=== PATIENT | female | born 1975 | race Caucasian/White ===

== ENCOUNTER 2016-11-10 16:18 | Emergency (ER) | payer MEDICARE, MEDICAID ==
[~2016-11-10] VITALS: Ht 162.6 cm; Wt 98.8 kg
[~2016-11-10 16:18] MED LIST: ACET-62 PO; ALBU8.5H INH; ASPI81TA2 PO; BENZ1TAB7 PO; CLON1TAB4 PO; FLUT9.9S NAS; LAMO200T49 PO; LORA1TAB3 PO; MELO-267 PO; NITR0.4T SL; OMEP40CA52 PO; OXYC1TAB13 PO; POTA20TA87 PO; RISP2TAB22 PO; SUCR1TAB PO; TIOT4MIS5 INH; VERA80TA5 PO
[2016-11-10 16:20] VITALS: Ht 162.6 cm; Wt 98.8 kg
--- OUTSIDE RECORDS SUMMARY | 2016-11-10 16:23 | XMS REPORT | Continuity of Care Document ---
Author Author [facility] Organization [facility] Address Unknown Phone Unavailable Care Team Providers Care Route Aide Name Role Phone JUNIE ESTRADA MD Primary Care Physician Unavailable Insurance Providers Payer Name Policy Number Subscriber Name Relationship Medicare [id number] Jessica Osborne 20 Self Medicaid [id number] Jessica Osborne 20 Self Advance Directives Directive Response Recorded Date/Time Advanced Directives Type None 05/14/14 3:21pm Problems Medical Problems Problem Onset Date Status Dysuria Unknown Active Exposure to STD Unknown Active Anxiety Unknown Active Headache Unknown Active Anxiety Unknown Active Dehydration Unknown Active Bipolar disorder Unknown Active Panic attack Unknown Active Stress Unknown Active Anxiety Unknown Active Chest pain Unknown Active ALCOHOL AND DRUG INTOXICATION Unknown Active Depression Unknown Active Gastroenteritis presumed infectious Unknown Active Anxiety Unknown Active Low back pain with sciatica Unknown Active Low back pain with sciatica Unknown Active Neck muscle strain Unknown Active History of urinary retention Unknown Active Contusion of head Unknown Active Neck muscle strain Unknown Active Right flank pain Unknown Active Sinusitis Unknown Active Sinusitis Unknown Active Allergic reaction Unknown Active Allergic reaction Unknown Active Medications Medication Dose Route Sig Days/Qty Instructions Order Date Discontinued Date Status Clonazepam 2 Mg PO THREE TIMES A DAY 05/30/10 06/18/11 Discontinued Gabapentin 600 Mg PO FOUR TIMES DAILY 10/21/08 11/18/09 Discontinued Metformin Hcl 500 Mg PO THREE TIMES A DAY 11/18/09 12/25/09 Discontinued [Antibiotic] 02/16/09 03/25/09 Discontinued Phentermine Hcl 02/16/09 03/25/09 Discontinued Alprazolam 2 Mg PO NEEDED 03/25/09 06/07/09 Discontinued Benztropine Mesylate DAILY OR BID 03/27/09 06/07/09 Discontinued Tramadol Hcl 03/27/09 06/07/09 Discontinued Diazepam THREE TIMES A DAY 03/27/09 06/07/09 Discontinued Methocarbamol 750 Mg PO QIDPRN 06/07/09 11/18/09 Discontinued Etodolac 400 Mg PO TIDPRN 06/07/09 11/18/09 Discontinued Fluphenazine Hcl 5 Mg PO BIDPRN 06/07/09 11/18/09 Discontinued Metronidazole TWICE A DAY 06/18/09 11/18/09 Discontinued Oxycodone Hcl/Acetaminophen Every 6 Hours 06/18/09 11/18/09 Discontinued Meloxicam 15 Mg PO DAILY 05/30/10 03/05/11 Discontinued Cyclobenzaprine Hcl 10 Mg PO TWICE A DAY 02/11/10 04/23/10 Discontinued Atenolol 25 Mg PO DAILY 04/23/10 05/30/10 Discontinued Hydrochlorothiazide 12.5 Mg PO DAILY 05/30/10 03/05/11 Discontinued Tizanidine Hcl 4 Mg PO DAILY 05/30/10 09/26/10 Discontinued Amox Tr/Potassium Clavulanate 1 Tab PO TWICE A DAY 04/23/10 Discontinued Paliperidone 1 DAILY 09/26/10 10/14/10 Discontinued Cyclobenzaprine Hcl 10 Mg PO NEEDED 09/26/10 06/18/11 Discontinued [Cholesterol Med] 1 DAILY 09/26/10 03/05/11 Discontinued [Bp Med] 09/26/10 03/05/11 Discontinued Fenofibrate Nanocrystallized 145 Mg PO DAILY 10/14/10 03/05/11 Discontinued Metoprolol Tartrate 25 Mg PO TWICE A DAY 10/14/10 01/19/12 Discontinued Hydrocodone Bit/Acetaminophen 15 Ml PO 10/14/10 03/05/11 Discontinued Gabapentin 600 Mg PO THREE TIMES A DAY 03/05/11 01/19/12 Discontinued Lorazepam 1 Mg PO NEEDED 03/30/11 05/03/11 Discontinued Haloperidol 5 Mg PO DAILY 03/30/11 05/03/11 Discontinued Meloxicam 15 Mg PO DAILY 03/30/11 05/09/11 Discontinued Tramadol Hcl 50 Mg PO NEEDED 03/30/11 05/09/11 Discontinued Multivitamins W-Minerals 1 Cap PO DAILY 03/30/11 Active Fenofibrate Nanocrystallized 145 Mg PO DAILY 03/30/11 05/09/11 Discontinued [Latuda] BEDTIME 05/09/11 06/18/11 Discontinued Diphenhydramine Hcl 50 Mg PO BEDTIME 05/09/11 06/18/11 Discontinued Buspirone Hcl 15 Mg PO TWICE A DAY 06/18/11 01/19/12 Discontinued Olanzapine 15 Mg PO BEDTIME 06/18/11 01/19/12 Discontinued Ranitidine Hcl 150 Mg PO TWICE A DAY 06/18/11 01/11/12 Discontinued Clonazepam 0.5 Mg PO THREE TIMES A DAY PRN ANXIETY/AGITATION Active Calcium Carbonate 1 Tab PO TWICE A DAY 03/11/12 Active Quetiapine Fumarate 300 Mg PO NEEDED 07/07/13 11/17/13 Discontinued Omeprazole Magnesium 20 Mg PO BEFORE BREAKFAST 11/09/13 03/13/14 Discontinued Hydroxyzine Hcl 25 Mg PO 11/09/13 11/17/13 Discontinued Hydroxyzine Hcl 100 Mg PO FOUR TIMES DAILY 11/17/13 03/13/14 Discontinued Albuterol 2.5 Mg AEROSOL NEEDED 11/17/13 Active Carisoprodol 350 Mg PO THREE TIMES A DAY 12/12/13 Active Oxycodone Hcl/Acetaminophen 1 Tab PO EVERY SIX HOURS PRN PAIN Active Omeprazole 40 Mg PO DAILY 03/13/14 Active Sucralfate 1 G PO FOUR TIMES DAILY 03/13/14 Active Topiramate 50 Mg PO BEDTIME 03/13/14 Active Haloperidol DAILY 60 Qty 04/14/14 Active Propranolol HCl TWICE A DAY 60 Qty 04/14/14 Active Gabapentin NEEDED 30 Qty 04/14/14 Active Cefdinir 1 Cap PO TWICE A DAY 10 Days 04/14/14 Active Ranitidine HCl 150 Mg PO TWICE A DAY For ALLERY SYMPTOMS 10 Qty Take 1 tablet, by mouth, 2 times a day. 05/14/14 Active Diphenhydramine HCl 1 Cap PO Q4H For ALLERY SYMPTOMS 20 Qty 05/14/14 Active Methylprednisolone 1 Pack PO weekly For ALLERY SYMPTOMS 1 Qty 05/14/14 Active Social History Social History Problem Response Recorded Date/Time Smoking Status Current every day smoker 01/29/2014 7:15pm Chewing Tobacco Status No 01/29/2014 7:15pm Hx Substance Use Y PT REPORTS "IN THE PAST" 05/14/2014 3:15pm Hx Alcohol Use Y STOPPED DRINKING A YEAR AGO 05/14/2014 3:15pm Has the pt used tobacco in the last 12 months Yes 03/13/2014 1:48pm Query Response Start Date Stop Date Smoking Status Current every day smoker Hospital Discharge Instructions Instructions: Care Instructions: Reason for Hospitalization: nephrolithiasis, dehydration I was in the hospital because (patient own words): KIDNEY STONES Discharge Diet: as per hospitalization with liberal oral fluids Discharge Activity: as per prehospitalization Follow Up Appointments: call for appointment with Dr. Rothman of [facility] for Sunday of next week. Make appointment with Dr. Conway urology with in the next one to two weeks. All other appointments with other doctors stay the same. Patient Instructions: Strain all urine at home for stones. Bring in stone to Doctor so we can send to pathology. Return to care immediately if urinary pain, abdominal pain, flank pain,fevers or chills occur. Condition at time of discharge: Good Care Plan Discharge Patient: Goal: Other Patient Instructions: see patient instructions 2.If this dressing starts peeling up slightly, it may be reinforced, if it peels excessively, notify your surgeon's office. 3.You may shower with the dressing in place, but do not submerge in water 4.Do not allow water to seep under the dressing, if it should seep under, remove the dressing and notify your surgeon. Notify Physician If: Call your Surgeon if you have: 1.Chest pain, difficulty breathing, fever>100.5 degrees, chills, heart rate >100, confusion, or persistent nausea/vomitting. 2.Severe pain, swelling, redness, or warmth in either of your legs. 3.During office hours, call [phone] 4. After hours, please call [facility] at [phone], and have the dry room operator page your Surgeon IN THE EVENT OF AN EMERGENCY, seek medical care at the nearest Emergency Room Condition at time of discharge: Good Good Plan of Care Discharge Date 03/14/14 1:30pm Instructions/Education Provided DI for Kidney Stones Amoxicillin and Clavulanic Acid Tamsulosin Prescriptions See Medications Section Functional Status Query Response Date Recorded Physical Hygiene Self May 14, 2014 3:15pm Disabilities None May 14, 2014 3:15pm Devices Used None May 14, 2014 3:15pm Dressing Self May 14, 2014 3:15pm Ambulation Self May 14, 2014 3:15pm Diet Self May 14, 2014 3:15pm Mental Status Alert Oriented May 14, 2014 3:15pm Disabilities None May 14, 2014 3:15pm Devices Used None May 14, 2014 3:15pm Physical Hygiene Self May 14, 2014 3:15pm Dressing Self May 14, 2014 3:15pm Ambulation Self May 14, 2014 3:15pm Diet Self May 14, 2014 3:15pm Allergies, Adverse Reactions, Alerts Allergen Type Severity Reaction Status Last Updated ziprasidone HCl Allergy Unknown Active 05/14/14 ziprasidone mesylate Allergy Unknown Active 05/14/14 Bupropion Allergy Unknown Active 05/14/14 Citalopram Allergy Unknown Active 05/14/14 Immunizations Name Given Type Hx Influenza Vaccination No Historical Hx Pneumococcal Vaccination No Historical Hx Tetanus, Diptheria, Pertussis No Historical Hx Influenza Vaccination No Historical Hx Tetanus Diptheria No Historical Hx Tetanus, Diptheria, Pertussis No Historical Hx Tetanus Toxoid Vaccination No Historical Vital Signs Acute Vital Signs Vital Response Date/Time Temperature (Fahrenheit) 97 deg F (96.8 - 99.1) Temperature (Calculated Celsius) 36.1140 degrees C (36.0 - 37.3) Pulse Rate (adult) 88 bpm (60 - 100) Respiratory Rate 14 breaths/min (10 - 20) O2 Sat by Pulse Oximetry 96 % (90 - 100) Blood Pressure 104/73 mm Hg Height 5 ft 4 in Weight 252 lb Body Mass Index 43.0 kg/m^2 Results Test Source Date Result Interp. Ref. Range Comments Acetaminophen Level July 12, 2013 10:25am < 10 UG/ML L 10-30 TOXIC <4 HR POST INGESTION: >150 MG/L;TOXIC <12 HR POST INGESTION: >50 MG/L Activated Partial Thromboplast Time September 25, 2013 1:35pm 32.6 SEC N 24-36 Alanine Aminotransferase (ALT/SGPT) April 14, 2014 8:35pm 34 U/L N 9- 52 Albumin April 14, 2014 8:35pm 3.3 G/DL L 3.5-5.0 Albumin/Globulin Ratio April 14, 2014 8:35pm 1.1 RATIO N 1.1-2.2 Alcohol, Quantitative January 29, 2014 7:20pm <10 MG/DL - Alkaline Phosphatase April 14, 2014 8:35pm 83 U/L N 38-126 Amylase Level April 14, 2014 8:35pm 39 U/L N 30-110 Anion Gap April 14, 2014 8:35pm 11 MEQ/L N 5-15 Aspartate Amino Transf (AST/SGOT) April 14, 2014 8:35pm 34 U/L N 14-36 B-Type Natriuretic Peptide April 23, 2010 6:25pm < 15 PG/ML L 15-100 BUN/Creatinine Ratio April 14, 2014 8:35pm 4 RATIO L 6-26 Band Neutrophils # April 14, 2014 8:35pm 0.4 T/MM3 - Band Neutrophils % April 14, 2014 8:35pm 3.0 % N 0-6 Basophils # (Auto) March 16, 2014 10:47pm 0.0 T/MM3 N 0-0.2 Basophils # (Manual) April 14, 2014 8:35pm 0.2 T/MM3 N 0-0.2 Basophils % (Manual) April 14, 2014 8:35pm 2.0 % N 0-2 Basophils (%) (Auto) March 16, 2014 10:47pm 0.4 % N 0-2 Blood Urea Nitrogen April 14, 2014 8:35pm 3.0 MG/DL L 7-17 C-Reactive Protein March 13, 2014 1:40pm 11.9 MG/L H 0-9 COMMENT WILL CALL WHEN HERE Calcium Level April 14, 2014 8:35pm 8.3 MG/DL L 8.4-10.2 Calculated Osmolality April 14, 2014 8:35pm 268 MOSM/KG N 261-280 Carbon Dioxide Level April 14, 2014 8:35pm 28 MEQ/L N 22-30 Chlamydia Direct Antigen Assay July 28, 2009 9:30am Negative - Chloride Level April 14, 2014 8:35pm 102 MEQ/L N 98-107 Cholesterol Level June 05, 2008 8:30am 187 MG/DL N 132-199 Cholesterol/HDL Ratio June 05, 2008 8:30am 4.0 RATIO N 0-4.2 Conjugated Bilirubin June 18, 2011 4:16pm 0.00 MG/DL N 0.00-0.30 Creatinine April 14, 2014 8:35pm 0.8 MG/DL N 0.7-1.2 D-Dimer April 23, 2010 6:25pm 76 NG/ML N 0-224 <224 NG/ML=PRESUMPTIVE NEGATIVE FOR PE OR DVT>224 NG/ML=ADDITIONAL EVALUATION FOR PE OR DVT RECOMMENDED Differential Total Cells Counted February 11, 2010 8:40pm 100 % - Eosinophils # (Auto) March 16, 2014 10:47pm 0.1 T/MM3 N 0-0.5 Eosinophils # (Manual) April 14, 2014 8:35pm 0.5 T/MM3 N 0-0.5 Eosinophils % (Manual) April 14, 2014 8:35pm 4.0 % N 0-4 Eosinophils (%) (Auto) March 16, 2014 10:47pm 1.4 % N 0-4 Erythrocyte Sedimentation Rate March 13, 2014 1:40pm 2 MM/HR N 0-20 COMMENT WILL CALL WHEN HERE Folate April 25, 2011 4:45pm > 20.0 NG/ML H 2.76-20 NORMAL ADULT RANGE : 2.76->20 ng/mL Free Thyroxine May 06, 2010 9:46am 0.80 NG/DL N 0.78-2.19 Globulin April 14, 2014 8:35pm 2.9 G/DL N 2.4-3.6 Glucose Level April 14, 2014 8:35pm 98 MG/DL N 65-110 Hematocrit April 14, 2014 8:35pm 43.0 % N 36-46 Hemoglobin April 14, 2014 8:35pm 13.9 GM/DL N 12-16 Hemoglobin A1c August 31, 2011 10:25am 5.0 % L 6-7 <6.0 NON-DIABETIC RANGE6.0-7.0 ADA THERAPEUTIC RANGE >7.0 ACTION SUGGESTED Hepatitis A IgM Antibody October 27, 2011 9:40am Negative - Hepatitis B Core IgM Antibody October 27, 2011 9:40am Negative - Hepatitis B Surface Antigen October 27, 2011 9:40am Negative - Hepatitis C Antibody October 27, 2011 9:40am Negative - Human Insulin Antibody April 05, 2009 10:40am Send out - LDL Cholesterol, Calculated June 05, 2008 8:30am 85.8 N 66-159 Large Platelets July 07, 2013 11:55am Few - Lipase April 14, 2014 8:35pm 25 U/L N 23-300 Lymphocytes # (Auto) March 16, 2014 10:47pm 3.1 T/MM3 N 1-4.8 Lymphocytes # (Manual) April 14, 2014 8:35pm 1.5 T/MM3 N 1-4.8 Lymphocytes % (Manual) April 14, 2014 8:35pm 12.0 % L 23-45 Lymphocytes (%) (Auto) March 16, 2014 10:47pm 38.8 % N 23-45 Mean Corpuscular Hemoglobin April 14, 2014 8:35pm 30.2 UUG N 26-34 Mean Corpuscular Hemoglobin Concent April 14, 2014 8:35pm 32.3 GM/DL N 31-37 Mean Corpuscular Volume April 14, 2014 8:35pm 93.3 UM3 N 80-100 Mean Platelet Volume April 14, 2014 8:35pm 11.4 UM3 N 9.4-12.4 Monocytes # (Auto) March 16, 2014 10:47pm 0.6 T/MM3 N 0-0.8 Monocytes # (Manual) April 14, 2014 8:35pm 0.4 T/MM3 N 0-0.8 Monocytes % (Manual) April 14, 2014 8:35pm 3.0 % N 0-9.0 Monocytes (%) (Auto) March 16, 2014 10:47pm 7.9 % N 0-9.0 Monoscreen April 14, 2014 8:35pm Negative - Neutrophils # (Auto) March 16, 2014 10:47pm 4.1 T/MM3 N 1.8-7.7 Neutrophils # (Manual) April 14, 2014 8:35pm 6.9 T/MM3 N 1.8-7.7 Neutrophils % (Manual) April 14, 2014 8:35pm 56.0 % N 33-66 Neutrophils (%) (Auto) March 16, 2014 10:47pm 51.4 % N 33-66 Platelet Count April 14, 2014 8:35pm 236 T/MM3 N 130-400 Potassium Level April 14, 2014 8:35pm 3.3 MEQ/L L 3.6-5 Prothromb Time International Ratio September 25, 2013 1:35pm 0.98 N 0.86- 1.10 THERAPUTIC RANGE=2.00-3.00 FOR ANTI-THROMBOSIS THERAPUTIC RANGE=2.50- 3.50 FOR IMPLANTED VALVE RDW Standard Deviation April 14, 2014 8:35pm 48.1 FL N 36.9-50.2 Rapid Plasma Reagin October 27, 2011 9:40am Nonreactive - Reactive Lymphocytes March 27, 2009 2:40pm 4.0 % H 0-0 Red Blood Count April 14, 2014 8:35pm 4.61 M/MM3 N 4.00-5.20 Salicylates Level July 12, 2013 10:25am < 1.0 MG/DL L 2-20 Sodium Level April 14, 2014 8:35pm 141 MEQ/L N 134-144 Tests Not Done November 18, 2009 11:23am Not done - Has specimen been collected/obtained? Y Thyroid Stimulating Hormone (TSH) March 16, 2014 10:47pm 3.63 MIU/L N 0.47-4.68 Total Bilirubin April 14, 2014 8:35pm 0.20 MG/DL N 0.20-1.30 Total Protein April 14, 2014 8:35pm 6.2 G/DL L 6.3-8.2 Triglycerides Level June 05, 2008 8:30am 291 MG/DL H 35-135 Troponin I September 25, 2013 1:35pm < 0.012 ng/ml 0-0.12 Unconjugated Bilirubin June 18, 2011 4:16pm 0.20 MG/DL N 0.00-1.10 Urine Bacteria March 13, 2014 1:32pm 2+ H - Has specimen been collected/ obtained? Y Urine Bilirubin April 14, 2014 8:00pm Negative - Has specimen been collected/obtained? Y Urine Blood April 14, 2014 8:00pm Negative - Has specimen been collected/obtained? Y Urine Collection Type April 14, 2014 8:00pm Cleancatch-midstream - Has specimen been collected/obtained? Y Urine Color April 14, 2014 8:00pm Yellow - Has specimen been collected/obtained? Y Urine Culture Indicated March 13, 2014 1:32pm Cult reflexed &setup - Has specimen been collected/obtained? Y Urine Drug Screen Confirmation July 12, 2013 11:23am Sent out - Urine Glucose (UA) April 14, 2014 8:00pm Negative - Has specimen been collected/obtained? Y Urine Ketones April 14, 2014 8:00pm Negative - Has specimen been collected/obtained? Y Urine Leukocyte Esterase April 14, 2014 8:00pm Negative - Has specimen been collected/obtained? Y Urine Mucus March 18, 2011 7:18pm Present - Has specimen been collected/obtained? Y Urine Nitrite April 14, 2014 8:00pm Negative - Has specimen been collected/obtained? Y Urine Test May 28, 2013 7:35pm Negative - Has specimen been collected/obtained? Y Urine Protein April 14, 2014 8:00pm Negative - Has specimen been collected/obtained? Y Urine RBC March 13, 2014 1:32pm 1-3 /HPF - Has specimen been collected /obtained? Y Urine Renal Epithelial Cells March 13, 2014 10:09am 3-5 /HPF - Urine Specific Howard April 14, 2014 8:00pm <=1.005 L - Has specimen been collected/obtained? Y Urine Squamous Epithelial Cells March 13, 2014 10:09am 5-10 - Urine Turbidity April 14, 2014 8:00pm Sl cloudy - Has specimen been collected/obtained? Y Urine Urobilinogen April 14, 2014 8:00pm 0.2 EU/DL - Has specimen been collected/obtained? Y Urine WBC March 13, 2014 1:32pm 20-30 /HPF H - Has specimen been collected/obtained? Y Urine pH April 14, 2014 8:00pm 6.0 - Has specimen been collected/ obtained? Y VLDL Cholesterol June 05, 2008 8:30am 58.2 MG/DL H 0-28 Vitamin B12 Level April 25, 2011 4:45pm 437 PG/ML N 239-931 White Blood Count April 14, 2014 8:35pm 12.3 T/MM3 H 4.5-11.0 Chemistry Specimen Hemolysis April 14, 2014 8:35pm < 15 0-25 0-25: No Hemolysis.26-70: Slight Hemolysis - can falsely elevate K and Urine Protein. 71-285: Moderate Hemolysis - can falsely elevate K, Troponin I, CA 19-9, PTH, CSF GLucose, and Urine Protein, and can falsely decrease Phenytoin. 286-999: Gross Hemolysis - can falsely elevate K, Troponin I, CA 19-9, PTH, CSF Glucose, and Urine Protine, and can falsely decrease Phenytoin. Recommend specimen recollection. Urinalysis Comment April 14, 2014 8:00pm Microscopic not ind. - Has specimen been collected/obtained? Y Lab Scanned Report March 13, 2014 11:17am LAB TEST FORM REQUEST [id number] - Chlamydia trachomatis Amplified DNA January 24, 2011 9:05pm Ref lab rpt scanned - --- 01/27/11 1152 ---CHLAMDNA previously reported as: SENT OUT EKG June 07, 2009 2:45pm Complete - HDL Cholesterol Direct June 05, 2008 8:30am 43 MG/DL N 40-60 Atypical/Reactive Lymphocytes March 27, 2009 2:40pm 0.3 T/MM3 H 0-0 Urine Methadone Screen July 12, 2013 10:50am Negative NG/ML - HIV (1&2) Antibody Rapid October 27, 2011 9:40am Negative - Turbidity April 14, 2014 8:35pm < 20 0-20 Reactive Lymphocytes % April 14, 2014 8:35pm 20.0 % DH 0-0 Glomerular Filtration Rate Calc April 14, 2014 8:35pm 81 - Reactive Lymphocytes # April 14, 2014 8:35pm 2.5 T/MM3 H 0-0 Immature Granulocyte # (Auto) March 16, 2014 10:47pm 0.01 T/MM3 N 0.00- 0.03 Immature Granulocyte % (Auto) March 16, 2014 10:47pm 0.1 % N 0.0-0.5 Venous Blood Lactate March 13, 2014 10:09am 1.2 MMOL/L N 0.6-2.2 Procalcitonin March 13, 2014 1:40pm < 0.05 NG/ML - PCT </=0.5 ng/mL - sepsis not likely;PCT >0.5 and </=2 ng/mL - sepsis possible; PCT >2 ng/mL - sepsis likely; PCT >/=10 ng/mL - systemic inflammatory response - sepsis or septic shock highly indicated. Icterus Index April 14, 2014 8:35pm < 2 0-7 Urine Acetaminophen Screen July 12, 2013 10:50am Negative NG/ML - AN-Fji-T-Type Natriuretic Peptide July 07, 2013 11:55am 112 PG/ML N 0-175 Rule in cut points: <50 years old=450; 50-75 years old=900; >75 years old=1800; When utilizing ProBNP rule-in cut points, adjustment for impaired renal function is typically not required. Urine Microscopic Not Indicated May 09, 2011 5:00pm Not indicated - Has specimen been collected/obtained? Y Blood Culture Blood March 13, 2014 1:47pm NO GROWTH AFTER 5 DAYS Wet Prep Vagina January 04, 2012 8:30am Wet Prep Other June 14, 2009 5:36pm Urine Culture Urine, Voided-Not Cc-Midstream March 13, 2014 1:52pm Gram Negative Bryan Name: JESSICA OSBORNE Unit #: [id number] : 1975 Sex: F Loc / Svc: ED DOS: 04/14/14 Signed Report #: [id number] DIAGNOSTIC IMAGING REPORT TYPE OF EXAM: CHEST, PA & LATERAL Dictated By: IOANA BLAKE MD INDICATION: ITS.REASON: cough CHEST 2-VIEWS UPRIGHT (PA & LAT): COMPARISON: January 29, 2014 FINDINGS: The lungs are clear without evidence of focal abnormal airspace opacity. There is no pleural effusion or pneumothorax. The heart size, mediastinal contours and pulmonary vascularity are within normal limits. There is no significant skeletal abnormality. IMPRESSION: No acute cardiopulmonary disease. . Procedures Procedure Status Date Provider(s) THER/PROPH/DIAG INJ IV PUSH completed 03/16/14 Encounters Encounter Location Date/Time Departed Emergency Room [facility] 05/14/14 2:44pm Departed Emergency Room [facility] 04/14/14 7:37pm Departed Emergency Room [facility] 03/16/14 10:03pm Discharged Inpatient [facility] 03/13/14 1:02pm Registered Clinic [facility] 03/13/14 9:49am Recent Diagnosis
--- OUTSIDE RECORDS SUMMARY | 2016-11-10 16:24 | XMS REPORT | Continuity of Care Document ---
Author Author [facility] Organization [facility] Address Unknown Phone Unavailable Support Name Relationship Address Phone ESTHER MERCADO DO Caregiver [address] [place] [address] Unavailable LORI GO COTTON EXPERT Caregiver [address] [place] [address] Unavailable LORETTA OSBORNE Next Of Kin [address] [place] [address] Insurance Providers Guarantor Jessica Osborne Address [address] [place], [place] [id number] Email DENIED/NO TO PT [facility] Payer Medicaid Policy Number [id number] Subscriber's Name Jessica Osborne Relationship 18 Self Effective Date 16 Expiration Date 16 Payer Medicare Policy Number [id number] Subscriber's Name Jessica Osborne Relationship 18 Self Chief Complaint and Reason for Visit Chief Complaint General Reason for Visit Anxiety Problems Active Problems Medical Problem Onset Date Status ALCOHOL AND DRUG INTOXICATION Unknown Acute Acute exacerbation of chronic bronchitis Unknown Acute Acute exacerbation of chronic bronchitis Unknown Acute Allergic reaction Unknown Acute Allergic reaction Unknown Acute Altered mental status Unknown Anxiety Unknown Acute Anxiety Unknown Acute Anxiety Unknown Acute Anxiety Unknown Acute Anxiety Unknown Chronic Anxiety Unknown Acute Anxiety Unknown Acute Anxiety Unknown Acute Anxiety Unknown Acute Anxiety Unknown Acute Anxiety Unknown Acute Anxiety Unknown Acute Anxiety Unknown Acute Asthma Unknown Chronic Atypical chest pain Unknown Acute Atypical chest pain Unknown Acute Atypical chest pain Unknown Acute Atypical chest pain Unknown Acute Bipolar 1 disorder Unknown Chronic Bipolar disorder Unknown Acute Bronchitis Unknown Acute Chest discomfort Unknown Acute Chest pain Unknown Acute Chest tightness Unknown Acute Contusion of head Unknown Acute Contusion of head Unknown Acute Costochondritis Unknown Acute Dehydration Unknown Acute Depression Unknown Acute Dysuria Unknown Acute Elevated TSH Unknown Acute Exposure to STD Unknown Acute Fall Unknown Acute GERD (gastroesophageal reflux disease) Unknown Chronic Gastroenteritis presumed infectious Unknown Acute Genital herpes Unknown Acute Genital warts Unknown Acute Headache Unknown Acute History of alcohol abuse Unknown Chronic History of pulmonary embolism Unknown Chronic History of urinary retention Unknown Acute Hx of chronic bronchitis Unknown Acute Hypercholesterolemia Unknown Chronic Hypertension Unknown Chronic Hypokalemia Unknown Acute IBS (irritable bowel syndrome) ~04/2014 Chronic Insomnia Unknown Acute Laceration of head Unknown Acute Laceration of head Unknown Acute Leukocytosis Unknown Acute Leukocytosis Unknown Acute Low back pain with sciatica Unknown Acute Low back pain with sciatica Unknown Acute NSTEMI (non-ST elevated myocardial infarction) 05/19/2014 Acute Neck muscle strain Unknown Acute Neck muscle strain Unknown Acute Pain, dental Unknown Acute Panic attack Unknown Acute Patient left without being seen Unknown Acute Right flank pain Unknown Acute Sepsis Unknown Acute Sinusitis Unknown Acute Sinusitis Unknown Acute Sinusitis Unknown Acute Stress Unknown Acute Tobacco dependence Unknown Chronic Trichomoniasis Unknown Acute Trichomoniasis Unknown Acute Trichomoniasis Unknown Acute Upper respiratory infection Unknown Acute Upper respiratory infection Unknown Acute Well adult exam Unknown Acute Well adult exam Unknown Acute Past Problems Medical Problem Onset Date Anxiety Unknown Atypical chest pain Unknown Hypoxia Unknown Medications Current Home Medications Medication Dose Units Route Directions Days Qty Instructions Start Date Acetaminophen 500 Mg Tablet 1,000 Mg Oral Every 8 Hours as needed for Pain 05/13/16 Albuterol Sulfate (Proair Hfa 90 Mcg/Actuation) 8.5 Gm Hfa.aer.ad 2 Puff Inhalation Every 6 Hours as needed for Prn Orders 02/23/15 Aspirin 81 Mg Tab.chew 81 Mg Oral Daily 02/24/15 Benztropine Mesylate 1 Mg Tablet 1 Mg Oral Three Times A Day 04/10 Clonazepam 1 Mg Tablet 1 Mg Oral Twice A Day 05/13/16 Fluticasone Propionate (Flonase Allergy Relief 50 Mcg/Actuation Nasal) 9.9 Ml [place].susp 2 [place] Intranasal Daily 02/23/15 Lamotrigine 200 Mg Tablet 200 Mg Oral Twice A Day 06/30/15 Lorazepam 1 Mg Tablet 1 Mg Oral Three Times A Day as needed for Anxiety 04/21/16 Meloxicam 15 Mg Tablet 15 Mg Oral Daily 04/04/16 Nitroglycerin (Nitrostat) 0.4 Mg Tablet 0.4 Mg Sublingual Every 5 Minutes X 3 as needed for Chest Pain 10/20/14 Omeprazole 40 Mg Capsule.dr 40 Mg Oral Twice A Day 03/28/16 Oxycodone Hcl/Acetaminophen (Percocet 10-325 Mg Tablet) 1 Each Tablet 1 Tab Oral Every 6 Hours as needed for Pain 10/20/14 Potassium Chloride 20 Meq Tab.er.prt 20 Meq Oral Twice A Day Risperidone 2 Mg Tablet 1 Mg Oral Daily 05/13/16 Sucralfate 1 Gm Tablet 1 Gm Oral Twice A Day 12/12/14 Tiotropium [place] (Spiriva Respimat) 4 Gm Mist.inhal 1 Puff Inhalation Daily 05/13/16 Verapamil Hcl 80 Mg Tablet 80 Mg Oral Three Times A Day 10/20/14 Past Home Medications Medication Directions Ordered Status Alprazolam (Xanax) 1 Mg Tablet, 1 Mg Oral Every 6 Hours 10/16/14 Discontinued Alprazolam (Xanax) 2 Mg Tablet, 2 Mg Oral As Needed 03/25/09 Discontinued Amox Tr/Potassium Clavulanate (Augmentin 875-125 Tablet) 1 Tab Tablet, 1 Tab Oral Twice A Day 04/23/10 Discontinued Antibiotic , 02/16/09 Discontinued Atenolol 25 Mg Tablet, 25 Mg Oral Daily 04/23/10 Discontinued Baclofen 10 Mg Tablet, 1 Tab Oral Daily 03/03/15 Discontinued Benzatropine , 1 Mg Oral Twice A Day 09/29/14 Discontinued Benztropine Mesylate 2 Mg Tablet, Daily Or Bid 03/27/09 Discontinued Bp Med , 09/26/10 Discontinued Bumetanide 1 Mg Tablet, 1 Tab Oral Twice A Day 02/23/15 Discontinued Buspirone Hcl 15 Mg Tablet, 15 Mg Oral Twice A Day 06/18/11 Discontinued Carisoprodol 350 Mg Tablet, 1 Tab Oral Three Times A Day 03/03/15 Discontinued Cefdinir 300 Mg Capsule, 1 Cap Oral Twice A Day 04/14/14 Discontinued Cholesterol Med , 1 Daily 09/26/10 Discontinued Clindamycin Hcl 300 Mg Capsule, 1 Cap Oral Four Times Daily 03/03/15 Discontinued Clonazepam (Klonopin) 2 Mg Tablet, 2 Mg Oral Three Times A Day 05/30/10 Discontinued Cyclobenzaprine Hcl (Flexeril) 10 Mg Tablet, 10 Mg Oral As Needed 09/26/10 Discontinued Cyclobenzaprine Hcl (Flexeril) 10 Mg Tablet, 10 Mg Oral Twice A Day 02/11/10 Discontinued Diazepam (Valium) 5 Mg Tablet, Three Times A Day 03/27/09 Discontinued Diphenhydramine Hcl (Benadryl) 50 Mg Capsule, 50 Mg Oral Bedtime 05/09/11 Discontinued Etodolac 400 Mg Tablet, 400 Mg Oral Tidprn 06/07/09 Discontinued Fenofibrate Nanocrystallized (Tricor) 145 Mg Tablet, 145 Mg Oral Daily Discontinued Fenofibrate Nanocrystallized (Tricor) 145 Mg Tablet, 145 Mg Oral Daily Discontinued Fluphenazine Hcl 5 Mg Tablet, 5 Mg Oral Bidprn 06/07/09 Discontinued Furosemide 20 Mg Tablet, 1 Tab Oral Twice A Day 03/03/15 Discontinued Furosemide (Lasix) 20 Mg Tablet, 1 Tab Oral Daily 09/29/14 Discontinued Furosemide 20 Mg Tablet, 20 Mg Oral Daily 05/15/14 Discontinued Gabapentin 600 Mg Tablet, 600 Mg Oral Three Times A Day 03/05/11 Discontinued Gabapentin 600 Mg Tablet, 600 Mg Oral Four Times Daily 10/21/08 Discontinued Haloperidol (Haldol) 0.5 Mg Tablet, 5 Mg Oral Daily 03/30/11 Discontinued Hydrochlorothiazide 12.5 Mg Capsule, 12.5 Mg Oral Daily 05/30/10 Discontinued Hydrocodone Bit/Acetaminophen (Lortab Elixir) 480 Ml Solution, 15 Ml Oral 10/14/10 Discontinued Hydroxyzine Hcl 50 Mg Tablet, 100 Mg Oral Four Times Daily 11/17/13 Discontinued Hydroxyzine Hcl 25 Mg Tablet, 25 Mg Oral 11/09/13 Discontinued Lamotrigine 100 Mg Tablet, 1.5 Tab Oral Twice A Day 03/03/15 Discontinued Lamotrigine 100 Mg Tablet, 1 Tab Oral Twice A Day 12/12/14 Discontinued Latuda , Bedtime 05/09/11 Discontinued Lorazepam 1 Mg Tablet, 1 Mg Oral As Needed 03/30/11 Discontinued Meloxicam 7.5 Mg Tablet, 1 Tab Oral Twice A Day 07/25/14 Discontinued Meloxicam (Mobic) 15 Mg Tablet, 15 Mg Oral Daily 03/30/11 Discontinued Meloxicam (Mobic) 15 Mg Tablet, 15 Mg Oral Daily 05/30/10 Discontinued Metformin Hcl 500 Mg Tablet, 500 Mg Oral Three Times A Day 11/18/09 Discontinued Methocarbamol 750 Mg Tablet, 750 Mg Oral Four Times Daily Prn 06/07/09 Discontinued Metoprolol Tartrate 25 Mg Tablet, 25 Mg Oral Twice A Day 10/14/10 Discontinued Metronidazole (Flagyl) 500 Mg Tablet, Twice A Day 06/18/09 Discontinued Multivitamins W-Minerals (Multivitamin) 1 Cap Capsule, 1 Cap Oral Daily 03/30 Discontinued Olanzapine (Zyprexa) 15 Mg Tablet, 15 Mg Oral Bedtime 06/18/11 Discontinued Omeprazole (Prilosec) 40 Mg Capsule.dr, 40 Mg Oral Daily 03/13/14 Discontinued Omeprazole Magnesium (Prilosec Otc) 20 Mg Tablet.dr, 20 Mg Oral Before Breakfast 11/09/13 Discontinued Oxycodone Hcl/Acetaminophen (Percocet 10-325 Mg Tablet) 1 Each Tablet, 1 Tab Oral As Needed 09/04/14 Discontinued Oxycodone Hcl/Acetaminophen (Oxycodone Hcl-Apap 7.5/500 Tab) 1 Tab Tablet, Every 6 Hours 06/18/09 Discontinued Paliperidone (Invega) 6 Mg/Blist Pack Tab.osm.24, 1 Daily 09/26/10 Discontinued Phentermine Hcl 37.5 Mg Capsule, 02/16/09 Discontinued Potassium Chloride (Klor-Con M20) 20 Meq Tablet, 1 Tab Oral Daily 09/29/14 Discontinued Propranolol Hcl 40 Mg Tablet, Twice A Day 04/14/14 Discontinued Quetiapine Fumarate (Seroquel) 300 Mg Tablet, 300 Mg Oral As Needed 07/07/13 Discontinued Ranitidine Hcl (Zantac 75) 75 Mg Tablet, 150 Mg Oral Twice A Day 06/18/11 Discontinued Risperidone 1 Mg Tablet, 2 Mg Oral Twice A Day 07/25/14 Discontinued Tizanidine Hcl 4 Mg Tablet, 4 Mg Oral Daily 05/30/10 Discontinued Tramadol Hcl 50 Mg Tablet, 50 Mg Oral As Needed 09/29/14 Discontinued Tramadol Hcl (Ultram) 50 Mg Tablet, 50 Mg Oral As Needed 03/30/11 Discontinued Tramadol Hcl (Ultram Eqv) 50 Mg Tablet, 03/27/09 Discontinued Verapamil Hcl 80 Mg Tablet, 80 Mg Oral Three Times A Day 05/19/14 Discontinued Social History Social History Problem Response Recorded Date/Time Onset Date Status Chewing Tobacco Status No 01/29/2014 7:15pm Not Applicable Not Applicable Hx Substance Use Y HX OF CRACK [id number] 09/19/2016 9:20am Not Applicable Not Applicable Hx Alcohol Use No 09/19/2016 9:20am Not Applicable Not Applicable Has the pt used tobacco in the last 12 months Yes 03/28/2016 8:05pm Not Applicable Not Applicable Tobacco Usage smoke 10/28/2014 5:26pm Not Applicable Not Applicable Query Response Start Date Stop Date Smoking Status Current every day smoker Hospital Discharge Instructions No hospital discharge instructions. Plan of Care Discharge Date 09/19/16 9:30am Disposition 01 DISCHARGED HOME, SELF-CARE Condition at Discharge Improved Instructions/Education Provided Anxiety (ED) Prescriptions See Medication Section Referrals LORI GO APRN Order Date: 1 Day Address: [place] [phone] Note: [employer] Note: today as scheduled Care Plan and Goals Physician Care Plan Problem: 1. Anxiety Goal: 1. Follow up with primary care provider and [place] today as scheduled 2. Continue Homw Medications 3. Return to the ER as needed Instructions: 1. Follow care plan as discussed/written Functional Status No functional status results. Allergies, Adverse Reactions, Alerts Allergen Type Severity Reaction Status Last Updated ziprasidone HCl Allergy Unknown Active 06/23/16 ziprasidone mesylate Allergy Unknown Active 06/23/16 Bupropion Allergy Unknown Active 06/23/16 Citalopram Allergy Unknown Active 06/23/16 Immunizations Query Response on File Recorded Date/Time Hx Influenza Vaccination Y 04/201503/28/16 8:05pm Hx Pneumococcal Vaccination No 03/28/16 8:05pm Hx Tetanus, Diptheria, Pertussis No 05/01/15 12:54pm Hx Influenza Vaccination Y 04/201503/28/16 8:05pm Hx Tetanus Diptheria No 05/01/15 12:54pm Hx Tetanus, Diptheria, Pertussis No 05/01/15 12:54pm Hx Tetanus Toxoid Vaccination No 06/10/14 10:50pm Influenza Vaccine Hx 2016 09/19/16 9:20am Tetanus Diptheria Vaccine History OVER 10 YEARS 09/19/16 9:20am Vital Signs Acute Vital Signs Vital Response Date/Time Temperature (Fahrenheit) 98.6 deg F (96.8 - 99.1) 09/19/2016 9:30am Temperature (Calculated Celsius) 37.42529 degrees C (36.0 - 37.3) 09/19/2016 9:30am Pulse Rate (adult) 82 bpm (60 - 100) 09/19/2016 9:30am Respiratory Rate 20 breaths/min (10 - 20) 09/19/2016 9:30am O2 Sat by Pulse Oximetry 97 % (90 - 100) 09/19/2016 9:30am Blood Pressure 127/78 mm Hg 09/19/2016 9:30am Height (Feet) 5 feet 09/19/2016 8:24am Height (Inches) 4.00 inches 09/19/2016 8:24am Weight (Kilograms) 96.300 kg 09/19/2016 8:24am Body Mass Index (BMI) 36.0 09/19/2016 8:24am Results Laboratory Results Test Name Result Units Flags Reference Collection Date/Time Result Date/ Time Comments HIV (1&2) Antibody Screen Negative 06/23/2016 10:50am 06/23/2016 11 :06pm Hepatitis C Antibody Negative 06/23/2016 10:50am 06/23/2016 11: 06pm Chlamydia trachomatis Source URINE 06/23/2016 10:50am 06/27/2016 8: 07am Urine Chlamydia trachomatis Confirm NEGATIVE NEGATIVE 06/23/2016 10: 50am 06/27/2016 8:06am ADDITIONAL INFORMATION ----- This report is intended for use in clinical monitoring and management of patients. It is not intended for use in medical-legal applications. Neisseria gonorrhoeae RNA Confirm NEGATIVE NEGATIVE 06/23/2016 10: 50am 06/27/2016 8:06am ADDITIONAL INFORMATION ----- This report is intended for use in clinical monitoring and management of patients. It is not intended for use in medical-legal applications. Test Performed by: [facility] [address] Lamp Stack Developer: Victor Hugo Torres II, M.D., Ph.D. IA#[id number] Neisseria gonorrhoeae Source URINE 06/23/2016 10:50am 06/27/2016 8: 07am Urine Collection Type [place] 06/23/2016 10:17am 06/23 10:30am Urine Color ORANGE YELLOW 06/23/2016 10:17am 06/23/2016 10:30am Urine Turbidity CLOUDY CLEAR 06/23/2016 10:17am 06/23/2016 10:30am Urine Specific [place] 1.015 1.015-1.025 06/23/2016 10:17am 2015 10:30am Urine pH 5.0 5.0-8.0 06/23/2016 10:17am 06/23/2016 10:30am Urine Leukocyte Esterase NEGATIVE NEGATIVE 06/23/2016 10:17am 2015 10:30am Urine Nitrite NEGATIVE NEGATIVE 06/23/2016 10:17am 06/23/2016 10: 30am Urine Protein NEGATIVE NEGATIVE 06/23/2016 10:17am 06/23/2016 10: 30am Urine Glucose (UA) NEGATIVE NEGATIVE 06/23/2016 10:17am 06/23/2016 10 :30am Urine Ketones NEGATIVE NEGATIVE 06/23/2016 10:17am 06/23/2016 10: 30am Urine Urobilinogen 1 EU/DL NORMAL 06/23/2016 10:17am 06/23/2016 10: 30am Urine Bilirubin 1+ A NEGATIVE 06/23/2016 10:17am 06/23/2016 10:30am Urine Blood NEGATIVE NEGATIVE 06/23/2016 10:17am 06/23/2016 10:30am Procedures Procedure Status Date Provider(s) X-ray exam hips bi 5/> views Completed 08/31/16 Encounters Encounter Location Arrival/Admit Date Discharge/Depart Date Attending Provider Departed Emergency Room [facility] 09/19/16 8:12am 09/19/16 9: 30am ESTHER MERCADO DO [facility] 08/31/16 8:57am LORI GO APRN Departed Emergency Room [facility] 08/23/16 4:34pm 08/23/16 4: 37pm JAVAN MARRERO MD Departed Emergency Room [facility] 07/11/16 4:10pm 07/11/16 4: 30pm JAVAN MARRERO MD Departed Emergency Room [facility] 06/23/16 10:11am 06/23/16 11: 20am MICHAEL BUCK APRN Recent Diagnosis
--- OUTSIDE RECORDS SUMMARY | 2016-11-10 16:25 | XMS REPORT | Continuity of Care Document ---
Author Author [facility] Organization [facility] Address Unknown Phone Unavailable Care Team Providers Care Relationship Consultant Name Role Phone JUNIE ESTRADA MD Primary Care Physician Unavailable Insurance Providers Payer Name Policy Number Subscriber Name Relationship Medicare [id number] Jessica Osborne 20 Self Problems Medical Problems Problem Onset Date Status [...] Unknown Active Neck muscle strain Unknown Active Medications Medication Dose Route Sig [...] Tab PO TWICE A DAY 03/11/12 Active [Metoprolol Tart50 Mg] 50 Mg PO DAILY 11/11/12 Active Quetiapine Fumarate 300 Mg PO NEEDED 07/07/13 11/17/13 Discontinued Omeprazole Magnesium 20 Mg PO BEFORE BREAKFAST 11/09/13 03/13/14 Discontinued Hydroxyzine Hcl 25 Mg PO 11/09/13 11/17/13 Discontinued Hydroxyzine Hcl 100 Mg PO FOUR TIMES DAILY 11/17/13 03/13/14 Discontinued Lurasidone Hcl 80 Mg PO DAILY 11/17/13 Active Albuterol 2.5 Mg AEROSOL NEEDED 11/17/13 Active Carisoprodol 350 Mg PO THREE TIMES A DAY 12/12/13 Active Oxycodone Hcl/Acetaminophen 1 Tab PO EVERY SIX HOURS PRN PAIN Active Omeprazole 40 Mg PO DAILY 03/13/14 Active Sucralfate 1 G PO FOUR TIMES DAILY 03/13/14 Active Topiramate 50 Mg PO BEDTIME 03/13/14 Active Tamsulosin Hcl 0.4 Mg PO DAILY 30 Qty 03/14/14 Active Amox Tr/Potassium Clavulanate 875 Mg PO TWICE A DAY 10 Days 03/14/14 Active Social History Social History Problem Response Recorded Date/Time Smoking Status Current every day smoker 01/29/2014 7:15pm Chewing Tobacco Status No 01/29/2014 7:15pm Hx Substance Use Y PT REPORTS "IN THE PAST" 03/16/2014 10:05pm Hx Alcohol Use Y STOPPED DRINKING A YEAR AGO 03/16/2014 10:05pm Has the pt used tobacco in the [...] call for appointment with Dr. Rothman of [facility] for Sunday of next week. Make appointment with Dr. Conway urology with in the next one to two weeks. All other appointments with other doctors stay the same. Patient Instructions: Strain all urine at home for stones. Bring in stone to Doctor so we can send to pathology. Return to care immediately if urinary pain, abdominal pain, flank pain,fevers or chills occur. New Scripts Called to Pharmacy: FLOMAX 0.4MG ONE TABLET DAILY UNTIL KIDNEY STONE HAS PASSED #30 WITH 1 REFILL AUGMENTIN 875MG 1 TAB TWICE A DAY FOR 10 DAYS PLEASE CALL DOCTOR IF DIARRHEA OCCURS Condition at time of discharge: Good Care Plan Discharge Patient: Goal: Other Patient Instructions: see patient instructions IN THE EVENT OF AN EMERGENCY, seek medical care at the nearest Emergency Room Condition at time of discharge: Good Care Plan Discharge Patient: Goal: Maximum functional status Patient Instructions: see patient instructions Plan of Care Discharge Date 03/14/14 1:30pm Instructions/Education Provided DI for Kidney Stones Amoxicillin and Clavulanic Acid Tamsulosin Prescriptions See Medications Section Functional Status Query Response Date Recorded Physical Hygiene Self March 16, 2014 10:05pm Disabilities None March 16, 2014 10:05pm Devices Used None March 16, 2014 10:05pm Dressing Self March 16, 2014 10:05pm Ambulation Self March 16, 2014 10:05pm Diet Self March 16, 2014 10:05pm Mental Status Alert Oriented March 16, 2014 11:47pm Disabilities None March 16, 2014 10:05pm Devices Used None March 16, 2014 10:05pm Physical Hygiene Self March 16, 2014 10:05pm Dressing Self March 16, 2014 10:05pm Ambulation Self March 16, 2014 10:05pm Diet Self March 16, 2014 10:05pm Allergies, Adverse Reactions, Alerts Allergen Type Severity Reaction Status Last Updated tramadol HCl Allergy Unknown Active 03/16/14 ziprasidone HCl Allergy Unknown Active 03/16/14 ziprasidone mesylate Allergy Unknown Active 03/16/14 Immunizations Name Given Type Hx Influenza Vaccination No Historical Hx Pneumococcal Vaccination No Historical Hx Tetanus, Diptheria, Pertussis No Historical Hx Influenza Vaccination No Historical Hx Tetanus Diptheria No Historical Hx Tetanus, Diptheria, Pertussis No Historical Hx Tetanus Toxoid Vaccination No Historical Vital Signs Acute Vital Signs Vital Response Date/Time Temperature (Fahrenheit) 97.1 deg F (96.8 - 99.1) Temperature (Calculated Celsius) 36.96631 degrees C (36.0 - 37.3) Pulse Rate (adult) 92 bpm (60 - 100) Respiratory Rate 21 breaths/min (10 - 20) O2 Sat by Pulse Oximetry 94 % (90 - 100) Blood Pressure 116/80 mm Hg Height 5 ft 4 in Weight 248 lb Body Mass Index 42.0 kg/m^2 Results Test Source Date Result Interp. Ref. Range Comments Acetaminophen Level July 12, 2013 10:25am < 10 UG/ML L 10-30 TOXIC <4 HR POST INGESTION: >150 MG/L;TOXIC <12 HR POST INGESTION: >50 MG/L Activated Partial Thromboplast Time September 25, 2013 1:35pm 32.6 SEC N 24-36 Alanine Aminotransferase (ALT/SGPT) March 16, 2014 10:47pm 29 U/L N 9-52 Albumin March 16, 2014 10:47pm 3.2 G/DL L 3.5-5.0 Albumin/Globulin Ratio March 16, 2014 10:47pm 1.1 RATIO N 1.1-2.2 Alcohol, Quantitative January 29, 2014 7:20pm <10 MG/DL - Alkaline Phosphatase March 16, 2014 10:47pm 70 U/L N 38-126 Amylase Level September 13, 2013 7:00am 45 U/L N 30-110 Anion Gap March 16, 2014 10:47pm 7 MEQ/L N 5-15 Aspartate Amino Transf (AST/SGOT) March 16, 2014 10:47pm 17 U/L N 14-36 B-Type Natriuretic Peptide April 23, 2010 6:25pm < 15 PG/ML L 15-100 BUN/Creatinine Ratio March 16, 2014 10:47pm 7 RATIO N 6-26 Band Neutrophils # May 09, 2011 5:08pm 0.1 T/MM3 - Band Neutrophils % May 09, 2011 5:08pm 1.0 % N 0-6 Basophils # (Auto) March 16, 2014 10:47pm 0.0 T/MM3 N 0-0.2 Basophils # (Manual) February 16, 2009 8:35am 0.0 T/MM3 N 0-0.2 Basophils % (Manual) February 16, 2009 8:35am 0.0 % N 0-2 Basophils (%) (Auto) March 16, 2014 10:47pm 0.4 % N 0-2 Blood Urea Nitrogen March 16, 2014 10:47pm 4.0 MG/DL L 7-17 C-Reactive Protein March 13, 2014 1:40pm 11.9 MG/L H 0-9 COMMENT WILL CALL WHEN HERE Calcium Level March 16, 2014 10:47pm 8.4 MG/DL N 8.4-10.2 Calculated Osmolality March 16, 2014 10:47pm 262 MOSM/KG N 261-280 Carbon Dioxide Level March 16, 2014 10:47pm 27 MEQ/L N 22-30 Chlamydia Direct Antigen Assay July 28, 2009 9:30am Negative - Chloride Level March 16, 2014 10:47pm 104 MEQ/L N 98-107 Cholesterol Level June 05, 2008 8:30am 187 MG/DL N 132-199 Cholesterol/HDL Ratio June 05, 2008 8:30am 4.0 RATIO N 0-4.2 Conjugated Bilirubin June 18, 2011 4:16pm 0.00 MG/DL N 0.00-0.30 Creatinine March 16, 2014 10:47pm 0.6 MG/DL L 0.7-1.2 D-Dimer April 23, 2010 6:25pm 76 NG/ML N 0-224 <224 NG/ML=PRESUMPTIVE NEGATIVE FOR PE OR DVT>224 NG/ML=ADDITIONAL EVALUATION FOR PE OR DVT RECOMMENDED Differential Total Cells Counted February 11, 2010 8:40pm 100 % - Eosinophils # (Auto) March 16, 2014 10:47pm 0.1 T/MM3 N 0-0.5 Eosinophils # (Manual) July 07, 2013 11:55am 0.1 T/MM3 N 0-0.5 Eosinophils % (Manual) July 07, 2013 11:55am 2.0 % N 0-4 Eosinophils (%) (Auto) March 16, 2014 10:47pm 1.4 % N 0-4 Erythrocyte Sedimentation Rate March 13, 2014 1:40pm 2 MM/HR N 0-20 COMMENT WILL CALL WHEN HERE Folate April 25, 2011 4:45pm > 20.0 NG/ML H 2.76-20 NORMAL ADULT RANGE : 2.76->20 ng/mL Free Thyroxine May 06, 2010 9:46am 0.80 NG/DL N 0.78-2.19 Globulin March 16, 2014 10:47pm 2.8 G/DL N 2.4-3.6 Glucose Level March 16, 2014 10:47pm 86 MG/DL N 65-110 Hematocrit March 16, 2014 10:47pm 41.8 % N 36-46 Hemoglobin March 16, 2014 10:47pm 13.6 GM/DL N 12-16 Hemoglobin A1c August 31, [...] July 07, 2013 11:55am Few - Lipase March 13, 2014 10:09am 58 U/L N 23-300 Lymphocytes # (Auto) March 16, 2014 10:47pm 3.1 T/MM3 N 1-4.8 Lymphocytes # (Manual) July 07, 2013 11:55am 2.4 T/MM3 N 1-4.8 Lymphocytes % (Manual) July 07, 2013 11:55am 37.0 % N 23-45 Lymphocytes (%) (Auto) March 16, 2014 10:47pm 38.8 % N 23-45 Mean Corpuscular Hemoglobin March 16, 2014 10:47pm 29.9 UUG N 26-34 Mean Corpuscular Hemoglobin Concent March 16, 2014 10:47pm 32.5 GM/DL N 31-37 Mean Corpuscular Volume March 16, 2014 10:47pm 91.9 UM3 N 80-100 Mean Platelet Volume March 16, 2014 10:47pm 10.2 UM3 N 9.4-12.4 Monocytes # (Auto) March 16, 2014 10:47pm 0.6 T/MM3 N 0-0.8 Monocytes # (Manual) July 07, 2013 11:55am 0.3 T/MM3 N 0-0.8 Monocytes % (Manual) July 07, 2013 11:55am 4.0 % N 0-9.0 Monocytes (%) (Auto) March 16, 2014 10:47pm 7.9 % N 0-9.0 Monoscreen May 06, 2010 9:46am Negative - Neutrophils # (Auto) March 16, 2014 10:47pm 4.1 T/MM3 N 1.8-7.7 Neutrophils # (Manual) July 07, 2013 11:55am 3.8 T/MM3 N 1.8-7.7 Neutrophils % (Manual) July 07, 2013 11:55am 57.0 % N 33-66 Neutrophils (%) (Auto) March 16, 2014 10:47pm 51.4 % N 33-66 Platelet Count March 16, 2014 10:47pm 190 T/MM3 N 130-400 Potassium Level March 16, 2014 10:47pm 3.7 MEQ/L N 3.6-5 Prothromb Time International Ratio September 25, 2013 1:35pm 0.98 N 0.86- 1.10 THERAPUTIC RANGE=2.00-3.00 FOR ANTI-THROMBOSIS THERAPUTIC RANGE=2.50- 3.50 FOR IMPLANTED VALVE RDW Standard Deviation March 16, 2014 10:47pm 46.9 FL N 36.9-50.2 Rapid Plasma Reagin October 27, 2011 9:40am Nonreactive - Reactive Lymphocytes March 27, 2009 2:40pm 4.0 % H 0-0 Red Blood Count March 16, 2014 10:47pm 4.55 M/MM3 N 4.00-5.20 Salicylates Level July 12, 2013 10:25am < 1.0 MG/DL L 2-20 Sodium Level March 16, 2014 10:47pm 138 MEQ/L N 134-144 Tests Not Done November 18, 2009 11:23am Not done - Has specimen been collected/obtained? Y Thyroid Stimulating Hormone (TSH) March 16, 2014 10:47pm 3.63 MIU/L N 0.47-4.68 Total Bilirubin March 16, 2014 10:47pm < 0.10 MG/DL L 0.20-1.30 Total Protein March 16, 2014 10:47pm 6.0 G/DL L 6.3-8.2 Triglycerides Level June 05, 2008 8:30am 291 MG/DL H 35-135 Troponin I September 25, 2013 1:35pm < 0.012 ng/ml 0-0.12 Unconjugated Bilirubin June 18, 2011 4:16pm 0.20 MG/DL N 0.00-1.10 Urine Bacteria March 13, 2014 1:32pm 2+ H - Has specimen been collected/ obtained? Y Urine Bilirubin March 16, 2014 11:25pm Negative - Has specimen been collected/obtained? Y Urine Blood March 16, 2014 11:25pm Negative - Has specimen been collected/obtained? Y Urine Collection Type March 16, 2014 11:25pm Cleancatch-midstream - Has specimen been collected/obtained? Y Urine Color March 16, 2014 11:25pm Yellow - Has specimen been collected/obtained? Y Urine Culture Indicated March 13, 2014 1:32pm Cult reflexed &setup - Has specimen been collected/obtained? Y Urine Drug Screen Confirmation July 12, 2013 11:23am Sent out - Urine Glucose (UA) March 16, 2014 11:25pm Negative - Has specimen been collected/obtained? Y Urine Ketones March 16, 2014 11:25pm Negative - Has specimen been collected/obtained? Y Urine Leukocyte Esterase March 16, 2014 11:25pm Negative - Has specimen been collected/obtained? Y Urine Mucus March 18, 2011 7:18pm Present - Has specimen been collected/obtained? Y Urine Nitrite March 16, 2014 11:25pm Negative - Has specimen been collected/obtained? Y Urine Test May 28, 2013 7:35pm Negative - Has specimen been collected/obtained? Y Urine Protein March 16, 2014 11:25pm Negative - Has specimen been collected/obtained? Y Urine RBC March 13, 2014 1:32pm 1-3 /HPF - Has specimen been collected /obtained? Y Urine Renal Epithelial Cells March 13, 2014 10:09am 3-5 /HPF - Urine Specific [place] March 16, 2014 11:25pm 1.010 L - Has specimen been collected/obtained? Y Urine Squamous Epithelial Cells March 13, 2014 10:09am 5-10 - Urine Turbidity March 16, 2014 11:25pm Clear - Has specimen been collected/obtained? Y Urine Urobilinogen March 16, 2014 11:25pm 0.2 EU/DL - Has specimen been collected/obtained? Y Urine WBC March 13, 2014 1:32pm 20-30 /HPF H - Has specimen been collected/obtained? Y Urine pH March 16, 2014 11:25pm 7.5 - Has specimen been collected/ obtained? Y VLDL Cholesterol June 05, 2008 8:30am 58.2 MG/DL H 0-28 Vitamin B12 Level April 25, 2011 4:45pm 437 PG/ML N 239-931 White Blood Count March 16, 2014 10:47pm 8.0 T/MM3 N 4.5-11.0 Chemistry Specimen Hemolysis March 16, 2014 10:47pm < 15 0-25 0-25: No Hemolysis.26-70: Slight [...] decrease Phenytoin. Recommend specimen recollection. Urinalysis Comment March 16, 2014 11:25pm Microscopic not ind. - Has specimen been collected/obtained? Y Lab Scanned Report March 13, 2014 11:17am LAB TEST FORM REQUEST [id number] - Chlamydia trachomatis Amplified DNA January 24, [...] October 27, 2011 9:40am Negative - Turbidity March 16, 2014 10:47pm < 20 0-20 Glomerular Filtration Rate Calc March 16, 2014 10:47pm 112 - Immature Granulocyte # (Auto) March 16, 2014 [...] or septic shock highly indicated. Icterus Index March 16, 2014 10:47pm < 2 0-7 Urine Acetaminophen Screen July 12, 2013 10:50am Negative NG/ML - BR-Pqs-T-Type Natriuretic Peptide July 07, 2013 11:55am 112 [...] March 13, 2014 1:47pm NO GROWTH AFTER 72 HOURS Wet Prep Vagina January 04, 2012 8:30am Wet Prep Other June 14, 2009 5:36pm Urine Culture Urine, Voided-Not Cc-Midstream March 13, 2014 1:52pm Gram Negative [place] Procedures Procedure Status Date Provider(s) PLACE NEEDLE IN VEIN completed 01/29/14 DANISH LOPEZ MD Encounters Encounter Location Date/Time Departed Emergency Room [facility] 03/16/14 10:03pm Discharged Inpatient [facility] 03/13/14 1:02pm Registered Clinic [facility] 03/13/14 9:49am Departed Emergency Room [facility] 01/29/14 5:57pm Departed Emergency Room [facility] 01/25/14 8:12pm Recent Diagnosis
--- OUTSIDE RECORDS SUMMARY | 2016-11-10 16:25 | XMS REPORT | Continuity of Care Document ---
Author Author [facility] Organization [facility] Address Unknown Phone Unavailable Support Name Relationship Address Phone JAIME LOPEZ MD Caregiver [address] [place] [address] [place] [phone] AIDEN NAVARRO MD Caregiver [address] [place] [address] [place] [phone] JEAN ROTHMAN MD Caregiver [address] [place] [address] LORETTA OSBORNE Next Of Kin [address] [place] [address] CP Insurance Providers Payer Name Policy Number Subscriber Name Relationship Medicare [id number] Jessica Osborne 20 Self Medicaid [id number] Jessica Osborne 20 Self Advance Directives Directive Response Recorded Date/Time Ordered Resuscitation Status Full Code 05/15/14 6:36pm Resuscitation Documents on File No 05/15/14 7:21pm Chief Complaint and Reason for Visit Chief Complaint SEPSIS, SINUSITIS, HYPOKALEMIA Reason for Visit Chest pain Leukocytosis Hypokalemia Leukocytosis Sinusitis Sepsis Hypertension Hypercholesterolemia History of pulmonary embolism Asthma GERD (gastroesophageal reflux disease) IBS (irritable bowel syndrome) History of alcohol abuse Bipolar 1 disorder Anxiety Tobacco dependence NSTEMI (non-ST elevated myocardial infarction) Problems Medical Problems Problem Onset Date Status [...] reaction Unknown Active Allergic reaction Unknown Active Leukocytosis Unknown Active Hypokalemia Unknown Active Leukocytosis Unknown Active Sinusitis Unknown Active Sepsis Unknown Active Hypertension Unknown Active Hypercholesterolemia Unknown Active History of pulmonary embolism Unknown Active Asthma Unknown Active GERD (gastroesophageal reflux disease) Unknown Active IBS (irritable bowel syndrome) ~04/2014 Active History of alcohol abuse Unknown Active Bipolar 1 disorder Unknown Active Anxiety Unknown Active Tobacco dependence Unknown Active NSTEMI (non-ST elevated myocardial infarction) 05/19/2014 Active Medications Medication Dose Route Sig Days/Qty [...] G PO FOUR TIMES DAILY 03/13/14 Active Propranolol HCl TWICE A DAY 60 Qty 04/14/14 05/19/14 Discontinued Gabapentin 1 Cap PO TWICE A DAY 30 Qty 04/14/14 Active Cefdinir 1 Cap PO TWICE A DAY 10 Days 04/14/14 05/19/14 Discontinued Ranitidine HCl 150 Mg PO TWICE A DAY For ALLERY SYMPTOMS 10 Qty Take 1 tablet, by mouth, 2 times a day. 05/14/14 Active Diphenhydramine HCl 1 Cap PO Q4H For ALLERY SYMPTOMS 20 Qty 05/14/14 Active Methylprednisolone 1 Pack PO weekly For ALLERY SYMPTOMS 1 Qty 05/14/14 Active Tramadol HCl 1 Tab PO Every 6 Hours PRN PAIN 40 Qty 05/15/14 Active Furosemide 20 Mg PO DAILY 30 Qty 05/15/14 05/19/14 Discontinued Potassium Chloride 20 Meq PO TWICE A DAY 30 Days 05/19/14 Active Nitroglycerin 0.4 Mg SL EVERY 5-10 MINUTES PRN CHEST PAIN 30 Days 05/19 Active Verapamil HCl 80 Mg PO THREE TIMES A DAY 30 Days 05/19/14 Active Amoxicillin/Potassium Clav 1 Tab PO Q12H 7 Days 05/19/14 Active Social History Social History Problem Response Recorded Date/Time Smoking Status Current every day smoker 01/29/2014 7:15pm When did patient START smoking? 15 OR 16 YEARS OLD 05/15/2014 7:22pm When did patient STOP smoking? STILL SMOKE 05/15/2014 7:22pm Chewing Tobacco Status No 01/29/2014 7:15pm Hx Substance Use Y PT REPORTS "IN THE PAST" 05/15/2014 4:35pm Hx Alcohol Use Y STOPPED DRINKING A YEAR AGO 05/15/2014 4:35pm Has the pt used tobacco in the last 12 months Yes 05/15/2014 7:22pm Query Response Start Date Stop Date Smoking Status Current every day smoker Hospital Discharge Instructions Instructions: Care Instructions: Reason for Hospitalization: Chest pain I was in the hospital because (patient own words): "CHEST PAIN, POTASSIUM IS LOW AND WHITE BLOOD COUNT IS TOO HIGH" Discharge Diet: Regular diet Discharge Activity: Light actvity for 10 days Lift no more than 10 pounds for 10 days Follow Up Appointments: DR ANDREWS 06/04 [phone] Patient Instructions: Do not drive, operate machinery, drink alcohol for 72 hours Wound/Incision Care: n/a Durable Medical Equipment: n/a Notify Physician If: Worsening chest pain General Information: n/a Condition at time of discharge: Good excessive/foul smelling drainage at your incision site. - You have difficulty breathing. During office hours, call [phone]. After hours, please call [facility] at [phone] and have the boat dock operator page Dr. Cardona or the covering surgeon. *In the event of an emergency, seek medical care at the nearest emergency room.* Condition at time of discharge: Good Plan of Care Discharge Date 05/19/14 10:05am Disposition 01 DISCHARGED HOME, SELF-CARE Instructions/Education Provided DI for Heart Attack Prescriptions See Medications Section Functional Status Query Response Date Recorded Physical Hygiene Self May 19, 2014 9:45am Disabilities Visual May 19, 2014 9:45am Devices Used Glasses May 19, 2014 9:45am Dressing Self May 19, 2014 9:45am Ambulation Self May 19, 2014 9:45am Diet Self May 19, 2014 9:45am Mental Status Alert Oriented May 19, 2014 9:45am Disabilities Visual May 19, 2014 9:45am Devices Used Glasses May 19, 2014 9:45am Physical Hygiene Self May 19, 2014 9:45am Dressing Self May 19, 2014 9:45am Ambulation Self May 19, 2014 9:45am Diet Self May 19, 2014 9:45am Allergies, Adverse Reactions, Alerts Allergen Type Severity Reaction Status Last Updated ziprasidone HCl Allergy Unknown Active 05/15/14 ziprasidone mesylate Allergy Unknown Active 05/15/14 Bupropion Allergy Unknown Active 05/15/14 Citalopram Allergy Unknown Active 05/15/14 Immunizations Name Given Type Hx Influenza Vaccination Y states "I can't remember" Historical Hx Pneumococcal Vaccination No Historical Hx Tetanus, Diptheria, Pertussis No Historical Hx Influenza Vaccination Y states "I can't remember" Historical Hx Tetanus Diptheria No Historical Hx Tetanus, Diptheria, Pertussis No Historical Hx Tetanus Toxoid Vaccination No Historical Vital Signs Acute Vital Signs Vital Response Date/Time Temperature (Fahrenheit) 97.8 deg F (96.8 - 99.1) Temperature (Calculated Celsius) 36.29621 degrees C (36.0 - 37.3) Temperature Source Oral Pulse Rate (adult) 78 bpm (60 - 100) Respiratory Rate 12 breaths/min (10 - 20) O2 Sat by Pulse Oximetry 93 % (90 - 100) Oxygen Delivery Method Room Air Blood Pressure 115/74 mm Hg Blood Pressure Source Automatic Cuff Height 5 ft 4 in Weight 261 lb Body Mass Index 44.0 kg/m^2 Results Test Source Date Result Interp. Ref. Range Comments Acetaminophen Level July 12, 2013 10:25am < 10 UG/ML L 10-30 TOXIC <4 HR POST INGESTION: >150 MG/L;TOXIC <12 HR POST INGESTION: >50 MG/L Activated Partial Thromboplast Time May 15, 2014 4:47pm 31.0 SEC N 24-36 Alanine Aminotransferase (ALT/SGPT) May 18, 2014 4:20am 35 U/L N 9 -52 Albumin May 18, 2014 4:20am 2.6 G/DL L 3.5-5.0 Albumin/Globulin Ratio May 18, 2014 4:20am 1.0 RATIO L 1.1-2.2 Alcohol, Quantitative January 29, 2014 7:20pm <10 MG/DL - Alkaline Phosphatase May 18, 2014 4:20am 63 U/L DN 38-126 Amylase Level April 14, 2014 8:35pm 39 U/L N 30-110 Anion Gap May 19, 2014 5:29am 6 MEQ/L N 5-15 Aspartate Amino Transf (AST/SGOT) May 18, 2014 4:20am 47 U/L H 14- 36 Atypical/Reactive Lymphocytes March 27, 2009 2:40pm 0.3 T/MM3 H 0-0 B-Type Natriuretic Peptide April 23, 2010 6:25pm < 15 PG/ML L 15-100 BUN/Creatinine Ratio May 19, 2014 5:29am 5 RATIO L 6-26 Band Neutrophils # May 15, 2014 4:47pm 0.2 T/MM3 - Band Neutrophils % May 15, 2014 4:47pm 1.0 % N 0-6 Basophils # (Auto) May 18, 2014 4:20am 0.0 T/MM3 N 0-0.2 Basophils # (Manual) April 14, 2014 8:35pm 0.2 T/MM3 N 0-0.2 Basophils % (Manual) April 14, 2014 8:35pm 2.0 % N 0-2 Basophils (%) (Auto) May 18, 2014 4:20am 0.3 % N 0-2 Blood Urea Nitrogen May 19, 2014 5:29am 4.0 MG/DL L 7-17 C-Reactive Protein March 13, 2014 1:40pm 11.9 MG/L H 0-9 COMMENT WILL CALL WHEN HERE Calcium Level May 19, 2014 5:29am 7.5 MG/DL L 8.4-10.2 Calculated Osmolality May 19, 2014 5:29am 265 MOSM/KG N 261-280 Carbon Dioxide Level May 19, 2014 5:29am 32 MEQ/L H 22-30 Chemistry Specimen Hemolysis May 19, 2014 5:29am < 15 0-25 0-25 : No Hemolysis.26-70: Slight Hemolysis - can falsely elevate K and Urine Protein. 71-285: Moderate Hemolysis - can falsely elevate K, Troponin I, CA 19-9, PTH, CSF GLucose, and Urine Protein, and can falsely decrease Phenytoin. 286-999: Gross Hemolysis - can falsely elevate K, Troponin I, CA 19-9, PTH, CSF Glucose, and Urine Protine, and can falsely decrease Phenytoin. Recommend specimen recollection. Chlamydia Direct Antigen Assay July 28, 2009 9:30am Negative - Chlamydia trachomatis Amplified DNA January 24, 2011 9:05pm Ref lab rpt scanned - --- 01/27/11 1152 ---CHLAMDNA previously reported as: SENT OUT Chloride Level May 19, 2014 5:29am 102 MEQ/L N 98-107 Cholesterol Level May 16, 2014 9:47am 138 MG/DL N 132-199 COMMENT PLEASE RUN ON THIS MORNING'S FASTING LAB DRAW Cholesterol/HDL Ratio May 16, 2014 9:47am 7.3 RATIO H 0-4.0 COMMENT PLEASE RUN ON THIS MORNING'S FASTING LAB DRAW Conjugated Bilirubin June 18, 2011 4:16pm 0.00 MG/DL N 0.00-0.30 Creatinine May 19, 2014 5:29am 0.8 MG/DL N 0.7-1.2 D-Dimer April 23, 2010 6:25pm 76 NG/ML N 0-224 <224 NG/ML=PRESUMPTIVE NEGATIVE FOR PE OR DVT>224 NG/ML=ADDITIONAL EVALUATION FOR PE OR DVT RECOMMENDED Differential Total Cells Counted February 11, 2010 8:40pm 100 % - EKG June 07, 2009 2:45pm Complete - Eosinophils # (Auto) May 18, 2014 4:20am 0.1 T/MM3 N 0-0.5 Eosinophils # (Manual) April 14, 2014 8:35pm 0.5 T/MM3 N 0-0.5 Eosinophils % (Manual) April 14, 2014 8:35pm 4.0 % N 0-4 Eosinophils (%) (Auto) May 18, 2014 4:20am 0.6 % N 0-4 Erythrocyte Sedimentation Rate March 13, 2014 1:40pm 2 MM/HR N 0-20 COMMENT WILL CALL WHEN HERE Folate April 25, 2011 4:45pm > 20.0 NG/ML H 2.76-20 NORMAL ADULT RANGE : 2.76->20 ng/mL Free Thyroxine May 06, 2010 9:46am 0.80 NG/DL N 0.78-2.19 Globulin May 18, 2014 4:20am 2.6 G/DL N 2.4-3.6 Glomerular Filtration Rate Calc May 19, 2014 5:29am 81 - Glucose Level May 19, 2014 5:29am 83 MG/DL N 65-110 HDL Cholesterol Direct May 16, 2014 9:47am 19 MG/DL L 40-60 COMMENT PLEASE RUN ON THIS MORNING'S FASTING LAB DRAW HIV (1&2) Antibody Rapid October 27, 2011 9:40am Negative - Hematocrit May 18, 2014 4:20am 39.6 % N 36-46 Hemoglobin May 18, 2014 4:20am 12.5 GM/DL N 12-16 Hemoglobin A1c August 31, [...] April 05, 2009 10:40am Send out - Icterus Index May 19, 2014 5:29am < 2 0-7 Immature Granulocyte # (Auto) May 18, 2014 4:20am 0.02 T/MM3 N 0.00-0.03 Immature Granulocyte % (Auto) May 18, 2014 4:20am 0.2 % N 0.0-0.5 Influenza Type A Antigen May 15, 2014 5:42pm Negative - NNegative for Flu A protein antigen. Assay sensitivity is90%. Influenza Type B Antigen May 15, 2014 5:42pm Negative - Negative for Flu B protein antigen. Assay sensitivity is90%. LDL Cholesterol, Calculated May 16, 2014 9:47am 43.6 L 66-159 COMMENT PLEASE RUN ON THIS MORNING'S FASTING LAB DRAW Lab Scanned Report March 13, 2014 11:17am LAB TEST FORM REQUEST [id number] - Large Platelets July 07, 2013 11:55am Few - Lipase April 14, 2014 8:35pm 25 U/L N 23-300 Lymphocytes # (Auto) May 18, 2014 4:20am 4.5 T/MM3 N 1-4.8 Lymphocytes # (Manual) May 15, 2014 4:47pm 3.4 T/MM3 N 1-4.8 Lymphocytes % (Manual) May 15, 2014 4:47pm 15.0 % L 23-45 Lymphocytes (%) (Auto) May 18, 2014 4:20am 38.1 % N 23-45 Magnesium Level May 18, 2014 4:20am 1.8 MG/DL N 1.6-2.3 Mean Corpuscular Hemoglobin May 18, 2014 4:20am 30.2 UUG N 26-34 Mean Corpuscular Hemoglobin Concent May 18, 2014 4:20am 31.6 GM/DL N 31-37 Mean Corpuscular Volume May 18, 2014 4:20am 95.7 UM3 N 80-100 Mean Platelet Volume May 18, 2014 4:20am 11.9 UM3 N 9.4-12.4 Monocytes # (Auto) May 18, 2014 4:20am 1.0 T/MM3 H 0-0.8 Monocytes # (Manual) May 15, 2014 4:47pm 1.6 T/MM3 H 0-0.8 Monocytes % (Manual) May 15, 2014 4:47pm 7.0 % N 0-9.0 Monocytes (%) (Auto) May 18, 2014 4:20am 8.2 % N 0-9.0 Monoscreen April 14, 2014 8:35pm Negative - ZC-Wzg-H-Type Natriuretic Peptide May 15, 2014 4:47pm 236 PG/ML H 0-175 Rule in cut points: <50 years old=450; 50-75 years old=900; >75 years old=1800; When utilizing ProBNP rule-in cut points, adjustment for impaired renal function is typically not required. Neutrophils # (Auto) May 18, 2014 4:20am 6.3 T/MM3 N 1.8-7.7 Neutrophils # (Manual) May 15, 2014 4:47pm 17.4 T/MM3 H 1.8-7.7 Neutrophils % (Manual) May 15, 2014 4:47pm 77.0 % H 33-66 Neutrophils (%) (Auto) May 18, 2014 4:20am 52.6 % N 33-66 Platelet Count May 18, 2014 4:20am 215 T/MM3 N 130-400 Potassium Level May 19, 2014 5:29am 3.5 MEQ/L L 3.6-5 Prealbumin May 15, 2014 4:47pm 20.1 MG/DL N 17.6-36.0 COMMENT blood in lab Procalcitonin May 15, 2014 5:37pm < 0.05 NG/ML - PCT </=0.5 ng/ mL - sepsis not likely;PCT >0.5 and </=2 ng/mL - sepsis possible; PCT >2 ng/mL - sepsis likely; PCT >/=10 ng/mL - systemic inflammatory response - sepsis or septic shock highly indicated. Prothromb Time International Ratio May 15, 2014 4:47pm 1.00 N 0.81 -1.09 THERAPUTIC RANGE=2.00-3.00 FOR ANTI-THROMBOSIS THERAPUTIC RANGE=2.50- 3.50 FOR IMPLANTED VALVE RDW Standard Deviation May 18, 2014 4:20am 48.5 FL N 36.9-50.2 Rapid Plasma Reagin October 27, 2011 9:40am Nonreactive - Reactive Lymphocytes March 27, 2009 2:40pm 4.0 % H 0-0 Reactive Lymphocytes # April 14, 2014 8:35pm 2.5 T/MM3 H 0-0 Reactive Lymphocytes % April 14, 2014 8:35pm 20.0 % DH 0-0 Red Blood Count May 18, 2014 4:20am 4.14 M/MM3 N 4.00-5.20 Salicylates Level July 12, 2013 10:25am < 1.0 MG/DL L 2-20 Sodium Level May 19, 2014 5:29am 140 MEQ/L N 134-144 Tests Not Done November 18, 2009 11:23am Not done - Has specimen been collected/obtained? Y Thyroid Stimulating Hormone (TSH) May 15, 2014 4:47pm 0.47 MIU/L DN 0.47-4.68 COMMENT blood in lab Total Bilirubin May 18, 2014 4:20am 0.30 MG/DL N 0.20-1.30 Total Protein May 18, 2014 4:20am 5.2 G/DL L 6.3-8.2 Triglycerides Level May 16, 2014 9:47am 377 MG/DL H 35-135 COMMENT PLEASE RUN ON THIS MORNING'S FASTING LAB DRAW Troponin I May 19, 2014 5:29am 0.155 ng/ml PH 0-0.12 Turbidity May 19, 2014 5:29am < 20 0-20 Unconjugated Bilirubin June 18, 2011 4:16pm 0.20 MG/DL N 0.00-1.10 Urinalysis Comment April 14, 2014 8:00pm Microscopic not ind. - Has specimen been collected/obtained? Y Urine Bacteria May 15, 2014 5:22pm Negative - Has specimen been collected/obtained? Y Urine Bilirubin May 15, 2014 5:22pm Negative - Has specimen been collected/obtained? Y Urine Blood May 15, 2014 5:22pm Negative - Has specimen been collected/obtained? Y Urine Collection Type May 15, 2014 5:22pm Cleancatch-midstream - Has specimen been collected/obtained? Y Urine Color May 15, 2014 5:22pm Yellow - Has specimen been collected/obtained? Y Urine Culture Indicated March 13, 2014 1:32pm Cult reflexed &setup - Has specimen been collected/obtained? Y Urine Glucose (UA) May 15, 2014 5:22pm Negative - Has specimen been collected/obtained? Y Urine Ketones May 15, 2014 5:22pm Negative - Has specimen been collected/obtained? Y Urine Leukocyte Esterase May 15, 2014 5:22pm Negative - Has specimen been collected/obtained? Y Urine Microscopic Not Indicated May 09, 2011 5:00pm Not indicated - Has specimen been collected/obtained? Y Urine Mucus March 18, 2011 7:18pm Present - Has specimen been collected/obtained? Y Urine Nitrite May 15, 2014 5:22pm Negative - Has specimen been collected/obtained? Y Urine Test May 28, 2013 7:35pm Negative - Has specimen been collected/obtained? Y Urine Protein May 15, 2014 5:22pm Negative - Has specimen been collected/obtained? Y Urine RBC May 15, 2014 5:22pm None seen /HPF - Has specimen been collected/obtained? Y Urine Renal Epithelial Cells March 13, 2014 10:09am 3-5 /HPF - Urine Specific [place] May 15, 2014 5:22pm <=1.005 L - Has specimen been collected/obtained? Y Urine Squamous Epithelial Cells May 15, 2014 5:22pm 0-5 - Has specimen been collected/obtained? Y Urine Turbidity May 15, 2014 5:22pm Clear - Has specimen been collected/obtained? Y Urine Urobilinogen May 15, 2014 5:22pm 0.2 EU/DL - Has specimen been collected/obtained? Y Urine WBC May 15, 2014 5:22pm None seen /HPF - Has specimen been collected/obtained? Y Urine pH May 15, 2014 5:22pm 6.5 - Has specimen been collected/ obtained? Y VLDL Cholesterol May 16, 2014 9:47am 75.4 MG/DL H 0-28 COMMENT PLEASE RUN ON THIS MORNING'S FASTING LAB DRAW Venous Blood Lactate May 15, 2014 5:37pm 2.6 MMOL/L H 0.6-2.2 Vitamin B12 Level April 25, 2011 4:45pm 437 PG/ML N 239-931 White Blood Count May 18, 2014 4:20am 11.9 T/MM3 H 4.5-11.0 Blood Culture Blood May 15, 2014 5:36pm NO GROWTH AFTER 72 HOURS Wet Prep Vagina January 04, 2012 8:30am Wet Prep Other June 14, 2009 5:36pm Urine Culture Urine, Voided-Not Cc-Midstream March 13, 2014 1:52pm Gram Negative Bryan Name: JESSICA OSBORNE Odalis Unit #: [id number] : 1975 Sex: F Loc / Svc: SRG DOS: 05/15/14 Signed Report #: [id number] DIAGNOSTIC IMAGING REPORT TYPE OF EXAM: CT SINUSES W/O CONTRAST Dictated By: AMADO NELSON MD INDICATION: ITS.REASON: sinusitis; sepsis CT SINUSES W/O CONTRAST: There is a minor amount of mucous membrane thickening in the right ostiomeatal complex. The left ostiomeatal complex is patent. Small air-fluid level within the left sphenoid sinus, suggesting mild sphenoid sinusitis. The remaining paranasal sinuses are clear. Bilateral obey bullosa. Minor deviation of the nasal septum to the patient's left. The remainder of the exam is normal. . Procedures Procedure Status Date Provider(s) THER/PROPH/DIAG INJ IV PUSH completed 03/16/14 Encounters Encounter Location Date/Time Discharged Inpatient [facility] 05/16/14 8:39am Departed Emergency Room [facility] 05/14/14 2:44pm Departed Emergency Room [facility] 04/14/14 7:37pm Departed Emergency Room [facility] 03/16/14 10:03pm Discharged Inpatient [facility] 03/13/14 1:02pm Registered Clinic [facility] 03/13/14 9:49am Recent Diagnosis Chest pain Leukocytosis Hypokalemia Leukocytosis Sinusitis Sepsis Hypertension Hypercholesterolemia History of pulmonary embolism Asthma GERD (gastroesophageal reflux disease) IBS (irritable bowel syndrome) History of alcohol abuse Bipolar 1 disorder Anxiety Tobacco dependence NSTEMI (non-ST elevated myocardial infarction)
--- OUTSIDE RECORDS SUMMARY | 2016-11-10 16:26 | XMS REPORT | Continuity of Care Document ---
Author Author [facility] Organization [facility] Address Unknown Phone Unavailable Support Name Relationship Address Phone JEAN ROTHMAN MD Caregiver [facility] [address] [place] [address] FINESSE CORADO MD Caregiver [address] [place] [address] [place] [id number] LORETTA OSBORNE Next Of Kin [address] [place] [address] CP Insurance Providers Payer Name Policy Number Subscriber Name Relationship Medicare [id number] Jessica Osborne 20 Self Medicaid [id number] Jessica Osborne 20 Self Chief Complaint and Reason for Visit Chief Complaint Chest Pain Reason for Visit Hypokalemia Leukocytosis Sinusitis Sepsis [id number] pain Problems Medical Problems Problem Onset Date Status [...] NSTEMI (non-ST elevated myocardial infarction) 05/19/2014 Active Laceration of head Unknown Active Fall Unknown Active Contusion of head Unknown Active Laceration of head Unknown Active Anxiety Unknown Active Upper respiratory infection Unknown Active Anxiety Unknown Active Upper respiratory infection Unknown Active Acute exacerbation of chronic bronchitis Unknown Active Acute exacerbation of chronic bronchitis Unknown Active Medications Medication Dose Route Sig [...] TWICE A DAY 06/18/11 01/11/12 Discontinued Clonazepam 1 Mg PO THREE TIMES A DAY 01/11/12 Active Calcium Carbonate 1 Tab PO TWICE [...] PO THREE TIMES A DAY 12/12/13 Active Omeprazole 40 Mg PO DAILY 03/13/14 Active Sucralfate 1 G PO FOUR TIMES DAILY 03/13/14 Active Propranolol HCl TWICE A DAY 60 Qty 04/14/14 05/19/14 Discontinued Gabapentin 1 Cap PO TWICE A DAY 30 Qty 04/14/14 Active Cefdinir 1 Cap PO TWICE A DAY 10 Days 04/14/14 05/19/14 Discontinued Tramadol HCl 1 Tab PO Every 6 Hours PRN PAIN 40 Qty 05/15/14 Active Furosemide 20 Mg PO DAILY 30 Qty 05/15/14 05/19/14 Discontinued Potassium Chloride 20 Meq PO TWICE A DAY 30 Days 05/19/14 Active Nitroglycerin 0.4 Mg SL EVERY 5-10 MINUTES PRN CHEST PAIN 30 Days 05/19 Active Verapamil HCl 80 Mg PO THREE TIMES A DAY 30 Days 05/19/14 Active Lorazepam 1 Mg PO Q4H PRN AGITATION 06/17/14 Active Risperidone 1 Mg PO TWICE A DAY 60 Qty 07/25/14 Active Trazodone HCl 50 Mg PO BEDTIME 30 Qty 07/25/14 Active Meloxicam 1 Tab PO TWICE A DAY 30 Qty 07/25/14 Active Lyons Carbonate 300 Mg PO TWICE A DAY 08/15/14 Active Azithromycin 1 Pack PO DIRECTED 1 Qty Take 2 tabs the first day then 1 tab daily on days 2 through 08/15/14 Active Prednisone 20 Mg PO DIRECTED 18 Qty Take 2 pills for 3 days THEN, Active Social History Social History Problem Response Recorded Date/Time Chewing Tobacco Status No 01/29/2014 7:15pm Hx Substance Use Y PT REPORTS "IN THE PAST" 08/15/2014 8:50pm Hx Alcohol Use N STOPPED DRINKING A YEAR AGO 08/15/2014 8:50pm Has the pt used tobacco in the last 12 months Yes 05/15/2014 7:22pm Tobacco Usage smoke 03/13/2014 1:55pm Query Response Start Date Stop Date Smoking [...] days Follow Up Appointments: DR ANDREWS 06/04 [phone] Patient Instructions: Do not drive, operate machinery, drink alcohol for 72 hours Wound/Incision Care: n/a Durable Medical Equipment: n/a Notify Physician If: Worsening chest pain General Information: n/a Condition at time of discharge: Good I was in the hospital because (patient own words): "I FELL AND COULDN'T WALK, SO I CAME IN TO GET CHECKED OUT" Discharge Diet: Regular Diet Discharge Activity: No weight bearing on left leg. Elevate left leg. Apply ice pack to left knee to reduce swelling. May ambulate with front wheeled walker but must avoid weight bearing left leg. Follow Up Appointments: Scheduled for surgical repair of left tibial plateau fracture by Dr. Ioana Galeano on 08/17/14. Patient Instructions: Same as discharge activity listed above Take medications as directed. Durable Medical Equipment: Front wheeled Walker Notify Physician If: Severe pain not controlled with Roxicodone 5 mg 1-2 tabs po q4-6hrs prn pain. Condition at time of discharge: Good Plan of Care Discharge Date 05/19/14 10:05am Disposition 02 TO OBS [facility] Condition at Discharge Stable Instructions/Education Provided DI for Heart Attack Prescriptions See Medications Section Referrals JEAN ROTHMAN MD Functional Status Query Response Date Recorded Physical Hygiene Self August 15, 2014 8:50pm Disabilities None August 15, 2014 8:50pm Devices Used Glasses August 15, 2014 8:50pm Dressing Self August 15, 2014 8:50pm Ambulation Self August 15, 2014 8:50pm Diet Self August 15, 2014 8:50pm Mental Status Alert August 15, 2014 9:26pm Disabilities None August 15, 2014 8:50pm Devices Used Glasses August 15, 2014 8:50pm Physical Hygiene Self August 15, 2014 8:50pm Dressing Self August 15, 2014 8:50pm Ambulation Self August 15, 2014 8:50pm Diet Self August 15, 2014 8:50pm Allergies, Adverse Reactions, Alerts Allergen Type Severity Reaction Status Last Updated ziprasidone HCl Allergy Unknown Active 08/15/14 ziprasidone mesylate Allergy Unknown Active 08/15/14 Bupropion Allergy Unknown Active 08/15/14 Citalopram Allergy Unknown Active 08/15/14 Immunizations Name Given Type Hx Influenza Vaccination Y 06/09 Historical Hx Pneumococcal Vaccination No Historical Hx Tetanus, Diptheria, Pertussis No Historical Hx Influenza Vaccination Y 06/09 Historical Hx Tetanus Diptheria No Historical Hx Tetanus, Diptheria, Pertussis No Historical Hx Tetanus Toxoid Vaccination No Historical Vital Signs Acute Vital Signs Vital Response Date/Time Temperature (Fahrenheit) 97.4 deg F (96.8 - 99.1) Temperature (Calculated Celsius) 36.02857 degrees C (36.0 - 37.3) Pulse Rate (adult) 83 bpm (60 - 100) Respiratory Rate 20 breaths/min (10 - 20) O2 Sat by Pulse Oximetry 92 % (90 - 100) Oxygen Flow Rate 2 L/min Blood Pressure 109/71 mm Hg Height 5 ft 4 in Weight 250 lb Body Mass Index 42.0 kg/m^2 Results Test Source Date Result Interp. Ref. Range Comments Acetaminophen Level July 12, 2013 10:25am < 10 UG/ML L 10-30 TOXIC <4 HR POST INGESTION: >150 MG/L;TOXIC <12 HR POST INGESTION: >50 MG/L Activated Partial Thromboplast Time August 15, 2014 8:31pm 33.8 SEC N 24-36 Ordering r/o VTE Yes Alanine Aminotransferase (ALT/SGPT) August 15, 2014 8:31pm 39 U/L N 9- 52 Albumin August 15, 2014 8:31pm 3.7 G/DL N 3.5-5.0 Albumin/Globulin Ratio August 15, 2014 8:31pm 1.1 RATIO N 1.1-2.2 Alcohol, Quantitative January 29, 2014 7:20pm <10 MG/DL - Alkaline Phosphatase August 15, 2014 8:31pm 79 U/L N 38-126 Amylase Level April 14, 2014 8:35pm 39 U/L N 30-110 Anion Gap August 15, 2014 8:31pm 6 MEQ/L N 5-15 Aspartate Amino Transf (AST/SGOT) August 15, 2014 8:31pm 39 U/L H 14- 36 B-Type Natriuretic Peptide April 23, 2010 6:25pm < 15 PG/ML L 15-100 BUN/Creatinine Ratio August 15, 2014 8:31pm 3 RATIO L 6-26 Band Neutrophils # May 15, 2014 4:47pm 0.2 T/MM3 - Band Neutrophils % May 15, 2014 4:47pm 1.0 % N 0-6 Basophils # (Auto) August 15, 2014 8:31pm 0.1 T/MM3 N 0-0.2 Basophils # (Manual) April 14, 2014 8:35pm 0.2 T/MM3 N 0-0.2 Basophils % (Manual) April 14, 2014 8:35pm 2.0 % N 0-2 Basophils (%) (Auto) August 15, 2014 8:31pm 1.2 % N 0-2 Blood Urea Nitrogen August 15, 2014 8:31pm 3.0 MG/DL L 7-17 C-Reactive Protein March 13, 2014 1:40pm 11.9 MG/L H 0-9 COMMENT WILL CALL WHEN HERE Calcium Level August 15, 2014 8:31pm 8.9 MG/DL N 8.4-10.2 Calculated Osmolality August 15, 2014 8:31pm 258 MOSM/KG L 261-280 Carbon Dioxide Level August 15, 2014 8:31pm 30 MEQ/L N 22-30 Chlamydia Direct Antigen Assay July 28, 2009 9:30am Negative - Chloride Level August 15, 2014 8:31pm 100 MEQ/L N 98-107 Cholesterol Level May 16, 2014 9:47am 138 MG/DL N 132-199 COMMENT PLEASE RUN ON THIS MORNING'S FASTING LAB DRAW Cholesterol/HDL Ratio May 16, 2014 9:47am 7.3 RATIO H 0-4.0 COMMENT PLEASE RUN ON THIS MORNING'S FASTING LAB DRAW Conjugated Bilirubin June 18, 2011 4:16pm 0.00 MG/DL N 0.00-0.30 Creatinine August 15, 2014 8:31pm 0.9 MG/DL N 0.7-1.2 D-Dimer August 15, 2014 8:31pm < 150 NG/ML 0-230 <230 NG/ML D-DU= PRESUMPTIVE NEGATIVE FOR PE OR DVT>230 NG/ML D-DU=ADDITIONAL EVAL FOR PE OR DVT RECOMMENDED Differential Total Cells Counted February 11, 2010 8:40pm 100 % - Eosinophils # (Auto) August 15, 2014 8:31pm 0.2 T/MM3 N 0-0.5 Eosinophils # (Manual) April 14, 2014 8:35pm 0.5 T/MM3 N 0-0.5 Eosinophils % (Manual) April 14, 2014 8:35pm 4.0 % N 0-4 Eosinophils (%) (Auto) August 15, 2014 8:31pm 2.2 % N 0-4 Erythrocyte Sedimentation Rate March 13, 2014 1:40pm 2 MM/HR N 0-20 COMMENT WILL CALL WHEN HERE Folate April 25, 2011 4:45pm > 20.0 NG/ML H 2.76-20 NORMAL ADULT RANGE : 2.76->20 ng/mL Free Thyroxine May 06, 2010 9:46am 0.80 NG/DL N 0.78-2.19 Globulin August 15, 2014 8:31pm 3.3 G/DL N 2.4-3.6 Glucose Level August 15, 2014 8:31pm 82 MG/DL N 65-110 Hematocrit August 15, 2014 8:31pm 43.7 % N 36-46 Hemoglobin August 15, 2014 8:31pm 13.7 GM/DL N 12-16 Hemoglobin A1c August 31, [...] April 05, 2009 10:40am Send out - Influenza Type A Antigen May 15, 2014 5:42pm Negative - NNegative for Flu A protein antigen. Assay sensitivity is90%. Influenza Type B Antigen May 15, 2014 5:42pm Negative - Negative for Flu B protein antigen. Assay sensitivity is90%. LDL Cholesterol, Calculated May 16, 2014 9:47am 43.6 L 66-159 COMMENT PLEASE RUN ON THIS MORNING'S FASTING LAB DRAW Large Platelets July 07, 2013 11:55am Few - Lipase April 14, 2014 8:35pm 25 U/L N 23-300 Lymphocytes # (Auto) August 15, 2014 8:31pm 3.3 T/MM3 N 1-4.8 Lymphocytes # (Manual) May 15, 2014 4:47pm 3.4 T/MM3 N 1-4.8 Lymphocytes % (Manual) May 15, 2014 4:47pm 15.0 % L 23-45 Lymphocytes (%) (Auto) August 15, 2014 8:31pm 30.6 % N 23-45 Magnesium Level August 15, 2014 8:31pm 1.8 MG/DL N 1.6-2.3 Mean Corpuscular Hemoglobin August 15, 2014 8:31pm 29.2 UUG N 26-34 Mean Corpuscular Hemoglobin Concent August 15, 2014 8:31pm 31.4 GM/DL N 31-37 Mean Corpuscular Volume August 15, 2014 8:31pm 93.2 UM3 N 80-100 Mean Platelet Volume August 15, 2014 8:31pm 11.1 UM3 N 9.4-12.4 Monocytes # (Auto) August 15, 2014 8:31pm 0.9 T/MM3 H 0-0.8 Monocytes # (Manual) May 15, 2014 4:47pm 1.6 T/MM3 H 0-0.8 Monocytes % (Manual) May 15, 2014 4:47pm 7.0 % N 0-9.0 Monocytes (%) (Auto) August 15, 2014 8:31pm 8.2 % N 0-9.0 Monoscreen April 14, 2014 8:35pm Negative - Neutrophils # (Auto) August 15, 2014 8:31pm 6.3 T/MM3 N 1.8-7.7 Neutrophils # (Manual) May 15, 2014 4:47pm 17.4 T/MM3 H 1.8-7.7 Neutrophils % (Manual) May 15, 2014 4:47pm 77.0 % H 33-66 Neutrophils (%) (Auto) August 15, 2014 8:31pm 57.6 % N 33-66 Platelet Count August 15, 2014 8:31pm 271 T/MM3 N 130-400 Potassium Level August 15, 2014 8:31pm 3.5 MEQ/L L 3.6-5 Prealbumin May 15, 2014 4:47pm 20.1 MG/DL N 17.6-36.0 COMMENT blood in lab Prothromb Time International Ratio August 15, 2014 8:31pm 1.04 N 0.81- 1.09 THERAPUTIC RANGE=2.00-3.00 FOR ANTI-THROMBOSIS THERAPUTIC RANGE=2.50- 3.50 FOR IMPLANTED VALVE RDW Standard Deviation August 15, 2014 8:31pm 48.2 FL N 36.9-50.2 Rapid Plasma Reagin October 27, 2011 9:40am Nonreactive - Reactive Lymphocytes March 27, 2009 2:40pm 4.0 % H 0-0 Red Blood Count August 15, 2014 8:31pm 4.69 M/MM3 N 4.00-5.20 Salicylates Level July 12, 2013 10:25am < 1.0 MG/DL L 2-20 Sodium Level August 15, 2014 8:31pm 136 MEQ/L N 134-144 Tests Not Done November 18, 2009 11:23am Not done - Has specimen been collected/obtained? Y Thyroid Stimulating Hormone (TSH) August 15, 2014 8:31pm 4.90 MIU/L DH 0.47-4.68 Total Bilirubin August 15, 2014 8:31pm 0.40 MG/DL N 0.20-1.30 Total Protein August 15, 2014 8:31pm 7.0 G/DL N 6.3-8.2 Triglycerides Level May 16, 2014 9:47am 377 MG/DL H 35-135 COMMENT PLEASE RUN ON THIS MORNING'S FASTING LAB DRAW Troponin I August 15, 2014 8:31pm < 0.012 ng/ml 0-0.12 Unconjugated Bilirubin June 18, 2011 4:16pm 0.20 MG/DL N 0.00-1.10 Urine Bacteria May 15, 2014 5:22pm Negative - Has specimen been collected/obtained? Y Urine Bilirubin August 15, 2014 8:38pm Negative - Has specimen been collected/obtained? Y Urine Blood August 15, 2014 8:38pm Negative - Has specimen been collected/obtained? Y Urine Collection Type August 15, 2014 8:38pm Voided-not cc-midstr - Has specimen been collected/obtained? Y Urine Color August 15, 2014 8:38pm Yellow - Has specimen been collected/obtained? Y Urine Culture Indicated March 13, 2014 1:32pm Cult reflexed &setup - Has specimen been collected/obtained? Y Urine Glucose (UA) August 15, 2014 8:38pm Negative - Has specimen been collected/obtained? Y Urine Ketones August 15, 2014 8:38pm Negative - Has specimen been collected/obtained? Y Urine Leukocyte Esterase August 15, 2014 8:38pm Negative - Has specimen been collected/obtained? Y Urine Mucus March 18, 2011 7:18pm Present - Has specimen been collected/obtained? Y Urine Nitrite August 15, 2014 8:38pm Negative - Has specimen been collected/obtained? Y Urine Test May 28, 2013 7:35pm Negative - Has specimen been collected/obtained? Y Urine Protein August 15, 2014 8:38pm Negative - Has specimen been collected/obtained? Y Urine RBC May 15, 2014 5:22pm None seen /HPF - Has specimen been collected/obtained? Y Urine Renal Epithelial Cells March 13, 2014 10:09am 3-5 /HPF - Urine Specific [place] August 15, 2014 8:38pm <=1.005 L - Has specimen been collected/obtained? Y Urine Squamous Epithelial Cells May 15, 2014 5:22pm 0-5 - Has specimen been collected/obtained? Y Urine Turbidity August 15, 2014 8:38pm Clear - Has specimen been collected/obtained? Y Urine Urobilinogen August 15, 2014 8:38pm 0.2 EU/DL - Has specimen been collected/obtained? Y Urine WBC May 15, 2014 5:22pm None seen /HPF - Has specimen been collected/obtained? Y Urine pH August 15, 2014 8:38pm 5.5 - Has specimen been collected/ obtained? Y VLDL Cholesterol May 16, 2014 9:47am 75.4 MG/DL H 0-28 COMMENT PLEASE RUN ON THIS MORNING'S FASTING LAB DRAW Vitamin B12 Level May 15, 2014 4:47pm 265 PG/ML N 239-931 COMMENT blood in lab White Blood Count August 15, 2014 8:31pm 10.9 T/MM3 N 4.5-11.0 Chemistry Specimen Hemolysis August 15, 2014 8:31pm < 15 0-25 0-25 : No Hemolysis.26-70: [...] decrease Phenytoin. Recommend specimen recollection. Urinalysis Comment August 15, 2014 8:38pm Microscopic not ind. - Has specimen been collected/obtained? Y Lab Scanned Report May 19, 2014 4:21pm REFERENCE LAB [id number] - Chlamydia trachomatis Amplified DNA January 24, 2011 9:05pm Ref lab rpt scanned - --- 01/27/11 1152 ---CHLAMDNA previously reported as: SENT OUT EKG June 07, 2009 2:45pm Complete - HDL Cholesterol Direct May 16, 2014 9:47am 19 MG/DL L 40-60 COMMENT PLEASE RUN ON THIS MORNING'S FASTING LAB DRAW Atypical/Reactive Lymphocytes March 27, 2009 2:40pm 0.3 T/MM3 H 0-0 HIV (1&2) Antibody Rapid October 27, 2011 9:40am Negative - Turbidity August 15, 2014 8:31pm < 20 0-20 Reactive Lymphocytes % April 14, 2014 8:35pm 20.0 % DH 0-0 Glomerular Filtration Rate Calc August 15, 2014 8:31pm 70 - Reactive Lymphocytes # April 14, 2014 8:35pm 2.5 T/MM3 H 0-0 Immature Granulocyte # (Auto) August 15, 2014 8:31pm 0.02 T/MM3 N 0.00 -0.03 Immature Granulocyte % (Auto) August 15, 2014 8:31pm 0.2 % N 0.0-0.5 Venous Blood Lactate May 15, 2014 5:37pm 2.6 MMOL/L H 0.6-2.2 Procalcitonin May 15, 2014 5:37pm < 0.05 NG/ML - PCT </=0.5 ng/ mL - sepsis not likely;PCT >0.5 and </=2 ng/mL - sepsis possible; PCT >2 ng/mL - sepsis likely; PCT >/=10 ng/mL - systemic inflammatory response - sepsis or septic shock highly indicated. Icterus Index August 15, 2014 8:31pm < 2 0-7 FS-Szf-A-Type Natriuretic Peptide August 15, 2014 8:31pm 68 PG/ML N 0- 175 Rule in cut points: <50 years old=450; 50-75 years old=900; >75 years old=1800; When utilizing ProBNP rule-in cut points, adjustment for impaired renal function is typically not required. Urine Microscopic Not Indicated May 09, 2011 5:00pm Not indicated - Has specimen been collected/obtained? Y Blood Culture Blood May 15, 2014 5:36pm NO GROWTH AFTER 5 DAYS Wet Prep Vagina January 04, 2012 8:30am Wet Prep Other June 14, 2009 5:36pm Urine Culture Urine, Voided-Not Cc-Midstream March 13, 2014 1:52pm Gram Negative Bryan Name: JESSICA OSBORNE Odalis Unit #: [id number] : 1975 Sex: F Loc / Svc: ED DOS: 07/25/14 Signed Report #: [id number] DIAGNOSTIC IMAGING REPORT TYPE OF EXAM: CHEST, PA & LATERAL Dictated By: IOANA BLAKE MD INDICATION: ITS.REASON: COUGH, CHEST DISCOMFORT CHEST 2-VIEWS UPRIGHT (PA & LAT): COMPARISON: June 17, 2014 FINDINGS: The lungs are clear without evidence of focal abnormal airspace opacity. There is no pleural effusion or pneumothorax. The heart size, mediastinal contours and pulmonary vascularity are within normal limits. There is no significant skeletal abnormality. IMPRESSION: No acute cardiopulmonary disease. . Procedures Procedure Status Date Provider(s) L HRT ARTERY/VENTRICLE ANGIO completed 05/16/14 SONIDO HERNANDEZ MD RPR F/E/E/N/L/M 2.5 CM/< completed 06/10/14 GRACIELA FAY MD CHEST X-RAY 1 VIEW FRONTAL completed 06/17/14 COMPREHEN METABOLIC PANEL completed 06/17/14 ASSAY OF MAGNESIUM completed 06/17/14 ASSAY OF NATRIURETIC PEPTIDE completed 06/17/14 ASSAY THYROID STIM HORMONE completed 06/17/14 ASSAY OF TROPONIN QUANT completed 06/17/14 COMPLETE CBC W/AUTO DIFF WBC completed 06/17/14 PROTHROMBIN TIME completed 06/17/14 THROMBOPLASTIN TIME PARTIAL completed 06/17/14 ELECTROCARDIOGRAM TRACING completed 06/17/14 THER/PROPH/DIAG INJ IV PUSH completed 06/17/14 EMERGENCY DEPT VISIT completed 06/17/14 [id number]"STERILE WATER, SALINE AND/OR DEXTROSE, DILUENT/FLUSH, completed [id number]"STERILE WATER, SALINE AND/OR DEXTROSE, DILUENT/FLUSH, completed [id number] ITEM OR SERVICE completed 06/17/14 [id number]"INJECTION, LORAZEPAM, 2 MG" completed 06/17/14 CHEST X-RAY 2VW FRONTAL&LATL completed 07/25/14 ELECTROCARDIOGRAM TRACING completed 07/25/14 AIRWAY INHALATION TREATMENT completed 07/25/14 EVALUATE PT USE OF INHALER completed 07/25/14 THER/PROPH/DIAG INJ SC/IM completed 07/25/14 EMERGENCY DEPT VISIT completed 07/25/14 [id number]"INJECTION, DIAZEPAM, UP TO 5 MG" completed 07/25/14 Encounters Encounter Location Date/Time Departed Emergency Room [facility] 08/15/14 7:56pm Departed Emergency Room [facility] 07/25/14 4:06pm Departed Emergency Room [facility] 06/17/14 8:06am Departed Emergency Room [facility] 06/10/14 10:43pm Discharged Inpatient [facility] 05/16/14 8:39am Recent Diagnosis
--- OUTSIDE RECORDS SUMMARY | 2016-11-10 16:26 | XMS REPORT | Continuity of Care Document ---
Author Author [facility] Organization [facility] Address Unknown Phone Unavailable Support Name Relationship Address Phone GRACIELA FAY MD Caregiver [facility] [address] [place] [address] Unavailable JEAN ROTHMAN MD Caregiver [address] [place], [place] [id number] LORETTA OSBORNE Next Of Kin [address] [place] [address] CP Insurance Providers Payer Name Policy Number Subscriber Name Relationship Medicare [id number] Jessica Osborne 20 Self Medicaid [id number] Jessica Osborne 20 Self Advance Directives Directive Response Recorded Date/Time Advanced Directives Type None 06/10/14 10:50pm Chief Complaint and Reason for Visit Chief Complaint Chest Pain Reason for Visit Hypokalemia Leukocytosis Sinusitis Sepsis [id number] pain Problems Medical Problems Problem Onset Date [...] Unknown Active Laceration of head Unknown Active Medications Medication Dose Route Sig [...] mouth, 2 times a day. 05/14/14 Active Tramadol HCl 1 Tab PO [...] TIMES A DAY 30 Days 05/19/14 Active Social History Social History Problem Response Recorded Date/Time Smoking Status Current every day smoker 01/29/2014 7:15pm When did patient START smoking? AGE 16 06/10/2014 10:55pm Chewing Tobacco Status No 01/29/2014 7:15pm Hx Substance Use Y PT REPORTS "IN THE PAST" 06/10/2014 10:55pm Hx Alcohol Use Y STOPPED DRINKING A YEAR AGO 06/10/2014 10:55pm Has the pt used tobacco in the [...] days Follow Up Appointments: DR ANDREWS 06/04 [phone] Patient Instructions: Do not drive, operate machinery, drink alcohol for 72 hours Wound/Incision Care: n/a Durable Medical Equipment: n/a Notify Physician If: Worsening chest pain General Information: n/a Condition at time of discharge: Good 1.Clear dressing is to remain in place for 2 weeks. 2.Do not pick at it or scrub it while showering. 3.If the dressing begins to pull up, secure it with 4x4 gauze pad and tape. 4.You may shower; however, do not submerge yourself in water until the incision is completely healed. Mepilex 1.Dressing to remain in place until your follow up appointment. 2.If this dressing starts peeling up slightly, [...] of your legs. 3.During office hours, call [phone] 4. After hours, please call [facility] at [phone], and have the punching machine operator page your Surgeon IN THE EVENT OF AN EMERGENCY, seek medical care at the nearest Emergency Room Condition at time of discharge: Good Plan of Care Discharge Date 05/19/14 10:05am [place]position 02 [place] [facility] [place] Stable Instructions/Education Provided DI for Heart Attack Prescriptions See Medications Section Referrals JEAN ROTHMAN MD Functional Status Query Response Date Recorded Physical Hygiene Self June 10, 2014 10:55pm Disabilities None June 10, 2014 10:55pm Devices Used None June 10, 2014 10:55pm Dressing Self June 10, 2014 10:55pm Ambulation Self June 10, 2014 10:55pm Diet Self June 10, 2014 10:55pm Mental Status Alert Oriented June 11, 2014 12:46am Disabilities None June 10, 2014 10:55pm Devices Used None June 10, 2014 10:55pm Physical Hygiene Self June 10, 2014 10:55pm Dressing Self June 10, 2014 10:55pm Ambulation Self June 10, 2014 10:55pm Diet Self June 10, 2014 10:55pm Allergies, Adverse Reactions, Alerts Allergen Type Severity Reaction Status Last Updated ziprasidone HCl Allergy Unknown Active 06/10/14 ziprasidone mesylate Allergy Unknown Active 06/10/14 Bupropion Allergy Unknown Active 06/10/14 Citalopram Allergy Unknown Active 06/10/14 Immunizations Name Given Type Hx Influenza Vaccination Y states "I can't remember" Historical Hx Pneumococcal Vaccination No Historical Hx Tetanus, Diptheria, Pertussis No Historical Hx Influenza Vaccination Y states "I can't remember" Historical Hx Tetanus Diptheria No Historical Hx Tetanus, Diptheria, Pertussis No Historical Hx Tetanus Toxoid Vaccination No Historical Vital Signs Acute Vital Signs Vital Response Date/Time Temperature (Fahrenheit) 96.9 deg F (96.8 - 99.1) Temperature (Calculated Celsius) 36.02684 degrees C (36.0 - 37.3) Pulse Rate (adult) 89 bpm (60 - 100) Respiratory Rate 20 breaths/min (10 - 20) O2 Sat by Pulse Oximetry 95 % (90 - 100) Blood Pressure 133/82 mm Hg Height 5 ft 4 in Weight 251 lb Body Mass Index 43.0 kg/m^2 Results Test Source Date Result Interp. Ref. Range Comments Acetaminophen Level July 12, 2013 10:25am < 10 UG/ML L 10-30 TOXIC <4 HR POST INGESTION: >150 MG/L;TOXIC <12 HR POST INGESTION: >50 MG/L Activated Partial Thromboplast Time May 15, 2014 4:47pm 31.0 SEC N 24-36 Alanine Aminotransferase (ALT/SGPT) June 10, 2014 11:28pm 41 U/L N 9- 52 Albumin June 10, 2014 11:28pm 3.4 G/DL L 3.5-5.0 Albumin/Globulin Ratio June 10, 2014 11:28pm 1.1 RATIO N 1.1-2.2 Alcohol, Quantitative January 29, 2014 7:20pm <10 MG/DL - Alkaline Phosphatase June 10, 2014 11:28pm 82 U/L N 38-126 Amylase Level April 14, 2014 8:35pm 39 U/L N 30-110 Anion Gap June 10, 2014 11:28pm 10 MEQ/L N 5-15 Aspartate Amino Transf (AST/SGOT) June 10, 2014 11:28pm 35 U/L N 14- 36 B-Type Natriuretic Peptide April 23, 2010 6:25pm < 15 PG/ML L 15-100 BUN/Creatinine Ratio May 19, 2014 5:29am 5 RATIO L 6-26 Band Neutrophils # May 15, 2014 4:47pm 0.2 T/MM3 - Band Neutrophils % May 15, 2014 4:47pm 1.0 % N 0-6 Basophils # (Auto) June 10, 2014 11:28pm 0.1 T/MM3 N 0-0.2 Basophils # (Manual) April 14, 2014 8:35pm 0.2 T/MM3 N 0-0.2 Basophils % (Manual) April 14, 2014 8:35pm 2.0 % N 0-2 Basophils (%) (Auto) June 10, 2014 11:28pm 1.1 % N 0-2 Blood Urea Nitrogen June 10, 2014 11:28pm < 2.0 MG/DL L 7-17 C-Reactive Protein March 13, 2014 1:40pm 11.9 MG/L H 0-9 COMMENT WILL CALL WHEN HERE Calcium Level June 10, 2014 11:28pm 8.4 MG/DL N 8.4-10.2 Calculated Osmolality June 10, 2014 11:28pm Test not performed 261- 280 Carbon Dioxide Level June 10, 2014 11:28pm 23 MEQ/L N 22-30 Chlamydia Direct Antigen Assay July 28, 2009 9:30am Negative - Chloride Level June 10, 2014 11:28pm 107 MEQ/L N 98-107 Cholesterol Level May 16, 2014 9:47am 138 MG/DL N 132-199 COMMENT PLEASE RUN ON THIS MORNING'S FASTING LAB DRAW Cholesterol/HDL Ratio May 16, 2014 9:47am 7.3 RATIO H 0-4.0 COMMENT PLEASE RUN ON THIS MORNING'S FASTING LAB DRAW Conjugated Bilirubin June 18, 2011 4:16pm 0.00 MG/DL N 0.00-0.30 Creatinine June 10, 2014 11:28pm 0.7 MG/DL N 0.7-1.2 D-Dimer April 23, 2010 6:25pm 76 NG/ML N 0-224 <224 NG/ML=PRESUMPTIVE NEGATIVE FOR PE OR DVT>224 NG/ML=ADDITIONAL EVALUATION FOR PE OR DVT RECOMMENDED Differential Total Cells Counted February 11, 2010 8:40pm 100 % - Eosinophils # (Auto) June 10, 2014 11:28pm 0.2 T/MM3 N 0-0.5 Eosinophils # (Manual) April 14, 2014 8:35pm 0.5 T/MM3 N 0-0.5 Eosinophils % (Manual) April 14, 2014 8:35pm 4.0 % N 0-4 Eosinophils (%) (Auto) June 10, 2014 11:28pm 2.4 % N 0-4 Erythrocyte Sedimentation Rate March 13, 2014 1:40pm 2 MM/HR N 0-20 COMMENT WILL CALL WHEN HERE Folate April 25, 2011 4:45pm > 20.0 NG/ML H 2.76-20 NORMAL ADULT RANGE : 2.76->20 ng/mL Free Thyroxine May 06, 2010 9:46am 0.80 NG/DL N 0.78-2.19 Globulin June 10, 2014 11:28pm 3.0 G/DL N 2.4-3.6 Glucose Level June 10, 2014 11:28pm 93 MG/DL N 65-110 Hematocrit June 10, 2014 11:28pm 42.4 % N 36-46 Hemoglobin June 10, 2014 11:28pm 13.4 GM/DL N 12-16 Hemoglobin A1c August 31, [...] 25 U/L N 23-300 Lymphocytes # (Auto) June 10, 2014 11:28pm 3.9 T/MM3 N 1-4.8 Lymphocytes # (Manual) May 15, 2014 4:47pm 3.4 T/MM3 N 1-4.8 Lymphocytes % (Manual) May 15, 2014 4:47pm 15.0 % L 23-45 Lymphocytes (%) (Auto) June 10, 2014 11:28pm 39.5 % N 23-45 Magnesium Level May 18, 2014 4:20am 1.8 MG/DL N 1.6-2.3 Mean Corpuscular Hemoglobin June 10, 2014 11:28pm 30.6 UUG N 26-34 Mean Corpuscular Hemoglobin Concent June 10, 2014 11:28pm 31.6 GM/DL N 31-37 Mean Corpuscular Volume June 10, 2014 11:28pm 96.8 UM3 N 80-100 Mean Platelet Volume June 10, 2014 11:28pm 10.6 UM3 N 9.4-12.4 Monocytes # (Auto) June 10, 2014 11:28pm 1.0 T/MM3 H 0-0.8 Monocytes # (Manual) May 15, 2014 4:47pm 1.6 T/MM3 H 0-0.8 Monocytes % (Manual) May 15, 2014 4:47pm 7.0 % N 0-9.0 Monocytes (%) (Auto) June 10, 2014 11:28pm 10.7 % H 0-9.0 Monoscreen April 14, 2014 8:35pm Negative - Neutrophils # (Auto) June 10, 2014 11:28pm 4.5 T/MM3 N 1.8-7.7 Neutrophils # (Manual) May 15, 2014 4:47pm 17.4 T/MM3 H 1.8-7.7 Neutrophils % (Manual) May 15, 2014 4:47pm 77.0 % H 33-66 Neutrophils (%) (Auto) June 10, 2014 11:28pm 46.2 % N 33-66 Platelet Count June 10, 2014 11:28pm 250 T/MM3 N 130-400 Potassium Level June 10, 2014 11:28pm 3.6 MEQ/L N 3.6-5 Prealbumin May 15, 2014 4:47pm 20.1 MG/DL N 17.6-36.0 COMMENT blood in lab Prothromb Time International Ratio May 15, 2014 4:47pm 1.00 N 0.81 -1.09 THERAPUTIC RANGE=2.00-3.00 FOR ANTI-THROMBOSIS THERAPUTIC RANGE=2.50- 3.50 FOR IMPLANTED VALVE RDW Standard Deviation June 10, 2014 11:28pm 47.7 FL N 36.9-50.2 Rapid Plasma Reagin October 27, 2011 9:40am Nonreactive - Reactive Lymphocytes March 27, 2009 2:40pm 4.0 % H 0-0 Red Blood Count June 10, 2014 11:28pm 4.38 M/MM3 N 4.00-5.20 Salicylates Level July 12, 2013 10:25am < 1.0 MG/DL L 2-20 Sodium Level June 10, 2014 11:28pm 140 MEQ/L N 134-144 Tests Not Done November 18, 2009 11:23am Not done - Has specimen been collected/obtained? Y Thyroid Stimulating Hormone (TSH) May 15, 2014 4:47pm 0.47 MIU/L DN 0.47-4.68 COMMENT blood in lab Total Bilirubin June 10, 2014 11:28pm 0.40 MG/DL N 0.20-1.30 Total Protein June 10, 2014 11:28pm 6.4 G/DL N 6.3-8.2 Triglycerides Level May 16, 2014 9:47am 377 MG/DL H 35-135 COMMENT PLEASE RUN ON THIS MORNING'S FASTING LAB DRAW Troponin I May 19, 2014 5:29am 0.155 ng/ml PH 0-0.12 Unconjugated Bilirubin June 18, 2011 4:16pm [...] 2014 10:09am 3-5 /HPF - Urine Specific [place] May 15, 2014 5:22pm <=1.005 L - [...] COMMENT blood in lab White Blood Count June 10, 2014 11:28pm 9.8 T/MM3 N 4.5-11.0 Chemistry Specimen Hemolysis June 10, 2014 11:28pm < 15 0-25 0-25 : No Hemolysis.26-70: [...] Report May 19, 2014 4:21pm REFERENCE LAB [id number] - Chlamydia trachomatis Amplified DNA January 24, [...] October 27, 2011 9:40am Negative - Turbidity June 10, 2014 11:28pm < 20 0-20 Reactive Lymphocytes % April 14, 2014 8:35pm 20.0 % DH 0-0 Glomerular Filtration Rate Calc June 10, 2014 11:28pm 94 - Reactive Lymphocytes # April 14, 2014 8:35pm 2.5 T/MM3 H 0-0 Immature Granulocyte # (Auto) June 10, 2014 11:28pm 0.01 T/MM3 N 0.00 -0.03 Immature Granulocyte % (Auto) June 10, 2014 11:28pm 0.1 % N 0.0-0.5 Venous Blood Lactate May 15, 2014 5:37pm 2.6 MMOL/L H 0.6-2.2 Procalcitonin May 15, 2014 5:37pm < 0.05 NG/ML - PCT </=0.5 ng/ mL - sepsis not likely;PCT >0.5 and </=2 ng/mL - sepsis possible; PCT >2 ng/mL - sepsis likely; PCT >/=10 ng/mL - systemic inflammatory response - sepsis or septic shock highly indicated. Icterus Index June 10, 2014 11:28pm < 2 0-7 BC-[id number] Natriuretic Peptide May 15, 2014 4:47pm 236 [...] Negative Bryan Name: JESSICA OSBORNE Unit #: [id number] : [id number] Sex: F Loc / Svc: SRG DOS: 05/15/14 Signed Report #: [id number] DIAGNOSTIC IMAGING REPORT TYPE OF EXAM: CT [...] Encounters Encounter Location Date/Time Departed Emergency Room [facility] 06/10/14 10:43pm Discharged Inpatient [facility] 05/16/14 8:39am Departed Emergency Room [facility] 05/14/14 2:44pm Departed Emergency Room [facility] 04/14/14 7:37pm Departed Emergency Room [facility] 03/16/14 10:03pm Discharged Inpatient [facility] 03/13/14 1:02pm Registered Clinic [facility] 03/13/14 9:49am Recent Diagnosis
--- OUTSIDE RECORDS SUMMARY | 2016-11-10 16:27 | XMS REPORT | Continuity of Care Document ---
Author Author [facility] Organization [facility] Address Unknown Phone Unavailable Support Name Relationship Address Phone JEAN ROTHMAN MD Caregiver [employer] [phone] [place] [address] RAJWINDER WALSH MD Caregiver [address] [place] [phone] LORETTA OSBORNE Next Of Kin [address] [place] [address] CP Insurance Providers Payer Name Policy Number Subscriber Name Relationship Medicare [id number] Jessica Osborne 20 Self Medicaid [id number] Jessica Osborne 20 Self Advance Directives Directive Response Recorded Date/Time Advanced Directives Type None 09/04/14 8:54pm Problems Medical Problems Problem Onset Date Status [...] Acute exacerbation of chronic bronchitis Unknown Active Trichomoniasis Unknown Active Anxiety Unknown Active Atypical chest pain Unknown Active Trichomoniasis Unknown Active Elevated TSH Unknown Active Trichomoniasis Unknown Active Medications Medication Dose Route Sig [...] A DAY 10 Days 04/14/14 05/19/14 Discontinued Furosemide 20 Mg PO DAILY 30 Qty [...] TWICE A DAY 30 Qty 07/25/14 Active [place] Carbonate 300 Mg PO TWICE A DAY 08/15/14 Active Oxycodone HCl/Acetaminophen 10 Mg PO THREE TIMES A DAY Take 1 tablet, by mouth, 3 times a day. 09/04/14 Active Social History Social History Problem Response Recorded Date/Time Chewing Tobacco Status No 01/29/2014 7:15pm Hx Substance Use Y PT REPORTS "IN THE PAST" 09/04/2014 9:00pm Hx Alcohol Use N STOPPED DRINKING A YEAR AGO 09/04/2014 9:00pm Has the pt used tobacco in the last 12 months Yes 05/15/2014 7:22pm Tobacco Usage smoke 03/13/2014 1:55pm Query Response Start Date Stop Date Smoking Status Current every day smoker Hospital Discharge Instructions No hospital discharge instructions. Plan of Care No plan of care. Functional Status Query Response Date Recorded Physical Hygiene Self September 04, 2014 9:00pm Disabilities None September 04, 2014 9:00pm Devices Used None September 04, 2014 9:00pm Dressing Self September 04, 2014 9:00pm Ambulation Self September 04, 2014 9:00pm Diet Self September 04, 2014 9:00pm Mental Status Alert Oriented September 04, 2014 10:32pm Disabilities None September 04, 2014 9:00pm Devices Used None September 04, 2014 9:00pm Physical Hygiene Self September 04, 2014 9:00pm Dressing Self September 04, 2014 9:00pm Ambulation Self September 04, 2014 9:00pm Diet Self September 04, 2014 9:00pm Allergies, Adverse Reactions, Alerts Allergen Type Severity Reaction Status Last Updated ziprasidone HCl Allergy Unknown Active 09/04/14 ziprasidone mesylate Allergy Unknown Active 09/04/14 Bupropion Allergy Unknown Active 09/04/14 Citalopram Allergy Unknown Active 09/04/14 Immunizations Name Given Type Hx Influenza Vaccination Y 06/09 Historical Hx Pneumococcal Vaccination No Historical Hx Tetanus, Diptheria, Pertussis No Historical Hx Influenza Vaccination Y 06/09 Historical Hx Tetanus Diptheria No Historical Hx Tetanus, Diptheria, Pertussis No Historical Hx Tetanus Toxoid Vaccination No Historical Vital Signs Acute Vital Signs Vital Response Date/Time Temperature (Fahrenheit) 97.8 deg F (96.8 - 99.1) Temperature (Calculated Celsius) 36.65738 degrees C (36.0 - 37.3) Pulse Rate (adult) 90 bpm (60 - 100) Respiratory Rate 20 breaths/min (10 - 20) O2 Sat by Pulse Oximetry 97 % (90 - 100) Blood Pressure 127/87 mm Hg Height 5 ft 4 in Weight 258 lb Body Mass Index 44.0 kg/m^2 Results Test Source Date Result Interp. Ref. Range Comments Acetaminophen Level July 12, 2013 10:25am < 10 UG/ML L 10-30 TOXIC <4 HR POST INGESTION: >150 MG/L;TOXIC <12 HR POST INGESTION: >50 MG/L Activated Partial Thromboplast Time September 04, 2014 9:10pm 31.2 SEC N 24-36 Alanine Aminotransferase (ALT/SGPT) September 04, 2014 9:10pm 33 U/L N 9- 52 Albumin September 04, 2014 9:10pm 3.4 G/DL L 3.5-5.0 Albumin/Globulin Ratio September 04, 2014 9:10pm 1.2 RATIO N 1.1-2.2 Alcohol, Quantitative January 29, 2014 7:20pm <10 MG/DL - Alkaline Phosphatase September 04, 2014 9:10pm 81 U/L N 38-126 Amylase Level April 14, 2014 8:35pm 39 U/L N 30-110 Anion Gap September 04, 2014 9:10pm 4 MEQ/L L 5-15 Aspartate Amino Transf (AST/SGOT) September 04, 2014 9:10pm 32 U/L N 14- 36 B-Type Natriuretic Peptide April 23, 2010 6:25pm < 15 PG/ML L 15-100 BUN/Creatinine Ratio September 04, 2014 9:10pm 6 RATIO N 6-26 Band Neutrophils # May 15, 2014 4:47pm 0.2 T/MM3 - Band Neutrophils % May 15, 2014 4:47pm 1.0 % N 0-6 Basophils # (Auto) September 04, 2014 9:10pm 0.1 T/MM3 N 0-0.2 Basophils # (Manual) April 14, 2014 8:35pm 0.2 T/MM3 N 0-0.2 Basophils % (Manual) April 14, 2014 8:35pm 2.0 % N 0-2 Basophils (%) (Auto) September 04, 2014 9:10pm 0.6 % N 0-2 Blood Urea Nitrogen September 04, 2014 9:10pm 4.0 MG/DL L 7-17 C-Reactive Protein March 13, 2014 1:40pm 11.9 MG/L H 0-9 COMMENT WILL CALL WHEN HERE Calcium Level September 04, 2014 9:10pm 8.7 MG/DL N 8.4-10.2 Calculated Osmolality September 04, 2014 9:10pm 265 MOSM/KG N 261-280 Carbon Dioxide Level September 04, 2014 9:10pm 29 MEQ/L N 22-30 Chlamydia Direct Antigen Assay July 28, 2009 9:30am Negative - Chloride Level September 04, 2014 9:10pm 105 MEQ/L N 98-107 Cholesterol Level May 16, 2014 9:47am 138 MG/DL N 132-199 COMMENT PLEASE RUN ON THIS MORNING'S FASTING LAB DRAW Cholesterol/HDL Ratio May 16, 2014 9:47am 7.3 RATIO H 0-4.0 COMMENT PLEASE RUN ON THIS MORNING'S FASTING LAB DRAW Conjugated Bilirubin June 18, 2011 4:16pm 0.00 MG/DL N 0.00-0.30 Creatinine September 04, 2014 9:10pm 0.7 MG/DL N 0.7-1.2 D-Dimer August 15, 2014 8:31pm < 150 NG/ML 0-230 <230 NG/ML D-DU= PRESUMPTIVE NEGATIVE FOR PE OR DVT>230 NG/ML D-DU=ADDITIONAL EVAL FOR PE OR DVT RECOMMENDED Differential Total Cells Counted February 11, 2010 8:40pm 100 % - Eosinophils # (Auto) September 04, 2014 9:10pm 0.3 T/MM3 N 0-0.5 Eosinophils # (Manual) April 14, 2014 8:35pm 0.5 T/MM3 N 0-0.5 Eosinophils % (Manual) April 14, 2014 8:35pm 4.0 % N 0-4 Eosinophils (%) (Auto) September 04, 2014 9:10pm 2.7 % N 0-4 Erythrocyte Sedimentation Rate March 13, 2014 1:40pm 2 MM/HR N 0-20 COMMENT WILL CALL WHEN HERE Folate April 25, 2011 4:45pm > 20.0 NG/ML H 2.76-20 NORMAL ADULT RANGE : 2.76->20 ng/mL Free Thyroxine May 06, 2010 9:46am 0.80 NG/DL N 0.78-2.19 Globulin September 04, 2014 9:10pm 2.9 G/DL N 2.4-3.6 Glucose Level September 04, 2014 9:10pm 136 MG/DL H 65-110 Hematocrit September 04, 2014 9:10pm 40.5 % N 36-46 Hemoglobin September 04, 2014 9:10pm 12.9 GM/DL N 12-16 Hemoglobin A1c August 31, [...] 25 U/L N 23-300 Lymphocytes # (Auto) September 04, 2014 9:10pm 2.7 T/MM3 N 1-4.8 Lymphocytes # (Manual) May 15, 2014 4:47pm 3.4 T/MM3 N 1-4.8 Lymphocytes % (Manual) May 15, 2014 4:47pm 15.0 % L 23-45 Lymphocytes (%) (Auto) September 04, 2014 9:10pm 25.4 % N 23-45 Magnesium Level September 04, 2014 9:10pm 1.8 MG/DL N 1.6-2.3 Mean Corpuscular Hemoglobin September 04, 2014 9:10pm 29.9 UUG N 26-34 Mean Corpuscular Hemoglobin Concent September 04, 2014 9:10pm 31.9 GM/DL N 31-37 Mean Corpuscular Volume September 04, 2014 9:10pm 94.0 UM3 N 80-100 Mean Platelet Volume September 04, 2014 9:10pm 11.2 UM3 N 9.4-12.4 Monocytes # (Auto) September 04, 2014 9:10pm 0.6 T/MM3 N 0-0.8 Monocytes # (Manual) May 15, 2014 4:47pm 1.6 T/MM3 H 0-0.8 Monocytes % (Manual) May 15, 2014 4:47pm 7.0 % N 0-9.0 Monocytes (%) (Auto) September 04, 2014 9:10pm 6.0 % N 0-9.0 Monoscreen April 14, 2014 8:35pm Negative - Neutrophils # (Auto) September 04, 2014 9:10pm 7.0 T/MM3 N 1.8-7.7 Neutrophils # (Manual) May 15, 2014 4:47pm 17.4 T/MM3 H 1.8-7.7 Neutrophils % (Manual) May 15, 2014 4:47pm 77.0 % H 33-66 Neutrophils (%) (Auto) September 04, 2014 9:10pm 65.1 % N 33-66 Platelet Count September 04, 2014 9:10pm 199 T/MM3 N 130-400 Potassium Level September 04, 2014 9:10pm 3.2 MEQ/L L 3.6-5 Prealbumin May 15, 2014 4:47pm 20.1 MG/DL N 17.6-36.0 COMMENT blood in lab Prothromb Time International Ratio September 04, 2014 9:10pm 1.01 N 0.81- 1.09 THERAPUTIC RANGE=2.00-3.00 FOR ANTI-THROMBOSIS THERAPUTIC RANGE=2.50- 3.50 FOR IMPLANTED VALVE RDW Standard Deviation September 04, 2014 9:10pm 49.5 FL N 36.9-50.2 Rapid Plasma Reagin October 27, 2011 9:40am Nonreactive - Reactive Lymphocytes March 27, 2009 2:40pm 4.0 % H 0-0 Red Blood Count September 04, 2014 9:10pm 4.31 M/MM3 N 4.00-5.20 Salicylates Level July 12, 2013 10:25am < 1.0 MG/DL L 2-20 Sodium Level September 04, 2014 9:10pm 138 MEQ/L N 134-144 Tests Not Done November 18, 2009 11:23am Not done - Has specimen been collected/obtained? Y Thyroid Stimulating Hormone (TSH) September 04, 2014 9:10pm 6.20 MIU/L H 0.47-4.68 Total Bilirubin September 04, 2014 9:10pm 0.50 MG/DL N 0.20-1.30 Total Protein September 04, 2014 9:10pm 6.3 G/DL N 6.3-8.2 Triglycerides Level May 16, 2014 9:47am 377 MG/DL H 35-135 COMMENT PLEASE RUN ON THIS MORNING'S FASTING LAB DRAW Troponin I September 04, 2014 9:10pm < 0.012 ng/ml 0-0.12 Unconjugated Bilirubin June 18, 2011 4:16pm 0.20 MG/DL N 0.00-1.10 Urine Bacteria September 04, 2014 9:34pm 1+ H - Has specimen been collected/obtained? Y Urine Bilirubin September 04, 2014 9:34pm Negative - Has specimen been collected/obtained? Y Urine Blood September 04, 2014 9:34pm Negative - Has specimen been collected/obtained? Y Urine Collection Type September 04, 2014 9:34pm Cleancatch-midstream - Has specimen been collected/obtained? Y Urine Color September 04, 2014 9:34pm Yellow - Has specimen been collected/obtained? Y Urine Culture Indicated September 04, 2014 9:34pm Cult not set up - Has specimen been collected/obtained? Y Urine Glucose (UA) September 04, 2014 9:34pm Negative - Has specimen been collected/obtained? Y Urine Ketones September 04, 2014 9:34pm Negative - Has specimen been collected/obtained? Y Urine Leukocyte Esterase September 04, 2014 9:34pm 1+ H - Has specimen been collected/obtained? Y Urine Mucus March 18, 2011 7:18pm Present - Has specimen been collected/obtained? Y Urine Nitrite September 04, 2014 9:34pm Negative - Has specimen been collected/obtained? Y Urine Test May 28, 2013 7:35pm Negative - Has specimen been collected/obtained? Y Urine Protein September 04, 2014 9:34pm Negative - Has specimen been collected/obtained? Y Urine RBC September 04, 2014 9:34pm None seen /HPF - Has specimen been collected/obtained? Y Urine Renal Epithelial Cells March 13, 2014 10:09am 3-5 /HPF - Urine Specific [place] September 04, 2014 9:34pm <=1.005 L - Has specimen been collected/obtained? Y Urine Squamous Epithelial Cells May 15, 2014 5:22pm 0-5 - Has specimen been collected/obtained? Y Urine Trichomonas September 04, 2014 9:34pm Present - Has specimen been collected/obtained? Y Urine Turbidity September 04, 2014 9:34pm Sl cloudy - Has specimen been collected/obtained? Y Urine Urobilinogen September 04, 2014 9:34pm 0.2 EU/DL - Has specimen been collected/obtained? Y Urine WBC September 04, 2014 9:34pm 5-10 /HPF H - Has specimen been collected/obtained? Y Urine pH September 04, 2014 9:34pm 6.0 - Has specimen been collected/ obtained? Y VLDL Cholesterol May 16, 2014 9:47am 75.4 MG/DL H 0-28 COMMENT PLEASE RUN ON THIS MORNING'S FASTING LAB DRAW Vitamin B12 Level May 15, 2014 4:47pm 265 PG/ML N 239-931 COMMENT blood in lab White Blood Count September 04, 2014 9:10pm 10.7 T/MM3 N 4.5-11.0 Chemistry Specimen Hemolysis September 04, 2014 9:10pm < 15 0-25 0-25: No Hemolysis.26-70: Slight [...] Report May 19, 2014 4:21pm REFERENCE LAB [id number] - Chlamydia trachomatis Amplified DNA January 24, [...] October 27, 2011 9:40am Negative - Turbidity September 04, 2014 9:10pm < 20 0-20 Reactive Lymphocytes % April 14, 2014 8:35pm 20.0 % DH 0-0 Glomerular Filtration Rate Calc September 04, 2014 9:10pm 94 - Reactive Lymphocytes # April 14, 2014 8:35pm 2.5 T/MM3 H 0-0 Immature Granulocyte # (Auto) September 04, 2014 9:10pm 0.02 T/MM3 N 0.00- 0.03 Immature Granulocyte % (Auto) September 04, 2014 9:10pm 0.2 % N 0.0-0.5 Venous Blood Lactate May 15, 2014 5:37pm 2.6 MMOL/L H 0.6-2.2 Procalcitonin May 15, 2014 5:37pm < 0.05 NG/ML - PCT </=0.5 ng/ mL - sepsis not likely;PCT >0.5 and </=2 ng/mL - sepsis possible; PCT >2 ng/mL - sepsis likely; PCT >/=10 ng/mL - systemic inflammatory response - sepsis or septic shock highly indicated. Icterus Index September 04, 2014 9:10pm < 2 0-7 GG-Rtf-P-Type Natriuretic Peptide September 04, 2014 9:10pm 237 PG/ML H 0- 175 Rule in cut points: <50 [...] Negative Bryan Name: JESSICA OSBORNE Unit #: [id number] : [id number] Sex: F Loc / Svc: ED DOS: 08/15/14 Signed Report #: [id number] DIAGNOSTIC IMAGING REPORT TYPE OF EXAM: CHEST, PA & LATERAL Dictated By: IOANA BLAKE MD INDICATION: ITS.REASON: cough shortness of air, history of asthma, prior ME CHEST 2-VIEWS [facility] (PA & LAT): COMPARISON: July 25, 2014 FINDINGS: The lungs are clear without evidence of focal abnormal airspace opacity. There is no pleural effusion or pneumothorax. The heart size, mediastinal contours and pulmonary vascularity are within normal limits. Surgical clips in the upper abdomen. IMPRESSION: No acute cardiopulmonary disease. . Procedures Procedure Status Date Provider(s) RPR F/E/E/N/L/M 2.5 CM/< completed 06/10/14 GRACIELA [...] completed 06/17/14 EMERGENCY DEPT VISIT completed 06/17/14 [id number]"STERILE WATER, SALINE AND/OR DEXTROSE, DILUENT/FLUSH, completed [id number]"STERILE WATER, SALINE AND/OR DEXTROSE, DILUENT/FLUSH, completed [id number] ITEM OR SERVICE completed 06/17/14 [id number]"INJECTION, LORAZEPAM, 2 MG" completed 06/17/14 CHEST X-RAY 2VW FRONTAL&LATL completed 07/25/14 ELECTROCARDIOGRAM TRACING completed 07/25/14 AIRWAY INHALATION TREATMENT completed 07/25/14 EVALUATE PT USE OF INHALER completed 07/25/14 THER/PROPH/DIAG INJ SC/IM completed 07/25/14 EMERGENCY DEPT VISIT completed 07/25/14 [id number]"INJECTION, DIAZEPAM, UP TO 5 MG" completed 07/25/14 CHEST X-RAY 2VW FRONTAL&LATL completed 08/15/14 COMPREHEN METABOLIC PANEL completed 08/15/14 URINALYSIS AUTO W/O SCOPE completed 08/15/14 ASSAY OF MAGNESIUM completed 08/15/14 ASSAY OF NATRIURETIC PEPTIDE completed 08/15/14 ASSAY THYROID STIM HORMONE completed 08/15/14 ASSAY OF TROPONIN QUANT completed 08/15/14 COMPLETE CBC W/AUTO DIFF WBC completed 08/15/14 FIBRIN DEGRADATION QUANT completed 08/15/14 PROTHROMBIN TIME completed 08/15/14 THROMBOPLASTIN TIME PARTIAL completed 08/15/14 ELECTROCARDIOGRAM TRACING completed 08/15/14 AIRWAY INHALATION TREATMENT completed 08/15/14 THER/PROPH/DIAG INJ IV PUSH completed 08/15/14 EMERGENCY DEPT VISIT completed 08/15/14 [id number] ITEM OR SERVICE completed 08/15/14 [id number] ITEM OR SERVICE completed 08/15/14 [id number] ITEM OR SERVICE completed 08/15/14 [id number]"INJECTION, LORAZEPAM, 2 MG" completed 08/15/14 Encounters Encounter Location Date/Time Departed Emergency Room [facility] 09/04/14 9:28pm Departed Emergency Room [facility] 08/15/14 7:56pm Departed Emergency Room [facility] 07/25/14 4:06pm Departed Emergency Room [facility] 06/17/14 8:06am Departed Emergency Room [facility] 06/10/14 10:43pm Recent Diagnosis
--- OUTSIDE RECORDS SUMMARY | 2016-11-10 16:27 | XMS REPORT | Continuity of Care Document ---
Author Author [facility] Organization [facility] Address Unknown Phone Unavailable Support Name Relationship Address Phone JEAN ROTHMAN MD Caregiver [facility] [address] [place] [address] RAJWINDER WALSH MD Caregiver [address] [place] [phone] LORETTA OSBORNE Next Of Kin [address] [place] [address] CP Insurance Providers Payer Name Policy Number Subscriber Name Relationship Medicare [id number] Jessica Osborne 20 Self Medicaid [id number] Jessica Osborne 20 Self Advance Directives Directive Response Recorded Date/Time Advanced Directives Type None 10/28/14 4:50pm Problems Medical Problems Problem Onset Date Status [...] Elevated TSH Unknown Active Trichomoniasis Unknown Active Well adult exam Unknown Active Well adult exam Unknown Active Anxiety Unknown Active Atypical chest pain Unknown Active Atypical chest pain Unknown Active Medications Medication Dose Route Sig [...] Multivitamins W-Minerals 1 Cap PO DAILY 03/30/11 10/16/14 Discontinued Fenofibrate Nanocrystallized 145 Mg PO DAILY 03/30/11 05/09/11 Discontinued [Latuda] BEDTIME 05/09/11 06/18/11 Discontinued Diphenhydramine Hcl 50 Mg PO BEDTIME 05/09/11 06/18/11 Discontinued Buspirone Hcl 15 Mg PO TWICE A DAY 06/18/11 01/19/12 Discontinued Olanzapine 15 Mg PO BEDTIME 06/18/11 01/19/12 Discontinued Ranitidine Hcl 150 Mg PO TWICE A DAY 06/18/11 01/11/12 Discontinued Quetiapine Fumarate 300 Mg PO NEEDED 07/07/13 11/17/13 Discontinued Omeprazole Magnesium 20 Mg PO BEFORE BREAKFAST 11/09/13 03/13/14 Discontinued Hydroxyzine Hcl 25 Mg PO 11/09/13 11/17/13 Discontinued Hydroxyzine Hcl 100 Mg PO FOUR TIMES DAILY 11/17/13 03/13/14 Discontinued Omeprazole 40 Mg PO DAILY 03/13/14 10/16/14 Discontinued Propranolol HCl TWICE A DAY 60 Qty 04/14/14 05/19/14 Discontinued Cefdinir 1 Cap PO TWICE A DAY 10 Days 04/14/14 05/19/14 Discontinued Furosemide 20 Mg PO DAILY 30 Qty 05/15/14 05/19/14 Discontinued Verapamil HCl 80 Mg PO THREE TIMES A DAY 30 Days 05/19/14 10/16/14 Discontinued Risperidone 2 Mg PO TWICE A DAY 60 Qty 07/25/14 10/16/14 Discontinued Meloxicam 1 Tab PO TWICE A DAY 30 Qty 07/25/14 10/16/14 Discontinued Oxycodone HCl/Acetaminophen 1 Tab PO NEEDED Take 1 tablet, by mouth, 3 times a day. 09/04/14 10/16/14 Discontinued Potassium Chloride 1 Tab PO DAILY 09/29/14 10/16/14 Discontinued [Benzatropine] 1 Mg PO TWICE A DAY 09/29/14 10/16/14 Discontinued Tramadol HCl 50 Mg PO NEEDED 09/29/14 10/16/14 Discontinued Furosemide 1 Tab PO DAILY 09/29/14 10/16/14 Discontinued Alprazolam 1 Mg PO Every 6 Hours 10/16/14 10/16/14 Discontinued Nitroglycerin 0.4 Mg SL EVERY 5 MINUTES X 3 PRN CHEST PAIN 10/20/14 Active Verapamil HCl 80 Mg PO THREE TIMES A DAY 10/20/14 Active Gabapentin 300 Mg PO TWICE A DAY PRN UNKNOWN 60 Qty 10/20/14 Active Meloxicam 7.5 Mg PO DAILY 30 Qty 10/20/14 Active Ranitidine HCl 150 Mg PO DAILY 10/20/14 Active Benztropine Mesylate 1 Mg PO TWICE A DAY 60 Qty 10/20/14 Active [place] Carbonate 300 Mg PO THREE TIMES A DAY 60 Qty 10/20/14 Active Multivitamin 1 Tab PO DAILY 10/20/14 Active Omeprazole 1 Cap PO TWICE A DAY 10/20/14 Active Oxycodone HCl/Acetaminophen 1 Tab PO Every 6 Hours PRN PAIN 10/20/14 Active Risperidone 1 Mg PO DAILY 60 Qty 10/20/14 Active Tramadol HCl 50 Mg PO Every 6 Hours PRN UNKNOWN 40 Qty 10/20/14 Active Furosemide 20 Mg PO DAILY 30 Qty 10/20/14 Active Trazodone HCl 100 Mg PO BEDTIME 30 Qty 10/20/14 Active Social History Social History Problem Response Recorded Date/Time Chewing Tobacco Status No 01/29/2014 7:15pm Hx Substance Use Y PT REPORTS "IN THE PAST" 10/28/2014 4:50pm Hx Alcohol Use N STOPPED DRINKING A YEAR AGO 10/28/2014 4:50pm Has the pt used tobacco in the last 12 months Yes 05/15/2014 7:22pm Tobacco Usage smoke 10/28/2014 5:26pm Query Response Start Date Stop Date Smoking Status Current every day smoker Hospital Discharge Instructions No hospital discharge instructions. Plan of Care No plan of care. Functional Status Query Response Date Recorded Physical Hygiene Self October 28, 2014 4:50pm Disabilities None October 28, 2014 4:50pm Devices Used None October 28, 2014 4:50pm Dressing Self October 28, 2014 4:50pm Ambulation Self October 28, 2014 4:50pm Diet Self October 28, 2014 4:50pm Mental Status Alert Oriented October 28, 2014 4:50pm Disabilities None October 28, 2014 4:50pm Devices Used None October 28, 2014 4:50pm Physical Hygiene Self October 28, 2014 4:50pm Dressing Self October 28, 2014 4:50pm Ambulation Self October 28, 2014 4:50pm Diet Self October 28, 2014 4:50pm Allergies, Adverse Reactions, Alerts Allergen Type Severity Reaction Status Last Updated ziprasidone HCl Allergy Unknown Active 10/28/14 ziprasidone mesylate Allergy Unknown Active 10/28/14 Bupropion Allergy Unknown Active 10/28/14 Citalopram Allergy Unknown Active 10/28/14 Immunizations Name Given Type Hx Influenza Vaccination Y 06/09 Historical Hx Pneumococcal Vaccination No Historical Hx Tetanus, Diptheria, Pertussis No Historical Hx Influenza Vaccination Y 06/09 Historical Hx Tetanus Diptheria No Historical Hx Tetanus, Diptheria, Pertussis No Historical Hx Tetanus Toxoid Vaccination No Historical Vital Signs Acute Vital Signs Vital Response Date/Time Temperature (Fahrenheit) 97.4 deg F (96.8 - 99.1) Temperature (Calculated Celsius) 36.34197 degrees C (36.0 - 37.3) Pulse Rate (adult) 90 bpm (60 - 100) Respiratory Rate 16 breaths/min (10 - 20) O2 Sat by Pulse Oximetry 94 % (90 - 100) Blood Pressure 103/68 mm Hg Height 5 ft 4 in Weight 258 lb Body Mass Index 44.0 kg/m^2 Results Test Source Date Result Interp. Ref. Range Comments Acetaminophen Level July 12, 2013 10:25am < 10 UG/ML L 10-30 TOXIC <4 HR POST INGESTION: >150 MG/L;TOXIC <12 HR POST INGESTION: >50 MG/L Activated Partial Thromboplast Time September 04, 2014 9:10pm 31.2 SEC N 24-36 Alanine Aminotransferase (ALT/SGPT) October 28, 2014 5:50pm 53 U/L H 9-52 Albumin October 28, 2014 5:50pm 3.6 G/DL N 3.5-5.0 Albumin/Globulin Ratio October 28, 2014 5:50pm 1.1 RATIO N 1.1-2.2 Alcohol, Quantitative January 29, 2014 7:20pm <10 MG/DL - Alkaline Phosphatase October 28, 2014 5:50pm 90 U/L N 38-126 Amylase Level April 14, 2014 8:35pm 39 U/L N 30-110 Anion Gap October 28, 2014 5:50pm 10 MEQ/L N 5-15 Aspartate Amino Transf (AST/SGOT) October 28, 2014 5:50pm 67 U/L H 14-36 Atypical/Reactive Lymphocytes March 27, 2009 2:40pm 0.3 T/MM3 H 0-0 B-Type Natriuretic Peptide April 23, 2010 6:25pm < 15 PG/ML L 15-100 BUN/Creatinine Ratio October 28, 2014 5:50pm 6 RATIO N 6-26 Band Neutrophils # May 15, 2014 4:47pm 0.2 T/MM3 - Band Neutrophils % May 15, 2014 4:47pm 1.0 % N 0-6 Basophils # (Auto) October 28, 2014 5:50pm 0.1 T/MM3 N 0-0.2 Basophils # (Manual) April 14, 2014 8:35pm 0.2 T/MM3 N 0-0.2 Basophils % (Manual) April 14, 2014 8:35pm 2.0 % N 0-2 Basophils (%) (Auto) October 28, 2014 5:50pm 0.5 % N 0-2 Blood Urea Nitrogen October 28, 2014 5:50pm 7.0 MG/DL N 7-17 C-Reactive Protein March 13, 2014 1:40pm 11.9 MG/L H 0-9 COMMENT WILL CALL WHEN HERE Calcium Level October 28, 2014 5:50pm 8.5 MG/DL N 8.4-10.2 Calculated Osmolality October 28, 2014 5:50pm 267 MOSM/KG N 261-280 Carbon Dioxide Level October 28, 2014 5:50pm 29 MEQ/L N 22-30 Chemistry Specimen Hemolysis October 28, 2014 5:50pm < 15 0-25 0-25: No Hemolysis.26-70: Slight [...] previously reported as: SENT OUT Chloride Level October 28, 2014 5:50pm 101 MEQ/L N 98-107 Cholesterol Level May 16, 2014 9:47am 138 MG/DL N 132-199 COMMENT PLEASE RUN ON THIS MORNING'S FASTING LAB DRAW Cholesterol/HDL Ratio May 16, 2014 9:47am 7.3 RATIO H 0-4.0 COMMENT PLEASE RUN ON THIS MORNING'S FASTING LAB DRAW Conjugated Bilirubin June 18, 2011 4:16pm 0.00 MG/DL N 0.00-0.30 Creatinine October 28, 2014 5:50pm 1.1 MG/DL N 0.7-1.2 D-Dimer August 15, 2014 8:31pm < 150 NG/ML 0-230 <230 NG/ML D-DU= PRESUMPTIVE NEGATIVE FOR PE OR DVT>230 NG/ML D-DU=ADDITIONAL EVAL FOR PE OR DVT RECOMMENDED Differential Total Cells Counted February 11, 2010 8:40pm 100 % - EKG June 07, 2009 2:45pm Complete - Eosinophils # (Auto) October 28, 2014 5:50pm 0.3 T/MM3 N 0-0.5 Eosinophils # (Manual) April 14, 2014 8:35pm 0.5 T/MM3 N 0-0.5 Eosinophils % (Manual) April 14, 2014 8:35pm 4.0 % N 0-4 Eosinophils (%) (Auto) October 28, 2014 5:50pm 2.6 % N 0-4 Erythrocyte Sedimentation Rate March 13, 2014 1:40pm 2 MM/HR N 0-20 COMMENT WILL CALL WHEN HERE Folate April 25, 2011 4:45pm > 20.0 NG/ML H 2.76-20 NORMAL ADULT RANGE : 2.76->20 ng/mL Free Thyroxine May 06, 2010 9:46am 0.80 NG/DL N 0.78-2.19 Globulin October 28, 2014 5:50pm 3.4 G/DL N 2.4-3.6 Glomerular Filtration Rate Calc October 28, 2014 5:50pm 56 - Glucose Level October 28, 2014 5:50pm 106 MG/DL N 65-110 HDL Cholesterol Direct May 16, 2014 9:47am 19 MG/DL L 40-60 COMMENT PLEASE RUN ON THIS MORNING'S FASTING LAB DRAW HIV (1&2) Antibody Rapid October 27, 2011 9:40am Negative - Hematocrit October 28, 2014 5:50pm 41.9 % N 36-46 Hemoglobin October 28, 2014 5:50pm 13.2 GM/DL N 12-16 Hemoglobin A1c August 31, [...] 2009 10:40am Send out - Icterus Index October 28, 2014 5:50pm < 2 0-7 Immature Granulocyte # (Auto) October 28, 2014 5:50pm 0.03 T/MM3 N 0.00- 0.03 Immature Granulocyte % (Auto) October 28, 2014 5:50pm 0.3 % N 0.0-0.5 Influenza Type A Antigen May 15, 2014 5:42pm Negative - NNegative for Flu A protein antigen. Assay sensitivity is90%. Influenza Type B Antigen May 15, 2014 5:42pm Negative - Negative for Flu B protein antigen. Assay sensitivity is90%. LDL Cholesterol, Calculated May 16, 2014 9:47am 43.6 L 66-159 COMMENT PLEASE RUN ON THIS MORNING'S FASTING LAB DRAW Lab Scanned Report September 23, 2014 10:58am LAB TEST FORM REQUEST - Large Platelets July 07, 2013 11:55am Few - Lipase October 28, 2014 5:50pm 21 U/L L 23-300 [place] Level September 23, 2014 8:19am 0.3 MMOL/L L 0.6-1.2 Lymphocytes # (Auto) October 28, 2014 5:50pm 3.2 T/MM3 N 1-4.8 Lymphocytes # (Manual) May 15, 2014 4:47pm 3.4 T/MM3 N 1-4.8 Lymphocytes % (Manual) May 15, 2014 4:47pm 15.0 % L 23-45 Lymphocytes (%) (Auto) October 28, 2014 5:50pm 29.1 % N 23-45 Magnesium Level September 04, 2014 9:10pm 1.8 MG/DL N 1.6-2.3 Mean Corpuscular Hemoglobin October 28, 2014 5:50pm 28.9 UUG N 26-34 Mean Corpuscular Hemoglobin Concent October 28, 2014 5:50pm 31.5 GM/DL N 31-37 Mean Corpuscular Volume October 28, 2014 5:50pm 91.7 UM3 N 80-100 Mean Platelet Volume October 28, 2014 5:50pm 10.8 UM3 N 9.4-12.4 Monocytes # (Auto) October 28, 2014 5:50pm 0.9 T/MM3 H 0-0.8 Monocytes # (Manual) May 15, 2014 4:47pm 1.6 T/MM3 H 0-0.8 Monocytes % (Manual) May 15, 2014 4:47pm 7.0 % N 0-9.0 Monocytes (%) (Auto) October 28, 2014 5:50pm 8.5 % N 0-9.0 Monoscreen April 14, 2014 8:35pm Negative - DO-Qzm-M-Type Natriuretic Peptide September 04, 2014 9:10pm 237 PG/ML H 0- 175 Rule in cut points: <50 years old=450; 50-75 years old=900; >75 years old=1800; When utilizing ProBNP rule-in cut points, adjustment for impaired renal function is typically not required. Neutrophils # (Auto) October 28, 2014 5:50pm 6.5 T/MM3 N 1.8-7.7 Neutrophils # (Manual) May 15, 2014 4:47pm 17.4 T/MM3 H 1.8-7.7 Neutrophils % (Manual) May 15, 2014 4:47pm 77.0 % H 33-66 Neutrophils (%) (Auto) October 28, 2014 5:50pm 59.0 % N 33-66 Platelet Count October 28, 2014 5:50pm 210 T/MM3 N 130-400 Potassium Level October 28, 2014 5:50pm 3.9 MEQ/L N 3.6-5 Prealbumin May 15, 2014 [...] shock highly indicated. Prothromb Time International Ratio September 04, 2014 9:10pm 1.01 N 0.81- 1.09 THERAPUTIC RANGE=2.00-3.00 FOR ANTI-THROMBOSIS THERAPUTIC RANGE=2.50- 3.50 FOR IMPLANTED VALVE RDW Standard Deviation October 28, 2014 5:50pm 47.7 FL N 36.9-50.2 Rapid Plasma Reagin October 27, 2011 9:40am Nonreactive - Reactive Lymphocytes March 27, 2009 2:40pm 4.0 % H 0-0 Reactive Lymphocytes # April 14, 2014 8:35pm 2.5 T/MM3 H 0-0 Reactive Lymphocytes % April 14, 2014 8:35pm 20.0 % DH 0-0 Red Blood Count October 28, 2014 5:50pm 4.57 M/MM3 N 4.00-5.20 Salicylates Level July 12, 2013 10:25am < 1.0 MG/DL L 2-20 Sodium Level October 28, 2014 5:50pm 140 MEQ/L N 134-144 Tests Not Done November 18, 2009 11:23am Not done - Has specimen been collected/obtained? Y Thyroid Stimulating Hormone (TSH) September 04, 2014 9:10pm 6.20 MIU/L H 0.47-4.68 Total Bilirubin October 28, 2014 5:50pm 0.30 MG/DL N 0.20-1.30 Total Protein October 28, 2014 5:50pm 7.0 G/DL N 6.3-8.2 Triglycerides Level May 16, 2014 9:47am 377 MG/DL H 35-135 COMMENT PLEASE RUN ON THIS MORNING'S FASTING LAB DRAW Troponin I October 28, 2014 5:50pm < 0.012 ng/ml 0-0.12 Turbidity October 28, 2014 5:50pm < 20 0-20 Unconjugated Bilirubin June 18, 2011 4:16pm 0.20 MG/DL N 0.00-1.10 Urinalysis Comment October 28, 2014 5:39pm Microscopic not ind. - Has specimen been collected/obtained? Y Urine Bacteria September 04, 2014 9:34pm 1+ H - Has specimen been collected/obtained? Y Urine Bilirubin October 28, 2014 5:39pm Negative - Has specimen been collected/obtained? Y Urine Blood October 28, 2014 5:39pm Negative - Has specimen been collected/obtained? Y Urine Collection Type October 28, 2014 5:39pm Cleancatch-midstream - Has specimen been collected/obtained? Y Urine Color October 28, 2014 5:39pm Yellow - Has specimen been collected/obtained? Y Urine Culture Indicated September 04, 2014 9:34pm Cult not set up - Has specimen been collected/obtained? Y Urine Glucose (UA) October 28, 2014 5:39pm Negative - Has specimen been collected/obtained? Y Urine Ketones October 28, 2014 5:39pm Negative - Has specimen been collected/obtained? Y Urine Leukocyte Esterase October 28, 2014 5:39pm Negative - Has specimen been collected/obtained? Y Urine Microscopic Not Indicated May 09, 2011 5:00pm Not indicated - Has specimen been collected/obtained? Y Urine Mucus March 18, 2011 7:18pm Present - Has specimen been collected/obtained? Y Urine Nitrite October 28, 2014 5:39pm Negative - Has specimen been collected/obtained? Y Urine Test May 28, 2013 7:35pm Negative - Has specimen been collected/obtained? Y Urine Protein October 28, 2014 5:39pm Negative - Has specimen been collected/obtained? Y Urine RBC September 04, 2014 9:34pm None seen /HPF - Has specimen been collected/obtained? Y Urine Renal Epithelial Cells March 13, 2014 10:09am 3-5 /HPF - Urine Specific [place] October 28, 2014 5:39pm 1.010 L - Has specimen been collected/obtained? Y Urine Squamous Epithelial Cells May 15, 2014 5:22pm 0-5 - Has specimen been collected/obtained? Y Urine Trichomonas September 04, 2014 9:34pm Present - Has specimen been collected/obtained? Y Urine Turbidity October 28, 2014 5:39pm Clear - Has specimen been collected/obtained? Y Urine Urobilinogen October 28, 2014 5:39pm 0.2 EU/DL - Has specimen been collected/obtained? Y Urine WBC September 04, 2014 9:34pm 5-10 /HPF H - Has specimen been collected/obtained? Y Urine pH October 28, 2014 5:39pm 5.0 - Has specimen been collected/ obtained? Y VLDL Cholesterol May 16, 2014 9:47am 75.4 MG/DL H 0-28 COMMENT PLEASE RUN ON THIS MORNING'S FASTING LAB DRAW Venous Blood Lactate May 15, 2014 5:37pm 2.6 MMOL/L H 0.6-2.2 Vitamin B12 Level May 15, 2014 4:47pm 265 PG/ML N 239-931 COMMENT blood in lab White Blood Count October 28, 2014 5:50pm 11.0 T/MM3 N 4.5-11.0 Blood Culture Blood May 15, 2014 5:36pm NO GROWTH AFTER 5 DAYS Wet Prep Vagina January 04, 2012 8:30am Wet Prep Other June 14, 2009 5:36pm Urine Culture Urine, Voided-Not Cc-Midstream March 13, 2014 1:52pm Gram Negative Bryan Name: JESSICA OSBORNE Unit #: [id number] : [id number] Sex: F Loc / Svc: ED DOS: 09/04/14 Signed Report #: [id number] DIAGNOSTIC IMAGING REPORT TYPE OF EXAM: CHEST, PA & LATERAL Dictated By: IOANA BLAKE MD INDICATION: ITS.REASON: CHEST PAIN CHEST 2-VIEWS UPRIGHT (PA & LAT): COMPARISON: August 15, 2014 FINDINGS: The lungs are clear without evidence of focal abnormal airspace opacity. There is no pleural effusion or pneumothorax. Overlying monitoring leads. The heart size, mediastinal contours and pulmonary vascularity are within normal limits. There is no significant skeletal abnormality. IMPRESSION: No acute cardiopulmonary disease. . Procedures Procedure Status Date Provider(s) CHEST X-RAY 2VW FRONTAL&LATL completed 08/15/14 COMPREHEN [...] completed 08/15/14 EMERGENCY DEPT VISIT completed 08/15/14 [id number] ITEM OR SERVICE completed 08/15/14 [id number] ITEM OR SERVICE completed 08/15/14 [id number] ITEM OR SERVICE completed 08/15/14 [id number]"INJECTION, LORAZEPAM, 2 MG" completed 08/15/14 CHEST X-RAY 2VW FRONTAL&LATL completed 09/04/14 COMPREHEN METABOLIC PANEL completed 09/04/14 URINALYSIS AUTO W/SCOPE completed 09/04/14 ASSAY OF MAGNESIUM completed 09/04/14 ASSAY OF NATRIURETIC PEPTIDE completed 09/04/14 ASSAY THYROID STIM HORMONE completed 09/04/14 ASSAY OF TROPONIN QUANT completed 09/04/14 COMPLETE CBC W/AUTO DIFF WBC completed 09/04/14 PROTHROMBIN TIME completed 09/04/14 THROMBOPLASTIN TIME PARTIAL completed 09/04/14 ELECTROCARDIOGRAM TRACING completed 09/04/14 HYDRATION IV INFUSION INIT completed 09/04/14 HYDRATE IV INFUSION ADD-ON completed 09/04/14 EMERGENCY DEPT VISIT completed 09/04/14 [id number] ITEM OR SERVICE completed 09/04/14 [id number] ITEM OR SERVICE completed 09/04/14 [id number]"INFUSION, NORMAL SALINE SOLUTION , 1000 CC" completed 09/04/14 ROUTINE VENIPUNCTURE completed 09/23/14 ASSAY OF LITHIUM completed 09/23/14 EMERGENCY DEPT VISIT completed 09/29/14 ELECTROCARDIOGRAM TRACING completed 10/16/14 EMERGENCY DEPT VISIT completed 10/16/14 [id number] ITEM OR SERVICE completed 10/16/14 Encounters Encounter Location Date/Time Departed Emergency Room [facility] 10/28/14 4:44pm Departed Emergency Room [facility] 10/16/14 3:36pm Departed Emergency Room [facility] 09/29/14 3:54pm Registered Clinic [facility] 09/23/14 8:12am Departed Emergency Room [facility] 09/04/14 9:28pm Departed Emergency Room [facility] 08/15/14 7:56pm Recent Diagnosis
--- OUTSIDE RECORDS SUMMARY | 2016-11-10 16:28 | XMS REPORT | Continuity of Care Document ---
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 Name Role Phone JUNIE ESTRADA MD Primary Care Physician Unavailable Insurance Providers Payer Name Policy Number Subscriber Name Relationship Medicare [id number] Jessica Osborne 20 Self Advance Directives Directive Response Recorded Date/Time Advanced Directives Type None 03/13/14 1:45pm Ordered Resuscitation Status Full Code 03/13/14 12:25pm Resuscitation Documents on File No 03/13/14 1:45pm Problems Medical Problems Problem Onset Date Status [...] ANXIETY/AGITATION Active Calcium Carbonate 1 Tab PO DAILY 03/11/12 Active [Metoprolol Tart50 Mg] 50 Mg [...] Use Y PT REPORTS "IN THE PAST" 01/29/2014 7:15pm Hx Alcohol Use Y DENIES ALCOHOL NOW 01/29/2014 7:15pm Has the pt used tobacco in the [...] call for appointment with Dr. Rothman of [facility] for Sunday of next week. Make appointment [...] Goal: Other Patient Instructions: see patient instructions remove the dressing and notify your surgeon. Durable Medical Equipment: FWW ORDER FAXED TO [facility], CPM FROM [place] [phone] Notify Physician If: Call your Surgeon if you have: 1.Chest pain, difficulty breathing, fever>100.5 degrees, chills, heart rate >100, confusion, or persistent nausea/vomitting. 2.Severe pain, swelling, redness, or warmth in either of your legs. 3.During office hours, call [phone] 4. After hours, please call [facility] at [phone], and have the work car operator page your Surgeon IN THE EVENT OF AN EMERGENCY, seek medical care at the nearest Emergency Room Condition at time of discharge: Good Care Plan Discharge Patient: Goal: Maximum functional status Patient Instructions: see patient instructions see patient instructions Discharge Patient: Goal: Maximum functional status Patient Instructions: see patient instructions Plan of Care Discharge Date 03/14/14 1:30pm Disposition 01 DISCHARGED HOME, SELF-CARE Instructions/Education Provided DI for Kidney Stones Amoxicillin and Clavulanic Acid Tamsulosin Prescriptions See Medications Section Functional Status Query Response Date Recorded Physical Hygiene Self March 14, 2014 12:50pm Disabilities Visual March 14, 2014 12:50pm Devices Used Glasses March 14, 2014 12:50pm Dressing Self March 14, 2014 12:50pm Ambulation Self March 14, 2014 12:50pm Diet Self March 14, 2014 12:50pm Mental Status Alert March 14, 2014 12:50pm Disabilities Visual March 14, 2014 12:50pm Devices Used Glasses March 14, 2014 12:50pm Physical Hygiene Self March 14, 2014 12:50pm Dressing Self March 14, 2014 12:50pm Ambulation Self March 14, 2014 12:50pm Diet Self March 14, 2014 12:50pm Allergies, Adverse Reactions, Alerts Allergen Type Severity Reaction Status Last Updated tramadol HCl Allergy Unknown Active 01/25/14 ziprasidone HCl Allergy Unknown Active 01/25/14 ziprasidone mesylate Allergy Unknown Active 01/25/14 Immunizations Name Given Type Hx Influenza Vaccination No Historical Hx Pneumococcal Vaccination No Historical Hx Tetanus, Diptheria, Pertussis No Historical Hx Influenza Vaccination No Historical Hx Tetanus Diptheria No Historical Hx Tetanus, Diptheria, Pertussis No Historical Hx Tetanus Toxoid Vaccination No Historical Vital Signs Acute Vital Signs Vital Response Date/Time Temperature (Fahrenheit) 98.7 deg F (96.8 - 99.1) Temperature (Calculated Celsius) 37.26183 degrees C (36.0 - 37.3) Temperature Source Temporal Pulse Rate (adult) 66 bpm (60 - 100) Respiratory Rate 16 breaths/min (10 - 20) O2 Sat by Pulse Oximetry 95 % (90 - 100) Blood Pressure 127/86 mm Hg Blood Pressure Source Automatic Cuff Height 5 ft 4 in Weight 245 lb Body Mass Index 42.0 kg/m^2 Results Test Source Date Result Interp. Ref. Range Comments Acetaminophen Level July 12, 2013 10:25am < 10 UG/ML L 10-30 TOXIC <4 HR POST INGESTION: >150 MG/L;TOXIC <12 HR POST INGESTION: >50 MG/L Activated Partial Thromboplast Time September 25, 2013 1:35pm 32.6 SEC N 24-36 Alanine Aminotransferase (ALT/SGPT) March 14, 2014 5:41am 29 U/L N 9-52 Albumin March 14, 2014 5:41am 2.7 G/DL L 3.5-5.0 Albumin/Globulin Ratio March 14, 2014 5:41am 1.1 RATIO N 1.1-2.2 Alcohol, Quantitative January 29, 2014 7:20pm <10 MG/DL - Alkaline Phosphatase March 14, 2014 5:41am 67 U/L N 38-126 Amylase Level September 13, 2013 7:00am 45 U/L N 30-110 Anion Gap March 14, 2014 5:41am 4 MEQ/L L 5-15 Aspartate Amino Transf (AST/SGOT) March 14, 2014 5:41am 19 U/L N 14-36 B-Type Natriuretic Peptide April 23, 2010 6:25pm < 15 PG/ML L 15-100 BUN/Creatinine Ratio March 14, 2014 5:41am 4 RATIO L 6-26 Band Neutrophils # May 09, 2011 5:08pm 0.1 T/MM3 - Band Neutrophils % May 09, 2011 5:08pm 1.0 % N 0-6 Basophils # (Auto) March 14, 2014 5:41am 0.0 T/MM3 N 0-0.2 Basophils # (Manual) February 16, 2009 8:35am 0.0 T/MM3 N 0-0.2 Basophils % (Manual) February 16, 2009 8:35am 0.0 % N 0-2 Basophils (%) (Auto) March 14, 2014 5:41am 0.3 % N 0-2 Blood Urea Nitrogen March 14, 2014 5:41am 3.0 MG/DL L 7-17 C-Reactive Protein March 13, 2014 1:40pm 11.9 MG/L H 0-9 COMMENT WILL CALL WHEN HERE Calcium Level March 14, 2014 5:41am 8.0 MG/DL L 8.4-10.2 Calculated Osmolality March 14, 2014 5:41am 267 MOSM/KG N 261-280 Carbon Dioxide Level March 14, 2014 5:41am 30 MEQ/L N 22-30 Chlamydia Direct Antigen Assay July 28, 2009 9:30am Negative - Chloride Level March 14, 2014 5:41am 107 MEQ/L N 98-107 Cholesterol Level June 05, 2008 8:30am 187 MG/DL N 132-199 Cholesterol/HDL Ratio June 05, 2008 8:30am 4.0 RATIO N 0-4.2 Conjugated Bilirubin June 18, 2011 4:16pm 0.00 MG/DL N 0.00-0.30 Creatinine March 14, 2014 5:41am 0.7 MG/DL N 0.7-1.2 D-Dimer April 23, 2010 6:25pm 76 NG/ML N 0-224 <224 NG/ML=PRESUMPTIVE NEGATIVE FOR PE OR DVT>224 NG/ML=ADDITIONAL EVALUATION FOR PE OR DVT RECOMMENDED Differential Total Cells Counted February 11, 2010 8:40pm 100 % - Eosinophils # (Auto) March 14, 2014 5:41am 0.1 T/MM3 N 0-0.5 Eosinophils # (Manual) July 07, 2013 11:55am 0.1 T/MM3 N 0-0.5 Eosinophils % (Manual) July 07, 2013 11:55am 2.0 % N 0-4 Eosinophils (%) (Auto) March 14, 2014 5:41am 1.8 % N 0-4 Erythrocyte Sedimentation Rate March 13, 2014 1:40pm 2 MM/HR N 0-20 COMMENT WILL CALL WHEN HERE Folate April 25, 2011 4:45pm > 20.0 NG/ML H 2.76-20 NORMAL ADULT RANGE : 2.76->20 ng/mL Free Thyroxine May 06, 2010 9:46am 0.80 NG/DL N 0.78-2.19 Globulin March 14, 2014 5:41am 2.5 G/DL N 2.4-3.6 Glucose Level March 14, 2014 5:41am 88 MG/DL N 65-110 Hematocrit March 14, 2014 5:41am 41.2 % N 36-46 Hemoglobin March 14, 2014 5:41am 13.0 GM/DL DN 12-16 Hemoglobin A1c August 31, 2011 10:25am [...] U/L N 23-300 Lymphocytes # (Auto) March 14, 2014 5:41am 2.8 T/MM3 N 1-4.8 Lymphocytes # (Manual) July 07, 2013 11:55am 2.4 T/MM3 N 1-4.8 Lymphocytes % (Manual) July 07, 2013 11:55am 37.0 % N 23-45 Lymphocytes (%) (Auto) March 14, 2014 5:41am 45.3 % H 23-45 Mean Corpuscular Hemoglobin March 14, 2014 5:41am 29.6 UUG N 26-34 Mean Corpuscular Hemoglobin Concent March 14, 2014 5:41am 31.6 GM/DL N 31 -37 Mean Corpuscular Volume March 14, 2014 5:41am 93.8 UM3 N 80-100 Mean Platelet Volume March 14, 2014 5:41am 10.7 UM3 N 9.4-12.4 Monocytes # (Auto) March 14, 2014 5:41am 0.5 T/MM3 N 0-0.8 Monocytes # (Manual) July 07, 2013 11:55am 0.3 T/MM3 N 0-0.8 Monocytes % (Manual) July 07, 2013 11:55am 4.0 % N 0-9.0 Monocytes (%) (Auto) March 14, 2014 5:41am 8.0 % N 0-9.0 Monoscreen May 06, 2010 9:46am Negative - Neutrophils # (Auto) March 14, 2014 5:41am 2.7 T/MM3 N 1.8-7.7 Neutrophils # (Manual) July 07, 2013 11:55am 3.8 T/MM3 N 1.8-7.7 Neutrophils % (Manual) July 07, 2013 11:55am 57.0 % N 33-66 Neutrophils (%) (Auto) March 14, 2014 5:41am 44.4 % N 33-66 Platelet Count March 14, 2014 5:41am 205 T/MM3 N 130-400 Potassium Level March 14, 2014 5:41am 3.8 MEQ/L N 3.6-5 Prothromb Time International Ratio September 25, 2013 1:35pm 0.98 N 0.86- 1.10 THERAPUTIC RANGE=2.00-3.00 FOR ANTI-THROMBOSIS THERAPUTIC RANGE=2.50- 3.50 FOR IMPLANTED VALVE RDW Standard Deviation March 14, 2014 5:41am 48.0 FL N 36.9-50.2 Rapid Plasma Reagin October 27, 2011 9:40am Nonreactive - Reactive Lymphocytes March 27, 2009 2:40pm 4.0 % H 0-0 Red Blood Count March 14, 2014 5:41am 4.39 M/MM3 N 4.00-5.20 Salicylates Level July 12, 2013 10:25am < 1.0 MG/DL L 2-20 Sodium Level March 14, 2014 5:41am 141 MEQ/L N 134-144 Tests Not Done November 18, 2009 11:23am Not done - Has specimen been collected/obtained? Y Thyroid Stimulating Hormone (TSH) May 03, 2011 8:36pm 0.42 MIU/L L 0.47-4.68 Total Bilirubin March 14, 2014 5:41am < 0.10 MG/DL L 0.20-1.30 Total Protein March 14, 2014 5:41am 5.2 G/DL L 6.3-8.2 Triglycerides Level June 05, 2008 8:30am 291 MG/DL H 35-135 Troponin I September 25, 2013 1:35pm < 0.012 ng/ml 0-0.12 Unconjugated Bilirubin June 18, 2011 4:16pm 0.20 MG/DL N 0.00-1.10 Urine Bacteria March 13, 2014 1:32pm 2+ H - Has specimen been collected/ obtained? Y Urine Bilirubin March 13, 2014 1:32pm Negative - Has specimen been collected/obtained? Y Urine Blood March 13, 2014 1:32pm 2+ H - Has specimen been collected/ obtained? Y Urine Collection Type March 13, 2014 1:32pm Not Performed - Urine Color March 13, 2014 1:32pm Yellow - Has specimen been collected /obtained? Y Urine Culture Indicated March 13, 2014 1:32pm Cult reflexed &setup - Has specimen been collected/obtained? Y Urine Drug Screen Confirmation July 12, 2013 11:23am Sent out - Urine Glucose (UA) March 13, 2014 1:32pm Negative - Has specimen been collected/obtained? Y Urine Ketones March 13, 2014 1:32pm Negative - Has specimen been collected/obtained? Y Urine Leukocyte Esterase March 13, 2014 1:32pm 1+ H - Has specimen been collected/obtained? Y Urine Mucus March 18, 2011 7:18pm Present - Has specimen been collected/obtained? Y Urine Nitrite March 13, 2014 1:32pm Negative - Has specimen been collected/obtained? Y Urine Test May 28, 2013 7:35pm Negative - Has specimen been collected/obtained? Y Urine Protein March 13, 2014 1:32pm Negative - Has specimen been collected/obtained? Y Urine RBC March 13, 2014 1:32pm 1-3 /HPF - Has specimen been collected /obtained? Y Urine Renal Epithelial Cells March 13, 2014 10:09am 3-5 /HPF - Urine Specific [place] March 13, 2014 1:32pm <=1.005 L - Has specimen been collected/obtained? Y Urine Squamous Epithelial Cells March 13, 2014 10:09am 5-10 - Urine Turbidity March 13, 2014 1:32pm Sl cloudy - --- 03/13/14 1344 - --UTURB previously reported as: CLEAR Urine Urobilinogen March 13, 2014 1:32pm 0.2 EU/DL - Has specimen been collected/obtained? Y Urine WBC March 13, 2014 1:32pm 20-30 /HPF H - Has specimen been collected/obtained? Y Urine pH March 13, 2014 1:32pm 6.0 - Has specimen been collected/ obtained? Y VLDL Cholesterol June 05, 2008 8:30am 58.2 MG/DL H 0-28 Vitamin B12 Level April 25, 2011 4:45pm 437 PG/ML N 239-931 White Blood Count March 14, 2014 5:41am 6.1 T/MM3 DN 4.5-11.0 Chemistry Specimen Hemolysis March 14, 2014 5:41am < 15 0-25 0-25: No Hemolysis.26-70: Slight [...] decrease Phenytoin. Recommend specimen recollection. Urinalysis Comment January 29, 2014 7:20pm Microscopic not ind. - Has specimen been collected/obtained? Y Lab Scanned Report March 13, 2014 11:17am LAB TEST FORM REQUEST [id number] - Chlamydia trachomatis Amplified DNA January 24, [...] 27, 2011 9:40am Negative - Turbidity March 14, 2014 5:41am < 20 0-20 Glomerular Filtration Rate Calc March 14, 2014 5:41am 94 - Immature Granulocyte # (Auto) March 14, 2014 5:41am 0.01 T/MM3 N 0.00- 0.03 Immature Granulocyte % (Auto) March 14, 2014 5:41am 0.2 % N 0.0-0.5 Venous Blood Lactate March 13, 2014 10:09am 1.2 MMOL/L N 0.6-2.2 Procalcitonin March 13, 2014 1:40pm < 0.05 NG/ML - PCT </=0.5 ng/mL - sepsis not likely;PCT >0.5 and </=2 ng/mL - sepsis possible; PCT >2 ng/mL - sepsis likely; PCT >/=10 ng/mL - systemic inflammatory response - sepsis or septic shock highly indicated. Icterus Index March 14, 2014 5:41am < 2 0-7 Urine Acetaminophen Screen July 12, 2013 10:50am Negative NG/ML - EM-Okd-U-Type Natriuretic Peptide July 07, 2013 11:55am 112 [...] March 13, 2014 1:47pm NO GROWTH AFTER 24 HOURS Wet Prep Vagina January 04, 2012 8:30am Wet Prep Other June 14, 2009 5:36pm Urine Culture Urine, Voided-Not Cc-Midstream March 13, 2014 1:52pm Gram Negative Bryan Procedures Procedure Status Date Provider(s) PLACE NEEDLE IN VEIN completed 01/29/14 DANISH LOPEZ MD Encounters Encounter Location Date/Time Discharged Inpatient [facility] 03/13/14 1:02pm Registered Clinic [facility] 03/13/14 9:49am Departed Emergency Room [facility] 01/29/14 5:57pm Departed Emergency Room [facility] 01/25/14 8:12pm
--- OUTSIDE RECORDS SUMMARY | 2016-11-10 16:28 | XMS REPORT | Continuity of Care Document ---
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 Name Role Phone JUNIE ESTRADA MD Primary Care Physician Unavailable Insurance Providers Payer Name Policy Number Subscriber Name Relationship Medicare [id number] Jessica Osborne 20 Self Problems Medical Problems [...] Active Sinusitis Unknown Active Sinusitis Unknown Active Medications Medication Dose Route Sig [...] TWICE A DAY 10 Days 04/14/14 Active Social History Social History Problem Response Recorded Date/Time Smoking Status Current every day smoker 01/29/2014 7:15pm Chewing Tobacco Status No 01/29/2014 7:15pm Hx Substance Use Y PT REPORTS "IN THE PAST" 04/14/2014 7:40pm Hx Alcohol Use Y STOPPED DRINKING A YEAR AGO 04/14/2014 7:40pm Has the pt used tobacco in the [...] call for appointment with Dr. Rothman of [facility] for Sunday of next week. Make [...] Goal: Other Patient Instructions: see patient instructions 2.Do not pick at it or scrub [...] of your legs. 3.During office hours, call [phone] 4. After hours, please call [facility] at [phone], and have the folder gluer operator page your Surgeon IN THE EVENT OF AN EMERGENCY, seek medical care at the nearest Emergency Room Condition at time of discharge: Good Care Plan Discharge Patient: Goal: Understand discharge plan Patient Instructions: see patient instructions see patient instructions Plan of Care Discharge Date 03/14/14 1:30pm Instructions/Education Provided DI for Kidney Stones Amoxicillin and Clavulanic Acid Tamsulosin Prescriptions See Medications Section Functional Status Query Response Date Recorded Physical Hygiene Self April 14, 2014 7:40pm Disabilities None April 14, 2014 7:40pm Devices Used None April 14, 2014 7:40pm Dressing Self April 14, 2014 7:40pm Ambulation Self April 14, 2014 7:40pm Diet Self April 14, 2014 7:40pm Mental Status Alert Oriented April 14, 2014 9:58pm Disabilities None April 14, 2014 7:40pm Devices Used None April 14, 2014 7:40pm Physical Hygiene Self April 14, 2014 7:40pm Dressing Self April 14, 2014 7:40pm Ambulation Self April 14, 2014 7:40pm Diet Self April 14, 2014 7:40pm Allergies, Adverse Reactions, Alerts Allergen Type Severity Reaction Status Last Updated tramadol HCl Allergy Unknown Active 04/14/14 ziprasidone HCl Allergy Unknown Active 04/14/14 ziprasidone mesylate Allergy Unknown Active 04/14/14 Citalopram Allergy Unknown Active 04/14/14 Immunizations Name Given Type Hx Influenza Vaccination No Historical Hx Pneumococcal Vaccination No Historical Hx Tetanus, Diptheria, Pertussis No Historical Hx Influenza Vaccination No Historical Hx Tetanus Diptheria No Historical Hx Tetanus, Diptheria, Pertussis No Historical Hx Tetanus Toxoid Vaccination No Historical Vital Signs Acute Vital Signs Vital Response Date/Time Temperature (Fahrenheit) 97.2 deg F (96.8 - 99.1) Temperature (Calculated Celsius) 36.72063 degrees C (36.0 - 37.3) Pulse Rate (adult) 80 bpm (60 - 100) Respiratory Rate 16 breaths/min (10 - 20) O2 Sat by Pulse Oximetry 95 % (90 - 100) Blood Pressure 130/88 mm Hg Height 5 ft 4 in [...] 14, 2014 8:35pm 34 U/L N 14-36 Atypical/Reactive Lymphocytes March 27, 2009 2:40pm [...] 14, 2014 8:35pm 28 MEQ/L N 22-30 Chemistry Specimen Hemolysis April 14, 2014 8:35pm [...] previously reported as: SENT OUT Chloride Level April 14, 2014 8:35pm 102 [...] 2009 2:45pm Complete - Eosinophils # (Auto) March 16, 2014 [...] 14, 2014 8:35pm 2.9 G/DL N 2.4-3.6 Glomerular Filtration Rate Calc April 14, 2014 8:35pm 81 - Glucose Level April 14, 2014 8:35pm 98 MG/DL N 65-110 HDL Cholesterol Direct June 05, 2008 8:30am 43 MG/DL N 40-60 HIV (1&2) Antibody Rapid October 27, 2011 9:40am Negative - Hematocrit April 14, 2014 8:35pm 43.0 % [...] 2009 10:40am Send out - Icterus Index April 14, 2014 8:35pm < 2 0-7 Immature Granulocyte # (Auto) March 16, 2014 10:47pm 0.01 T/MM3 N 0.00- 0.03 Immature Granulocyte % (Auto) March 16, 2014 10:47pm 0.1 % N 0.0-0.5 LDL Cholesterol, Calculated June 05, 2008 8:30am 85.8 N 66-159 Lab Scanned Report March 13, 2014 11:17am LAB TEST FORM REQUEST [id number] - Large Platelets July 07, 2013 11:55am [...] Monoscreen April 14, 2014 8:35pm Negative - HH-[place]-P-Type Natriuretic Peptide July 07, 2013 11:55am 112 PG/ML N 0-175 Rule in cut points: <50 years old=450; 50-75 years old=900; >75 years old=1800; When utilizing ProBNP rule-in cut points, adjustment for impaired renal function is typically not required. Neutrophils # (Auto) March 16, 2014 10:47pm [...] 14, 2014 8:35pm 3.3 MEQ/L L 3.6-5 Procalcitonin March 13, 2014 1:40pm < 0.05 NG/ML - PCT </=0.5 ng/mL - sepsis not likely;PCT >0.5 and </=2 ng/mL - sepsis possible; PCT >2 ng/mL - sepsis likely; PCT >/=10 ng/mL - systemic inflammatory response - sepsis or septic shock highly indicated. Prothromb Time International Ratio September 25, 2013 [...] 20.0 % DH 0-0 Red Blood Count April 14, 2014 [...] 25, 2013 1:35pm < 0.012 ng/ml 0-0.12 Turbidity April 14, 2014 8:35pm < 20 0-20 Unconjugated Bilirubin June 18, 2011 4:16pm 0.20 MG/DL N 0.00-1.10 Urinalysis Comment April 14, 2014 8:00pm Microscopic not ind. - Has specimen been collected/obtained? Y Urine Acetaminophen Screen July 12, 2013 10:50am Negative NG/ML - Urine Bacteria March 13, 2014 1:32pm 2+ [...] - Has specimen been collected/obtained? Y Urine Methadone Screen July 12, 2013 10:50am Negative NG/ML - Urine Microscopic Not Indicated May 09, 2011 [...] 2014 10:09am 3-5 /HPF - Urine Specific [place] April 14, 2014 8:00pm <=1.005 L - [...] 05, 2008 8:30am 58.2 MG/DL H 0-28 Venous Blood Lactate March 13, 2014 10:09am 1.2 MMOL/L N 0.6-2.2 Vitamin B12 Level April 25, 2011 4:45pm 437 PG/ML N 239-931 White Blood Count April 14, 2014 8:35pm 12.3 T/MM3 H 4.5-11.0 Blood Culture Blood March 13, 2014 1:47pm NO GROWTH AFTER 5 DAYS Wet Prep Vagina January 04, 2012 8:30am Wet Prep Other June 14, 2009 5:36pm Urine Culture Urine, Voided-Not Cc-Midstream March 13, 2014 1:52pm Gram Negative Bryan Name: JESSICA OSBORNE Unit #: [id number] : [id number] Sex: F Loc / Svc: KENJI DOS: 03/13/14 Signed Report #: [id number] DIAGNOSTIC IMAGING REPORT TYPE OF EXAM: CT RENAL W/O CONTRAST Dictated By: IOANA BLAKE MD INDICATION: ITS.REASON: 789.[address] RENAL W/O CONTRAST: Comparison: March 18, 2011 Technique: Axial CT images were performed through the abdomen and pelvis without intravenous contrast. Findings: The lung bases are clear. The liver is decreased in attenuation consistent with steatosis with focal areas of fatty sparing. Gallbladder is normal. 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 The spleen, pancreas and adrenal glands are normal. Kidneys appear normal without evidence of stone disease or hydronephrosis. There is a tiny 2 to 3-mm calcification seen in the region of the right ureterovesicular junction possibly representing a distal ureteral stone. No left ureteral stone. Multiple pelvic phleboliths. Bladder is normal. Uterus appears surgically absent. No free fluid. There is some chronic wall thickening and fatty infiltration in the right colon. Small bowel anastomosis seen in the upper abdomen. No evidence of bowel obstruction. Impression: 1. Probable nonobstructing 2 to 3-mm right distal ureteral stone at the UVJ. 2. Hepatic steatosis. . Procedures Procedure Status Date Provider(s) PLACE NEEDLE IN VEIN completed 01/29/14 DANISH LOPEZ MD THER/PROPH/DIAG INJ IV PUSH completed 03/16/14 Encounters Encounter Location Date/Time Registered Emergency Room [facility] 04/14/14 7:37pm Departed Emergency Room [facility] 03/16/14 10:03pm Discharged Inpatient [facility] 03/13/14 1:02pm Registered Clinic [facility] 03/13/14 9:49am Departed Emergency Room [facility] 01/29/14 5:57pm Departed Emergency Room [facility] 01/25/14 8:12pm Recent Diagnosis
--- OUTSIDE RECORDS SUMMARY | 2016-11-10 16:28 | XMS REPORT | Continuity of Care Document ---
Author Author [facility] Organization [facility] Address Unknown Phone Unavailable Support Name Relationship Address Phone JEAN ROTHMAN MD Caregiver [facility] [address] [place] [address] FINESSE CORADO MD Caregiver [address] [place] [address] [place] [id number] LORETTA OSBORNE Next Of Kin [address] [place] [address] CP Insurance Providers Payer Name Policy Number Subscriber Name Relationship Medicare [id number] Jessica Osborne 20 Self Medicaid [id number] Jessica Osborne 20 Self Chief Complaint and Reason for Visit Chief Complaint Chest Pain Reason for Visit Hypokalemia Leukocytosis Sinusitis Sepsis [id number] pain Problems Medical Problems Problem Onset Date [...] of head Unknown Active Anxiety Unknown Active Medications Medication Dose Route Sig [...] 04/14/14 05/19/14 Discontinued Gabapentin 1 Cap PO THREE TIMES A DAY 30 Qty 04/14/14 Active Cefdinir [...] Mg PO Q4H PRN AGITATION 06/17/14 Active Social History Social History Problem Response Recorded Date/Time Smoking Status Current every day smoker 01/29/2014 7:15pm When did patient START smoking? AGE 15 06/17/2014 8:19am Chewing Tobacco Status No 01/29/2014 7:15pm Hx Substance Use Y PT REPORTS "IN THE PAST" 06/17/2014 8:19am Hx Alcohol Use N STOPPED DRINKING A YEAR AGO 06/17/2014 8:19am Has the pt used tobacco in the [...] days Follow Up Appointments: DR ANDREWS 06/04 [phone] Patient Instructions: Do not drive, operate machinery, drink alcohol for 72 hours Wound/Incision Care: n/a Durable Medical Equipment: n/a Notify Physician If: Worsening chest pain General Information: n/a Condition at time of discharge: Good Plan of Care Discharge Date 05/19/14 10:05am Disposition 02 [place] [facility] [place] at Dis[place] Stable Instructions/Education Provided DI for Heart Attack Prescriptions See Medications Section Referrals JEAN ROTHMAN MD Functional Status Query Response Date Recorded Physical Hygiene Self June 17, 2014 8:19am Disabilities None June 17, 2014 8:19am Devices Used None June 17, 2014 8:19am Dressing Self June 17, 2014 8:19am Ambulation Self June 17, 2014 8:19am Diet Self June 17, 2014 8:19am Mental Status Alert Oriented June 17, 2014 8:19am Disabilities None June 17, 2014 8:19am Devices Used None June 17, 2014 8:19am Physical Hygiene Self June 17, 2014 8:19am Dressing Self June 17, 2014 8:19am Ambulation Self June 17, 2014 8:19am Diet Self June 17, 2014 8:19am Allergies, Adverse Reactions, Alerts Allergen Type Severity Reaction Status Last Updated ziprasidone HCl Allergy Unknown Active 06/17/14 ziprasidone mesylate Allergy Unknown Active 06/17/14 Bupropion Allergy Unknown Active 06/17/14 Citalopram Allergy Unknown Active 06/17/14 Immunizations Name Given Type Hx Influenza Vaccination Y 06/09 Historical Hx Pneumococcal Vaccination No Historical Hx Tetanus, Diptheria, Pertussis No Historical Hx Influenza Vaccination Y 06/09 Historical Hx Tetanus Diptheria No Historical Hx Tetanus, Diptheria, Pertussis No Historical Hx Tetanus Toxoid Vaccination No Historical Vital Signs Acute Vital Signs Vital Response Date/Time Temperature (Fahrenheit) 97.0 deg F (96.8 - 99.1) Temperature (Calculated Celsius) 36.50001 degrees C (36.0 - 37.3) Pulse Rate (adult) 84 bpm (60 - 100) Respiratory Rate 22 breaths/min (10 - 20) O2 Sat by Pulse Oximetry 95 % (90 - 100) Blood Pressure 112/78 mm Hg Height 5 ft 4 in Weight 252 lb Body Mass Index 43.0 kg/m^2 Results Test Source Date Result Interp. Ref. Range Comments Acetaminophen Level July 12, 2013 10:25am < 10 UG/ML L 10-30 TOXIC <4 HR POST INGESTION: >150 MG/L;TOXIC <12 HR POST INGESTION: >50 MG/L Activated Partial Thromboplast Time June 17, 2014 8:47am 29.8 SEC N 24-36 Alanine Aminotransferase (ALT/SGPT) June 17, 2014 8:47am 45 U/L N 9- 52 Albumin June 17, 2014 8:47am 3.1 G/DL L 3.5-5.0 Albumin/Globulin Ratio June 17, 2014 8:47am 1.0 RATIO L 1.1-2.2 Alcohol, Quantitative January 29, 2014 7:20pm <10 MG/DL - Alkaline Phosphatase June 17, 2014 8:47am 91 U/L N 38-126 Amylase Level April 14, 2014 8:35pm 39 U/L N 30-110 Anion Gap June 17, 2014 8:47am 8 MEQ/L N 5-15 Aspartate Amino Transf (AST/SGOT) June 17, 2014 8:47am 56 U/L H 14- 36 B-Type Natriuretic Peptide April 23, 2010 6:25pm < 15 PG/ML L 15-100 BUN/Creatinine Ratio June 17, 2014 8:47am 5 RATIO L 6-26 Band Neutrophils # May 15, 2014 4:47pm 0.2 T/MM3 - Band Neutrophils % May 15, 2014 4:47pm 1.0 % N 0-6 Basophils # (Auto) June 17, 2014 8:47am 0.0 T/MM3 N 0-0.2 Basophils # (Manual) April 14, 2014 8:35pm 0.2 T/MM3 N 0-0.2 Basophils % (Manual) April 14, 2014 8:35pm 2.0 % N 0-2 Basophils (%) (Auto) June 17, 2014 8:47am 0.5 % N 0-2 Blood Urea Nitrogen June 17, 2014 8:47am 3.0 MG/DL L 7-17 C-Reactive Protein March 13, 2014 1:40pm 11.9 MG/L H 0-9 COMMENT WILL CALL WHEN HERE Calcium Level June 17, 2014 8:47am 8.6 MG/DL N 8.4-10.2 Calculated Osmolality June 17, 2014 8:47am 261 MOSM/KG N 261-280 Carbon Dioxide Level June 17, 2014 8:47am 26 MEQ/L N 22-30 Chlamydia Direct Antigen Assay July 28, 2009 9:30am Negative - Chloride Level June 17, 2014 8:47am 103 MEQ/L N 98-107 Cholesterol Level May 16, 2014 9:47am 138 MG/DL N 132-199 COMMENT PLEASE RUN ON THIS MORNING'S FASTING LAB DRAW Cholesterol/HDL Ratio May 16, 2014 9:47am 7.3 RATIO H 0-4.0 COMMENT PLEASE RUN ON THIS MORNING'S FASTING LAB DRAW Conjugated Bilirubin June 18, 2011 4:16pm 0.00 MG/DL N 0.00-0.30 Creatinine June 17, 2014 8:47am 0.6 MG/DL L 0.7-1.2 D-Dimer April 23, 2010 6:25pm 76 NG/ML N 0-224 <224 NG/ML=PRESUMPTIVE NEGATIVE FOR PE OR DVT>224 NG/ML=ADDITIONAL EVALUATION FOR PE OR DVT RECOMMENDED Differential Total Cells Counted February 11, 2010 8:40pm 100 % - Eosinophils # (Auto) June 17, 2014 8:47am 0.2 T/MM3 N 0-0.5 Eosinophils # (Manual) April 14, 2014 8:35pm 0.5 T/MM3 N 0-0.5 Eosinophils % (Manual) April 14, 2014 8:35pm 4.0 % N 0-4 Eosinophils (%) (Auto) June 17, 2014 8:47am 2.1 % N 0-4 Erythrocyte Sedimentation Rate March 13, 2014 1:40pm 2 MM/HR N 0-20 COMMENT WILL CALL WHEN HERE Folate April 25, 2011 4:45pm > 20.0 NG/ML H 2.76-20 NORMAL ADULT RANGE : 2.76->20 ng/mL Free Thyroxine May 06, 2010 9:46am 0.80 NG/DL N 0.78-2.19 Globulin June 17, 2014 8:47am 3.1 G/DL N 2.4-3.6 Glucose Level June 17, 2014 8:47am 94 MG/DL N 65-110 Hematocrit June 17, 2014 8:47am 42.1 % N 36-46 Hemoglobin June 17, 2014 8:47am 13.6 GM/DL N 12-16 Hemoglobin A1c August [...] U/L N 23-300 Lymphocytes # (Auto) June 17, 2014 8:47am 2.3 T/MM3 N 1-4.8 Lymphocytes # (Manual) May 15, 2014 4:47pm 3.4 T/MM3 N 1-4.8 Lymphocytes % (Manual) May 15, 2014 4:47pm 15.0 % L 23-45 Lymphocytes (%) (Auto) June 17, 2014 8:47am 26.7 % N 23-45 Magnesium Level June 17, 2014 8:47am 1.8 MG/DL N 1.6-2.3 Mean Corpuscular Hemoglobin June 17, 2014 8:47am 30.6 UUG N 26-34 Mean Corpuscular Hemoglobin Concent June 17, 2014 8:47am 32.3 GM/DL N 31-37 Mean Corpuscular Volume June 17, 2014 8:47am 94.6 UM3 N 80-100 Mean Platelet Volume June 17, 2014 8:47am 11.4 UM3 N 9.4-12.4 Monocytes # (Auto) June 17, 2014 8:47am 0.7 T/MM3 N 0-0.8 Monocytes # (Manual) May 15, 2014 4:47pm 1.6 T/MM3 H 0-0.8 Monocytes % (Manual) May 15, 2014 4:47pm 7.0 % N 0-9.0 Monocytes (%) (Auto) June 17, 2014 8:47am 8.5 % N 0-9.0 Monoscreen April 14, 2014 8:35pm Negative - Neutrophils # (Auto) June 17, 2014 8:47am 5.2 T/MM3 N 1.8-7.7 Neutrophils # (Manual) May 15, 2014 4:47pm 17.4 T/MM3 H 1.8-7.7 Neutrophils % (Manual) May 15, 2014 4:47pm 77.0 % H 33-66 Neutrophils (%) (Auto) June 17, 2014 8:47am 62.1 % N 33-66 Platelet Count June 17, 2014 8:47am 210 T/MM3 N 130-400 Potassium Level June 17, 2014 8:47am 4.4 MEQ/L N 3.6-5 Prealbumin May 15, 2014 4:47pm 20.1 MG/DL N 17.6-36.0 COMMENT blood in lab Prothromb Time International Ratio June 17, 2014 8:47am 0.97 N 0.81- 1.09 THERAPUTIC RANGE=2.00-3.00 FOR ANTI-THROMBOSIS THERAPUTIC RANGE=2.50- 3.50 FOR IMPLANTED VALVE RDW Standard Deviation June 17, 2014 8:47am 44.6 FL N 36.9-50.2 Rapid Plasma Reagin October 27, 2011 9:40am Nonreactive - Reactive Lymphocytes March 27, 2009 2:40pm 4.0 % H 0-0 Red Blood Count June 17, 2014 8:47am 4.45 M/MM3 N 4.00-5.20 Salicylates Level July 12, 2013 10:25am < 1.0 MG/DL L 2-20 Sodium Level June 17, 2014 8:47am 137 MEQ/L N 134-144 Tests Not Done November 18, 2009 11:23am Not done - Has specimen been collected/obtained? Y Thyroid Stimulating Hormone (TSH) June 17, 2014 8:47am 0.87 MIU/L DN 0.47-4.68 Total Bilirubin June 17, 2014 8:47am 0.40 MG/DL N 0.20-1.30 Total Protein June 17, 2014 8:47am 6.2 G/DL L 6.3-8.2 Triglycerides Level May 16, 2014 9:47am 377 MG/DL H 35-135 COMMENT PLEASE RUN ON THIS MORNING'S FASTING LAB DRAW Troponin I June 17, 2014 8:47am < 0.012 ng/ml 0-0.12 Unconjugated Bilirubin June [...] 2014 10:09am 3-5 /HPF - Urine Specific [place] May 15, 2014 5:22pm <=1.005 L - [...] blood in lab White Blood Count June 17, 2014 8:47am 8.5 T/MM3 N 4.5-11.0 Chemistry Specimen Hemolysis June 17, 2014 8:47am 53 H 0-25 0-25: No Hemolysis.26-70: Slight Hemolysis - [...] Report May 19, 2014 4:21pm REFERENCE LAB [id number] - Chlamydia trachomatis Amplified DNA January 24, [...] 27, 2011 9:40am Negative - Turbidity June 17, 2014 8:47am < 20 0-20 Reactive Lymphocytes % April 14, 2014 8:35pm 20.0 % DH 0-0 Glomerular Filtration Rate Calc June 17, 2014 8:47am 112 - Reactive Lymphocytes # April 14, 2014 8:35pm 2.5 T/MM3 H 0-0 Immature Granulocyte # (Auto) June 17, 2014 8:47am 0.01 T/MM3 N 0.00- 0.03 Immature Granulocyte % (Auto) June 17, 2014 8:47am 0.1 % N 0.0-0.5 Venous Blood Lactate May 15, 2014 5:37pm 2.6 MMOL/L H 0.6-2.2 Procalcitonin May 15, 2014 5:37pm < 0.05 NG/ML - PCT </=0.5 ng/ mL - sepsis not likely;PCT >0.5 and </=2 ng/mL - sepsis possible; PCT >2 ng/mL - sepsis likely; PCT >/=10 ng/mL - systemic inflammatory response - sepsis or septic shock highly indicated. Icterus Index June 17, 2014 8:47am < 2 0-7 KA-Bmy-I-Type Natriuretic Peptide June 17, 2014 8:47am 75 PG/ML N 0- 175 Rule in cut [...] Negative Bryan Name: JESSICA OSBORNE Unit #: [id number] : 1975 Sex: F Loc / Svc: ED DOS: Signed Report #: [id number] DIAGNOSTIC IMAGING REPORT TYPE OF EXAM: CHEST 1 VIEW Dictated By: IOANA BLAKE MD INDICATION: ITS.REASON: chest pain CHEST 1 VIEW: Comparison: May 15, 2014 FINDINGS: The lungs are clear. There is no abnormal airspace opacity, pleural effusion or pneumothorax identified. The heart size, pulmonary vasculature and mediastinum are within normal limits. No significant skeletal abnormality is seen. IMPRESSION: No acute cardiopulmonary abnormality. . Procedures No known history of procedures. Encounters Encounter Location Date/Time Departed Emergency Room [facility] 06/17/14 8:06am Departed Emergency Room [facility] 06/10/14 10:43pm Discharged Inpatient [facility] 05/16/14 8:39am Departed Emergency Room [facility] 05/14/14 2:44pm Departed Emergency Room [facility] 04/14/14 7:37pm Recent Diagnosis
--- OUTSIDE RECORDS SUMMARY | 2016-11-10 16:29 | XMS REPORT | Continuity of Care Document ---
Author Author [facility] Organization [facility] Address Unknown Phone Unavailable Care Team Providers Care Reporting Manager Name Role Phone JUNIE ESTRADA MD Primary Care Physician Unavailable Insurance Providers Payer Name Policy Number Subscriber Name Relationship Medicare [id number] Jessica Osborne 20 Self Advance Directives Directive [...] call for appointment with Dr. Rothman of [facility] for Sunday of next week. Make [...] Durable Medical Equipment: FWW ORDER FAXED TO [employer], CPM FROM [employer] [phone] Notify Physician If: Call your Surgeon if you have: 1.Chest pain, difficulty breathing, fever>100.5 degrees, chills, heart rate >100, confusion, or persistent nausea/vomitting. 2.Severe pain, swelling, redness, or warmth in either of your legs. 3.During office hours, call [phone] 4. After hours, please call [facility] at [phone], and have the cherry picker operator page your Surgeon IN THE EVENT OF AN EMERGENCY, seek medical care at the nearest Emergency Room Condition at time of discharge: Good Care Plan Discharge Patient: Goal: Maximum functional status Patient Instructions: see patient instructions see patient instructions Discharge Patient: Goal: Maximum functional status Patient Instructions: see patient instructions Plan of Care Discharge Date 03/14/14 2:20pm Disposition 01 DISCHARGED HOME, SELF-CARE Instructions/Education Provided [...] F (96.8 - 99.1) Temperature (Calculated Celsius) 37.08974 degrees C (36.0 - 37.3) Temperature Source [...] 14, 2014 5:41am 19 U/L N 14-36 Atypical/Reactive Lymphocytes March 27, [...] 14, 2014 5:41am 30 MEQ/L N 22-30 Chemistry Specimen Hemolysis March 14, 2014 5:41am [...] previously reported as: SENT OUT Chloride Level March 14, 2014 5:41am 107 [...] 2:45pm Complete - Eosinophils # (Auto) March 14, 2014 [...] 14, 2014 5:41am 2.5 G/DL N 2.4-3.6 Glomerular Filtration Rate Calc March 14, 2014 5:41am 94 - Glucose Level March 14, 2014 5:41am 88 MG/DL N 65-110 HDL Cholesterol Direct June 05, 2008 8:30am 43 MG/DL N 40-60 HIV (1&2) Antibody Rapid October 27, 2011 9:40am Negative - Hematocrit March 14, 2014 5:41am 41.2 % [...] 2009 10:40am Send out - Icterus Index March 14, 2014 5:41am < 2 0-7 Immature Granulocyte # (Auto) March 14, 2014 5:41am 0.01 T/MM3 N 0.00- 0.03 Immature Granulocyte % (Auto) March 14, 2014 5:41am 0.2 % N 0.0-0.5 LDL Cholesterol, Calculated June 05, 2008 8:30am 85.8 N 66-159 Lab Scanned Report March 13, 2014 11:17am LAB TEST FORM REQUEST [id number] - Large Platelets July 07, 2013 11:55am [...] Monoscreen May 06, 2010 9:46am Negative - SI-Wbr-L-Type Natriuretic Peptide July 07, 2013 11:55am 112 PG/ML N 0-175 Rule in cut points: <50 years old=450; 50-75 years old=900; >75 years old=1800; When utilizing ProBNP rule-in cut points, adjustment for impaired renal function is typically not required. Neutrophils # (Auto) March 14, 2014 5:41am [...] 14, 2014 5:41am 3.8 MEQ/L N 3.6-5 Procalcitonin March 13, 2014 1:40pm < [...] 2013 1:35pm < 0.012 ng/ml 0-0.12 Turbidity March 14, 2014 5:41am < 20 0-20 Unconjugated Bilirubin June 18, 2011 4:16pm 0.20 MG/DL N 0.00-1.10 Urinalysis Comment January 29, 2014 7:20pm Microscopic [...] Urine Collection Type March 13, 2014 1:32pm Has specimen been collected/ obtained? Y - Urine Color March 13, 2014 1:32pm [...] 2014 10:09am 3-5 /HPF - Urine Specific [place] March 13, 2014 1:32pm <=1.005 L - [...] 14, 2014 5:41am 6.1 T/MM3 DN 4.5-11.0 Blood Culture Blood March 13, 2014 1:47pm NO GROWTH AFTER 24 HOURS Wet Prep Vagina January 04, 2012 8:30am Wet Prep Other June 14, 2009 5:36pm Urine Culture Urine, Voided-Not Cc-Midstream March 13, 2014 1:52pm Gram Negative Bryan Procedures Procedure Status Date Provider(s) PLACE NEEDLE IN VEIN completed 01/29/14 DANISH LOPEZ MD Encounters Encounter Location Date/Time Discharged Inpatient [facility] 03/13/14 1:02pm Registered Clinic [facility] 03/13/14 9:49am Departed Emergency Room [facility] 01/29/14 5:57pm Departed Emergency Room [facility] 01/25/14 8:12pm
--- OUTSIDE RECORDS SUMMARY | 2016-11-10 16:29 | XMS REPORT | Continuity of Care Document ---
Author Author [facility] Organization [facility] Address Unknown Phone Unavailable Support Name Relationship Address Phone JEAN ROTHMAN MD Caregiver [facility] [address] [place] [address] RAJWINDER WALSH MD Caregiver [address] [place] [address] [place] [phone] LORETTA OSBORNE Next Of Kin [address] [place] [address] CP Insurance Providers Payer Name Policy Number Subscriber Name Relationship Medicare [id number] Jessica Osborne 20 Self Medicaid [id number] Jessica Osborne 20 Self Advance Directives Directive Response Recorded Date/Time Advanced Directives Type None 07/25/14 4:10pm Chief Complaint and Reason for Visit Chief Complaint Chest Pain Reason for Visit Hypokalemia Leukocytosis Sinusitis Sepsis [id number] pain Problems Medical Problems Problem Onset Date [...] Unknown Active Upper respiratory infection Unknown Active Medications Medication Dose Route Sig [...] Mg PO Q4H PRN AGITATION 06/17/14 Active Hydromorphone HCl 4 Mg PO THREE TIMES A DAY 07/25/14 Active Risperidone 1 Mg PO TWICE A DAY 60 Qty 07/25/14 Active Azithromycin 1 Tab PO DAILY 6 Qty 07/25/14 Active Trazodone HCl 50 Mg PO BEDTIME 30 Qty 07/25/14 Active Meloxicam 1 Tab PO TWICE A DAY 30 Qty 07/25/14 Active Temazepam 1 Tab PO BEDTIME 30 Qty 07/25/14 Active Diazepam 1 Tab-Cap PO Every 6 Hours For ANXIETY/AGITATION 5 Qty Active Social History Social History Problem Response Recorded Date/Time Smoking Status Current every day smoker 01/29/2014 7:15pm When did patient START smoking? AGE 14 07/25/2014 4:10pm Chewing Tobacco Status No 01/29/2014 7:15pm Hx Substance Use Y PT REPORTS "IN THE PAST" 07/25/2014 4:10pm Hx Alcohol Use N STOPPED DRINKING A YEAR AGO 07/25/2014 4:10pm Has the pt used tobacco in the [...] days Follow Up Appointments: DR ANDREWS 06/04 [phone] Patient Instructions: Do not drive, operate machinery, drink alcohol for 72 hours Wound/Incision Care: n/a Durable Medical Equipment: n/a Notify Physician If: Worsening chest pain General Information: n/a Condition at time of discharge: Good Plan of Care Discharge Date 05/19/14 10:05am Disposition 02 TO OBS [facility] Condition at Discharge Stable Instructions/Education Provided DI for Heart Attack Prescriptions See Medications Section Referrals JEAN ROTHMAN MD Functional Status Query Response Date Recorded Physical Hygiene Self July 25, 2014 4:10pm Disabilities None July 25, 2014 4:10pm Devices Used None July 25, 2014 4:10pm Dressing Self July 25, 2014 4:10pm Ambulation Self July 25, 2014 4:10pm Diet Self July 25, 2014 4:10pm Mental Status Alert Oriented July 25, 2014 4:10pm Disabilities None July 25, 2014 4:10pm Devices Used None July 25, 2014 4:10pm Physical Hygiene Self July 25, 2014 4:10pm Dressing Self July 25, 2014 4:10pm Ambulation Self July 25, 2014 4:10pm Diet Self July 25, 2014 4:10pm Allergies, Adverse Reactions, Alerts Allergen Type Severity Reaction Status Last Updated ziprasidone HCl Allergy Unknown Active 07/25/14 ziprasidone mesylate Allergy Unknown Active 07/25/14 Bupropion Allergy Unknown Active 07/25/14 Citalopram Allergy Unknown Active 07/25/14 Immunizations Name Given Type Hx Influenza Vaccination Y 06/09 Historical Hx Pneumococcal Vaccination No Historical Hx Tetanus, Diptheria, Pertussis No Historical Hx Influenza Vaccination Y 06/09 Historical Hx Tetanus Diptheria No Historical Hx Tetanus, Diptheria, Pertussis No Historical Hx Tetanus Toxoid Vaccination No Historical Vital Signs Acute Vital Signs Vital Response Date/Time Temperature (Fahrenheit) 97.2 deg F (96.8 - 99.1) Temperature (Calculated Celsius) 36.14827 degrees C (36.0 - 37.3) Pulse Rate (adult) 83 bpm (60 - 100) Respiratory Rate 20 breaths/min (10 - 20) O2 Sat by Pulse Oximetry 91 % (90 - 100) Blood Pressure 110/76 mm Hg Results Test Source Date Result Interp. Ref. [...] 2014 10:09am 3-5 /HPF - Urine Specific [place] May 15, 2014 5:22pm <=1.005 L - [...] Report May 19, 2014 4:21pm REFERENCE LAB [id number] - Chlamydia trachomatis Amplified DNA January 24, [...] June 17, 2014 8:47am < 2 0-7 YM-Rrx-T-Type Natriuretic Peptide June 17, 2014 8:47am 75 [...] Negative Bryan Name: JESSICA OSBORNE Unit #: [id number] : 1975 Sex: F Loc / Svc: ED DOS: Signed Report #: [id number] DIAGNOSTIC IMAGING REPORT TYPE OF EXAM: CHEST [...] IMPRESSION: No acute cardiopulmonary abnormality. . Procedures Procedure Status Date Provider(s) RPR [...] completed 06/17/14 EMERGENCY DEPT VISIT completed 06/17/14 [id number]"STERILE WATER, SALINE AND/OR DEXTROSE, DILUENT/FLUSH, completed [id number]"STERILE WATER, SALINE AND/OR DEXTROSE, DILUENT/FLUSH, completed [id number] ITEM OR SERVICE completed 06/17/14 [id number]"INJECTION, LORAZEPAM, 2 MG" completed 06/17/14 Encounters Encounter Location Date/Time Departed Emergency Room [facility] 07/25/14 4:06pm Departed Emergency Room [facility] 06/17/14 8:06am Departed Emergency Room [facility] 06/10/14 10:43pm Discharged Inpatient [facility] 05/16/14 8:39am Departed Emergency Room [facility] 05/14/14 2:44pm Recent Diagnosis
--- OUTSIDE RECORDS SUMMARY | 2016-11-10 16:30 | XMS REPORT | Continuity of Care Document ---
Author Author [facility] Organization [facility] Address Unknown Phone Unavailable Support Name Relationship Address Phone JAIME LOPEZ MD Caregiver [address] [facility] [place] [phone] JEAN ROTHMAN MD Caregiver [facility] [address] [place] [address] LORETTA OSBORNE Next Of Kin [address] [place] [address] CP Insurance Providers Payer Name Policy Number Subscriber Name Relationship Medicare [id number] Jessica Osborne 20 Self Medicaid [id number] Jessica Osborne 20 Self Advance Directives Directive Response Recorded Date/Time Advanced Directives Type None 10/16/14 5:13pm Problems Medical Problems Problem Onset Date Status [...] 09/26/10 06/18/11 Discontinued [Cholesterol Med] 1 DAILY 01/31/11 07/10/11 Discontinued [Bp Med] 09/26/10 03/05/11 Discontinued Fenofibrate [...] PO Every 6 Hours 10/16/14 10/16/14 Discontinued Social History Social History Problem Response Recorded Date/Time Chewing Tobacco Status No 01/29/2014 7:15pm Hx Substance Use Y PT REPORTS "IN THE PAST" 10/16/2014 5:34pm Hx Alcohol Use N STOPPED DRINKING A YEAR AGO 10/16/2014 5:34pm Has the pt used tobacco in the last 12 months Yes 05/15/2014 7:22pm Tobacco Usage smoke 03/13/2014 1:55pm Query Response Start Date Stop Date Smoking Status Current every day smoker Hospital Discharge Instructions No hospital discharge instructions. Plan of Care No plan of care. Functional Status Query Response Date Recorded Physical Hygiene Self October 16, 2014 5:34pm Disabilities None October 16, 2014 5:34pm Devices Used None October 16, 2014 5:34pm Dressing Self October 16, 2014 5:34pm Ambulation Self October 16, 2014 5:34pm Diet Self October 16, 2014 5:34pm Mental Status Alert Oriented October 16, 2014 6:19pm Disabilities None October 16, 2014 5:34pm Devices Used None October 16, 2014 5:34pm Physical Hygiene Self October 16, 2014 5:34pm Dressing Self October 16, 2014 5:34pm Ambulation Self October 16, 2014 5:34pm Diet Self October 16, 2014 5:34pm Allergies, Adverse Reactions, Alerts Allergen Type Severity [...] F (96.8 - 99.1) Temperature (Calculated Celsius) 36.82250 degrees C (36.0 - 37.3) Pulse Rate (adult) 82 bpm (60 - 100) Respiratory Rate 14 breaths/min (10 - 20) O2 Sat by Pulse Oximetry 95 % (90 - 100) Blood Pressure 122/71 mm Hg Height 5 ft 4 in Weight 264 lb Body Mass Index 45.0 kg/m^2 Results Test Source Date Result Interp. [...] 2014 9:10pm 32 U/L N 14- 36 Atypical/Reactive Lymphocytes March 27, 2009 [...] 04, 2014 9:10pm 29 MEQ/L N 22-30 Chemistry Specimen Hemolysis September 04, 2014 9:10pm [...] previously reported as: SENT OUT Chloride Level September 04, 2014 9:10pm 105 [...] 2009 2:45pm Complete - Eosinophils # (Auto) September 04, 2014 [...] 04, 2014 9:10pm 2.9 G/DL N 2.4-3.6 Glomerular Filtration Rate Calc September 04, 2014 9:10pm 94 - Glucose Level September 04, 2014 9:10pm 136 MG/DL H 65-110 HDL Cholesterol Direct May 16, 2014 9:47am 19 MG/DL L 40-60 COMMENT PLEASE RUN ON THIS MORNING'S FASTING LAB DRAW HIV (1&2) Antibody Rapid October 27, 2011 9:40am Negative - Hematocrit September 04, 2014 9:10pm 40.5 % [...] 2009 10:40am Send out - Icterus Index September 04, 2014 9:10pm < 2 0-7 Immature Granulocyte # (Auto) September 04, 2014 9:10pm 0.02 T/MM3 N 0.00- 0.03 Immature Granulocyte % (Auto) September 04, 2014 9:10pm 0.2 % N 0.0-0.5 Influenza Type A [...] 14, 2014 8:35pm 25 U/L N 23-300 [place] Level September 23, 2014 8:19am 0.3 MMOL/L L 0.6-1.2 Lymphocytes # (Auto) September 04, 2014 9:10pm [...] Monoscreen April 14, 2014 8:35pm Negative - SW-Dqs-K-Type Natriuretic Peptide September 04, 2014 9:10pm 237 PG/ML H 0- 175 Rule in cut points: <50 years old=450; 50-75 years old=900; >75 years old=1800; When utilizing ProBNP rule-in cut points, adjustment for impaired renal function is typically not required. Neutrophils # (Auto) September 04, 2014 9:10pm [...] 20.0 % DH 0-0 Red Blood Count September 04, 2014 [...] 04, 2014 9:10pm < 0.012 ng/ml 0-0.12 Turbidity September 04, 2014 9:10pm < 20 0-20 Unconjugated Bilirubin June 18, 2011 4:16pm 0.20 MG/DL N 0.00-1.10 Urinalysis Comment August 15, 2014 8:38pm Microscopic [...] 2014 10:09am 3-5 /HPF - Urine Specific [place] September 04, 2014 9:34pm <=1.005 L - [...] 04, 2014 9:10pm 10.7 T/MM3 N 4.5-11.0 Blood Culture Blood May 15, 2014 5:36pm NO GROWTH AFTER 5 DAYS Wet Prep Vagina January 04, 2012 8:30am Wet Prep Other June 14, 2009 5:36pm Urine Culture Urine, Voided-Not Cc-Midstream March 13, 2014 1:52pm Gram Negative Bryan Name: JESSICA OSBORNE Unit #: [id number] : 1975 Sex: F Loc / Svc: ED DOS: 09/04/14 Signed Report #: [id number] DIAGNOSTIC IMAGING REPORT TYPE OF EXAM: CHEST, [...] Date Provider(s) CHEST X-RAY 2VW FRONTAL&LATL completed 07/25/14 ELECTROCARDIOGRAM TRACING completed 07/25/14 AIRWAY INHALATION TREATMENT completed 07/25/14 EVALUATE PT USE OF INHALER completed 07/25/14 THER/PROPH/DIAG INJ SC/IM completed 07/25/14 EMERGENCY DEPT VISIT completed 07/25/14 [id number]"INJECTION, DIAZEPAM, UP TO 5 MG" completed 07/25/14 [...] completed 08/15/14 EMERGENCY DEPT VISIT completed 08/15/14 [id number] ITEM OR SERVICE completed 08/15/14 [id number] ITEM OR SERVICE completed 08/15/14 [id number] ITEM OR SERVICE completed 08/15/14 [id number]"INJECTION, LORAZEPAM, 2 MG" completed 08/15/14 CHEST X-RAY [...] completed 09/04/14 EMERGENCY DEPT VISIT completed 09/04/14 [id number] ITEM OR SERVICE completed 09/04/14 [id number] ITEM OR SERVICE completed 09/04/14 [id number]"INFUSION, NORMAL SALINE SOLUTION , 1000 CC" completed 09/04/14 ROUTINE VENIPUNCTURE completed 09/23/14 ASSAY OF LITHIUM completed 09/23/14 EMERGENCY DEPT VISIT completed 09/29/14 Encounters Encounter Location Date/Time Departed Emergency Room [facility] 10/16/14 3:36pm Departed Emergency Room [facility] 09/29/14 3:54pm Registered Clinic [facility] 09/23/14 8:12am Departed Emergency Room [facility] 09/04/14 9:28pm Departed Emergency Room [facility] 08/15/14 7:56pm Departed Emergency Room [facility] 07/25/14 4:06pm Recent Diagnosis
--- OUTSIDE RECORDS SUMMARY | 2016-11-10 16:30 | XMS REPORT | Continuity of Care Document ---
Author Author [facility] Organization [facility] Address Unknown Phone Unavailable Support Name Relationship Address Phone ESTHER MERCADO DO Caregiver [facility] [address] [place] [address] JEAN ROTHMAN MD Caregiver [facility] [address] [place] [address] , [address] [place], [place] [phone] LORETTA OSBORNE Next Of Kin [address] [place], [place] [id number] CP Insurance Providers Payer Name Policy Number Subscriber Name Relationship Medicare [id number] Jessica Osborne 20 Self Medicaid [id number] Jessica Osborne 20 Self Advance Directives Directive Response Recorded Date/Time Advanced Directives Type None 09/29/14 3:00pm Problems Medical Problems Problem Onset Date Status [...] Unknown Active Well adult exam Unknown Active Medications Medication Dose Route Sig [...] Discontinued Omeprazole 40 Mg PO DAILY 03/13/14 Active Propranolol HCl TWICE A DAY 60 Qty 04/14/14 05/19/14 Discontinued Cefdinir 1 Cap PO TWICE A DAY 10 Days 04/14/14 05/19/14 Discontinued Furosemide 20 Mg PO DAILY 30 Qty 05/15/14 05/19/14 Discontinued Verapamil HCl 80 Mg PO THREE TIMES A DAY 30 Days 05/19/14 Active Risperidone 1 Mg PO TWICE A DAY 60 Qty 07/25/14 Active Trazodone HCl 100 Mg PO BEDTIME 30 Qty 07/25/14 Active Meloxicam 1 Tab PO TWICE A DAY 30 Qty 07/25/14 Active [place] Carbonate 300 Mg PO TWICE A DAY 08/15/14 Active Oxycodone HCl/Acetaminophen 1 Tab PO NEEDED Take 1 tablet, by mouth, 3 times a day. 09/04/14 Active Potassium Chloride 1 Tab PO DAILY 09/29/14 Active Ranitidine HCl 150 Mg PO DAILY 09/29/14 Active [Benzatropine] 1 Mg PO TWICE A DAY 09/29/14 Active [place] Carbonate 300 Mg PO THREE TIMES A DAY 09/29/14 Active Tramadol HCl 50 Mg PO NEEDED 09/29/14 Active Furosemide 1 Tab PO DAILY 09/29/14 Active Social History Social History Problem Response Recorded Date/Time Chewing Tobacco Status No 01/29/2014 7:15pm Hx Substance Use Y PT REPORTS "IN THE PAST" 09/29/2014 3:00pm Hx Alcohol Use N STOPPED DRINKING A YEAR AGO 09/29/2014 3:00pm Has the pt used tobacco in the last 12 months Yes 05/15/2014 7:22pm Tobacco Usage smoke 03/13/2014 1:55pm Query Response Start Date Stop Date Smoking Status Current every day smoker Hospital Discharge Instructions No hospital discharge instructions. Plan of Care No plan of care. Functional Status Query Response Date Recorded Physical Hygiene Self September 29, 2014 3:00pm Disabilities None September 29, 2014 3:00pm Devices Used None September 29, 2014 3:00pm Dressing Self September 29, 2014 3:00pm Ambulation Self September 29, 2014 3:00pm Diet Self September 29, 2014 3:00pm Mental Status Alert Oriented September 29, 2014 3:41pm Disabilities None September 29, 2014 3:00pm Devices Used None September 29, 2014 3:00pm Physical Hygiene Self September 29, 2014 3:00pm Dressing Self September 29, 2014 3:00pm Ambulation Self September 29, 2014 3:00pm Diet Self September 29, 2014 3:00pm Allergies, Adverse Reactions, Alerts Allergen Type Severity [...] F (96.8 - 99.1) Temperature (Calculated Celsius) 36.88131 degrees C (36.0 - 37.3) Pulse Rate (adult) 89 bpm (60 - 100) Respiratory Rate 20 breaths/min (10 - 20) O2 Sat by Pulse Oximetry 97 % (90 - 100) Blood Pressure 112/57 mm Hg Results Test Source Date Result [...] 14, 2014 8:35pm 25 U/L N 23-300 [place] Level September 23, 2014 8:19am 0.3 MMOL/L [...] Monoscreen April 14, 2014 8:35pm Negative - SS-Ass-R-Type Natriuretic Peptide September 04, 2014 9:10pm 237 [...] 2014 10:09am 3-5 /HPF - Urine Specific [place] September 04, 2014 9:34pm <=1.005 L - [...] Negative Bryan Name: JESSICA OSBORNE Unit #: [id number] : 1975 Sex: F Loc / Svc: ED DOS: 09/04/14 Signed Report #: [id number] DIAGNOSTIC IMAGING REPORT TYPE OF EXAM: CHEST, [...] completed 07/25/14 EMERGENCY DEPT VISIT completed 07/25/14 [id number]"INJECTION, DIAZEPAM, UP TO 5 MG" completed 07/25/14 [...] completed 08/15/14 EMERGENCY DEPT VISIT completed 08/15/14 [id number] ITEM OR SERVICE completed 08/15/14 [id number] ITEM OR SERVICE completed 08/15/14 [id number] ITEM OR SERVICE completed 08/15/14 [id number]"INJECTION, LORAZEPAM, 2 MG" completed 08/15/14 CHEST X-RAY [...] completed 09/04/14 EMERGENCY DEPT VISIT completed 09/04/14 [id number] ITEM OR SERVICE completed 09/04/14 [id number] ITEM OR SERVICE completed 09/04/14 [id number]"INFUSION, NORMAL SALINE SOLUTION , 1000 CC" completed 09/04/14 Encounters Encounter Location Date/Time Departed Emergency Room [facility] 09/29/14 3:54pm Registered Clinic [facility] 09/23/14 8:12am Departed Emergency Room [facility] 09/04/14 9:28pm Departed Emergency Room [facility] 08/15/14 7:56pm Departed Emergency Room [facility] 07/25/14 4:06pm Recent Diagnosis
--- OUTSIDE RECORDS SUMMARY | 2016-11-10 16:30 | XMS REPORT | Continuity of Care Document ---
Author Author [facility] Organization [facility] Address Unknown Phone Unavailable Allergies Active Description Code Type Severity Reaction Onset Reported/Identified Relationship to Patient Clinical Status Yes No Known Drug Allergies Drug Allergy 05/15/2011 Medications Problems Procedures Results Encounters ACCT No. Visit Date/Time Discharge Status Pt. Type Provider Facility Loc./Unit Complaint [id number] 04/18/2012 14:24:00 2011 23:59:59 CLS [facility]ie CEDEÑO, Lalit Merrill [facility] W.END
[2016-11-10] MEDS ORDERED: IBUP-1724 PO (17:12)
[2016-11-10] MEDS ORDERED: PANT40TA27 PO (17:12)
[2016-11-10] MEDS ORDERED: HYDR100C2 PO (17:12)
[2016-11-10 17:47] VITALS: BP 120/70; PULSE 84; RESP 29; TEMP 98.8; O2SAT 96
--- NOTE | 2016-11-10 17:47 | NUR ---
[facility]BS PT IN BLAKE BED, PT STATES SHE CAN NO LONGER WAIT TO SEE A PROVIDER, HER ANXIETY HAS PASSED ON ITS OWN AND SHE NEEDS TO LEAVE RIGHT AWAY. PT STATES HER PCP HAS RECENTLY CHANGES HER FROM [facility] AND THE REASON SHE WAS HERE WAS BECAUSE SHE FELT THE [facility] WAS NOT WORKING BUT NOW SHE NO LONGER FEELS SHE NEEDS IT. PT REFUSED TO STAY FOR ADDITIONAL V/S AND IS INFORMED THAT ADDITIONAL PROVIDERS HAVE ARRIVED AND PT WILL BE SEEN SHORTLY. PT REPEATS SHE WILL NOT STAY AND BEGINS TO WALK OUT OF THE ED. PT SIGNS [facility]BS SEEN FORM JUST PRIOR TO EXITING, PT SHOWS NO SIGNS OF DISTRESS OR DISCOMFORT AND IS GIVEN A COPY OF LWBS FORM.
--- OUTSIDE RECORDS SUMMARY | 2016-11-10 21:30 | XMS REPORT | Continuity of Care Document ---
Author Author [facility] Organization [facility] Address Unknown Phone Unavailable Care Team Providers Care Wool Fleece Grader Name Role Phone JUNIE ESTRADA MD Primary Care Physician Unavailable Insurance Providers Payer Name Policy Number Subscriber Name Relationship Medicare [id number] Jessica Osborne 20 Self Medicaid [id number] Jessica Osborne 20 Self Advance Directives Directive [...] call for appointment with Dr. Rothman of [facility] for Sunday of next week. Make appointment [...] of your legs. 3.During office hours, call [phone] 4. After hours, please call [facility] at [phone], and have the tier lift truck operator page your Surgeon IN THE EVENT [...] 2014 10:09am 3-5 /HPF - Urine Specific [place] April 14, 2014 8:00pm <=1.005 L - [...] 13, 2014 11:17am LAB TEST FORM REQUEST [id number] - Chlamydia trachomatis Amplified DNA January 24, [...] July 12, 2013 10:50am Negative NG/ML - OO-Dvu-E-Type Natriuretic Peptide July 07, 2013 11:55am 112 [...] Negative Bryan Name: JESSICA OSBORNE Unit #: [id number] : 1975 Sex: F Loc / Svc: ED DOS: 04/14/14 Signed Report #: [id number] DIAGNOSTIC IMAGING REPORT TYPE OF EXAM: CHEST, [...] Date/Time Departed Emergency Room [facility] 05/14/14 2:44pm Departed Emergency Room [facility] 04/14/14 7:37pm Departed Emergency Room [facility] 03/16/14 10:03pm Discharged Inpatient [facility] 03/13/14 1:02pm Registered Clinic [facility] 03/13/14 9:49am Recent Diagnosis
--- OUTSIDE RECORDS SUMMARY | 2016-11-10 21:31 | XMS REPORT | Continuity of Care Document ---
Author Author [facility] Organization [facility] Address Unknown Phone Unavailable Support Name Relationship Address Phone JAIME LOPEZ MD Caregiver [address] [place] [address] [place] [phone] AIDEN NAVARRO MD Caregiver [address] [place] [address] [place] [address] JEAN ROTHMAN MD Caregiver [address] [place] [address] LORETTA OSBORNE Next Of Kin [address] [place] [address] CP Insurance Providers Payer Name Policy Number Subscriber Name Relationship Medicare [id number] Jessica Osborne 20 Self Medicaid [id number] Jessica Osborne 20 Self Advance Directives Directive [...] days Follow Up Appointments: DR ANDREWS 06/04 [phone] Patient Instructions: Do not drive, operate machinery, drink alcohol for 72 hours Wound/Incision Care: n/a Durable Medical Equipment: n/a Notify Physician If: Worsening chest pain General Information: n/a Condition at time of discharge: Good excessive/foul smelling drainage at your incision site. - You have difficulty breathing. During office hours, call [phone]. After hours, please call [facility] at [phone] and have the desulfurizer operator page Dr. Cardona or the covering [...] F (96.8 - 99.1) Temperature (Calculated Celsius) 36.20573 degrees C (36.0 - 37.3) Temperature Source [...] 13, 2014 11:17am LAB TEST FORM REQUEST [id number] - Large Platelets July 07, 2013 11:55am [...] Monoscreen April 14, 2014 8:35pm Negative - HB-Tll-I-Type Natriuretic Peptide May 15, 2014 4:47pm 236 [...] 2014 10:09am 3-5 /HPF - Urine Specific [place] May 15, 2014 5:22pm <=1.005 L - [...] 13, 2014 1:52pm Gram Negative Bryan Name: JSESICA OSBORNE Odalis Unit #: [id number] : 1975 Sex: F Loc / Svc: SRG DOS: 05/15/14 Signed Report #: [id number] DIAGNOSTIC IMAGING REPORT TYPE OF EXAM: CT [...] 03/16/14 Encounters Encounter Location Date/Time Discharged Inpatient [facility] 05/16/14 8:39am Departed Emergency Room [facility] 05/14/14 2:44pm Departed Emergency Room [facility] 04/14/14 7:37pm Departed Emergency Room [facility] 03/16/14 10:03pm Discharged Inpatient [facility] 03/13/14 1:02pm Registered Clinic [facility] 03/13/14 9:49am Recent Diagnosis Chest pain Leukocytosis Hypokalemia Leukocytosis Sinusitis Sepsis Hypertension Hypercholesterolemia History of pulmonary embolism Asthma GERD (gastroesophageal reflux disease) IBS (irritable bowel syndrome) History of alcohol abuse Bipolar 1 disorder Anxiety Tobacco dependence NSTEMI (non-ST elevated myocardial infarction)
--- OUTSIDE RECORDS SUMMARY | 2016-11-10 21:31 | XMS REPORT | Continuity of Care Document ---
Author Author [facility] Organization [facility] Address Unknown Phone Unavailable Care Team Providers Care Mutuel Cashier Name Role Phone JUNIE ESTRADA MD Primary Care Physician Unavailable Insurance Providers Payer Name Policy Number Subscriber Name Relationship Medicare [id number] Jessica Osborne 20 Self Problems Medical Problems [...] call for appointment with Dr. Rothman of [facility] for Sunday of next week. Make [...] F (96.8 - 99.1) Temperature (Calculated Celsius) 36.36130 degrees C (36.0 - 37.3) Pulse Rate [...] 2014 10:09am 3-5 /HPF - Urine Specific [place] March 16, 2014 11:25pm 1.010 L - [...] 13, 2014 11:17am LAB TEST FORM REQUEST [id number] - Chlamydia trachomatis Amplified DNA January 24, [...] July 12, 2013 10:50am Negative NG/ML - RB-Igc-T-Type Natriuretic Peptide July 07, 2013 11:55am 112 [...] Encounters Encounter Location Date/Time Departed Emergency Room [facility] 03/16/14 10:03pm Discharged Inpatient [facility] 03/13/14 1:02pm Registered Clinic [facility] 03/13/14 9:49am Departed Emergency Room [facility] 01/29/14 5:57pm Departed Emergency Room [facility] 01/25/14 8:12pm Recent Diagnosis
--- OUTSIDE RECORDS SUMMARY | 2016-11-10 21:33 | XMS REPORT | Continuity of Care Document ---
Author Author [facility] Organization [facility] Address Unknown Phone Unavailable Support Name Relationship Address Phone JEAN ROTHMAN MD Caregiver [facility] [address] [place] [address] RAJWINDER WALSH MD Caregiver [address] [phone] LORETTA OSBORNE Next Of Kin [address] [place] [address] CP Insurance Providers Payer Name Policy Number Subscriber Name Relationship Medicare [id number] Jessica Osborne 20 Self Medicaid [id number] Jessica Osborne 20 Self Advance Directives Directive [...] TWICE A DAY 30 Qty 07/25/14 Active [place] Carbonate 300 Mg PO TWICE A DAY [...] F (96.8 - 99.1) Temperature (Calculated Celsius) 36.77753 degrees C (36.0 - 37.3) Pulse Rate [...] 2014 10:09am 3-5 /HPF - Urine Specific [place] September 04, 2014 9:34pm <=1.005 L - [...] Report May 19, 2014 4:21pm REFERENCE LAB [id number] - Chlamydia trachomatis Amplified DNA January 24, [...] September 04, 2014 9:10pm < 2 0-7 QB-Zsh-H-Type Natriuretic Peptide September 04, 2014 9:10pm 237 [...] Negative Bryan Name: JESSICA OSBORNE Unit #: [id number] : 1975 Sex: F Loc / Svc: ED DOS: 08/15/14 Signed Report #: [id number] DIAGNOSTIC IMAGING REPORT TYPE OF EXAM: CHEST, PA & LATERAL Dictated By: IOANA BLAKE MD INDICATION: ITS.REASON: cough shortness of air, history of asthma, prior RI CHEST 2-VIEWS UPRIGHT (PA & LAT): COMPARISON: [...] completed 06/17/14 EMERGENCY DEPT VISIT completed 06/17/14 [id number]"STERILE WATER, SALINE AND/OR DEXTROSE, DILUENT/FLUSH, completed [id number]"STERILE WATER, SALINE AND/OR DEXTROSE, DILUENT/FLUSH, completed [id number] ITEM OR SERVICE completed 06/17/14 [id number]"INJECTION, LORAZEPAM, 2 MG" completed 06/17/14 CHEST X-RAY 2VW FRONTAL&LATL completed 07/25/14 ELECTROCARDIOGRAM TRACING completed 07/25/14 AIRWAY INHALATION TREATMENT completed 07/25/14 EVALUATE PT USE OF INHALER completed 07/25/14 THER/PROPH/DIAG INJ SC/IM completed 07/25/14 EMERGENCY DEPT VISIT completed 07/25/14 [id number]"INJECTION, DIAZEPAM, UP TO 5 MG" completed 07/25/14 [...] completed 08/15/14 EMERGENCY DEPT VISIT completed 08/15/14 [id number] ITEM OR SERVICE completed 08/15/14 [id number] ITEM OR SERVICE completed 08/15/14 [id number] ITEM OR SERVICE completed 08/15/14 [id number]"INJECTION, LORAZEPAM, 2 MG" completed 08/15/14 Encounters Encounter Location Date/Time Departed Emergency Room [facility] 09/04/14 9:28pm Departed Emergency Room [facility] 08/15/14 7:56pm Departed Emergency Room [facility] 07/25/14 4:06pm Departed Emergency Room [facility] 06/17/14 8:06am Departed Emergency Room [facility] 06/10/14 10:43pm Recent Diagnosis
--- OUTSIDE RECORDS SUMMARY | 2016-11-10 21:33 | XMS REPORT | Continuity of Care Document ---
Author Author [facility] Organization [facility] Address Unknown Phone Unavailable Support Name Relationship Address Phone GRACIELA FAY MD Caregiver [facility] [address] [address] Unavailable JEAN ROTHMAN MD Caregiver [address], [address] [place], [place] [id number] LORETTA OSBORNE Next Of Kin [address] [place] [address] CP Insurance Providers Payer Name Policy Number Subscriber Name Relationship Medicare [id number] Jessica Osborne 20 Self Medicaid [id number] Jessica Osborne 20 Self Advance Directives Directive Response Recorded Date/Time Advanced Directives Type None 06/10/14 10:50pm Chief Complaint and Reason for Visit Chief Complaint Chest Pain Reason for Visit Hypokalemia Leukocytosis Sinusitis Sepsis QRY-POOU-Hmidp pain Problems Medical Problems Problem Onset Date [...] days Follow Up Appointments: DR ANDREWS 06/04 [phone] Patient Instructions: Do not drive, operate machinery, [...] of your legs. 3.During office hours, call [phone] 4. After hours, please call [facility] at [phone], and have the lumber kiln operator page your Surgeon IN THE EVENT OF AN EMERGENCY, seek medical care at the nearest Emergency Room Condition at time of discharge: Good Plan of Care Discharge Date 05/19/14 10:05am Disposition 02 TO OBS [facility] Condition at Discharge Stable [...] F (96.8 - 99.1) Temperature (Calculated Celsius) 36.77089 degrees C (36.0 - 37.3) Pulse Rate [...] 2014 10:09am 3-5 /HPF - Urine Specific [place] May 15, 2014 5:22pm <=1.005 L - [...] Report May 19, 2014 4:21pm REFERENCE LAB [id number] - Chlamydia trachomatis Amplified DNA January 24, [...] June 10, 2014 11:28pm < 2 0-7 SU-Zem-N-Type Natriuretic Peptide May 15, 2014 4:47pm 236 [...] Negative Bryan Name: JESSICA OSBORNE Unit #: [id number] : 1975 Sex: F Loc / Svc: SRG DOS: 05/15/14 Signed Report #: [id number] DIAGNOSTIC IMAGING REPORT TYPE OF EXAM: CT [...] Encounters Encounter Location Date/Time Departed Emergency Room [facility] 06/10/14 10:43pm Discharged Inpatient [facility] 05/16/14 8:39am Departed Emergency Room [facility] 05/14/14 2:44pm Departed Emergency Room [facility] 04/14/14 7:37pm Departed Emergency Room [facility] 03/16/14 10:03pm Discharged Inpatient [facility] 03/13/14 1:02pm Registered Clinic [facility] 03/13/14 9:49am Recent Diagnosis
--- OUTSIDE RECORDS SUMMARY | 2016-11-10 21:33 | XMS REPORT | Continuity of Care Document ---
Author Author [facility] LIVE Organization [facility]IVE Address Unknown Phone Unavailable Support Name Relationship Address Phone JEAN ROTHMAN MD Caregiver [facility] MEDICINE [address] [place] [address] FINESSE CORADO MD Caregiver [address] [place] [address] [place] [phone] LORETTA OSBORNE Next Of Kin [address] [place] [address] CP Insurance Providers Payer Name Policy Number Subscriber Name Relationship Medicare [id number] Jessica Osborne 20 Self Medicaid [id number] Jessica Osborne 20 Self Chief Complaint and Reason for Visit Chief Complaint Chest Pain Reason for Visit Hypokalemia Leukocytosis Sinusitis Sepsis DLY-NPGV-Rydat pain Problems Medical Problems Problem Onset Date [...] TWICE A DAY 30 Qty 07/25/14 [address] [employer] Carbonate 300 Mg PO TWICE A DAY [...] days Follow Up Appointments: DR ANDREWS 06/04 [phone] Patient Instructions: Do not drive, operate machinery, [...] F (96.8 - 99.1) Temperature (Calculated Celsius) 36.50655 degrees C (36.0 - 37.3) Pulse Rate [...] 2014 10:09am 3-5 /HPF - Urine Specific [place] August 15, 2014 8:38pm <=1.005 L - [...] Report May 19, 2014 4:21pm REFERENCE LAB [id number] - Chlamydia trachomatis Amplified DNA January 24, [...] August 15, 2014 8:31pm < 2 0-7 JS-Tdx-J-Type Natriuretic Peptide August 15, 2014 8:31pm 68 [...] Bryan Name: JESSICA OSBORNE Odalis Unit #: [id number] : 1975 Sex: F Loc / Svc: ED DOS: 07/25/14 Signed Report #: [id number] DIAGNOSTIC IMAGING REPORT TYPE OF EXAM: CHEST, [...] completed 06/17/14 EMERGENCY DEPT VISIT completed 06/17/14 [id number]"STERILE WATER, SALINE AND/OR DEXTROSE, DILUENT/FLUSH, completed 700733"STERILE WATER, SALINE AND/OR DEXTROSE, DILUENT/FLUSH, completed [id number] ITEM OR SERVICE completed 06/17/14 [id number]"INJECTION, LORAZEPAM, 2 MG" completed 06/17/14 CHEST X-RAY 2VW FRONTAL&LATL completed 07/25/14 ELECTROCARDIOGRAM TRACING completed 07/25/14 AIRWAY INHALATION TREATMENT completed 07/25/14 EVALUATE PT USE OF INHALER completed 07/25/14 THER/PROPH/DIAG INJ SC/IM completed 07/25/14 EMERGENCY DEPT VISIT completed 07/25/14 [id number]"INJECTION, DIAZEPAM, UP TO 5 MG" completed 07/25/14 Encounters Encounter Location Date/Time Departed Emergency Room [facility] 08/15/14 7:56pm Departed Emergency Room [facility] 07/25/14 4:06pm Departed Emergency Room [facility] 06/17/14 8:06am Departed Emergency Room [facility] 06/10/14 10:43pm Discharged Inpatient [facility] 05/16/14 8:39am Recent Diagnosis
--- OUTSIDE RECORDS SUMMARY | 2016-11-10 21:34 | XMS REPORT | Continuity of Care Document ---
Author Author [facility] LIVE Organization [facility]IVE Address Unknown Phone Unavailable Support Name Relationship Address Phone JEAN ROTHMAN MD Caregiver [facility] MEDICINE [address] [place] [address] RAJWINDER WALSH MD Caregiver [address] [place] [phone] LORETTA OSBORNE Next Of Kin [address] [place] [address] CP Insurance Providers Payer Name Policy Number Subscriber Name Relationship Medicare [id number] Jessica Osborne 20 Self Medicaid [id number] Jessica Osborne 20 Self Advance Directives Directive [...] TWICE A DAY 60 Qty 10/20/14 Active [place] Carbonate 300 Mg PO THREE TIMES A [...] F (96.8 - 99.1) Temperature (Calculated Celsius) 36.37014 degrees C (36.0 - 37.3) Pulse Rate [...] 28, 2014 5:50pm 21 U/L L 23-300 [place] Level September 23, 2014 8:19am 0.3 MMOL/L [...] Monoscreen April 14, 2014 8:35pm Negative - XZ-Ikm-H-Type Natriuretic Peptide September 04, 2014 9:10pm 237 [...] 2014 10:09am 3-5 /HPF - Urine Specific [place] October 28, 2014 5:39pm 1.010 L - [...] Negative Bryan Name: JESSICA OSBORNE Unit #: [id number] : 1975 Sex: F Loc / Svc: ED DOS: 09/04/14 Signed Report #: [id number] DIAGNOSTIC IMAGING REPORT TYPE OF EXAM: CHEST, [...] completed 08/15/14 EMERGENCY DEPT VISIT completed 08/15/14 [id number] ITEM OR SERVICE completed 08/15/14 [id number] ITEM OR SERVICE completed 08/15/14 [id number] ITEM OR SERVICE completed 08/15/14 336450"INJECTION, LORAZEPAM, 2 MG" completed 08/15/14 CHEST X-RAY [...] completed 09/04/14 EMERGENCY DEPT VISIT completed 09/04/14 [id number] ITEM OR SERVICE completed 09/04/14 [id number] ITEM OR SERVICE completed 09/04/14 172890"INFUSION, NORMAL SALINE SOLUTION , 1000 CC" completed 09/04/14 ROUTINE VENIPUNCTURE completed 09/23/14 ASSAY OF LITHIUM completed 09/23/14 EMERGENCY DEPT VISIT completed 09/29/14 ELECTROCARDIOGRAM TRACING completed 10/16/14 EMERGENCY DEPT VISIT completed 10/16/14 [id number] ITEM OR SERVICE completed 10/16/14 Encounters Encounter Location Date/Time Departed Emergency Room [facility] 10/28/14 4:44pm Departed Emergency Room [facility] 10/16/14 3:36pm Departed Emergency Room [facility] 09/29/14 3:54pm Registered Clinic [facility] 09/23/14 8:12am Departed Emergency Room [facility] 09/04/14 9:28pm Departed Emergency Room [facility] 08/15/14 7:56pm Recent Diagnosis
--- OUTSIDE RECORDS SUMMARY | 2016-11-10 21:35 | XMS REPORT | Continuity of Care Document ---
Author Author [facility] LIVE Organization [facility]IVE Address Unknown Phone Unavailable Care Team Providers Care Alpine Patroller Name Role Phone JUNIE ESTRADA MD Primary Care Physician Unavailable Insurance Providers Payer Name Policy Number Subscriber Name Relationship Medicare [id number] Jessica Osborne 20 Self Advance Directives Directive [...] call for appointment with Dr. Rothman of [facility] for Sunday of next week. [...] Durable Medical Equipment: FWW ORDER FAXED TO [employer], CPM FROM [employer] [phone] Notify Physician If: Call your Surgeon if you have: 1.Chest pain, difficulty breathing, fever>100.5 degrees, chills, heart rate >100, confusion, or persistent nausea/vomitting. 2.Severe pain, swelling, redness, or warmth in either of your legs. 3.During office hours, call [phone] 4. After hours, please call [facility] at [phone], and have the finishing powder press operator page your Surgeon IN THE EVENT [...] F (96.8 - 99.1) Temperature (Calculated Celsius) 37.23791 degrees C (36.0 - 37.3) Temperature Source [...] 10:09am 3-5 /HPF - Urine Specific [place] March 13, 2014 1:32pm <=1.005 L - [...] 13, 2014 11:17am LAB TEST FORM REQUEST [id number] - Chlamydia trachomatis Amplified DNA January 24, [...] July 12, 2013 10:50am Negative NG/ML - CW-Roc-R-Type Natriuretic Peptide July 07, 2013 11:55am 112 [...] MD Encounters Encounter Location Date/Time Discharged Inpatient [facility] 03/13/14 1:02pm Registered Clinic [facility] 03/13/14 9:49am Departed Emergency Room [facility] 01/29/14 5:57pm Departed Emergency Room [facility] 01/25/14 8:12pm
--- OUTSIDE RECORDS SUMMARY | 2016-11-10 21:35 | XMS REPORT | Continuity of Care Document ---
Author Author LIVE Organization LIVE Address Unknown Phone Unavailable Support Name Relationship Address Phone JEAN ROTHMAN MD Caregiver [facility] MEDICINE [address] [place] [address] FINESSE CORADO MD Caregiver [address] [place] [address] [place] [phone] LORETTA OSBORNE Next Of Kin [address] [place] [address] CP Insurance Providers Payer Name Policy Number Subscriber Name Relationship Medicare [id number] Jessica Osborne 20 Self Medicaid [id number] Jessica Osborne 20 Self Chief Complaint and Reason for Visit Chief Complaint Chest Pain Reason for Visit Hypokalemia Leukocytosis Sinusitis Sepsis PFO-MSNA-Gyvup pain Problems Medical Problems Problem Onset Date [...] days Follow Up Appointments: DR ANDREWS 06/04 [phone] Patient Instructions: Do not drive, operate machinery, drink alcohol for 72 hours Wound/Incision Care: n/a Durable Medical Equipment: n/a Notify Physician If: Worsening chest pain General Information: n/a Condition at time of discharge: Good Plan of Care Discharge Date 05/19/14 10:05am Disposition 02 TO OBS [facility] Condition at Discharge [...] F (96.8 - 99.1) Temperature (Calculated Celsius) 36.35714 degrees C (36.0 - 37.3) Pulse Rate [...] 2014 10:09am 3-5 /HPF - Urine Specific [place] May 15, 2014 5:22pm <=1.005 L - [...] Report May 19, 2014 4:21pm REFERENCE LAB [id number] - Chlamydia trachomatis Amplified DNA January 24, [...] June 17, 2014 8:47am < 2 0-7 MW-Qlu-U-Type Natriuretic Peptide June 17, 2014 8:47am 75 [...] Negative Bryan Name: JESSICA OSBORNE Unit #: [id number] : 1975 Sex: F Loc / Svc: ED DOS: Signed Report #: [id number] DIAGNOSTIC IMAGING REPORT TYPE OF EXAM: CHEST [...] Encounters Encounter Location Date/Time Departed Emergency Room [facility] 06/17/14 8:06am Departed Emergency Room [facility] 06/10/14 10:43pm Discharged Inpatient [facility] 05/16/14 8:39am Departed Emergency Room [facility] 05/14/14 2:44pm Departed Emergency Room [facility] 04/14/14 7:37pm Recent Diagnosis
--- OUTSIDE RECORDS SUMMARY | 2016-11-10 21:35 | XMS REPORT | Continuity of Care Document ---
Author Author [facility] LIVE Organization [facility] Address Unknown Phone Unavailable Care Team Providers Care Pbx Teacher Name Role Phone JUNIE ESTRADA MD Primary Care Physician Unavailable Insurance Providers Payer Name Policy Number Subscriber Name Relationship Medicare [id number] Jessica Osborne 20 Self Problems Medical Problems [...] call for appointment with Dr. Rothman of [facility] for Sunday of next week. [...] of your legs. 3.During office hours, call [phone] 4. After hours, please call [facility] at [phone], and have the pipe blanks cut off saw operator page your Surgeon IN THE EVENT [...] F (96.8 - 99.1) Temperature (Calculated Celsius) 36.40018 degrees C (36.0 - 37.3) Pulse Rate [...] 13, 2014 11:17am LAB TEST FORM REQUEST [id number] - Large Platelets July 07, 2013 11:55am [...] Monoscreen April 14, 2014 8:35pm Negative - QG-Lex-R-Type Natriuretic Peptide July 07, 2013 11:55am 112 [...] 2014 10:09am 3-5 /HPF - Urine Specific [place] April 14, 2014 8:00pm <=1.005 L - [...] Negative Bryan Name: JESSICA OSBORNE Unit #: [id number] : 1975 Sex: F Loc / Svc: KENJI DOS: 03/13/14 Signed Report #: [id number] DIAGNOSTIC IMAGING REPORT TYPE OF EXAM: CT [...] Encounters Encounter Location Date/Time Registered Emergency Room [facility] 04/14/14 7:37pm Departed Emergency Room [facility] 03/16/14 10:03pm Discharged Inpatient [facility] 03/13/14 1:02pm Registered Clinic [facility] 03/13/14 9:49am Departed Emergency Room [facility] 01/29/14 5:57pm Departed Emergency Room [facility] 01/25/14 8:12pm Recent Diagnosis
--- OUTSIDE RECORDS SUMMARY | 2016-11-10 21:36 | XMS REPORT | Continuity of Care Document ---
Author Author [facility] LIVE Organization [facility] LIVE Address Unknown Phone Unavailable Care Team Providers Care Health Actuary Name Role Phone JUNIE ESTRADA MD Primary Care Physician Unavailable Insurance Providers Payer Name Policy Number Subscriber Name Relationship Medicare [id number] Jessica Osborne 20 Self Advance Directives Directive [...] call for appointment with Dr. Rothman of [facility] for Sunday of next week. Make [...] Durable Medical Equipment: FWW ORDER FAXED TO [employer], CPM FROM [facility] [phone] Notify Physician If: Call your Surgeon if you have: 1.Chest pain, difficulty breathing, fever>100.5 degrees, chills, heart rate >100, confusion, or persistent nausea/vomitting. 2.Severe pain, swelling, redness, or warmth in either of your legs. 3.During office hours, call [phone] 4. After hours, please call [facility] at [phone], and have the clay mine cutting machine operator page your Surgeon IN THE [...] F (96.8 - 99.1) Temperature (Calculated Celsius) 37.44872 degrees C (36.0 - 37.3) Temperature Source [...] 13, 2014 11:17am LAB TEST FORM REQUEST [id number] - Large Platelets July 07, 2013 11:55am [...] Monoscreen May 06, 2010 9:46am Negative - BQ-Qyw-Z-Type Natriuretic Peptide July 07, 2013 11:55am 112 [...] 2014 10:09am 3-5 /HPF - Urine Specific [place] March 13, 2014 1:32pm <=1.005 L - [...] MD Encounters Encounter Location Date/Time Discharged Inpatient [facility] 03/13/14 1:02pm Registered Clinic [facility] 03/13/14 9:49am Departed Emergency Room [facility] 01/29/14 5:57pm Departed Emergency Room [facility] 01/25/14 8:12pm
--- OUTSIDE RECORDS SUMMARY | 2016-11-10 21:36 | XMS REPORT | Continuity of Care Document ---
Author Author [facility] LIVE Organization [facility]IVE Address Unknown Phone Unavailable Support Name Relationship Address Phone JEAN ROTHMAN MD Caregiver [facility] MEDICINE [address] [place] [address] RAJWINDER WALSH MD Caregiver [address] [place] [address] [place] [phone] LORETTA OSBORNE Next Of Kin [address] [place] [address] CP Insurance Providers Payer Name Policy Number Subscriber Name Relationship Medicare [id number] Jessica Osborne 20 Self Medicaid [id number] Jessica Osborne 20 Self Advance Directives Directive Response Recorded Date/Time Advanced Directives Type None 07/25/14 4:10pm Chief Complaint and Reason for Visit Chief Complaint Chest Pain Reason for Visit Hypokalemia Leukocytosis Sinusitis Sepsis DVF-UNYU-Xgafy pain Problems Medical Problems Problem Onset Date [...] days Follow Up Appointments: DR ANDREWS 06/04 [phone] Patient Instructions: Do not drive, operate machinery, [...] F (96.8 - 99.1) Temperature (Calculated Celsius) 36.76745 degrees C (36.0 - 37.3) Pulse Rate [...] 2014 10:09am 3-5 /HPF - Urine Specific [place] May 15, 2014 5:22pm <=1.005 L - [...] Report May 19, 2014 4:21pm REFERENCE LAB [id number] - Chlamydia trachomatis Amplified DNA January 24, [...] June 17, 2014 8:47am < 2 0-7 IO-Jtd-H-Type Natriuretic Peptide June 17, 2014 8:47am 75 [...] Negative Bryan Name: JESSICA OSBORNE Unit #: [id number] : 1975 Sex: F Loc / Svc: ED DOS: Signed Report #: [id number] DIAGNOSTIC IMAGING REPORT TYPE OF EXAM: CHEST [...] completed 06/17/14 EMERGENCY DEPT VISIT completed 06/17/14 [id number]"STERILE WATER, SALINE AND/OR DEXTROSE, DILUENT/FLUSH, completed 236305"STERILE WATER, SALINE AND/OR DEXTROSE, DILUENT/FLUSH, completed [id number] ITEM OR SERVICE completed 06/17/14 512041"INJECTION, LORAZEPAM, 2 MG" completed 06/17/14 Encounters Encounter Location Date/Time Departed Emergency Room [facility] 07/25/14 4:06pm Departed Emergency Room [facility] 06/17/14 8:06am Departed Emergency Room [facility] 06/10/14 10:43pm Discharged Inpatient [facility] 05/16/14 8:39am Departed Emergency Room [facility] 05/14/14 2:44pm Recent Diagnosis
--- OUTSIDE RECORDS SUMMARY | 2016-11-10 21:37 | XMS REPORT | Continuity of Care Document ---
Author Author [facility] Organization [facility] Address Unknown Phone Unavailable Allergies Active Description Code Type Severity Reaction Onset Reported/Identified Relationship to Patient Clinical Status Yes No Known Drug Allergies Drug Allergy 05/15/2011 Medications Problems Procedures Results Encounters ACCT No. Visit Date/Time Discharge Status Pt. Type Provider Facility Loc./Unit Complaint [id number] 04/18/2012 14:24:00 2011 23:59:59 CLS Pread[facility] Winnie CEDEÑO, Lalit Merrill [facility] W.END
--- OUTSIDE RECORDS SUMMARY | 2016-11-10 21:37 | XMS REPORT | Continuity of Care Document ---
Author Author [facility] LIVE Organization [facility] LIVE Address Unknown Phone Unavailable Support Name Relationship Address Phone JAIME LOPEZ MD Caregiver [address] [place] [phone] JEAN ROTHMAN MD Caregiver [facility] MEDICINE [address] [place] [address] LORETTA OSBORNE Next Of Kin [address] [place] [address] CP Insurance Providers Payer Name Policy Number Subscriber Name Relationship Medicare [id number] Jessica Osborne 20 Self Medicaid [id number] Jessica Osborne 20 Self Advance Directives Directive [...] F (96.8 - 99.1) Temperature (Calculated Celsius) 36.16936 degrees C (36.0 - 37.3) Pulse Rate [...] 14, 2014 8:35pm 25 U/L N 23-300 [place] Level September 23, 2014 8:19am 0.3 MMOL/L [...] Monoscreen April 14, 2014 8:35pm Negative - IN-Adc-E-Type Natriuretic Peptide September 04, 2014 9:10pm 237 [...] 2014 10:09am 3-5 /HPF - Urine Specific [place] September 04, 2014 9:34pm <=1.005 L - [...] Negative Bryan Name: JESSICA OSBORNE Unit #: [id number] : 1975 Sex: F Loc / Svc: ED DOS: 09/04/14 Signed Report #: [id number] DIAGNOSTIC IMAGING REPORT TYPE OF EXAM: CHEST, [...] completed 07/25/14 EMERGENCY DEPT VISIT completed 07/25/14 [id number]"INJECTION, DIAZEPAM, UP TO 5 MG" completed 07/25/14 [...] completed 08/15/14 EMERGENCY DEPT VISIT completed 08/15/14 [id number]-[id number] ITEM OR SERVICE completed 08/15/14 [id number] ITEM OR SERVICE completed 08/15/14 [id number]-EIRNCKQ ITEM OR SERVICE completed 08/15/14 786072"INJECTION, LORAZEPAM, 2 MG" completed 08/15/14 CHEST X-RAY [...] completed 09/04/14 EMERGENCY DEPT VISIT completed 09/04/14 [id number] ITEM OR SERVICE completed 09/04/14 [id number]-WXAWRRA ITEM OR SERVICE completed 09/04/14 222302"INFUSION, NORMAL SALINE SOLUTION , 1000 CC" completed 09/04/14 ROUTINE VENIPUNCTURE completed 09/23/14 ASSAY OF LITHIUM completed 09/23/14 EMERGENCY DEPT VISIT completed 09/29/14 Encounters Encounter Location Date/Time Departed Emergency Room [facility] 10/16/14 3:36pm Departed Emergency Room [facility] 09/29/14 3:54pm Registered Clinic [facility] 09/23/14 8:12am Departed Emergency Room [facility] 09/04/14 9:28pm Departed Emergency Room [facility] 08/15/14 7:56pm Departed Emergency Room [facility] 07/25/14 4:06pm Recent Diagnosis
--- OUTSIDE RECORDS SUMMARY | 2016-11-10 21:37 | XMS REPORT | Continuity of Care Document ---
Author Author [facility] LIVE Organization [facility] LIVE Address Unknown Phone Unavailable Support Name Relationship Address Phone ESTHER MERCADO DO Caregiver [facility] [address] [place] [address] JEAN ROTHMAN MD Caregiver [facility] MEDICINE [address] [place] [address] , [address] [place], [place] [phone] LORETTA OSBORNE Next Of Kin [address] [place], [place] [id number] CP Insurance Providers Payer Name Policy Number Subscriber Name Relationship Medicare [id number] Jessica Osborne 20 Self Medicaid [id number] Jessica Osborne 20 Self Advance Directives Directive [...] TWICE A DAY 30 Qty 07/25/14 Active [place] Carbonate 300 Mg PO TWICE A DAY 08/15/14 Active Oxycodone HCl/Acetaminophen 1 Tab PO NEEDED Take 1 tablet, by mouth, 3 times a day. 09/04/14 Active Potassium Chloride 1 Tab PO DAILY 09/29/14 Active Ranitidine HCl 150 Mg PO DAILY 09/29/14 Active [Benzatropine] 1 Mg PO TWICE A DAY 09/29/14 Active [place] Carbonate 300 Mg PO THREE TIMES A [...] F (96.8 - 99.1) Temperature (Calculated Celsius) 36.07910 degrees C (36.0 - 37.3) Pulse Rate [...] 14, 2014 8:35pm 25 U/L N 23-300 [place] Level September 23, 2014 8:19am 0.3 MMOL/L [...] Monoscreen April 14, 2014 8:35pm Negative - JF-Tdi-R-Type Natriuretic Peptide September 04, 2014 9:10pm 237 [...] 2014 10:09am 3-5 /HPF - Urine Specific [place] September 04, 2014 9:34pm <=1.005 L - [...] Negative Bryan Name: JESSICA OSBORNE Unit #: [id number] : 1975 Sex: F Loc / Svc: ED DOS: 09/04/14 Signed Report #: [id number] DIAGNOSTIC IMAGING REPORT TYPE OF EXAM: CHEST, [...] completed 07/25/14 EMERGENCY DEPT VISIT completed 07/25/14 [id number]"INJECTION, DIAZEPAM, UP TO 5 MG" completed 07/25/14 [...] completed 08/15/14 EMERGENCY DEPT VISIT completed 08/15/14 [id number] ITEM OR SERVICE completed 08/15/14 [id number]-OMBHKJH ITEM OR SERVICE completed 08/15/14 [id number]-EBKOXYE ITEM OR SERVICE completed 08/15/14 [id number]"INJECTION, LORAZEPAM, 2 MG" completed 08/15/14 CHEST X-RAY [...] completed 09/04/14 EMERGENCY DEPT VISIT completed 09/04/14 [id number] ITEM OR SERVICE completed 09/04/14 [id number]-YKGPFYR ITEM OR SERVICE completed 09/04/14 032270"INFUSION, NORMAL SALINE SOLUTION , 1000 CC" completed 09/04/14 Encounters Encounter Location Date/Time Departed Emergency Room [facility] 09/29/14 3:54pm Registered Clinic [facility] 09/23/14 8:12am Departed Emergency Room [facility] 09/04/14 9:28pm Departed Emergency Room [facility] 08/15/14 7:56pm Departed Emergency Room [facility] 07/25/14 4:06pm Recent Diagnosis
== END 2016-11-10 17:47 | disposition left against medical advice (07) ==
LOC: ED 16:18
DX: Z53.21 Procedure and treatment not carried out due to patient leaving prior to being seen by health care provider (principal)

== ENCOUNTER 2016-12-21 21:14 | Emergency (ER) | payer MEDICARE, MEDICAID ==
[~2016-12-21] VITALS: Ht 162.6 cm; Wt 92.9 kg
[~2016-12-21 21:14] MED LIST changes: -CLON1TAB4 PO; +HYDR100C2 PO; +IBUP-1724 PO; -OXYC1TAB13 PO; +PANT40TA27 PO
--- OUTSIDE RECORDS SUMMARY | 2016-12-21 21:21 | XMS REPORT | Continuity of Care Document ---
Author Author [facility] Organization [facility] Address Unknown Phone Unavailable Support Name Relationship Address Phone LORI GO APRN Caregiver [address] [place] [address] Unavailable JAVAN MARRERO MD Caregiver [address] [place] [address] Unavailable LORETTA OSBORNE Next Of Kin [address] [place] [phone] Insurance Providers Guarantor Jessica Osborne Address [address] [place] [place] [phone] Email DENIED 16 Payer Medicaid Policy Number [id number] Subscriber's Name Jessica Osborne Relationship 18 Self Effective Date 16 Expiration Date 16 Payer Medicare Policy Number [id number] Subscriber's Name Jessica Osborne Relationship 18 Self Advance Directives Directive Response Recorded Date/Time Advanced Directives Type None 11/10/16 4:20pm Chief Complaint and Reason for Visit Chief Complaint Psychiatric Problems Reason for Visit Patient left without being seen Panic attack Problems Active Problems Medical Problem Onset Date [...] Problems Medical Problem Onset Date Anxiety Unknown Anxiety Unknown Atypical chest pain Unknown Hypoxia [...] Mesylate 1 Mg Tablet 1 Mg Oral Bedtime 03/03/15 Fluticasone Propionate (Flonase Allergy Relief 50 Mcg/Actuation Nasal) 9.9 Ml [place].susp 2 [place] Intranasal Daily 02/23/15 Hydroxyzine Pamoate 100 Mg Capsule 100 Mg Oral Three Times A Day as needed for Prn Orders 11/10/16 Ibuprofen 200 Mg Tablet 400 Mg Oral Every 4 Hours as needed for Pain 11/10/16 Lamotrigine 200 Mg Tablet 200 Mg Oral [...] 40 Mg Oral Twice A Day 03/28/16 Pantoprazole Sodium 40 Mg Tablet.dr 40 Mg Oral Twice A Day Potassium Chloride 20 Meq Tab.er.prt 20 Meq Oral Twice A Day Risperidone 2 Mg Tablet 1 Mg Oral Daily 05/13/16 Sucralfate 1 Gm Tablet 1 Gm Oral Four Times Daily as needed for Prn Orders 12/12/14 Tiotropium [place] (Spiriva Respimat) 4 Gm Mist.inhal 2 Puff Inhalation Daily as needed for Prn Orders 05/13/16 Verapamil Hcl 80 Mg Tablet 80 [...] Hx Substance Use Y HX OF CRACK [id number] 11/10/2016 4:36pm Not Applicable Not Applicable Hx Alcohol Use No 11/10/2016 4:36pm Not Applicable Not Applicable Has the pt used tobacco in the last 12 months Yes 03/28/2016 8:05pm Not Applicable Not Applicable Tobacco Usage smoke 10/28/2014 5:26pm Not Applicable Not Applicable Query Response Start Date Stop Date Smoking Status Current every day smoker Hospital Discharge Instructions No hospital discharge instructions. Plan of Care Discharge Date 11/10/16 5:47pm Disposition 07 LEFT W/O BEING SEEN Condition at Discharge Against Medical Advice Prescriptions See Medication Section Referrals LORI GO APRN Address: [address] [place], [place] [phone] Functional Status No functional status results. Allergies, [...] No 06/10/14 10:50pm Influenza Vaccine Hx 2016 11/10/16 4:36pm Tetanus Diptheria Vaccine History OVER 10 YEARS 11/10/16 4:36pm Vital Signs Acute Vital Signs Vital Response Date/Time Temperature (Fahrenheit) 98.8 deg F (96.8 - 99.1) 11/10/2016 5:47pm Temperature (Calculated Celsius) 37.71601 degrees C (36.0 - 37.3) 11/10/2016 5:47pm Pulse Rate (adult) 84 bpm (60 - 100) 11/10/2016 5:47pm Respiratory Rate 29 breaths/min (10 - 20) 11/10/2016 5:47pm O2 Sat by Pulse Oximetry 96 % (90 - 100) 11/10/2016 5:47pm Blood Pressure 120/70 mm Hg 11/10/2016 5:47pm Height (Feet) 5 feet 11/10/2016 4:20pm Height (Inches) 4.00 inches 11/10/2016 4:20pm Weight (Kilograms) 98.800 kg 11/10/2016 4:20pm Body Mass Index (BMI) 37.0 11/10/2016 4:20pm Results Laboratory Results Test Name Result Units Flags Reference Collection Date/Time Result Date/ Time Comments White Blood Count 9.5 T/MM3 4.5-11.0 10/25/2016 6:34am 10/25/2016 6: 42am Red Blood Count 4.71 M/MM3 4.00-5.20 10/25/2016 6:34am 10/25/2016 6: 42am Hemoglobin 14.8 GM/DL 12-16 10/25/2016 6:34am 10/25/2016 6:42am Hematocrit 44.9 % 36-46 10/25/2016 6:34am 10/25/2016 6:42am Mean Corpuscular Volume 95.3 UM3 80-100 10/25/2016 6:34am 10/25/2016 6: 42am Mean Corpuscular Hemoglobin 31.4 UUG 26-34 10/25/2016 6:34am 2016 6:42am Mean Corpuscular Hemoglobin Concent 33.0 GM/DL 31-37 10/25/2016 6:34am 10/25/2016 6:42am RDW Standard Deviation 43.1 FL 36.9-50.2 10/25/2016 6:34am 10/25/2016 6 :42am Platelet Count 255 T/MM3 130-400 10/25/2016 6:34am 10/25/2016 6:42am Mean Platelet Volume 10.3 UM3 9.4-12.4 10/25/2016 6:34am 10/25/2016 6: 42am Neutrophils (%) (Auto) 61.7 % 33-66 10/25/2016 6:34am 10/25/2016 6: 42am Lymphocytes (%) (Auto) 29.8 % 23-45 10/25/2016 6:34am 10/25/2016 6: 42am Monocytes (%) (Auto) 6.5 % 0-9.0 10/25/2016 6:34am 10/25/2016 6:42am Eosinophils (%) (Auto) 1.6 % 0-4 10/25/2016 6:34am 10/25/2016 6:42am Basophils (%) (Auto) 0.3 % 0-2 10/25/2016 6:34a 10/25/2016 6:42am Immature Granulocyte % (Auto) 0.1 % 0.0-0.5 10/25/2016 6:34am 2016 6:42am Absolute Neutrophils (auto) 5.9 T/MM3 1.8-7.7 10/25/2016 6:34a 2016 6:42am Absolute Lymphocytes (auto) 2.8 T/MM3 1-4.8 10/25/2016 6:34a 2016 6:42am Absolute Monocytes (auto) 0.6 T/MM3 0-0.8 10/25/2016 6:34a 10/25/2016 6:42am Absolute Eosinophils (auto) 0.2 T/MM3 0-0.5 10/25/2016 6:34a 2016 6:42am Absolute Basophils (auto) 0.0 T/MM3 0-0.2 10/25/2016 6:34a 10/25/2016 6:42am Absolute Immature Granulocyte (auto 0.01 T/MM3 0.00-0.03 10/25/2016 6: 34a 10/25/2016 6:42am Icterus Index < 2 0-7 10/25/2016 6:34a 10/25/2016 6:51am Chemistry Specimen Hemolysis < 15 0-25 10/25/2016 6:34a 10/25/2016 6 :51am 0-25: Specimen Exhibited No Hemolysis. Turbidity < 20 0-20 10/25/2016 6:34am 10/25/2016 6:51am Sodium Level 140 MEQ/L 134-144 10/25/2016 6:34am 10/25/2016 6:51am Potassium Level 4.5 MEQ/L 3.6-5 10/25/2016 6:34am 10/25/2016 6:51am Chloride Level 108 MEQ/L H 98-107 10/25/2016 6:34am 10/25/2016 6:51am Carbon Dioxide Level 26 MEQ/L 22-30 10/25/2016 6:34am 10/25/2016 6: 51am Anion Gap 6 MEQ/L 5-15 10/25/2016 6:34a 10/25/2016 6:51am Blood Urea Nitrogen 3.0 MG/DL L 7-17 10/25/2016 6:34a 10/25/2016 6: 51am Creatinine 0.7 MG/DL 0.7-1.2 10/25/2016 6:34a 10/25/2016 6:51am BUN/Creatinine Ratio 4 RATIO L 6-26 10/25/2016 [facility] 10/25/2016 6:51am Glomerular Filtration Rate Calc 93 10/25/2016 6:34a 10/25/2016 6: 51am Glucose Level 91 MG/DL 65-110 10/25/2016 6[facility] 10/25/2016 6:51am Calculated Osmolality 266 MOSM/KG 261-280 10/25/2016 6:34a 10/25/2016 6:51am Calcium Level 9.2 MG/DL 8.4-10.2 10/25/2016 6[facility] 10/25/2016 6:51am Total Bilirubin 0.60 MG/DL 0.20-1.30 10/25/2016 6:34a 10/25/2016 6: 51am Alkaline Phosphatase 75 U/L 38-126 10/25/2016 6[facility] 10/25/2016 6:51am Total Protein 7.0 G/DL 6.3-8.2 10/25/2016 6:34a 10/25/2016 6:51am Albumin 3.8 G/DL 3.5-5.0 10/25/2016 6:34a 10/25/2016 6:51am Globulin 3.2 G/DL 2.4-3.6 10/25/2016 6:34a 10/25/2016 6:51am Albumin/Globulin Ratio 1.2 RATIO 1.1-2.2 10/25/2016 6[facility] 10/25/2016 6 :51am Aspartate Amino Transf (AST/SGOT) 17 U/L 14-36 10/25/2016 6:34a 2016 6:51am Alanine Aminotransferase (ALT/SGPT) 22 U/L 9-52 10/25/2016 6:34a 10/25 6:51am Cholesterol Level 189 MG/DL 132-199 10/25/2016 6:34am 10/26/2016 12: 52am Triglycerides Level 169 MG/DL H 35-135 10/25/2016 6:34am 10/26/2016 12: 52am HDL Cholesterol Direct 40 MG/DL 40-60 10/25/2016 6:34am 10/26/2016 12: 52am LDL Cholesterol, Calculated 115.2 66-159 10/25/2016 6:34am 2016 12:52am VLDL Cholesterol 33.8 MG/DL H 0-28 10/25/2016 6:34am 10/26/2016 12:52am Cholesterol/HDL Ratio 4.7 RATIO H 0-4.0 10/25/2016 6:34am 10/26/2016 12: 52am Procedures Procedure Status Date Provider(s) X-ray exam hips bi 5/> views Completed 08/31/16 Emergency dept visit Completed 09/19/16 [id number]"CHEMOTHERAPY TREATMENT, NOT TO EXCEED A 48 HOUR DOSAG Completed Routine venipuncture Completed 10/25/16 Comprehen metabolic panel Completed 10/25/16 Lipid panel Completed 10/25/16 Complete cbc w/auto diff wbc Completed 10/25/16 Encounters Encounter Location Arrival/Admit Date Discharge/Depart Date Attending Provider Departed Emergency Room [facility] 11/10/16 4:18pm 11/10/16 5: 47pm JAVAN MARRERO MD Registered [facility] 10/25/16 6:21am KRISTINE SAHNI APRN Departed Emergency Room [facility] 09/19/16 8:12am 09/19/16 9: 30am ESTHER MERCADO DO Registered [facility] 08/31/16 8:57am LORI OG APRN Departed Emergency Room [facility] 08/23/16 4:34pm 08/23/16 4: 37pm JAVAN MARRERO MD Recent Diagnosis
--- OUTSIDE RECORDS SUMMARY | 2016-12-21 21:21 | XMS REPORT | Continuity of Care Document ---
Author Author [facility] Organization [facility] Address Unknown Phone Unavailable Care Team Providers Care Prior Authorization Nurse Name Role Phone JUNIE ESTRADA MD Primary Care Physician Unavailable Insurance Providers Payer Name Policy Number Subscriber Name Relationship Medicare [id number] Jessica Osborne 20 Self Medicaid [id number] Jessica Osborne 20 Self Advance Directives Directive [...] call for appointment with Dr. Rothman of [facility] for Sunday of next week. [...] of your legs. 3.During office hours, call [phone] 4. After hours, please call [facility] at [phone], and have the utilities operator page your Surgeon IN THE EVENT [...] 2014 10:09am 3-5 /HPF - Urine Specific [place] April 14, 2014 8:00pm <=1.005 L - [...] 13, 2014 11:17am LAB TEST FORM REQUEST [id number] - Chlamydia trachomatis Amplified DNA January 24, [...] July 12, 2013 10:50am Negative NG/ML - KO-Smd-A-Type Natriuretic Peptide July 07, 2013 11:55am 112 [...] Negative Bryan Name: JESSICA OSBORNE Unit #: [id number] : 1975 Sex: F Loc / Svc: ED DOS: 04/14/14 Signed Report #: [id number] DIAGNOSTIC IMAGING REPORT TYPE OF EXAM: CHEST, [...] Encounters Encounter Location Date/Time Departed Emergency Room [facility] 05/14/14 2:44pm Departed Emergency Room [facility] 04/14/14 7:37pm Departed Emergency Room [facility] 03/16/14 10:03pm Discharged Inpatient [facility] 03/13/14 1:02pm Registered Clinic [facility] 03/13/14 9:49am Recent Diagnosis
--- OUTSIDE RECORDS SUMMARY | 2016-12-21 21:22 | XMS REPORT | Continuity of Care Document ---
Author Author [facility] Organization [facility] Address Unknown Phone Unavailable Support Name Relationship Address Phone JAIME LOPEZ MD Caregiver [address] [place] [address] [place] [phone] AIDEN NAVARRO MD Caregiver [address] [place] [address] [place] [address] JEAN ROTHMAN MD Caregiver [address] [place] [address] LORETTA OSBORNE Next Of Kin [address] [place] [address] CP Insurance Providers Payer Name Policy Number Subscriber Name Relationship Medicare [id number] Jessica Osborne 20 Self Medicaid [id number] Jessica Osborne 20 Self Advance Directives Directive [...] days Follow Up Appointments: DR ANDREWS 06/04 [phone] Patient Instructions: Do not drive, operate machinery, drink alcohol for 72 hours Wound/Incision Care: n/a Durable Medical Equipment: n/a Notify Physician If: Worsening chest pain General Information: n/a Condition at time of discharge: Good excessive/foul smelling drainage at your incision site. - You have difficulty breathing. During office hours, call [phone]. After hours, please call [facility] at [phone] and have the robotic machine operator page Dr. Cardona or the covering [...] F (96.8 - 99.1) Temperature (Calculated Celsius) 36.79917 degrees C (36.0 - 37.3) Temperature Source [...] 13, 2014 11:17am LAB TEST FORM REQUEST [id number] - Large Platelets July 07, 2013 11:55am [...] Monoscreen April 14, 2014 8:35pm Negative - AK-Viu-T-Type Natriuretic Peptide May 15, 2014 4:47pm 236 [...] 2014 10:09am 3-5 /HPF - Urine Specific [place] May 15, 2014 5:22pm <=1.005 L - [...] Bryan Name: JESSICA OSBORNE Odalis Unit #: [id number] : 1975 Sex: F Loc / Svc: SRG DOS: 05/15/14 Signed Report #: [id number] DIAGNOSTIC IMAGING REPORT TYPE OF EXAM: CT [...] 03/16/14 Encounters Encounter Location Date/Time Discharged Inpatient [facility] 05/16/14 8:39am Departed Emergency Room [facility] 05/14/14 2:44pm Departed Emergency Room [facility] 04/14/14 7:37pm Departed Emergency Room [facility] 03/16/14 10:03pm Discharged Inpatient [facility] 03/13/14 1:02pm Registered Clinic [facility] 03/13/14 9:49am Recent Diagnosis Chest pain Leukocytosis Hypokalemia Leukocytosis Sinusitis Sepsis Hypertension Hypercholesterolemia History of pulmonary embolism Asthma GERD (gastroesophageal reflux disease) IBS (irritable bowel syndrome) History of alcohol abuse Bipolar 1 disorder Anxiety Tobacco dependence NSTEMI (non-ST elevated myocardial infarction)
[2016-12-21 21:23] VITALS: Ht 162.6 cm; Wt 92.9 kg
--- OUTSIDE RECORDS SUMMARY | 2016-12-21 21:23 | XMS REPORT | Continuity of Care Document ---
Author Author [facility] Organization [facility] Address Unknown Phone Unavailable Care Team Providers Care Bus Attendant Name Role Phone JUNIE ESTRADA MD Primary Care Physician Unavailable Insurance Providers Payer Name Policy Number Subscriber Name Relationship Medicare [id number] Jessica Osborne 20 Self Problems Medical Problems [...] call for appointment with Dr. Rothman of [facility] for Sunday of next week. Make [...] F (96.8 - 99.1) Temperature (Calculated Celsius) 36.23850 degrees C (36.0 - 37.3) Pulse Rate [...] 2014 10:09am 3-5 /HPF - Urine Specific [place] March 16, 2014 11:25pm 1.010 L - [...] 13, 2014 11:17am LAB TEST FORM REQUEST [id number] - Chlamydia trachomatis Amplified DNA January 24, [...] July 12, 2013 10:50am Negative NG/ML - BO-Lua-S-Type Natriuretic Peptide July 07, 2013 11:55am 112 [...] Encounters Encounter Location Date/Time Departed Emergency Room [facility] 03/16/14 10:03pm Discharged Inpatient [facility] 03/13/14 1:02pm Registered Clinic [facility] 03/13/14 9:49am Departed Emergency Room [facility] 01/29/14 5:57pm Departed Emergency Room [facility] 01/25/14 8:12pm Recent Diagnosis
--- OUTSIDE RECORDS SUMMARY | 2016-12-21 21:24 | XMS REPORT | Continuity of Care Document ---
Author Author [facility] Organization [facility] Address Unknown Phone Unavailable Support Name Relationship Address Phone JEAN ROTHMAN MD Caregiver [facility] [address] [address] [place] [address] FINESSE CORADO MD Caregiver [address] [place] [address] [place] [phone] LORETTA OSBORNE Next Of Kin [address] [place] [address] CP Insurance Providers Payer Name Policy Number Subscriber Name Relationship Medicare [id number] Jessica Osborne 20 Self Medicaid [id number] Jessica Osborne 20 Self Chief Complaint and Reason for Visit Chief Complaint Chest Pain Reason for Visit Hypokalemia Leukocytosis Sinusitis Sepsis [id number]-Xauox pain Problems Medical Problems Problem Onset Date [...] TWICE A DAY 30 Qty 07/25/14 Active Hospers Carbonate 300 Mg PO TWICE A DAY [...] days Follow Up Appointments: DR ANDREWS 06/04 [phone] Patient Instructions: Do not drive, operate machinery, [...] Date 05/19/14 10:05am Disposition 02 TO OBS [facility] Condition at Discharge Stable Instructions/Education Provided [...] F (96.8 - 99.1) Temperature (Calculated Celsius) 36.85434 degrees C (36.0 - 37.3) Pulse Rate [...] 2014 10:09am 3-5 /HPF - Urine Specific [place] August 15, 2014 8:38pm <=1.005 L - [...] Report May 19, 2014 4:21pm REFERENCE LAB [id number] - Chlamydia trachomatis Amplified DNA January 24, [...] August 15, 2014 8:31pm < 2 0-7 GR-Hsb-K-Type Natriuretic Peptide August 15, 2014 8:31pm 68 [...] Bryan Name: JESSICA OSBORNE Odalis Unit #: [id number] : 1975 Sex: F Loc / Svc: ED DOS: 07/25/14 Signed Report #: [id number] DIAGNOSTIC IMAGING REPORT TYPE OF EXAM: CHEST, [...] completed 06/17/14 EMERGENCY DEPT VISIT completed 06/17/14 [id number]"STERILE WATER, SALINE AND/OR DEXTROSE, DILUENT/FLUSH, completed [id number]"STERILE WATER, SALINE AND/OR DEXTROSE, DILUENT/FLUSH, completed [id number] ITEM OR SERVICE completed 06/17/14 [id number]"INJECTION, LORAZEPAM, 2 MG" completed 06/17/14 CHEST X-RAY 2VW FRONTAL&LATL completed 07/25/14 ELECTROCARDIOGRAM TRACING completed 07/25/14 AIRWAY INHALATION TREATMENT completed 07/25/14 EVALUATE PT USE OF INHALER completed 07/25/14 THER/PROPH/DIAG INJ SC/IM completed 07/25/14 EMERGENCY DEPT VISIT completed 07/25/14 [id number]"INJECTION, DIAZEPAM, UP TO 5 MG" completed 07/25/14 Encounters Encounter Location Date/Time Departed Emergency Room [facility] 08/15/14 7:56pm Departed Emergency Room [facility] 07/25/14 4:06pm Departed Emergency Room [facility] 06/17/14 8:06am Departed Emergency Room [facility] 06/10/14 10:43pm Discharged Inpatient [facility] 05/16/14 8:39am Recent Diagnosis
--- OUTSIDE RECORDS SUMMARY | 2016-12-21 21:24 | XMS REPORT | Continuity of Care Document ---
Author Author [facility] Organization [facility] Address Unknown Phone Unavailable Support Name Relationship Address Phone GRACIELA FAY MD Caregiver [facility] [address] [place] [address] Unavailable JEAN ROTHMAN MD Caregiver [address] [place], [place] [phone] LORETTA OSBORNE Next Of Kin [address] [place] [address] CP Insurance Providers Payer Name Policy Number Subscriber Name Relationship Medicare [id number] Jessica Osborne 20 Self Medicaid [id number] Jessica Osborne 20 Self Advance Directives Directive Response Recorded Date/Time Advanced Directives Type None 06/10/14 10:50pm Chief Complaint and Reason for Visit Chief Complaint Chest Pain Reason for Visit Hypokalemia Leukocytosis Sinusitis Sepsis JWH-[id number]-Bavrn pain Problems Medical Problems Problem Onset Date [...] days Follow Up Appointments: DR ANDREWS 06/04 [phone] Patient Instructions: Do not drive, operate machinery, [...] of your legs. 3.During office hours, call [phone] 4. After hours, please call [facility] at [phone], and have the disposal operator page your Surgeon IN THE EVENT OF AN EMERGENCY, seek medical care at the nearest Emergency Room Condition at time of discharge: Good Plan of Care Discharge Date 05/19/14 10:05am Disposition 02 TO OBS [facility] Condition at Discharge Stable Instructions/Education Provided DI [...] F (96.8 - 99.1) Temperature (Calculated Celsius) 36.59272 degrees C (36.0 - 37.3) Pulse Rate [...] 2014 10:09am 3-5 /HPF - Urine Specific [place] May 15, 2014 5:22pm <=1.005 L - [...] Report May 19, 2014 4:21pm REFERENCE LAB [id number] - Chlamydia trachomatis Amplified DNA January 24, [...] June 10, 2014 11:28pm < 2 0-7 HJ-Rgv-D-Type Natriuretic Peptide May 15, 2014 4:47pm 236 [...] Negative Bryan Name: JESSICA OSBORNE Unit #: [id number] : 1975 Sex: F Loc / Svc: SRG DOS: 05/15/14 Signed Report #: [id number] DIAGNOSTIC IMAGING REPORT TYPE OF EXAM: CT [...] Encounters Encounter Location Date/Time Departed Emergency Room [facility] 06/10/14 10:43pm Discharged Inpatient [facility] 05/16/14 8:39am Departed Emergency Room [facility] 05/14/14 2:44pm Departed Emergency Room [facility] 04/14/14 7:37pm Departed Emergency Room [facility] 03/16/14 10:03pm Discharged Inpatient [facility] 03/13/14 1:02pm Registered Clinic [facility] 03/13/14 9:49am Recent Diagnosis
--- OUTSIDE RECORDS SUMMARY | 2016-12-21 21:25 | XMS REPORT | Continuity of Care Document ---
Author Author [facility] Organization [facility] Address Unknown Phone Unavailable Support Name Relationship Address Phone JEAN ROTHMAN MD Caregiver [facility] [address] [place] [address] RAJWINDER WALSH MD Caregiver [address] [facility] [address] [facility] [place] [phone] LORETTA OSBORNE Next Of Kin [address] [place] [address] CP Insurance Providers Payer Name Policy Number Subscriber Name Relationship Medicare [id number] Jessica Osborne 20 Self Medicaid [id number] Jessica Osborne 20 Self Advance Directives Directive [...] TWICE A DAY 30 Qty 07/25/14 Active Smiley Carbonate 300 Mg PO TWICE A DAY [...] F (96.8 - 99.1) Temperature (Calculated Celsius) 36.35962 degrees C (36.0 - 37.3) Pulse Rate [...] 2014 10:09am 3-5 /HPF - Urine Specific [place] September 04, 2014 9:34pm <=1.005 L - [...] Report May 19, 2014 4:21pm REFERENCE LAB [id number] - Chlamydia trachomatis Amplified DNA January 24, [...] September 04, 2014 9:10pm < 2 0-7 RS-Kko-H-Type Natriuretic Peptide September 04, 2014 9:10pm 237 [...] 13, 2014 1:52pm Gram Negative Bryan Name: JESSCIA OSBORNE Unit #: [id number] : 1975 Sex: F Loc / Svc: ED DOS: 08/15/14 Signed Report #: [id number] DIAGNOSTIC IMAGING REPORT TYPE OF EXAM: CHEST, PA & LATERAL Dictated By: IOANA BLAKE MD INDICATION: ITS.REASON: cough shortness of air, history of asthma, prior [place] CHEST 2-VIEWS UPRIGHT (PA & LAT): COMPARISON: [...] completed 06/17/14 EMERGENCY DEPT VISIT completed 06/17/14 [id number]"STERILE WATER, SALINE AND/OR DEXTROSE, DILUENT/FLUSH, completed [id number]"STERILE WATER, SALINE AND/OR DEXTROSE, DILUENT/FLUSH, completed [id number] ITEM OR SERVICE completed 06/17/14 [id number]"INJECTION, LORAZEPAM, 2 MG" completed 06/17/14 CHEST X-RAY 2VW FRONTAL&LATL completed 07/25/14 ELECTROCARDIOGRAM TRACING completed 07/25/14 AIRWAY INHALATION TREATMENT completed 07/25/14 EVALUATE PT USE OF INHALER completed 07/25/14 THER/PROPH/DIAG INJ SC/IM completed 07/25/14 EMERGENCY DEPT VISIT completed 07/25/14 [id number]"INJECTION, DIAZEPAM, UP TO 5 MG" completed 07/25/14 [...] completed 08/15/14 EMERGENCY DEPT VISIT completed 08/15/14 [id number] ITEM OR SERVICE completed 08/15/14 [id number] ITEM OR SERVICE completed 08/15/14 [id number] ITEM OR SERVICE completed 08/15/14 [id number]"INJECTION, LORAZEPAM, 2 MG" completed 08/15/14 Encounters Encounter Location Date/Time Departed Emergency Room [facility] 09/04/14 9:28pm Departed Emergency Room [facility] 08/15/14 7:56pm Departed Emergency Room [facility] 07/25/14 4:06pm Departed Emergency Room [facility] 06/17/14 8:06am Departed Emergency Room [facility] 06/10/14 10:43pm Recent Diagnosis
--- OUTSIDE RECORDS SUMMARY | 2016-12-21 21:25 | XMS REPORT | Continuity of Care Document ---
Author Author [facility] Organization [facility] Address Unknown Phone Unavailable Support Name Relationship Address Phone JEAN ROTHMAN MD Caregiver [facility] [address] [place] [address] RAJWINDER WALSH MD Caregiver [address] [place] [phone] LORETTA OSBORNE Next Of Kin [address] [place] [address] CP Insurance Providers Payer Name Policy Number Subscriber Name Relationship Medicare [id number] Jessica Osborne 20 Self Medicaid [id number] Jessica Osborne 20 Self Advance Directives Directive [...] TWICE A DAY 60 Qty 10/20/14 Active [place] Carbonate 300 Mg PO THREE TIMES A [...] F (96.8 - 99.1) Temperature (Calculated Celsius) 36.79305 degrees C (36.0 - 37.3) Pulse Rate [...] 28, 2014 5:50pm 21 U/L L 23-300 [place] Level September 23, 2014 8:19am 0.3 MMOL/L [...] Monoscreen April 14, 2014 8:35pm Negative - VX-Xdr-E-Type Natriuretic Peptide September 04, 2014 9:10pm 237 [...] 2014 10:09am 3-5 /HPF - Urine Specific [place] October 28, 2014 5:39pm 1.010 L - [...] Negative Bryan Name: JESSICA OSBORNE Unit #: [id number] : 1975 Sex: F Loc / Svc: ED DOS: 09/04/14 Signed Report #: [id number] DIAGNOSTIC IMAGING REPORT TYPE OF EXAM: CHEST, [...] completed 08/15/14 EMERGENCY DEPT VISIT completed 08/15/14 [id number] ITEM OR SERVICE completed 08/15/14 [id number] ITEM OR SERVICE completed 08/15/14 [id number] ITEM OR SERVICE completed 08/15/14 [id number]"INJECTION, LORAZEPAM, 2 MG" completed 08/15/14 CHEST X-RAY [...] completed 09/04/14 EMERGENCY DEPT VISIT completed 09/04/14 [id number] ITEM OR SERVICE completed 09/04/14 [id number]-NYOIHMJ ITEM OR SERVICE completed 09/04/14 815361"INFUSION, NORMAL SALINE SOLUTION , 1000 CC" completed 09/04/14 ROUTINE VENIPUNCTURE completed 09/23/14 ASSAY OF LITHIUM completed 09/23/14 EMERGENCY DEPT VISIT completed 09/29/14 ELECTROCARDIOGRAM TRACING completed 10/16/14 EMERGENCY DEPT VISIT completed 10/16/14 [id number] ITEM OR SERVICE completed 10/16/14 Encounters Encounter Location Date/Time Departed Emergency Room [facility] 10/28/14 4:44pm Departed Emergency Room [facility] 10/16/14 3:36pm Departed Emergency Room [facility] 09/29/14 3:54pm Registered Clinic [facility] 09/23/14 8:12am Departed Emergency Room [facility] 09/04/14 9:28pm Departed Emergency Room [facility] 08/15/14 7:56pm Recent Diagnosis
--- OUTSIDE RECORDS SUMMARY | 2016-12-21 21:26 | XMS REPORT | Continuity of Care Document ---
Author Author [facility] Organization [facility] Address Unknown Phone Unavailable Support Name Relationship Address Phone JEAN ROTHMAN MD Caregiver [facility] [address] [place] [address] FINESSE CORADO MD Caregiver [address] [place] [address] [place] [phone] LORETTA OSBORNE Next Of Kin [address] [place] [address] CP Insurance Providers Payer Name Policy Number Subscriber Name Relationship Medicare [id number] Jessica Osborne 20 Self Medicaid [id number] Jessica Osborne 20 Self Chief Complaint and Reason for Visit Chief Complaint Chest Pain Reason for Visit Hypokalemia Leukocytosis Sinusitis Sepsis QPO-KZTV-Ozroq pain Problems Medical Problems Problem Onset Date [...] days Follow Up Appointments: DR ANDREWS 06/04 [phone] Patient Instructions: Do not drive, operate machinery, drink alcohol for 72 hours Wound/Incision Care: n/a Durable Medical Equipment: n/a Notify Physician If: Worsening chest pain General Information: n/a Condition at time of discharge: Good Plan of Care Discharge Date 05/19/14 10:05am Disposition 02 TO OBS [facility] Condition at Discharge Stable [...] F (96.8 - 99.1) Temperature (Calculated Celsius) 36.10044 degrees C (36.0 - 37.3) Pulse Rate [...] 2014 10:09am 3-5 /HPF - Urine Specific [place] May 15, 2014 5:22pm <=1.005 L - [...] Report May 19, 2014 4:21pm REFERENCE LAB [id number] - Chlamydia trachomatis Amplified DNA January 24, [...] June 17, 2014 8:47am < 2 0-7 NM-Gsf-D-Type Natriuretic Peptide June 17, 2014 8:47am 75 [...] Negative Bryan Name: JESSICA OSBORNE Unit #: [id number] : 1975 Sex: F Loc / Svc: ED DOS: Signed Report #: [id number] DIAGNOSTIC IMAGING REPORT TYPE OF EXAM: CHEST [...] Encounters Encounter Location Date/Time Departed Emergency Room [facility] 06/17/14 8:06am Departed Emergency Room [facility] 06/10/14 10:43pm Discharged Inpatient [facility] 05/16/14 8:39am Departed Emergency Room [facility] 05/14/14 2:44pm Departed Emergency Room [facility] 04/14/14 7:37pm Recent Diagnosis
--- OUTSIDE RECORDS SUMMARY | 2016-12-21 21:26 | XMS REPORT | Continuity of Care Document ---
Author Author [facility] Organization [facility] Address Unknown Phone Unavailable Care Team Providers Care Gmat Instructor Name Role Phone JUNIE ESTRADA MD Primary Care Physician Unavailable Insurance Providers Payer Name Policy Number Subscriber Name Relationship Medicare [id number] Jessica Osborne 20 Self Problems Medical Problems [...] call for appointment with Dr. Rothman of [facility] for Sunday of next week. Make [...] of your legs. 3.During office hours, call [phone] 4. After hours, please call [facility] at [phone], and have the can line operator page your Surgeon IN THE EVENT [...] F (96.8 - 99.1) Temperature (Calculated Celsius) 36.46551 degrees C (36.0 - 37.3) Pulse Rate [...] 13, 2014 11:17am LAB TEST FORM REQUEST [id number] - Large Platelets July 07, 2013 11:55am [...] Monoscreen April 14, 2014 8:35pm Negative - EW-Tbl-U-Type Natriuretic Peptide July 07, 2013 11:55am 112 [...] 2014 10:09am 3-5 /HPF - Urine Specific [place] April 14, 2014 8:00pm <=1.005 L - [...] Negative Bryan Name: JESSICA OSBORNE Unit #: [id number] : 1975 Sex: F Loc / Svc: KENJI DOS: 03/13/14 Signed Report #: [id number] DIAGNOSTIC IMAGING REPORT TYPE OF EXAM: CT [...] Encounters Encounter Location Date/Time Registered Emergency Room [facility] 04/14/14 7:37pm Departed Emergency Room [facility] 03/16/14 10:03pm Discharged Inpatient [facility] 03/13/14 1:02pm Registered Clinic [facility] 03/13/14 9:49am Departed Emergency Room [facility] 01/29/14 5:57pm Departed Emergency Room [facility] 01/25/14 8:12pm Recent Diagnosis
--- OUTSIDE RECORDS SUMMARY | 2016-12-21 21:26 | XMS REPORT | Continuity of Care Document ---
Author Author [facility] Organization [facility]IVE Address Unknown Phone Unavailable Care Team Providers Care Pelletising Extruder Operator Name Role Phone JUNIE ESTRADA MD Primary Care Physician Unavailable Insurance Providers Payer Name Policy Number Subscriber Name Relationship Medicare [id number] Jessica Osborne 20 Self Advance Directives Directive [...] call for appointment with Dr. Rothman of [facility] for Sunday of next week. Make [...] Durable Medical Equipment: FWW ORDER FAXED TO [employer], CPM FROM [employer] [phone] Notify Physician If: Call your Surgeon if you have: 1.Chest pain, difficulty breathing, fever>100.5 degrees, chills, heart rate >100, confusion, or persistent nausea/vomitting. 2.Severe pain, swelling, redness, or warmth in either of your legs. 3.During office hours, call [phone] 4. After hours, please call [facility] at [phone], and have the communications equipment operator page your Surgeon IN THE EVENT [...] F (96.8 - 99.1) Temperature (Calculated Celsius) 37.78441 degrees C (36.0 - 37.3) Temperature Source [...] 2014 10:09am 3-5 /HPF - Urine Specific [place] March 13, 2014 1:32pm <=1.005 L - [...] 13, 2014 11:17am LAB TEST FORM REQUEST [id number] - Chlamydia trachomatis Amplified DNA January 24, [...] July 12, 2013 10:50am Negative NG/ML - BS-Mxu-J-Type Natriuretic Peptide July 07, 2013 11:55am 112 [...] MD Encounters Encounter Location Date/Time Discharged Inpatient [facility] 03/13/14 1:02pm Registered Clinic [facility] 03/13/14 9:49am Departed Emergency Room [facility] 01/29/14 5:57pm Departed Emergency Room [facility] 01/25/14 8:12pm
--- OUTSIDE RECORDS SUMMARY | 2016-12-21 21:27 | XMS REPORT | Continuity of Care Document ---
Author Author [facility] Organization [facility] Address Unknown Phone Unavailable Support Name Relationship Address Phone JEAN ROTHMAN MD Caregiver [facility] [address] [place] [address] RAJWINDER WALSH MD Caregiver [address] [place] [address] [place] [phone] LORETTA OSBORNE Next Of Kin [address] [place] [address] CP Insurance Providers Payer Name Policy Number Subscriber Name Relationship Medicare [id number] Jessica Osborne 20 Self Medicaid [id number] Jessica Osborne 20 Self Advance Directives Directive Response Recorded Date/Time Advanced Directives Type None 07/25/14 4:10pm Chief Complaint and Reason for Visit Chief Complaint Chest Pain Reason for Visit Hypokalemia Leukocytosis Sinusitis Sepsis RDY-VUAT-Dnaou pain Problems Medical Problems Problem Onset Date [...] days Follow Up Appointments: DR ANDREWS 06/04 [phone] Patient Instructions: Do not drive, operate machinery, [...] F (96.8 - 99.1) Temperature (Calculated Celsius) 36.33486 degrees C (36.0 - 37.3) Pulse Rate [...] 2014 10:09am 3-5 /HPF - Urine Specific [place] May 15, 2014 5:22pm <=1.005 L - [...] Report May 19, 2014 4:21pm REFERENCE LAB [id number] - Chlamydia trachomatis Amplified DNA January 24, [...] June 17, 2014 8:47am < 2 0-7 KF-Hbf-U-Type Natriuretic Peptide June 17, 2014 8:47am 75 [...] Negative Bryan Name: JESSICA OSBORNE Unit #: [id number] : 1975 Sex: F Loc / Svc: ED DOS: Signed Report #: [id number] DIAGNOSTIC IMAGING REPORT TYPE OF EXAM: CHEST [...] completed 06/17/14 EMERGENCY DEPT VISIT completed 06/17/14 [id number]"STERILE WATER, SALINE AND/OR DEXTROSE, DILUENT/FLUSH, completed 877637"STERILE WATER, SALINE AND/OR DEXTROSE, DILUENT/FLUSH, completed [id number] ITEM OR SERVICE completed 06/17/14 650426"INJECTION, LORAZEPAM, 2 MG" completed 06/17/14 Encounters Encounter Location Date/Time Departed Emergency Room [facility] 07/25/14 4:06pm Departed Emergency Room [facility] 06/17/14 8:06am Departed Emergency Room [facility] 06/10/14 10:43pm Discharged Inpatient [facility] 05/16/14 8:39am Departed Emergency Room [facility] 05/14/14 2:44pm Recent Diagnosis
--- OUTSIDE RECORDS SUMMARY | 2016-12-21 21:27 | XMS REPORT | Continuity of Care Document ---
Author Author [facility] Organization [facility] Address Unknown Phone Unavailable Care Team Providers Care Rn Home Care Name Role Phone JUNIE ESTRADA MD Primary Care Physician Unavailable Insurance Providers Payer Name Policy Number Subscriber Name Relationship Medicare [id number] Jessica Osborne 20 Self Advance Directives Directive [...] call for appointment with Dr. Rothman of [facility] for Sunday of next week. Make [...] Durable Medical Equipment: FWW ORDER FAXED TO [employer], CPM FROM [employer] [phone] Notify Physician If: Call your Surgeon if you have: 1.Chest pain, difficulty breathing, fever>100.5 degrees, chills, heart rate >100, confusion, or persistent nausea/vomitting. 2.Severe pain, swelling, redness, or warmth in either of your legs. 3.During office hours, call [phone] 4. After hours, please call [facility] at [phone], and have the shovel log loader operator page your Surgeon IN THE EVENT [...] F (96.8 - 99.1) Temperature (Calculated Celsius) 37.28575 degrees C (36.0 - 37.3) Temperature Source [...] 13, 2014 11:17am LAB TEST FORM REQUEST [id number] - Large Platelets July 07, 2013 11:55am [...] Monoscreen May 06, 2010 9:46am Negative - TY-Rae-X-Type Natriuretic Peptide July 07, 2013 11:55am 112 [...] 2014 10:09am 3-5 /HPF - Urine Specific [place] March 13, 2014 1:32pm <=1.005 L - [...] MD Encounters Encounter Location Date/Time Discharged Inpatient [facility] 03/13/14 1:02pm Registered Clinic [facility] 03/13/14 9:49am Departed Emergency Room [facility] 01/29/14 5:57pm Departed Emergency Room [facility] 01/25/14 8:12pm
--- OUTSIDE RECORDS SUMMARY | 2016-12-21 21:28 | XMS REPORT | Continuity of Care Document ---
Author Author [facility] Organization [facility] Address Unknown Phone Unavailable Allergies Active Description Code Type Severity Reaction Onset Reported/Identified Relationship to Patient Clinical Status Yes No Known Drug Allergies Drug Allergy 05/15/2011 Medications Problems Procedures Results Encounters ACCT No. Visit Date/Time Discharge Status Pt. Type Provider Facility Loc./Unit Complaint [id number] 04/18/2012 14:24:00 2011 23:59:59 CLS Preadmit Winnie CEDEÑO, Lalit Merrill [facility] W.END
--- OUTSIDE RECORDS SUMMARY | 2016-12-21 21:28 | XMS REPORT | Continuity of Care Document ---
Author Author [facility] Organization [facility] Address Unknown Phone Unavailable Support Name Relationship Address Phone ESTHER MERCADO DO Caregiver [facility] [address] [address] JEAN ROTHMAN MD Caregiver [facility] [address] [place] [address] , [address] [place], [place] [id number] LORETTA OSBORNE Next Of Kin [address] [place], [place] [address] CP Insurance Providers Payer Name Policy Number Subscriber Name Relationship Medicare [id number] Jessica Osborne 20 Self Medicaid [id number] Jessica Osborne 20 Self Advance Directives Directive [...] TWICE A DAY 30 Qty 07/25/14 Active [place] Carbonate 300 Mg PO TWICE A DAY 08/15/14 Active Oxycodone HCl/Acetaminophen 1 Tab PO NEEDED Take 1 tablet, by mouth, 3 times a day. 09/04/14 Active Potassium Chloride 1 Tab PO DAILY 09/29/14 Active Ranitidine HCl 150 Mg PO DAILY 09/29/14 Active [Benzatropine] 1 Mg PO TWICE A DAY 09/29/14 Active [place] Carbonate 300 Mg PO THREE TIMES A [...] F (96.8 - 99.1) Temperature (Calculated Celsius) 36.18590 degrees C (36.0 - 37.3) Pulse Rate [...] 14, 2014 8:35pm 25 U/L N 23-300 [place] Level September 23, 2014 8:19am 0.3 MMOL/L [...] Monoscreen April 14, 2014 8:35pm Negative - YB-Nlu-G-Type Natriuretic Peptide September 04, 2014 9:10pm 237 [...] 2014 10:09am 3-5 /HPF - Urine Specific [place] September 04, 2014 9:34pm <=1.005 L - [...] Negative Bryan Name: JESSICA OSBORNE Unit #: [id number] : 1975 Sex: F Loc / Svc: ED DOS: 09/04/14 Signed Report #: [id number] DIAGNOSTIC IMAGING REPORT TYPE OF EXAM: CHEST, [...] completed 07/25/14 EMERGENCY DEPT VISIT completed 07/25/14 530882"INJECTION, DIAZEPAM, UP TO 5 MG" completed 07/25/14 [...] completed 08/15/14 EMERGENCY DEPT VISIT completed 08/15/14 [id number] ITEM OR SERVICE completed 08/15/14 870553VTX-DVNJQCY ITEM OR SERVICE completed 08/15/14 [id number]-ALWFOOQ ITEM OR SERVICE completed 08/15/14 421695"INJECTION, LORAZEPAM, 2 MG" completed 08/15/14 CHEST X-RAY [...] completed 09/04/14 EMERGENCY DEPT VISIT completed 09/04/14 [id number] ITEM OR SERVICE completed 09/04/14 [id number]-AZNTWBV ITEM OR SERVICE completed 09/04/14 427378"INFUSION, NORMAL SALINE SOLUTION , 1000 CC" completed 09/04/14 Encounters Encounter Location Date/Time Departed Emergency Room [facility] 09/29/14 3:54pm Registered Clinic [facility] 09/23/14 8:12am Departed Emergency Room [facility] 09/04/14 9:28pm Departed Emergency Room [facility] 08/15/14 7:56pm Departed Emergency Room [facility] 07/25/14 4:06pm Recent Diagnosis
--- OUTSIDE RECORDS SUMMARY | 2016-12-21 21:28 | XMS REPORT | Continuity of Care Document ---
Author Author [facility] Organization [facility] Address Unknown Phone Unavailable Support Name Relationship Address Phone JAIME LOPEZ MD Caregiver [address] [facility] [address] [place] [phone] JEAN ROTHMAN MD Caregiver [facility] [address] [place] [address] LORETTA OSBORNE Next Of Kin [address] [place] [address] CP Insurance Providers Payer Name Policy Number Subscriber Name Relationship Medicare [id number] Jessica Osborne 20 Self Medicaid [id number] Jessica Osborne 20 Self Advance Directives Directive [...] F (96.8 - 99.1) Temperature (Calculated Celsius) 36.23712 degrees C (36.0 - 37.3) Pulse Rate [...] 14, 2014 8:35pm 25 U/L N 23-300 [place] Level September 23, 2014 8:19am 0.3 MMOL/L [...] Monoscreen April 14, 2014 8:35pm Negative - UW-Ysj-Q-Type Natriuretic Peptide September 04, 2014 9:10pm 237 [...] 2014 10:09am 3-5 /HPF - Urine Specific [place] September 04, 2014 9:34pm <=1.005 L - [...] Negative Bryan Name: JESSICA OSBORNE Unit #: [id number] : 1975 Sex: F Loc / Svc: ED DOS: 09/04/14 Signed Report #: [id number] DIAGNOSTIC IMAGING REPORT TYPE OF EXAM: CHEST, [...] completed 07/25/14 EMERGENCY DEPT VISIT completed 07/25/14 851262"INJECTION, DIAZEPAM, UP TO 5 MG" completed 07/25/14 [...] completed 08/15/14 EMERGENCY DEPT VISIT completed 08/15/14 [id number]-ZJEIYTD ITEM OR SERVICE completed 08/15/14 [id number]-JCQYDGT ITEM OR SERVICE completed 08/15/14 [id number]-NMUYYFT ITEM OR SERVICE completed 08/15/14 913541"INJECTION, LORAZEPAM, 2 MG" completed 08/15/14 CHEST X-RAY [...] completed 09/04/14 EMERGENCY DEPT VISIT completed 09/04/14 [id number] ITEM OR SERVICE completed 09/04/14 [id number]-VQCAIKH ITEM OR SERVICE completed 09/04/14 191694"INFUSION, NORMAL SALINE SOLUTION , 1000 CC" completed 09/04/14 ROUTINE VENIPUNCTURE completed 09/23/14 ASSAY OF LITHIUM completed 09/23/14 EMERGENCY DEPT VISIT completed 09/29/14 Encounters Encounter Location Date/Time Departed Emergency Room [facility] 10/16/14 3:36pm Departed Emergency Room [facility] 09/29/14 3:54pm Registered Clinic [facility] 09/23/14 8:12am Departed Emergency Room [facility] 09/04/14 9:28pm Departed Emergency Room [facility] 08/15/14 7:56pm Departed Emergency Room [facility] 07/25/14 4:06pm Recent Diagnosis
--- OUTSIDE RECORDS SUMMARY | 2016-12-21 22:39 | XMS REPORT | Continuity of Care Document ---
Author Author [facility] Organization [facility] Address Unknown Phone Unavailable Care Team Providers Care Crankshaft Balancer Name Role Phone JUNIE ESTRADA MD Primary Care Physician Unavailable Insurance Providers Payer Name Policy Number Subscriber Name Relationship Medicare [id number] Jessica Osborne 20 Self Medicaid [id number] Jessica Osborne 20 Self Advance Directives Directive [...] call for appointment with Dr. Rothman of [facility] for Sunday of next week. [...] of your legs. 3.During office hours, call [phone] 4. After hours, please call [facility] at [phone], and have the melting operator page your Surgeon IN THE EVENT [...] 2014 10:09am 3-5 /HPF - Urine Specific [place] April 14, 2014 8:00pm <=1.005 L - [...] 13, 2014 11:17am LAB TEST FORM REQUEST [id number] - Chlamydia trachomatis Amplified DNA January 24, [...] July 12, 2013 10:50am Negative NG/ML - PB-Jfq-G-Type Natriuretic Peptide July 07, 2013 11:55am 112 [...] Negative Bryan Name: JESSICA OSBORNE Unit #: [id number] : 1975 Sex: F Loc / Svc: ED DOS: 04/14/14 Signed Report #: [id number] DIAGNOSTIC IMAGING REPORT TYPE OF EXAM: CHEST, [...] Encounters Encounter Location Date/Time Departed Emergency Room [facility] 05/14/14 2:44pm Departed Emergency Room [facility] 04/14/14 7:37pm Departed Emergency Room [facility] 03/16/14 10:03pm Discharged Inpatient [facility] 03/13/14 1:02pm Registered Clinic [facility] 03/13/14 9:49am Recent Diagnosis
--- NOTE | 2016-12-21 22:41 | NUR ---
LAB LAB AT BEDSIDE OR BLOOD DRAW THEN PT AMBULATORY TO BATHROOM FOR URINE SPEC PT GAIT BETTER THAN WHEN FIRST ARRIVED
--- OUTSIDE RECORDS SUMMARY | 2016-12-21 22:41 | XMS REPORT | Continuity of Care Document ---
Author Author [facility] Organization [facility] Address Unknown Phone Unavailable Support Name Relationship Address Phone JAIME LOPEZ MD Caregiver [address] [place] [address] [place] [phone] AIDEN NAVARRO MD Caregiver [address] [place] [address] [place] [address] JEAN ROTHMAN MD Caregiver [address] [place] [address] LORETTA OSBORNE Next Of Kin [address] [place] [address] CP Insurance Providers Payer Name Policy Number Subscriber Name Relationship Medicare [id number] Jessica Osborne 20 Self Medicaid [id number] Jessica Osborne 20 Self Advance Directives Directive [...] days Follow Up Appointments: DR ANDREWS 06/04 [phone] Patient Instructions: Do not drive, operate machinery, drink alcohol for 72 hours Wound/Incision Care: n/a Durable Medical Equipment: n/a Notify Physician If: Worsening chest pain General Information: n/a Condition at time of discharge: Good excessive/foul smelling drainage at your incision site. - You have difficulty breathing. During office hours, call [phone]. After hours, please call [facility] at [phone] and have the discharge door operator page Dr. Cardona or the covering [...] F (96.8 - 99.1) Temperature (Calculated Celsius) 36.59482 degrees C (36.0 - 37.3) Temperature Source [...] 13, 2014 11:17am LAB TEST FORM REQUEST [id number] - Large Platelets July 07, 2013 11:55am [...] Monoscreen April 14, 2014 8:35pm Negative - ON-Dyq-O-Type Natriuretic Peptide May 15, 2014 4:47pm 236 [...] 2014 10:09am 3-5 /HPF - Urine Specific [place] May 15, 2014 5:22pm <=1.005 L - [...] Bryan Name: JESSICA OSBORNE Odalis Unit #: [id number] : 1975 Sex: F Loc / Svc: SRG DOS: 05/15/14 Signed Report #: [id number] DIAGNOSTIC IMAGING REPORT TYPE OF EXAM: CT [...] 03/16/14 Encounters Encounter Location Date/Time Discharged Inpatient [facility] 05/16/14 8:39am Departed Emergency Room [facility] 05/14/14 2:44pm Departed Emergency Room [facility] 04/14/14 7:37pm Departed Emergency Room [facility] 03/16/14 10:03pm Discharged Inpatient [facility] 03/13/14 1:02pm Registered Clinic [facility] 03/13/14 9:49am Recent Diagnosis Chest pain Leukocytosis Hypokalemia Leukocytosis Sinusitis Sepsis Hypertension Hypercholesterolemia History of pulmonary embolism Asthma GERD (gastroesophageal reflux disease) IBS (irritable bowel syndrome) History of alcohol abuse Bipolar 1 disorder Anxiety Tobacco dependence NSTEMI (non-ST elevated myocardial infarction)
--- OUTSIDE RECORDS SUMMARY | 2016-12-21 22:41 | XMS REPORT | Continuity of Care Document ---
Author Author [facility] Organization [facility] Address Unknown Phone Unavailable Care Team Providers Care Hot Plate Press Operator Name Role Phone JUNIE ESTRADA MD Primary Care Physician Unavailable Insurance Providers Payer Name Policy Number Subscriber Name Relationship Medicare [id number] Jessica Osborne 20 Self Problems Medical Problems [...] call for appointment with Dr. Rothman of [facility] for Sunday of next week. Make [...] F (96.8 - 99.1) Temperature (Calculated Celsius) 36.84439 degrees C (36.0 - 37.3) Pulse Rate [...] 10:09am 3-5 /HPF - Urine Specific [place] March 16, 2014 11:25pm 1.010 L - [...] 13, 2014 11:17am LAB TEST FORM REQUEST [id number] - Chlamydia trachomatis Amplified DNA January 24, [...] July 12, 2013 10:50am Negative NG/ML - BW-Wuh-V-Type Natriuretic Peptide July 07, 2013 11:55am 112 [...] Encounters Encounter Location Date/Time Departed Emergency Room [facility] 03/16/14 10:03pm Discharged Inpatient [facility] 03/13/14 1:02pm Registered Clinic [facility] 03/13/14 9:49am Departed Emergency Room [facility] 01/29/14 5:57pm Departed Emergency Room [facility] 01/25/14 8:12pm Recent Diagnosis
--- OUTSIDE RECORDS SUMMARY | 2016-12-21 22:42 | XMS REPORT | Continuity of Care Document ---
Author Author [facility] Organization [facility] Address Unknown Phone Unavailable Support Name Relationship Address Phone JEAN ROTHMAN MD Caregiver [facility] [address] [place] [address] FINESSE CORADO MD Caregiver [address] [place] [address] [place] [phone] LORETTA OSBORNE Next Of Kin [address] [place] [address] CP Insurance Providers Payer Name Policy Number Subscriber Name Relationship Medicare [id number] Jessica Osborne 20 Self Medicaid [id number] Jessica Osborne 20 Self Chief Complaint and Reason for Visit Chief Complaint Chest Pain Reason for Visit Hypokalemia Leukocytosis Sinusitis Sepsis SBH-USFN-Lwyla pain Problems Medical Problems Problem Onset Date [...] TWICE A DAY 30 Qty 07/25/14 Active [place] Carbonate 300 Mg PO TWICE A DAY [...] days Follow Up Appointments: DR ANDREWS 06/04 [phone] Patient Instructions: Do not drive, operate machinery, [...] Date 05/19/14 10:05am Disposition 02 TO OBS [facility] Condition at Discharge Stable Instructions/Education Provided DI [...] F (96.8 - 99.1) Temperature (Calculated Celsius) 36.95126 degrees C (36.0 - 37.3) Pulse Rate [...] 2014 10:09am 3-5 /HPF - Urine Specific [place] August 15, 2014 8:38pm <=1.005 L - [...] Report May 19, 2014 4:21pm REFERENCE LAB [id number] - Chlamydia trachomatis Amplified DNA January 24, [...] August 15, 2014 8:31pm < 2 0-7 LL-Crv-Y-Type Natriuretic Peptide August 15, 2014 8:31pm 68 [...] Bryan Name: JESSICA OSBORNE Odalis Unit #: [id number] : 1975 Sex: F Loc / Svc: ED DOS: 07/25/14 Signed Report #: [id number] DIAGNOSTIC IMAGING REPORT TYPE OF EXAM: CHEST, [...] completed 06/17/14 EMERGENCY DEPT VISIT completed 06/17/14 [id number]"STERILE WATER, SALINE AND/OR DEXTROSE, DILUENT/FLUSH, completed 103617"STERILE WATER, SALINE AND/OR DEXTROSE, DILUENT/FLUSH, completed [id number] ITEM OR SERVICE completed 06/17/14 540501"INJECTION, LORAZEPAM, 2 MG" completed 06/17/14 CHEST X-RAY 2VW FRONTAL&LATL completed 07/25/14 ELECTROCARDIOGRAM TRACING completed 07/25/14 AIRWAY INHALATION TREATMENT completed 07/25/14 EVALUATE PT USE OF INHALER completed 07/25/14 THER/PROPH/DIAG INJ SC/IM completed 07/25/14 EMERGENCY DEPT VISIT completed 07/25/14 [id number]"INJECTION, DIAZEPAM, UP TO 5 MG" completed 07/25/14 Encounters Encounter Location Date/Time Departed Emergency Room [facility] 08/15/14 7:56pm Departed Emergency Room [facility] 07/25/14 4:06pm Departed Emergency Room [facility] 06/17/14 8:06am Departed Emergency Room [facility] 06/10/14 10:43pm Discharged Inpatient [facility] 05/16/14 8:39am Recent Diagnosis
--- OUTSIDE RECORDS SUMMARY | 2016-12-21 22:42 | XMS REPORT | Continuity of Care Document ---
Author Author [facility] Organization [facility] Address Unknown Phone Unavailable Support Name Relationship Address Phone GRACIELA FAY MD Caregiver [facility] [address] [place] [address] Unavailable JEAN ROTHMAN MD Caregiver [address], [address] [place], [place] [id number] LORETTA OSBORNE Next Of Kin [address] [place] [address] CP Insurance Providers Payer Name Policy Number Subscriber Name Relationship Medicare [id number] Jessica Osborne 20 Self Medicaid [id number] Jessica Osborne 20 Self Advance Directives Directive Response Recorded Date/Time Advanced Directives Type None 06/10/14 10:50pm Chief Complaint and Reason for Visit Chief Complaint Chest Pain Reason for Visit Hypokalemia Leukocytosis Sinusitis Sepsis KYW-DGVM-Ltywy pain Problems Medical Problems Problem Onset Date [...] days Follow Up Appointments: DR ANDREWS 06/04 [phone] Patient Instructions: Do not drive, operate machinery, [...] of your legs. 3.During office hours, call [phone] 4. After hours, please call [facility] at [phone], and have the pipe wrapping machine operator page your Surgeon IN THE EVENT OF AN EMERGENCY, seek medical care at the nearest Emergency Room Condition at time of discharge: Good Plan of Care Discharge Date 05/19/14 10:05am Disposition 02 TO [place] [facility] Condition at [...] F (96.8 - 99.1) Temperature (Calculated Celsius) 36.63376 degrees C (36.0 - 37.3) Pulse Rate [...] 2014 10:09am 3-5 /HPF - Urine Specific [place] May 15, 2014 5:22pm <=1.005 L - [...] Report May 19, 2014 4:21pm REFERENCE LAB [id number] - Chlamydia trachomatis Amplified DNA January 24, [...] June 10, 2014 11:28pm < 2 0-7 TJ-Ckq-A-Type Natriuretic Peptide May 15, 2014 4:47pm 236 [...] Negative Bryan Name: JESSICA OSBORNE Unit #: [id number] : 1975 Sex: F Loc / Svc: SRG DOS: 05/15/14 Signed Report #: [id number] DIAGNOSTIC IMAGING REPORT TYPE OF EXAM: CT [...] Encounters Encounter Location Date/Time Departed Emergency Room [facility] 06/10/14 10:43pm Discharged Inpatient [facility] 05/16/14 8:39am Departed Emergency Room [facility] 05/14/14 2:44pm Departed Emergency Room [facility] 04/14/14 7:37pm Departed Emergency Room [facility] 03/16/14 10:03pm Discharged Inpatient [facility] 03/13/14 1:02pm Registered Clinic [facility] 03/13/14 9:49am Recent Diagnosis
--- OUTSIDE RECORDS SUMMARY | 2016-12-21 22:43 | XMS REPORT | Continuity of Care Document ---
Author Author [facility] Organization [facility] Address Unknown Phone Unavailable Support Name Relationship Address Phone JEAN ROTHMAN MD Caregiver [facility] [address] [place] [address] RAJWINDER WALSH MD Caregiver [address] [place] [phone] LORETTA OSBORNE Next Of Kin [address] [place] [address] CP Insurance Providers Payer Name Policy Number Subscriber Name Relationship Medicare [id number] Jessica Osborne 20 Self Medicaid [id number] Jessica Osborne 20 Self Advance Directives Directive [...] TWICE A DAY 60 Qty 10/20/14 Active [place] Carbonate 300 Mg PO THREE TIMES A [...] F (96.8 - 99.1) Temperature (Calculated Celsius) 36.07776 degrees C (36.0 - 37.3) Pulse Rate [...] 28, 2014 5:50pm 21 U/L L 23-300 [place] Level September 23, 2014 8:19am 0.3 MMOL/L [...] Monoscreen April 14, 2014 8:35pm Negative - ML-Jks-P-Type Natriuretic Peptide September 04, 2014 9:10pm 237 [...] 2014 10:09am 3-5 /HPF - Urine Specific [place] October 28, 2014 5:39pm 1.010 L - [...] Negative Bryan Name: JESSICA OSBORNE Unit #: [id number] : 1975 Sex: F Loc / Svc: ED DOS: 09/04/14 Signed Report #: [id number] DIAGNOSTIC IMAGING REPORT TYPE OF EXAM: CHEST, [...] completed 08/15/14 EMERGENCY DEPT VISIT completed 08/15/14 [id number] ITEM OR SERVICE completed 08/15/14 [id number] ITEM OR SERVICE completed 08/15/14 [id number] ITEM OR SERVICE completed 08/15/14 397732"INJECTION, LORAZEPAM, 2 MG" completed 08/15/14 CHEST X-RAY [...] completed 09/04/14 EMERGENCY DEPT VISIT completed 09/04/14 [id number] ITEM OR SERVICE completed 09/04/14 [id number] ITEM OR SERVICE completed 09/04/14 742183"INFUSION, NORMAL SALINE SOLUTION , 1000 CC" completed 09/04/14 ROUTINE VENIPUNCTURE completed 09/23/14 ASSAY OF LITHIUM completed 09/23/14 EMERGENCY DEPT VISIT completed 09/29/14 ELECTROCARDIOGRAM TRACING completed 10/16/14 EMERGENCY DEPT VISIT completed 10/16/14 [id number] ITEM OR SERVICE completed 10/16/14 Encounters Encounter Location Date/Time Departed Emergency Room [facility] 10/28/14 4:44pm Departed Emergency Room [facility] 10/16/14 3:36pm Departed Emergency Room [facility] 09/29/14 3:54pm Registered Clinic [facility] 09/23/14 8:12am Departed Emergency Room [facility] 09/04/14 9:28pm Departed Emergency Room [facility] 08/15/14 7:56pm Recent Diagnosis
--- OUTSIDE RECORDS SUMMARY | 2016-12-21 22:43 | XMS REPORT | Continuity of Care Document ---
Author Author [facility] Organization [facility] Address Unknown Phone Unavailable Support Name Relationship Address Phone JEAN ROTHMAN MD Caregiver [facility] [address] [place] [address] RAJWINDER WALSH MD Caregiver [address] [place] [phone] LORETTA OSBORNE Next Of Kin [address] [place] [address] CP Insurance Providers Payer Name Policy Number Subscriber Name Relationship Medicare [id number] Jessica Osborne 20 Self Medicaid [id number] Jessica Osborne 20 Self Advance Directives Directive [...] TWICE A DAY 30 Qty 07/25/[address] [place] Carbonate 300 Mg PO TWICE A DAY [...] F (96.8 - 99.1) Temperature (Calculated Celsius) 36.65378 degrees C (36.0 - 37.3) Pulse Rate [...] 2014 10:09am 3-5 /HPF - Urine Specific [place] September 04, 2014 9:34pm <=1.005 L - [...] Report May 19, 2014 4:21pm REFERENCE LAB [id number] - Chlamydia trachomatis Amplified DNA January 24, [...] September 04, 2014 9:10pm < 2 0-7 NX-Pyi-U-Type Natriuretic Peptide September 04, 2014 9:10pm 237 [...] Negative Bryan Name: JESSICA OSBORNE Unit #: [id number] : 1975 Sex: F Loc / Svc: ED DOS: 08/15/14 Signed Report #: [id number] DIAGNOSTIC IMAGING REPORT TYPE OF EXAM: CHEST, PA & LATERAL Dictated By: IOANA BLAKE MD INDICATION: ITS.REASON: cough shortness of air, history of asthma, prior [place] CHEST 2-VIEWS UPRIGHT (PA & LAT): COMPARISON: [...] completed 06/17/14 EMERGENCY DEPT VISIT completed 06/17/14 445065"STERILE WATER, SALINE AND/OR DEXTROSE, DILUENT/FLUSH, completed 333774"STERILE WATER, SALINE AND/OR DEXTROSE, DILUENT/FLUSH, completed [id number] ITEM OR SERVICE completed 06/17/14 123857"INJECTION, LORAZEPAM, 2 MG" completed 06/17/14 CHEST X-RAY 2VW FRONTAL&LATL completed 07/25/14 ELECTROCARDIOGRAM TRACING completed 07/25/14 AIRWAY INHALATION TREATMENT completed 07/25/14 EVALUATE PT USE OF INHALER completed 07/25/14 THER/PROPH/DIAG INJ SC/IM completed 07/25/14 EMERGENCY DEPT VISIT completed 07/25/14 129153"INJECTION, DIAZEPAM, UP TO 5 MG" completed 07/25/14 [...] completed 08/15/14 EMERGENCY DEPT VISIT completed 08/15/14 [id number] ITEM OR SERVICE completed 08/15/14 [id number] ITEM OR SERVICE completed 08/15/14 [id number] ITEM OR SERVICE completed 08/15/14 623467"INJECTION, LORAZEPAM, 2 MG" completed 08/15/14 Encounters Encounter Location Date/Time Departed Emergency Room [facility] 09/04/14 9:28pm Departed Emergency Room [facility] 08/15/14 7:56pm Departed Emergency Room [facility] 07/25/14 4:06pm Departed Emergency Room [facility] 06/17/14 8:06am Departed Emergency Room [facility] 06/10/14 10:43pm Recent Diagnosis
--- OUTSIDE RECORDS SUMMARY | 2016-12-21 22:44 | XMS REPORT | Continuity of Care Document ---
Author Author [facility] Organization [facility] Address Unknown Phone Unavailable Care Team Providers Care Sanitarian Inspector Name Role Phone JUNIE ESTRADA MD Primary Care Physician Unavailable Insurance Providers Payer Name Policy Number Subscriber Name Relationship Medicare [id number] Jessica Osborne 20 Self Advance Directives Directive [...] call for appointment with Dr. Rothman of [facility] for Sunday of next week. [...] Durable Medical Equipment: FWW ORDER FAXED TO [email or web address], CPM FROM [employer] [phone] Notify Physician If: Call your Surgeon if you have: 1.Chest pain, difficulty breathing, fever>100.5 degrees, chills, heart rate >100, confusion, or persistent nausea/vomitting. 2.Severe pain, swelling, redness, or warmth in either of your legs. 3.During office hours, call [phone] 4. After hours, please call [facility] at [phone], and have the hotbed operator page your Surgeon IN THE EVENT [...] F (96.8 - 99.1) Temperature (Calculated Celsius) 37.91497 degrees C (36.0 - 37.3) Temperature Source [...] 2014 10:09am 3-5 /HPF - Urine Specific [place] March 13, 2014 1:32pm <=1.005 L - [...] 13, 2014 11:17am LAB TEST FORM REQUEST [id number] - Chlamydia trachomatis Amplified DNA January 24, [...] July 12, 2013 10:50am Negative NG/ML - WL-Mnf-H-Type Natriuretic Peptide July 07, 2013 11:55am 112 [...] MD Encounters Encounter Location Date/Time Discharged Inpatient [facility] 03/13/14 1:02pm Registered Clinic [facility] 03/13/14 9:49am Departed Emergency Room [facility] 01/29/14 5:57pm Departed Emergency Room [facility] 01/25/14 8:12pm
--- OUTSIDE RECORDS SUMMARY | 2016-12-21 22:44 | XMS REPORT | Continuity of Care Document ---
Author Author [facility] Organization [facility] Address Unknown Phone Unavailable Support Name Relationship Address Phone JEAN ROTHMAN MD Caregiver [facility] [address] [place] [address] FINESSE CORADO MD Caregiver [address] [place] [address] [place] [phone] LORETTA OSBORNE Next Of Kin [address] [place] [address] CP Insurance Providers Payer Name Policy Number Subscriber Name Relationship Medicare [id number] Jessica Osborne 20 Self Medicaid [id number] Jessica Osborne 20 Self Chief Complaint and Reason for Visit Chief Complaint Chest Pain Reason for Visit Hypokalemia Leukocytosis Sinusitis Sepsis BUT-CYSQ-Wlezv pain Problems Medical Problems Problem Onset Date [...] days Follow Up Appointments: DR ANDREWS 06/04 [phone] Patient Instructions: Do not drive, operate machinery, drink alcohol for 72 hours Wound/Incision Care: n/a Durable Medical Equipment: n/a Notify Physician If: Worsening chest pain General Information: n/a Condition at time of discharge: Good Plan of Care Discharge Date 05/19/14 10:05am Disposition 02 TO OBS [facility] Condition at Discharge Stable Instructions/Education Provided DI [...] F (96.8 - 99.1) Temperature (Calculated Celsius) 36.97542 degrees C (36.0 - 37.3) Pulse Rate [...] 2014 10:09am 3-5 /HPF - Urine Specific [place] May 15, 2014 5:22pm <=1.005 L - [...] Report May 19, 2014 4:21pm REFERENCE LAB [id number] - Chlamydia trachomatis Amplified DNA January 24, [...] June 17, 2014 8:47am < 2 0-7 WN-Skn-W-Type Natriuretic Peptide June 17, 2014 8:47am 75 [...] Negative Bryan Name: JESSICA OSBORNE Unit #: [id number] : 1975 Sex: F Loc / Svc: ED DOS: Signed Report #: [id number] DIAGNOSTIC IMAGING REPORT TYPE OF EXAM: CHEST [...] Encounters Encounter Location Date/Time Departed Emergency Room [facility] 06/17/14 8:06am Departed Emergency Room [facility] 06/10/14 10:43pm Discharged Inpatient [facility] 05/16/14 8:39am Departed Emergency Room [facility] 05/14/14 2:44pm Departed Emergency Room [facility] 04/14/14 7:37pm Recent Diagnosis
--- OUTSIDE RECORDS SUMMARY | 2016-12-21 22:45 | XMS REPORT | Continuity of Care Document ---
Author Author [facility] Organization [facility] Address Unknown Phone Unavailable Support Name Relationship Address Phone JEAN ROTHMAN MD Caregiver [facility] [address] [place] [address] RAJWINDER WALSH MD Caregiver [address] [place] [address] [place] [phone] LORETTA OSBORNE Next Of Kin [address] [place] [address] CP Insurance Providers Payer Name Policy Number Subscriber Name Relationship Medicare [id number] Jessica Osborne 20 Self Medicaid [id number] Jessica Osborne 20 Self Advance Directives Directive Response Recorded Date/Time Advanced Directives Type None 07/25/14 4:10pm Chief Complaint and Reason for Visit Chief Complaint Chest Pain Reason for Visit Hypokalemia Leukocytosis Sinusitis Sepsis WML-VIVX-Ajokv pain Problems Medical Problems Problem Onset Date [...] days Follow Up Appointments: DR ANDREWS 06/04 [phone] Patient Instructions: Do not drive, operate machinery, [...] F (96.8 - 99.1) Temperature (Calculated Celsius) 36.42788 degrees C (36.0 - 37.3) Pulse Rate [...] 2014 10:09am 3-5 /HPF - Urine Specific [place] May 15, 2014 5:22pm <=1.005 L - [...] Report May 19, 2014 4:21pm REFERENCE LAB [id number] - Chlamydia trachomatis Amplified DNA January 24, [...] June 17, 2014 8:47am < 2 0-7 ME-Dol-T-Type Natriuretic Peptide June 17, 2014 8:47am 75 [...] Negative Bryan Name: JESSICA OSBORNE Unit #: [id number] : 1975 Sex: F Loc / Svc: ED DOS: Signed Report #: [id number] DIAGNOSTIC IMAGING REPORT TYPE OF EXAM: CHEST [...] completed 06/17/14 EMERGENCY DEPT VISIT completed 06/17/14 560661"STERILE WATER, SALINE AND/OR DEXTROSE, DILUENT/FLUSH, completed [id number]"STERILE WATER, SALINE AND/OR DEXTROSE, DILUENT/FLUSH, completed [id number] ITEM OR SERVICE completed 06/17/14 [id number]"INJECTION, LORAZEPAM, 2 MG" completed 06/17/14 Encounters Encounter Location Date/Time Departed Emergency Room [facility] 07/25/14 4:06pm Departed Emergency Room [facility] 06/17/14 8:06am Departed Emergency Room [facility] 06/10/14 10:43pm Discharged Inpatient [facility] 05/16/14 8:39am Departed Emergency Room [facility] 05/14/14 2:44pm Recent Diagnosis
--- OUTSIDE RECORDS SUMMARY | 2016-12-21 22:45 | XMS REPORT | Continuity of Care Document ---
Author Author [facility] Organization [facility] Address Unknown Phone Unavailable Care Team Providers Care Operating Room Technologist Name Role Phone JUNIE ESTRADA MD Primary Care Physician Unavailable Insurance Providers Payer Name Policy Number Subscriber Name Relationship Medicare [id number] Jessica Osborne 20 Self Advance Directives Directive [...] call for appointment with Dr. Rothman of [facility] for Sunday of next week. [...] Durable Medical Equipment: FWW ORDER FAXED TO [employer], CPM FROM [employer] [phone] Notify Physician If: Call your Surgeon if you have: 1.Chest pain, difficulty breathing, fever>100.5 degrees, chills, heart rate >100, confusion, or persistent nausea/vomitting. 2.Severe pain, swelling, redness, or warmth in either of your legs. 3.During office hours, call [phone] 4. After hours, please call [facility] at [phone], and have the pipe blanks cut off [...] F (96.8 - 99.1) Temperature (Calculated Celsius) 37.12472 degrees C (36.0 - 37.3) Temperature Source [...] 13, 2014 11:17am LAB TEST FORM REQUEST [id number] - Large Platelets July 07, 2013 11:55am [...] Monoscreen May 06, 2010 9:46am Negative - EI-Fru-J-Type Natriuretic Peptide July 07, 2013 11:55am 112 [...] 2014 10:09am 3-5 /HPF - Urine Specific [place] March 13, 2014 1:32pm <=1.005 L - [...] MD Encounters Encounter Location Date/Time Discharged Inpatient [facility] 03/13/14 1:02pm Registered Clinic [facility] 03/13/14 9:49am Departed Emergency Room [facility] 01/29/14 5:57pm Departed Emergency Room [facility] 01/25/14 8:12pm
--- OUTSIDE RECORDS SUMMARY | 2016-12-21 22:45 | XMS REPORT | Continuity of Care Document ---
Author Author [facility] Organization [facility] Address Unknown Phone Unavailable Care Team Providers Care Optical Glass Silverer Name Role Phone JUNIE ESTARDA MD Primary Care Physician Unavailable Insurance Providers Payer Name Policy Number Subscriber Name Relationship Medicare [id number] Jessica Osborne 20 Self Problems Medical Problems [...] call for appointment with Dr. Rothman of [facility] for Sunday of next week. Make [...] of your legs. 3.During office hours, call [phone] 4. After hours, please call [facility] at [phone], and have the braille duplicating machine operator page your Surgeon IN THE [...] F (96.8 - 99.1) Temperature (Calculated Celsius) 36.04658 degrees C (36.0 - 37.3) Pulse Rate [...] 13, 2014 11:17am LAB TEST FORM REQUEST [id number] - Large Platelets July 07, 2013 11:55am [...] Monoscreen April 14, 2014 8:35pm Negative - PO-Vyy-W-Type Natriuretic Peptide July 07, 2013 11:55am 112 [...] 2014 10:09am 3-5 /HPF - Urine Specific [place] April 14, 2014 8:00pm <=1.005 L - [...] Negative Bryan Name: JESSICA OSBORNE Unit #: [id number] : 1975 Sex: F Loc / Svc: KENJI DOS: 03/13/14 Signed Report #: [id number] DIAGNOSTIC IMAGING REPORT TYPE OF EXAM: CT [...] Encounters Encounter Location Date/Time Registered Emergency Room [facility] 04/14/14 7:37pm Departed Emergency Room [facility] 03/16/14 10:03pm Discharged Inpatient [facility] 03/13/14 1:02pm Registered Clinic [facility] 03/13/14 9:49am Departed Emergency Room [facility] 01/29/14 5:57pm Departed Emergency Room [facility] 01/25/14 8:12pm Recent Diagnosis
--- NOTE | 2016-12-21 22:46 | NUR ---
CT PT TAKEN TO CT PER CART
--- OUTSIDE RECORDS SUMMARY | 2016-12-21 22:46 | XMS REPORT | Continuity of Care Document ---
Author Author [facility] Organization [facility] Address Unknown Phone Unavailable Allergies Active Description Code Type Severity Reaction Onset Reported/Identified Relationship to Patient Clinical Status Yes No Known Drug Allergies Drug Allergy 05/15/2011 Medications Problems Procedures Results Encounters ACCT No. Visit Date/Time Discharge Status Pt. Type Provider Facility Loc./Unit Complaint [id number] 04/18/2012 14:24:00 2011 23:59:59 CLS Pread[facility] Winnie CEDEÑO, Lalit Merrill [facility] W.END
--- OUTSIDE RECORDS SUMMARY | 2016-12-21 22:46 | XMS REPORT | Continuity of Care Document ---
Author Author [facility] Organization [facility] Address Unknown Phone Unavailable Support Name Relationship Address Phone ESTHER MERCADO DO Caregiver [facility] [address] [place] [address] JEAN ROTHMAN MD Caregiver [facility] [address] [place] [address] , [address] [place], [place] [id number] LORETTA OSBORNE Next Of Kin [address] [place], [place] [id number] CP Insurance Providers Payer Name Policy Number Subscriber Name Relationship Medicare [id number] Jessica Osborne 20 Self Medicaid [id number] Jessica Osborne 20 Self Advance Directives Directive [...] TWICE A DAY 30 Qty 07/25/14 Active Nichols Carbonate 300 Mg PO TWICE A DAY 08/15/14 Active Oxycodone HCl/Acetaminophen 1 Tab PO NEEDED Take 1 tablet, by mouth, 3 times a day. 09/04/14 Active Potassium Chloride 1 Tab PO DAILY 09/29/14 Active Ranitidine HCl 150 Mg PO DAILY 09/29/14 Active [Benzatropine] 1 Mg PO TWICE A DAY 09/29/14 Active Nichols Carbonate 300 Mg PO THREE TIMES A [...] F (96.8 - 99.1) Temperature (Calculated Celsius) 36.11879 degrees C (36.0 - 37.3) Pulse Rate [...] 14, 2014 8:35pm 25 U/L N 23-300 [place] Level September 23, 2014 8:19am 0.3 MMOL/L [...] Monoscreen April 14, 2014 8:35pm Negative - GY-Ajs-T-Type Natriuretic Peptide September 04, 2014 9:10pm 237 [...] 2014 10:09am 3-5 /HPF - Urine Specific [place] September 04, 2014 9:34pm <=1.005 L - [...] Negative Bryan Name: JESSICA OSBORNE Unit #: [id number] : 1975 Sex: F Loc / Svc: ED DOS: 09/04/14 Signed Report #: [id number] DIAGNOSTIC IMAGING REPORT TYPE OF EXAM: CHEST, [...] completed 07/25/14 EMERGENCY DEPT VISIT completed 07/25/14 [id number]"INJECTION, DIAZEPAM, UP TO 5 MG" completed 07/25/14 [...] completed 08/15/14 EMERGENCY DEPT VISIT completed 08/15/14 [id number] ITEM OR SERVICE completed 08/15/14 [id number] ITEM OR SERVICE completed 08/15/14 [id number] ITEM OR SERVICE completed 08/15/14 [id number]"INJECTION, LORAZEPAM, 2 MG" completed 08/15/14 CHEST X-RAY [...] completed 09/04/14 EMERGENCY DEPT VISIT completed 09/04/14 [id number] ITEM OR SERVICE completed 09/04/14 [id number] ITEM OR SERVICE completed 09/04/14 [id number]"INFUSION, NORMAL SALINE SOLUTION , 1000 CC" completed 09/04/14 Encounters Encounter Location Date/Time Departed Emergency Room [facility] 09/29/14 3:54pm Registered Clinic [facility] 09/23/14 8:12am Departed Emergency Room [facility] 09/04/14 9:28pm Departed Emergency Room [facility] 08/15/14 7:56pm Departed Emergency Room [facility] 07/25/14 4:06pm Recent Diagnosis
--- OUTSIDE RECORDS SUMMARY | 2016-12-21 22:47 | XMS REPORT | Continuity of Care Document ---
Author Author [facility] Organization [facility] Address Unknown Phone Unavailable Support Name Relationship Address Phone JAIME LOPEZ MD Caregiver [address] [place] [phone] JEAN ROTHMAN MD Caregiver [facility] [address] [place] [address] LORETTA OSBORNE Next Of Kin [address] [place] [address] CP Insurance Providers Payer Name Policy Number Subscriber Name Relationship Medicare [id number] Jessica Osborne 20 Self Medicaid [id number] Jessica Osborne 20 Self Advance Directives Directive [...] F (96.8 - 99.1) Temperature (Calculated Celsius) 36.56379 degrees C (36.0 - 37.3) Pulse Rate [...] 14, 2014 8:35pm 25 U/L N 23-300 [place] Level September 23, 2014 8:19am 0.3 MMOL/L [...] Monoscreen April 14, 2014 8:35pm Negative - TC-Tzb-B-Type Natriuretic Peptide September 04, 2014 9:10pm 237 [...] 2014 10:09am 3-5 /HPF - Urine Specific [place] September 04, 2014 9:34pm <=1.005 L - [...] Negative Bryan Name: JESSICA OSBORNE Unit #: [id number] : 1975 Sex: F Loc / Svc: ED DOS: 09/04/14 Signed Report #: [id number] DIAGNOSTIC IMAGING REPORT TYPE OF EXAM: CHEST, [...] completed 07/25/14 EMERGENCY DEPT VISIT completed 07/25/14 [id number]"INJECTION, DIAZEPAM, UP TO 5 MG" completed 07/25/14 [...] completed 08/15/14 EMERGENCY DEPT VISIT completed 08/15/14 [id number] ITEM OR SERVICE completed 08/15/14 [id number] ITEM OR SERVICE completed 08/15/14 [id number] ITEM OR SERVICE completed 08/15/14 [id number]"INJECTION, LORAZEPAM, 2 MG" completed 08/15/14 CHEST X-RAY [...] completed 09/04/14 EMERGENCY DEPT VISIT completed 09/04/14 [id number] ITEM OR SERVICE completed 09/04/14 [id number] ITEM OR SERVICE completed 09/04/14 [id number]"INFUSION, NORMAL SALINE SOLUTION , 1000 CC" completed 09/04/14 ROUTINE VENIPUNCTURE completed 09/23/14 ASSAY OF LITHIUM completed 09/23/14 EMERGENCY DEPT VISIT completed 09/29/14 Encounters Encounter Location Date/Time Departed Emergency Room [facility] 10/16/14 3:36pm Departed Emergency Room [facility] 09/29/14 3:54pm Registered Clinic [facility] 09/23/14 8:12am Departed Emergency Room [facility] 09/04/14 9:28pm Departed Emergency Room [facility] 08/15/14 7:56pm Departed Emergency Room [facility] 07/25/14 4:06pm Recent Diagnosis
[2016-12-21 22:54] LABS: BLOOD, URINE NEGATIVE (NEGATIVE); COLOR,URINE YELLOW (YELLOW); LEUKOCYTE ESTERASE ,URINE NEGATIVE (NEGATIVE); NITRITE,URINE NEGATIVE (NEGATIVE); UROBILINOGEN,URINE 0.2 EU/DL (NORMAL)
[2016-12-21 22:56] LABS: BASOPHILS # (AUTO) 0.1 T/MM3 (0-0.2); BASOPHILS % (AUTO) 0.5 % (0-2); EOSINOPHILS # (AUTO) 0.2 T/MM3 (0-0.5); EOSINOPHILS % (AUTO) 1.6 % (0-4); HCT - HEMATOCRIT 40.7 % (36-46); HGB - HEMOGLOBIN 13.2 GM/DL (12-16); IMMATURE GRANULOCYTE # (AUTO) 0.01 T/MM3 (0.00-0.03); IMMATURE GRANULOCYTE % (AUTO) 0.1 % (0.0-0.5); LYMPHOCYTES # (AUTO) 3.9 T/MM3 (1-4.8); LYMPHOCYTES % (AUTO) 36.7 % (23-45); MEAN CORPUSCULAR HGB 28.9 UUG (26-34); MEAN CORPUSCULAR HGB CONC(MCHC 32.4 GM/DL (31-37); MEAN CORPUSCULAR VOLUME 89.3 UM3 (80-100); MEAN PLATELET VOLUME 10.8 UM3 (9.4-12.4); MONOCYTES # (AUTO) 0.8 T/MM3 (0-0.8); MONOCYTES % (AUTO) 7.3 % (0-9.0); NEUTROPHILS #(AUTO)-ABSOLUTE 5.7 T/MM3 (1.8-7.7); NEUTROPHILS % (AUTO) 53.8 % (33-66); RED BLOOD COUNT 4.56 M/MM3 (4.00-5.20); WBC - WHITE BLOOD COUNT 10.6 T/MM3 (4.5-11.0)
--- NOTE | 2016-12-21 22:59 | NUR ---
ROOM PT RETURNED TO ROOM [address]
[2016-12-21 23:04] LABS: ACETAMINOPHEN < 10 UG/ML (10-30); ALBUMIN 3.4 G/DL (3.5-5.0); ALBUMIN/GLOBULIN RATIO 1.2 RATIO (1.1-2.2); ALKALINE PHOSPHATASE 77 U/L (38-126); ALT (SGPT) 27 U/L (9-52); ANION GAP 9 MEQ/L (5-15); AST (SGOT) 24 U/L (14-36); BUN/CREATININE RATIO 4 RATIO (6-26); CALCIUM 9.1 MG/DL (8.4-10.2); CHLORIDE 101 MEQ/L (98-107); CO2 - CARBON DIOXIDE 29 MEQ/L (22-30); ETHANOL <10 MG/DL (<10); GLOMERULAR FILTRATION RATE 62; GLUCOSE 97 MG/DL (65-110); POTASSIUM 3.7 MEQ/L (3.6-5); SALICYLATE < 1.0 MG/DL (2-20); SODIUM 139 MEQ/L (134-144); TOTAL PROTEIN 6.3 G/DL (6.3-8.2)
--- NOTE | 2016-12-21 23:10 | NUR ---
EKG EKG OBTAINED SOME DIFFICULTY GETTING PT TO LAY STILL FOR READING DAUGHTER AT BEDSIDE
[2016-12-21 23:13] LABS: AMPHETAMINE SCREEN,URINE NEGATIVE; BARBITURATE SCREEN,URINE NEGATIVE; BENZODIAZEPINES SCREEN,URINE NEGATIVE; CANNABINOID SCREEN,URINE NEGATIVE; COCAINE SCREEN,URINE NEGATIVE; METHADONE SCREEN, URINE NEGATIVE; METHAMPHETAMINE SCREEN, URINE NEGATIVE; OPIATE SCREEN,URINE NEGATIVE; PHENCYCLIDINE SCREEN,URINE NEGATIVE; TRICYCLIC ANTIDEPRESSANT,URINE NEGATIVE
--- NOTE | 2016-12-21 23:40 | NUR ---
ACTIVITY PT UP SITTING IN CHAIR BY DAUGHTER DAUGHTER REPORTS SHE IS MOVING BETTER THAN BEFORE
--- NOTE | 2016-12-21 23:58 | ERPDOC ---
Departure Disposition Decision Date: Dec 21, 2016 Disposition Decision Time: 23:56 Disposition: 01 DISCHARGED HOME, SELF-CARE Impression Impression Impression: Primary Impression: Hallucination Severity: Mild Condition: Improved Seen By: Physician only Referrals: LORI GO APRN (Family) 1 Day Patient Instructions: Psychiatric Hallucinations (ED) Problems/Meds/Labs Reviewed?: Yes Medications reviewed and manag: Yes Follow up care ordered?: Yes Mental Status: Alert, Oriented HPI - General Medical General Chief Complaint: Psychiatric Problems Stated Complaint: HALLUCINATING,OFF BALANCE Time Seen by Provider: 22:01 Source: patient, family Exam Limitations: no limitations HPI - General Medical Initial Comments 41-year-old female presents to the emergency department with a chief complaint of a potential psychiatric problem. Patient denies any pain or discomfort. Patient is brought by her family wishing to have her evaluated as she has been hallucinating recently. This is not a new issue for the patient. Patient denies homicidal / suicidal ideation or plan. Patient denies self injury or self-harm. Patient denies any complaints or associated symptoms. Patient states that she came to the emergency department only to appease her daughter currently. Patient symptoms have been persistent over quite some time going as far back as "several years." She does not note any exacerbating or remitting factors. Occurred At: home Onset: Constant Allergies: Coded Allergies: bupropion (Verified Allergy, Unknown, 12/21/16) citalopram (Verified Allergy, Unknown, 12/21/16) ziprasidone HCl (Verified Allergy, Unknown, 12/21/16) ziprasidone mesylate (Verified Allergy, Unknown, 12/21/16) Past History Past Medical History Metabolic: hypercholesterolemia, hypertension ENMT: dental problems Cardiac: NM Respiratory: COPD, asthma, pulmonary embolus GI: GERD, IBS, ulcers Female: UTI, kidney stones Neurological: chronic disability Musculoskeletal: osteoarthritis Psychological: alcohol abuse, anxiety, bipolar, depression, drug abuse, personality disorder, suicide attempt Surgical History Cardiac: cardiac cath Reproductive/: D&C, , hysterectomy Family History Family PMH: FOUND: CAD, NM, aortic aneurysm, cancer, diabetes, hypercholesterolemia, hypertension, hypothyroidsim Vaccines Hx Influenza Vaccination: Yes (04/2015) Hx Pneumococcal Vaccination: No Hx Tetanus Diptheria: No Hx Tetanus, Diptheria, Pertuss: No Social History Smoking Status: Current every day smoker # of Packs/Tins per Day: 2.0 # of Years: 20 Second Hand Exposure: Yes Substance Use Type: does not use Alcohol Intake: occasionally Sexuality: male partner Household Members: children Service: No Current Occupational Status: disabled Occupational Hazard: No Advance Directives: Yes Full Code Review of Systems Constitutional Constitutional: DENIES: chills, fever Eyes General: DENIES: erythema, exudate Lids/Accessories: DENIES: erythema, swelling Vision: DENIES: acuity, blurring ENMT Ears: DENIES: drainage, pain Hearing: DENIES: hearing loss Balance: DENIES: ataxia, falling to one side Sinuses: DENIES: congestion, pain Nose: DENIES: nosebleeds, pain Mouth/Throat: DENIES: painful swallowing, sore throat Teeth: DENIES: pain Jaw: DENIES: pain Cardiovascular Cardiac: DENIES: chest pain, dyspnea on exertion Rhythm/Rate: DENIES: irregular beat, palpitations Vascular: DENIES: pedal edema, unilateral swelling Pulmonary Respiratory: DENIES: cough, dyspnea, pleuritic chest pain, sputum GI Upper Abdomen: DENIES: nausea, pain, vomiting Lower Abdomen: DENIES: diarrhea, pain General: DENIES: dysuria, frequency Musculoskeletal General: DENIES: joint pain, tenderness Integumentary Skin: DENIES: itching, rash Neurological General: DENIES: headache, numbness, weakness Psychiatric Psychiatric: DENIES: emotional instability, suicidal ideation/attempt Endocrine Endocrine: DENIES: polydipsia, polyphagia Hematologic/Lymphatic Hematologic/Lymphatic: DENIES: frequent nosebleeds, lymphadenopathy Allergic/Immunological Allergic/Immunoligical: DENIES: allergic reactions, hives Physical Exam General General Nourishment: well nourished, well developed, appears stated age, no acute distress, adult General Body Habitus: well groomed Vitals and Pain First Documented Vital Signs Date Time Temp Pulse Resp B/P Pulse Ox O2 Delivery O2 Flow Rate FiO2 12/21/16 21:23 97.8 81 18 109/73 96 Room Air Weight: Kilograms: 92.900 Height (feet): 5 Height (inches): 4.00 Triage Pain Scale: RN VS reviewed by Provider: Yes Normal Exams: Head: Normocephalic w/o trauma Eyes: Pupils are PERRLA w/ EOMI, No scleral icterus, irritation, or foreign bodies noted ENMT: No facial trauma, nasal exudates, pharyngeal erythema, or exudates are noted Dental: No fractured, loose, or missing teeth noted Neck: Full range of motion, without adenopathy, JVD, bruits or thyromegaly Chest/Resp: Clear all bates, with good airflow, and symmetry bilaterally CV: Regular rate and rhythm, without murmur or gallop, Pulses 2+ all extremities, capillary refill, <2 seconds all ext., no pedal edema noted Abdomen: Bowel sounds positive, soft, non-tender, non-distended, no hepatosplenomegaly, masses or bruits noted Lymphatic: No lymphadenopathy, or lymphedema noted Musculoskeletal: No tenderness, or deformity noted, good range of motion, all extremities Integumentary: No rashes, hives, or bruising noted, hair and nails, without abnormality Neurologic: Patient is alert, and oriented, cranial nerves, motor/sensory/ cerebellar, exams w/o gross deficits, to observation Psychiatric: Patient exhibits, appropriate attention, emotion and affect Differential Diagnoses Considering: Alcohol Intoxication, Depression, Drug Overdose, Hypo/ Hyperglycemia, Medication Effect, Metabolic, Poisoning/Accidental OD Progress Results/Orders Orders Procedure Category Date Status Time Cbc W/Auto LAB 12/21/16 Complete Diff-Reflex Manual Cmp - Comprehensive LAB 12/21/16 Complete Metabolic Ethanol LAB 12/21/16 Complete Salicylate LAB 12/21/16 Complete Acetaminophen LAB 12/21/16 Complete Ua, Dip Wreflex LAB 12/21/16 Complete Microsc & Traffic Or System Dispatcher 22:17 Drug Screen LAB 12/21/16 Complete Urine-Test At [facility] 22:17 Ct Head W/O Contrast CT 12/21/16 Taken 22:17 Chest 1 View RAD 12/21/16 Taken 22:17 EKG EKG 12/21/16 Taken Troponin I W LAB 12/21/16 Complete Hemolysis Index Lab Results Laboratory Tests Test 12/21/16 22:41 12/21/16 23:19 White Blood Count 10.6T/MM3 Red Blood Count 4.56M/MM3 Hemoglobin 13.2GM/DL Hematocrit 40.7% Mean Corpuscular Volume 89.3UM3 Mean Corpuscular Hemoglobin 28.9UUG Mean Corpuscular Hemoglobin Concent 32.4GM/DL RDW Standard Deviation 40.2FL Platelet Count 217T/MM3 Mean Platelet Volume 10.8UM3 Immature Granulocyte % (Auto) 0.1% Neutrophils (%) (Auto) 53.8% Lymphocytes (%) (Auto) 36.7% Monocytes (%) (Auto) 7.3% Eosinophils (%) (Auto) 1.6% Basophils (%) (Auto) 0.5% Absolute Immature Granulocyte (auto 0.01T/MM3 Absolute Neutrophils (auto) 5.7T/MM3 Absolute Lymphocytes (auto) 3.9T/MM3 Absolute Monocytes (auto) 0.8T/MM3 Absolute Eosinophils (auto) 0.2T/MM3 Absolute Basophils (auto) 0.1T/MM3 Urine Collection Type Cleancatch-midstream Urine Color Yellow Urine Turbidity Clear Urine pH 6.0 Urine Specific [place] <=1.005 Urine Protein Negative Urine Glucose (UA) Negative Urine Ketones Negative Urine Blood Negative Urine Nitrite Negative Urine Bilirubin Negative Urine Urobilinogen 0.2EU/DL Urine Leukocyte Esterase Negative Urinalysis Comment Microscopic not ind. Turbidity < 20 Sodium Level 139MEQ/L Potassium Level 3.7MEQ/L Chloride Level 101MEQ/L Carbon Dioxide Level 29MEQ/L Anion Gap 9MEQ/L Blood Urea Nitrogen 4.0MG/DL Creatinine 1.0MG/DL Glomerular Filtration Rate Calc 62 BUN/Creatinine Ratio 4RATIO Glucose Level 97MG/DL Calculated Osmolality 265MOSM/KG Calcium Level 9.1MG/DL Total Bilirubin 0.60MG/DL Icterus Index < 2 Aspartate Amino Transf (AST/SGOT) 24U/L Alanine Aminotransferase (ALT/SGPT) 27U/L Alkaline Phosphatase 77U/L Troponin I < 0.012ng/ml Total Protein 6.3G/DL Albumin 3.4G/DL Globulin 2.9G/DL Albumin/Globulin Ratio 1.2RATIO Chemistry Specimen Hemolysis < 15 Salicylates Level < 1.0MG/DL Urine Opiates Screen NegativeNG/ML Urine Oxycodone Screen NegativeNG/ML Urine Methadone Screen NegativeNG/ML Urine Propoxyphene Screen NegativeNG/ML Acetaminophen Level < 10UG/ML Urine Barbiturates Screen NegativeNG/ML Urine Tricyclic Antidepressants NegativeNG/ML Urine Phencyclidine Screen NegativeNG/ML Urine Amphetamines Screen NegativeNG/ML Urine Methamphetamines Screen NegativeNG/ML Urine Benzodiazepines Screen NegativeNG/ML Urine Cocaine Screen NegativeNG/ML Urine Cannabinoids Screen NegativeNG/ML Alcohol, Quantitative <10MG/DL Lab Scanned Report REFERENCE [id number] Progress Progress Labs / imaging were discussed in detail with the patient and family and questions are answered. Patient is alert and oriented at time of discussion and completion of evaluation. Patient is offered admission to the hospital and she declines. Patient's daughter is at bedside and will take the patient home and stay with the patient. Patient is to follow up as instructed. Patient is to return to the emergency Department if her condition worsens or changes in any manner. Patient and family are in agreement with the current plan of management. Patient continues to deny homicidal/suicidal ideation or plan. She denies self injury or self-harm. She is discharged home in improved condition. EKG EKG : Rate: 60-100 Rhythm: sinus Dustin: normal QRS: normal Intervals: normal ST/T: normal Interpreted by: signing physician Xray Xray : Xray: CXR Portable Interpretation: Normal, Faxed Report CT CT : CT: Head no contrast Interpretation: Normal, Faxed Report PABLITO FINNEGAN DO Dec 21, 2016 23:58
--- NOTE | 2016-12-22 00:06 | NUR ---
INSTRUCTIONS DISMISSAL INSTRUCTIONS GIVEN TO PT AND DAUGHTER TO FOLLOW UP WITH PCP IN THE MORNING BOTH PT AND DAUGHTER VERBALIZED UNDERSTANDING OF ALL
[2016-12-22 00:08] VITALS: BP 111/74; PULSE 78; RESP 18; TEMP 97.8; O2SAT 95
--- NOTE | 2016-12-22 00:08 | NUR ---
DISMISS PT DISMISSED PER W/C WITH DAUGHTER PT ESCORTED TO CAR BY RN
--- NOTE | 2016-12-22 08:14 | DI ---
Indication: ITS.REASON: ams PROCEDURE: CT HEAD W/O CONTRAST: Encounter: Initial Comparison: March 28, 2016 Technique: Axial CT images through the head were performed without contrast. Iterative Reconstruction dose reducing technique was utilized. FINDINGS: The ventricles are of normal size, shape, and configuration for the patient's age. There is no evidence of acute intracranial hemorrhage, midline displacement, or mass effect. The CT attenuation of the brain parenchyma is normal within the cerebellum, brain stem, and cerebral hemispheres. The tympanic cavities and mastoid air cells are free of appreciable disease. There are no definite fractures of the skull base, calvarium, or visualized portion of the midface. IMPRESSION: No CT evidence of acute intracranial abnormality. There is a preliminary report by [facility]. .
--- NOTE | 2016-12-22 08:14 | DI ---
Indication: ITS.REASON: ams PROCEDURE: CHEST 1 VIEW: Encounter: Initial Comparison: April 04, 2016 FINDINGS: The lungs are clear. There is no abnormal airspace opacity, pleural effusion or pneumothorax identified. The heart size, pulmonary vasculature and mediastinum are within normal limits. No significant skeletal abnormality is seen. IMPRESSION: No acute cardiopulmonary abnormality. .
[2016-12-22] MEDS ORDERED: BENZ2TAB7 PO (10:57)
[2016-12-22] MEDS ORDERED: CLON1TAB4 PO (11:00)
== END 2016-12-22 00:08 | disposition home or self-care (01) ==
LOC: ED 21:14
DX: R44.1 Visual hallucinations (principal); Z79.899 Other long term (current) drug therapy
CPT/HCPCS: 36415; 80053; 80306; 80307; 81003; 84484; 85025; 93005

== ENCOUNTER 2016-12-22 10:26 | Emergency (ER) | payer MEDICARE, MEDICAID ==
[~2016-12-22] VITALS: Ht 162.6 cm; Wt 91.2 kg
--- OUTSIDE RECORDS SUMMARY | 2016-12-22 10:34 | XMS REPORT | Continuity of Care Document ---
Author Author [facility] Organization [facility] Address Unknown Phone Unavailable Care Team Providers Care Clinic Mgr Name Role Phone JUNIE ESTRADA MD Primary Care Physician Unavailable Insurance Providers Payer Name Policy Number Subscriber Name Relationship Medicare [id number] Jessica Osborne 18 Self Medicaid [id number] Jessica Osborne 20 Self Advance Directives Directive [...] call for appointment with Dr. Rothman of [facility] for Sunday of next week. Make appointment [...] of your legs. 3.During office hours, call [phone]. After hours, please call [facility] at [phone], and have the sand mill operator facing sand page your Surgeon IN THE EVENT OF [...] 2014 10:09am 3-5 /HPF - Urine Specific [place] April 14, 2014 8:00pm <=1.005 L - [...] 13, 2014 11:17am LAB TEST FORM REQUEST [id number] - Chlamydia trachomatis Amplified DNA January 24, [...] July 12, 2013 10:50am Negative NG/ML - CI-Aby-E-Type Natriuretic Peptide July 07, 2013 11:55am 112 [...] Negative Bryan Name: JESSICA OSBORNE Unit #: [id number] : 1975 Sex: F Loc / Svc: ED DOS: 04/14/14 Signed Report #: [id number] DIAGNOSTIC IMAGING REPORT TYPE OF EXAM: CHEST, [...] Encounters Encounter Location Date/Time Departed Emergency Room [facility] 05/14/14 2:44pm Departed Emergency Room [facility] 04/14/14 7:37pm Departed Emergency Room [facility] 03/16/14 10:03pm Discharged Inpatient [facility] 03/13/14 1:02pm Registered Clinic [facility] 03/13/14 9:49am Recent Diagnosis
--- OUTSIDE RECORDS SUMMARY | 2016-12-22 10:34 | XMS REPORT | Continuity of Care Document ---
Author Author [facility] Organization [facility] Address Unknown Phone Unavailable Support Name Relationship Address Phone LORI GO PSYCHOLOGICAL ASSISTANT Caregiver [address] [place] [address] Unavailable PABLITO FINNEGAN DO Caregiver [address] [place] [address] Unavailable LORETTA OSBORNE Next Of Kin [address] [place] [phone] Insurance Providers Guarantor Jessica Osborne Address [address] [place] [phone] Email DENIED 12-21-16 Payer Medicaid Policy Number [id number] Subscriber's Name Jessica Osborne Relationship 18 Self Effective Date 16 Expiration Date 16 Payer Medicare Policy Number [id number] Subscriber's Name Jessica Osborne Relationship 18 Self Chief Complaint and Reason for Visit Chief Complaint Psychiatric Problems Reason for Visit [id number] Problems Active Problems Medical Problem Onset Date [...] Unknown Anxiety Unknown Atypical chest pain Unknown Hallucination Unknown Hypoxia Unknown Medications Current Home Medications [...] Daily 02/24/15 Benztropine Mesylate 1 Mg Tablet 2 Mg Oral Three Times A Day 04/10 Fluticasone Propionate (Flonase Allergy Relief 50 Mcg/Actuation Nasal) 9.9 Ml [place].susp 2 [place] Intranasal Daily 02/23/15 Hydroxyzine Pamoate 100 Mg [...] as needed for Prn Orders 12/12/14 Tiotropium [place] (Spiriva Respimat) 4 Gm Mist.inhal 2 Puff [...] Not Applicable Hx Substance Use Y HX MULTIPLE SUBSTANCE ABUSE 12/21/2016 9:52pm Not Applicable Not Applicable Hx Alcohol Use Y HX ALCOHOL ABUSE 12/21/2016 9:52pm Not Applicable Not Applicable Has the pt used tobacco in the last 12 months Yes 03/28/2016 8:05pm Not Applicable Not Applicable Tobacco Usage smoke 10/28/2014 5:26pm Not Applicable Not Applicable Query Response Start Date Stop Date Smoking Status Current every day smoker Hospital Discharge Instructions No hospital discharge instructions. Plan of Care Discharge Date 12/22/16 12:08am Disposition 01 DISCHARGED HOME, SELF-CARE Condition at Discharge Improved Instructions/Education Provided Psychiatric Hallucinations (ED) Prescriptions See Medication Section Referrals LORI GO APRN Order Date: 1 Day Address: [address] [place] [address] [phone] Note: Care Plan and Goals Physician Care Plan Problem: Hallucination Goal: Follow up with primary care provider Instructions: Take medications and follow care plan as discussed/written Functional Status No functional status results. Allergies, Adverse Reactions, Alerts Allergen Type Severity Reaction Status Last Updated ziprasidone HCl Allergy Unknown Active 12/21/16 ziprasidone mesylate Allergy Unknown Active 12/21/16 Bupropion Allergy Unknown Active 12/21/16 Citalopram Allergy Unknown Active 12/21/16 Immunizations Query Response on File Recorded Date/Time Hx Influenza Vaccination Y 04/201503/28/16 8:05pm Hx Pneumococcal Vaccination No 03/28/16 8:05pm Hx Tetanus, Diptheria, Pertussis No 05/01/15 12:54pm Hx Influenza Vaccination Y 04/201503/28/16 8:05pm Hx Tetanus Diptheria No 05/01/15 12:54pm Hx Tetanus, Diptheria, Pertussis No 05/01/15 12:54pm Hx Tetanus Toxoid Vaccination No 06/10/14 10:50pm Influenza Vaccine Hx 2016 12/21/16 9:52pm Tetanus Diptheria Vaccine History OVER 10 YEARS 12/21/16 9:52pm Vital Signs Acute Vital Signs Vital Response Date/Time Temperature (Fahrenheit) 97.8 deg F (96.8 - 99.1) 12/22/2016 12:08am Temperature (Calculated Celsius) 36.51216 degrees C (36.0 - 37.3) 12/22/2016 12:08am Pulse Rate (adult) 78 bpm (60 - 100) 12/22/2016 12:08am Respiratory Rate 18 breaths/min (10 - 20) 12/22/2016 12:08am O2 Sat by Pulse Oximetry 95 % (90 - 100) 12/22/2016 12:08am Blood Pressure 111/74 mm Hg 12/22/2016 12:08am Height (Feet) 5 feet 12/21/2016 9:23pm Height (Inches) 4.00 inches 12/21/2016 9:23pm Weight (Kilograms) 92.900 kg 12/21/2016 9:23pm Body Mass Index (BMI) 35.0 12/21/2016 9:23pm Results Laboratory Results Test Name Result Units Flags Reference Collection Date/Time Result Date/ Time Comments Cholesterol Level 189 MG/DL 132-199 10/25/2016 6:34am 10/26/2016 12: 52am Triglycerides Level 169 MG/DL H 35-135 10/25/2016 6:34am 10/26/2016 12: 52am HDL Cholesterol Direct 40 MG/DL 40-60 10/25/2016 6:34am 10/26/2016 12: 52am LDL Cholesterol, Calculated 115.2 66-159 10/25/2016 6:34am 2016 12:52am VLDL Cholesterol 33.8 MG/DL H 0-28 10/25/2016 6:34am 10/26/2016 12:52am Cholesterol/HDL Ratio 4.7 RATIO H 0-4.0 10/25/2016 6:34am 10/26/2016 12: 52am White Blood Count 10.6 T/MM3 4.5-11.0 12/21/2016 10:41pm 12/21/2016 10: 56pm Red Blood Count 4.56 M/MM3 4.00-5.20 12/21/2016 10:41pm 12/21/2016 10: 56pm Hemoglobin 13.2 GM/DL 12-16 12/21/2016 10:41pm 12/21/2016 10:56pm Hematocrit 40.7 % 36-46 12/21/2016 10:41pm 12/21/2016 10:56pm Mean Corpuscular Volume 89.3 UM3 80-100 12/21/2016 10:41pm 12/21/2016 10:56pm Mean Corpuscular Hemoglobin 28.9 UUG 26-34 12/21/2016 10:41pm 2016 10:56pm Mean Corpuscular Hemoglobin Concent 32.4 GM/DL 31-37 12/21/2016 10:41pm 12/21/2016 10:56pm RDW Standard Deviation 40.2 FL 36.9-50.2 12/21/2016 10:4112/21/2016 10:56pm Platelet Count 217 T/MM3 130-400 12/21/2016 10:41pm 12/21/2016 10:56pm Mean Platelet Volume 10.8 UM3 9.4-12.4 12/21/2016 10:41pm 12/21/2016 10 :56pm Neutrophils (%) (Auto) 53.8 % 33-66 12/21/2016 10:41pm 12/21/2016 10: 56pm Lymphocytes (%) (Auto) 36.7 % 23-45 12/21/2016 10:pm 12/21/2016 10: 56pm Monocytes (%) (Auto) 7.3 % 0-9.0 12/21/2016 10:pm 12/21/2016 10:56pm Eosinophils (%) (Auto) 1.6 % 0-4 12/21/2016 10:12/21/2016 10:56pm Basophils (%) (Auto) 0.5 % 0-2 12/21/2016 10:4112/21/2016 10:56pm Immature Granulocyte % (Auto) 0.1 % 0.0-0.5 12/21/2016 10:2016 10:56pm Absolute Neutrophils (auto) 5.7 T/MM3 1.8-7.7 12/21/2016 10:pm 2016 10:56pm Absolute Lymphocytes (auto) 3.9 T/MM3 1-4.8 12/21/2016 10:2016 10:56pm Absolute Monocytes (auto) 0.8 T/MM3 0-0.8 12/21/2016 10:41pm 2016 10:56pm Absolute Eosinophils (auto) 0.2 T/MM3 0-0.5 12/21/2016 10:2016 10:56pm Absolute Basophils (auto) 0.1 T/MM3 0-0.2 12/21/2016 10:41pm 2016 10:56pm Absolute Immature Granulocyte (auto 0.01 T/MM3 0.00-0.03 12/21/2016 10: 4112/21/2016 10:56pm Icterus Index < 2 0-7 12/21/2016 10:41pm 12/21/2016 11:04pm Chemistry Specimen Hemolysis < 15 0-25 12/21/2016 10:41pm 12/21/2016 11:04pm 0-25: Specimen Exhibited No Hemolysis. Turbidity < 20 0-20 12/21/2016 10:41pm 12/21/2016 11:04pm Sodium Level 139 MEQ/L 134-144 12/21/2016 10:41pm 12/21/2016 11:04pm Potassium Level 3.7 MEQ/L 3.6-5 12/21/2016 10:41pm 12/21/2016 11:04pm Chloride Level 101 MEQ/L 98-107 12/21/2016 10:41pm 12/21/2016 11:04pm Carbon Dioxide Level 29 MEQ/L 22-30 12/21/2016 10:41pm 12/21/2016 11: 04pm Anion Gap 9 MEQ/L 5-15 12/21/2016 10:41pm 12/21/2016 11:04pm Blood Urea Nitrogen 4.0 MG/DL L 7-17 12/21/2016 10:41pm 12/21/2016 11: 04pm Creatinine 1.0 MG/DL 0.7-1.2 12/21/2016 10:41pm 12/21/2016 11:04pm BUN/Creatinine Ratio 4 RATIO L 6-12/21/2016 10:pm 12/21/2016 11: 04pm Glomerular Filtration Rate Calc 62 12/21/2016 10:4112/21/2016 11 :04pm Glucose Level 97 MG/DL 65-110 12/21/2016 10:4112/21/2016 11:04pm Calculated Osmolality 265 MOSM/KG 261-280 12/21/2016 10:412016 11:04pm Calcium Level 9.1 MG/DL 8.4-10.2 12/21/2016 10:12/21/2016 11:04pm Total Bilirubin 0.60 MG/DL 0.20-1.30 12/21/2016 10:41pm 12/21/2016 11: 04pm Alkaline Phosphatase 77 U/L 38-126 12/21/2016 10:4112/21/2016 11: 04pm Total Protein 6.3 G/DL 6.3-8.2 12/21/2016 10:4112/21/2016 11:04pm Albumin 3.4 G/DL L 3.5-5.0 12/21/2016 10:4112/21/2016 11:04pm Globulin 2.9 G/DL 2.4-3.6 12/21/2016 10:4112/21/2016 11:04pm Albumin/Globulin Ratio 1.2 RATIO 1.1-2.2 12/21/2016 10:12/21/2016 11:04pm Aspartate Amino Transf (AST/SGOT) 24 U/L 14-36 12/21/2016 10:4112/21 11:04pm Alanine Aminotransferase (ALT/SGPT) 27 U/L 9-52 12/21/2016 10: 11:04pm Troponin I < 0.012 ng/ml 0-0.12 12/21/2016 10:12/21/2016 11:15pm Troponin values with a difference of 55% increase from orginal troponin value represent a true biological DELTA value. (%increase Calc=Orginal Troponin value, divided by subsequent Troponin value, multiplied by 100) Acetaminophen Level < 10 UG/ML L 10-30 12/21/2016 10:12/21/2016 11: 04pm TOXIC <4 HR POST INGESTION: >150 MG/L; TOXIC <12 HR POST INGESTION: >50 MG/L Salicylates Level < 1.0 MG/DL L 2-20 12/21/2016 10:12/21/2016 11: 04pm Alcohol, Quantitative <10 MG/DL <10 12/21/2016 10:12/21/2016 11: 04pm Urine Collection Type CLEANCATCH-MIDSTREAM 12/21/2016 10:12/21 10:54pm Urine Color YELLOW YELLOW 12/21/2016 10:12/21/2016 10:54pm Urine Turbidity CLEAR CLEAR 12/21/2016 10:12/21/2016 10:54pm Urine Specific [place] <=1.005 L 1.015-1.025 12/21/2016 10:2016 10:54pm Urine pH 6.0 5.0-8.0 12/21/2016 10:12/21/2016 10:54pm Urine Leukocyte Esterase NEGATIVE NEGATIVE 12/21/2016 10:41pm 2016 10:54pm Urine Nitrite NEGATIVE NEGATIVE 12/21/2016 10:41pm 12/21/2016 10: 54pm Urine Protein NEGATIVE NEGATIVE 12/21/2016 10:41pm 12/21/2016 10: 54pm Urine Glucose (UA) NEGATIVE NEGATIVE 12/21/2016 10:41pm 12/21/2016 10 :54pm Urine Ketones NEGATIVE NEGATIVE 12/21/2016 10:41pm 12/21/2016 10: 54pm Urine Urobilinogen 0.2 EU/DL NORMAL 12/21/2016 10:41pm 12/21/2016 10: 54pm Urine Bilirubin NEGATIVE NEGATIVE 12/21/2016 10:41pm 12/21/2016 10: 54pm Urine Blood NEGATIVE NEGATIVE 12/21/2016 10:41pm 12/21/2016 10:54pm Urinalysis Comment MICROSCOPIC NOT IND. 12/21/2016 10:41pm 2016 10:54pm Procedures Procedure Status Date Provider(s) Routine venipuncture Completed 10/25/16 Comprehen metabolic panel Completed 10/25/16 Lipid panel Completed 10/25/16 Complete cbc w/auto diff wbc Completed 10/25/16 Encounters Encounter Location Arrival/Admit Date Discharge/Depart Date Attending Provider Departed Emergency Room [facility] 12/21/16 9:14pm 12/22/16 12: 08am PABLITO FINNEGAN DO Departed Emergency Room [facility] 11/10/16 4:18pm 11/10/16 5: 47pm JAVAN MARRERO MD Registered Clinic [facility] 10/25/16 6:21am KRISTINE SAHNI APRN Recent Diagnosis
--- OUTSIDE RECORDS SUMMARY | 2016-12-22 10:35 | XMS REPORT | Continuity of Care Document ---
Author Author [facility] Organization [facility] Address Unknown Phone Unavailable Support Name Relationship Address Phone JAIME LOPEZ MD Caregiver [address] [place] [address] [place] [phone] AIDEN NAVARRO MD Caregiver [address] [place] [address] [place] [address] JEAN ROTHMAN MD Caregiver [address] [place] [address] LORETTA OSBORNE Next Of Kin [address] [place] [address] CP Insurance Providers Payer Name Policy Number Subscriber Name Relationship Medicare [id number] Jessica Osborne 20 Self Medicaid [id number] Jessica Osborne 20 Self Advance Directives Directive [...] days Follow Up Appointments: DR ANDREWS 06/04 [phone] Patient Instructions: Do not drive, operate machinery, drink alcohol for 72 hours Wound/Incision Care: n/a Durable Medical Equipment: n/a Notify Physician If: Worsening chest pain General Information: n/a Condition at time of discharge: Good excessive/foul smelling drainage at your incision site. - You have difficulty breathing. During office hours, call [phone]. After hours, please call [facility] at [phone] and have the crepe machine operator page Dr. Cardona or the [...] F (96.8 - 99.1) Temperature (Calculated Celsius) 36.17327 degrees C (36.0 - 37.3) Temperature Source [...] 13, 2014 11:17am LAB TEST FORM REQUEST [id number] - Large Platelets July 07, 2013 11:55am [...] Monoscreen April 14, 2014 8:35pm Negative - ZT-Rew-S-Type Natriuretic Peptide May 15, 2014 4:47pm 236 [...] 2014 10:09am 3-5 /HPF - Urine Specific [place] May 15, 2014 5:22pm <=1.005 L - [...] Bryan Name: JESSICA OSBORNE Odalis Unit #: [id number] : 1975 Sex: F Loc / Svc: SRG DOS: 05/15/14 Signed Report #: [id number] DIAGNOSTIC IMAGING REPORT TYPE OF EXAM: CT [...] 03/16/14 Encounters Encounter Location Date/Time Discharged Inpatient [facility] 05/16/14 8:39am Departed Emergency Room [facility] 05/14/14 2:44pm Departed Emergency Room [facility] 04/14/14 7:37pm Departed Emergency Room [facility] 03/16/14 10:03pm Discharged Inpatient [facility] 03/13/14 1:02pm Registered Clinic [facility] 03/13/14 9:49am Recent Diagnosis Chest pain Leukocytosis Hypokalemia Leukocytosis Sinusitis Sepsis Hypertension Hypercholesterolemia History of pulmonary embolism Asthma GERD (gastroesophageal reflux disease) IBS (irritable bowel syndrome) History of alcohol abuse Bipolar 1 disorder Anxiety Tobacco dependence NSTEMI (non-ST elevated myocardial infarction)
--- OUTSIDE RECORDS SUMMARY | 2016-12-22 10:36 | XMS REPORT | Continuity of Care Document ---
Author Author [facility] Organization [facility] Address Unknown Phone Unavailable Care Team Providers Care Optimization Engineer Name Role Phone JUNIE ETSRADA MD Primary Care Physician Unavailable Insurance Providers Payer Name Policy Number Subscriber Name Relationship Medicare [id number] Jessica Osborne 20 Self Problems Medical Problems [...] F (96.8 - 99.1) Temperature (Calculated Celsius) 36.93914 degrees C (36.0 - 37.3) Pulse Rate [...] 2014 10:09am 3-5 /HPF - Urine Specific [place] March 16, 2014 11:25pm 1.010 L - [...] 13, 2014 11:17am LAB TEST FORM REQUEST [id number] - Chlamydia trachomatis Amplified DNA January 24, [...] July 12, 2013 10:50am Negative NG/ML - VA-Mxu-J-Type Natriuretic Peptide July 07, 2013 11:55am 112 [...] Encounters Encounter Location Date/Time Departed Emergency Room [facility] 03/16/14 10:03pm Discharged Inpatient [facility] 03/13/14 1:02pm Registered Clinic [facility] 03/13/14 9:49am Departed Emergency Room [facility] 01/29/14 5:57pm Departed Emergency Room [facility] 01/25/14 8:12pm Recent Diagnosis
--- OUTSIDE RECORDS SUMMARY | 2016-12-22 10:37 | XMS REPORT | Continuity of Care Document ---
Author Author [facility] Organization [facility] Address Unknown Phone Unavailable Support Name Relationship Address Phone GRACIELA FAY MD Caregiver [facility] [address] [place] [address] Unavailable JEAN ROTHMAN MD Caregiver [address] [place], [place] [phone] LORETTA OSBORNE Next Of Kin [address] [place] [address] CP Insurance Providers Payer Name Policy Number Subscriber Name Relationship Medicare [id number] Jessica Osborne 20 Self Medicaid [id number] Jessica Osborne 20 Self Advance Directives Directive Response Recorded Date/Time Advanced Directives Type None 06/10/14 10:50pm Chief Complaint and Reason for Visit Chief Complaint Chest Pain Reason for Visit Hypokalemia Leukocytosis Sinusitis Sepsis SKO-MXXV-Xidei pain Problems Medical Problems Problem Onset Date [...] days Follow Up Appointments: DR ANDREWS 06/04 [phone] Patient Instructions: Do not drive, operate machinery, [...] of your legs. 3.During office hours, call [phone]. After hours, please call [facility] at [phone], and have the automation operator page your Surgeon IN THE EVENT OF AN EMERGENCY, seek medical care at the nearest Emergency Room Condition at time of discharge: Good Plan of Care Discharge Date 05/19/14 10:05am Disposition 02 [place] [facility] [place] at Discharge Stable Instructions/Education Provided DI [...] F (96.8 - 99.1) Temperature (Calculated Celsius) 36.58114 degrees C (36.0 - 37.3) Pulse Rate [...] 2014 10:09am 3-5 /HPF - Urine Specific [place] May 15, 2014 5:22pm <=1.005 L - [...] Report May 19, 2014 4:21pm REFERENCE LAB [id number] - Chlamydia trachomatis Amplified DNA January 24, [...] June 10, 2014 11:28pm < 2 0-7 ET-Jnl-Y-Type Natriuretic Peptide May 15, 2014 4:47pm 236 [...] Negative Bryan Name: JESSICA OSBORNE Unit #: [id number] : 1975 Sex: F Loc / Svc: SRG DOS: 05/15/14 Signed Report #: [id number] DIAGNOSTIC IMAGING REPORT TYPE OF EXAM: CT [...] Encounters Encounter Location Date/Time Departed Emergency Room [facility] 06/10/14 10:43pm Discharged Inpatient [facility] 05/16/14 8:39am Departed Emergency Room [facility] 05/14/14 2:44pm Departed Emergency Room [facility] 04/14/14 7:37pm Departed Emergency Room [facility] 03/16/14 10:03pm Discharged Inpatient [facility] 03/13/14 1:02pm Registered Clinic [facility] 03/13/14 9:49am Recent Diagnosis
--- OUTSIDE RECORDS SUMMARY | 2016-12-22 10:37 | XMS REPORT | Continuity of Care Document ---
Author Author [facility] Organization [facility] Address Unknown Phone Unavailable Support Name Relationship Address Phone JEAN ROTHMAN MD Caregiver [facility] [address] [place] [address] FINESSE CORADO MD Caregiver [address] [place] [address] [place] [phone] LORETTA OSBORNE Next Of Kin [address] [place] [address] CP Insurance Providers Payer Name Policy Number Subscriber Name Relationship Medicare [id number] Jessica Osborne 20 Self Medicaid [id number] Jessica Osborne 20 Self Chief Complaint and Reason for Visit Chief Complaint Chest Pain Reason for Visit Hypokalemia Leukocytosis Sinusitis Sepsis PET-LIOX-Zdzrm pain Problems Medical Problems Problem Onset Date [...] TWICE A DAY 30 Qty 07/25/14 Active [place] Carbonate 300 Mg PO TWICE A DAY [...] days Follow Up Appointments: DR ANDREWS 06/04 [phone] Patient Instructions: Do not drive, operate machinery, [...] 05/19/14 10:05am Disposition 02 [place] [facility]charge Stable Instructions/Education Provided DI [...] F (96.8 - 99.1) Temperature (Calculated Celsius) 36.05152 degrees C (36.0 - 37.3) Pulse Rate [...] 2014 10:09am 3-5 /HPF - Urine Specific [place] August 15, 2014 8:38pm <=1.005 L - [...] Report May 19, 2014 4:21pm REFERENCE LAB [id number] - Chlamydia trachomatis Amplified DNA January 24, [...] August 15, 2014 8:31pm < 2 0-7 FI-Cqr-Z-Type Natriuretic Peptide August 15, 2014 8:31pm 68 [...] Bryan Name: JESSICA OSBORNE Odalis Unit #: [id number] : 1975 Sex: F Loc / Svc: ED DOS: 07/25/14 Signed Report #: [id number] DIAGNOSTIC IMAGING REPORT TYPE OF EXAM: CHEST, [...] completed 06/17/14 EMERGENCY DEPT VISIT completed 06/17/14 325474"STERILE WATER, SALINE AND/OR DEXTROSE, DILUENT/FLUSH, completed 144078"STERILE WATER, SALINE AND/OR DEXTROSE, DILUENT/FLUSH, completed [id number] ITEM OR SERVICE completed 06/17/14 149282"INJECTION, LORAZEPAM, 2 MG" completed 06/17/14 CHEST X-RAY 2VW FRONTAL&LATL completed 07/25/14 ELECTROCARDIOGRAM TRACING completed 07/25/14 AIRWAY INHALATION TREATMENT completed 07/25/14 EVALUATE PT USE OF INHALER completed 07/25/14 THER/PROPH/DIAG INJ SC/IM completed 07/25/14 EMERGENCY DEPT VISIT completed 07/25/14 326139"INJECTION, DIAZEPAM, UP TO 5 MG" completed 07/25/14 Encounters Encounter Location Date/Time Departed Emergency Room [facility] 08/15/14 7:56pm Departed Emergency Room [facility] 07/25/14 4:06pm Departed Emergency Room [facility] 06/17/14 8:06am Departed Emergency Room [facility] 06/10/14 10:43pm Discharged Inpatient [facility] 05/16/14 8:39am Recent Diagnosis
--- OUTSIDE RECORDS SUMMARY | 2016-12-22 10:38 | XMS REPORT | Continuity of Care Document ---
Author Author [facility] Organization [facility] Address Unknown Phone Unavailable Support Name Relationship Address Phone JEAN ROTHMAN MD Caregiver [facility] [address] [place] [address] RAJWINDER WALSH MD Caregiver [address] [facility] [phone] LORETTA OSBORNE Next Of Kin [address] [place] [address] CP Insurance Providers Payer Name Policy Number Subscriber Name Relationship Medicare [id number] Jessica Osborne 20 Self Medicaid [id number] Jessica Osborne 20 Self Advance Directives Directive [...] TWICE A DAY 30 Qty 07/25/14 Active [place] Carbonate 300 Mg PO TWICE A DAY [...] F (96.8 - 99.1) Temperature (Calculated Celsius) 36.64908 degrees C (36.0 - 37.3) Pulse Rate [...] 2014 10:09am 3-5 /HPF - Urine Specific [place] September 04, 2014 9:34pm <=1.005 L - [...] Report May 19, 2014 4:21pm REFERENCE LAB [id number] - Chlamydia trachomatis Amplified DNA January 24, [...] September 04, 2014 9:10pm < 2 0-7 QH-Eht-I-Type Natriuretic Peptide September 04, 2014 9:10pm 237 [...] Negative Bryan Name: JESSICA OSBORNE Unit #: [id number] : 1975 Sex: F Loc / Svc: ED DOS: 08/15/14 Signed Report #: [id number] DIAGNOSTIC IMAGING REPORT TYPE OF EXAM: CHEST, PA & LATERAL Dictated By: IOANA BLAKE MD INDICATION: ITS.REASON: cough shortness of air, history of asthma, prior [place] CHEST 2-VIEWS UPRIGHT (PA & LAT): COMPARISON: [...] completed 06/17/14 EMERGENCY DEPT VISIT completed 06/17/14 [id number]"STERILE WATER, SALINE AND/OR DEXTROSE, DILUENT/FLUSH, completed 598560"STERILE WATER, SALINE AND/OR DEXTROSE, DILUENT/FLUSH, completed [id number] ITEM OR SERVICE completed 06/17/14 757891"INJECTION, LORAZEPAM, 2 MG" completed 06/17/14 CHEST X-RAY 2VW FRONTAL&LATL completed 07/25/14 ELECTROCARDIOGRAM TRACING completed 07/25/14 AIRWAY INHALATION TREATMENT completed 07/25/14 EVALUATE PT USE OF INHALER completed 07/25/14 THER/PROPH/DIAG INJ SC/IM completed 07/25/14 EMERGENCY DEPT VISIT completed 07/25/14 750710"INJECTION, DIAZEPAM, UP TO 5 MG" completed 07/25/14 [...] completed 08/15/14 EMERGENCY DEPT VISIT completed 08/15/14 [id number] ITEM OR SERVICE completed 08/15/14 [id number] ITEM OR SERVICE completed 08/15/14 [id number] ITEM OR SERVICE completed 08/15/14 891270"INJECTION, LORAZEPAM, 2 MG" completed 08/15/14 Encounters Encounter Location Date/Time Departed Emergency Room [facility] 09/04/14 9:28pm Departed Emergency Room [facility] 08/15/14 7:56pm Departed Emergency Room [facility] 07/25/14 4:06pm Departed Emergency Room [facility] 06/17/14 8:06am Departed Emergency Room [facility] 06/10/14 10:43pm Recent Diagnosis
--- OUTSIDE RECORDS SUMMARY | 2016-12-22 10:38 | XMS REPORT | Continuity of Care Document ---
Author Author [facility] Organization [facility] Address Unknown Phone Unavailable Support Name Relationship Address Phone JEAN ROTHMAN MD Caregiver [facility] MEDICINE [address] [place] [address] RAJWINDER WALSH MD Caregiver [address] [place] [phone] LORETTA OSBORNE Next Of Kin [address] [place] [address] CP Insurance Providers Payer Name Policy Number Subscriber Name Relationship Medicare [id number] Jessica Osborne 20 Self Medicaid [id number] Jessica Osborne 20 Self Advance Directives Directive [...] TWICE A DAY 60 Qty 10/20/14 Active [place] Carbonate 300 Mg PO THREE TIMES A [...] F (96.8 - 99.1) Temperature (Calculated Celsius) 36.18028 degrees C (36.0 - 37.3) Pulse Rate [...] 28, 2014 5:50pm 21 U/L L 23-300 [place] Level September 23, 2014 8:19am 0.3 MMOL/L [...] Monoscreen April 14, 2014 8:35pm Negative - OY-Anq-I-Type Natriuretic Peptide September 04, 2014 9:10pm 237 [...] 2014 10:09am 3-5 /HPF - Urine Specific [place] October 28, 2014 5:39pm 1.010 L - [...] Negative Bryan Name: JESSICA OSBORNE Unit #: [id number] : 1975 Sex: F Loc / Svc: ED DOS: 09/04/14 Signed Report #: [id number] DIAGNOSTIC IMAGING REPORT TYPE OF EXAM: CHEST, [...] completed 08/15/14 EMERGENCY DEPT VISIT completed 08/15/14 [id number] ITEM OR SERVICE completed 08/15/14 [id number] ITEM OR SERVICE completed 08/15/14 [id number] ITEM OR SERVICE completed 08/15/14 856452"INJECTION, LORAZEPAM, 2 MG" completed 08/15/14 CHEST X-RAY [...] completed 09/04/14 EMERGENCY DEPT VISIT completed 09/04/14 [id number] ITEM OR SERVICE completed 09/04/14 [id number] ITEM OR SERVICE completed 09/04/14 [id number]"INFUSION, NORMAL SALINE SOLUTION , 1000 CC" completed 09/04/14 ROUTINE VENIPUNCTURE completed 09/23/14 ASSAY OF LITHIUM completed 09/23/14 EMERGENCY DEPT VISIT completed 09/29/14 ELECTROCARDIOGRAM TRACING completed 10/16/14 EMERGENCY DEPT VISIT completed 10/16/14 [id number] ITEM OR SERVICE completed 10/16/14 Encounters Encounter Location Date/Time Departed Emergency Room [facility] 10/28/14 4:44pm Departed Emergency Room [facility] 10/16/14 3:36pm Departed Emergency Room [facility] 09/29/14 3:54pm Registered Clinic [facility] 09/23/14 8:12am Departed Emergency Room [facility] 09/04/14 9:28pm Departed Emergency Room [facility] 08/15/14 7:56pm Recent Diagnosis
--- OUTSIDE RECORDS SUMMARY | 2016-12-22 10:39 | XMS REPORT | Continuity of Care Document ---
Author Author [facility] Organization [facility] Address Unknown Phone Unavailable Care Team Providers Care Business Travel Consultant Name Role Phone JUNIE ESTRADA MD Primary Care Physician Unavailable Insurance Providers Payer Name Policy Number Subscriber Name Relationship Medicare [id number] Jessica Osborne 20 Self Advance Directives Directive [...] call for appointment with Dr. Rothman of [facility] for Sunday of next week. Make [...] Durable Medical Equipment: FWW ORDER FAXED TO [employer], CPM FROM [employer] [phone] Notify Physician If: Call your Surgeon if you have: 1.Chest pain, difficulty breathing, fever>100.5 degrees, chills, heart rate >100, confusion, or persistent nausea/vomitting. 2.Severe pain, swelling, redness, or warmth in either of your legs. 3.During office hours, call [phone] 4. After hours, please call [facility] at [phone], and have the litharge mill operator page your Surgeon IN THE EVENT [...] F (96.8 - 99.1) Temperature (Calculated Celsius) 37.81072 degrees C (36.0 - 37.3) Temperature Source [...] 2014 10:09am 3-5 /HPF - Urine Specific [place] March 13, 2014 1:32pm <=1.005 L - [...] 13, 2014 11:17am LAB TEST FORM REQUEST [id number] - Chlamydia trachomatis Amplified DNA January 24, [...] July 12, 2013 10:50am Negative NG/ML - XP-Tra-V-Type Natriuretic Peptide July 07, 2013 11:55am 112 [...] MD Encounters Encounter Location Date/Time Discharged Inpatient [facility] 03/13/14 1:02pm Registered Clinic [facility] 03/13/14 9:49am Departed Emergency Room [facility] 01/29/14 5:57pm Departed Emergency Room [facility] 01/25/14 8:12pm
--- OUTSIDE RECORDS SUMMARY | 2016-12-22 10:39 | XMS REPORT | Continuity of Care Document ---
Author Author [facility] Organization [facility] Address Unknown Phone Unavailable Support Name Relationship Address Phone JEAN ROTHMAN MD Caregiver [facility] MEDICINE [address] [place] [address] FINESSE CORADO MD Caregiver [address] [place] [address] [place] [phone] LORETTA OSBORNE Next Of Kin [address] [place] [address] CP Insurance Providers Payer Name Policy Number Subscriber Name Relationship Medicare [id number] Jessica Osborne 20 Self Medicaid [id number] Jessica Osborne 20 Self Chief Complaint and Reason for Visit Chief Complaint Chest Pain Reason for Visit Hypokalemia Leukocytosis Sinusitis Sepsis JOL-UKAK-Evohz pain Problems Medical Problems Problem Onset Date [...] days Follow Up Appointments: DR ANDREWS 06/04 [phone] Patient Instructions: Do not drive, operate machinery, drink alcohol for 72 hours Wound/Incision Care: n/a Durable Medical Equipment: n/a Notify Physician If: Worsening chest pain General Information: n/a Condition at time of discharge: Good Plan of Care Discharge Date 05/19/14 10:05am Disposition 02 TO OBS [facility] Condition at Discharge Stable Instructions/Education Provided DI [...] F (96.8 - 99.1) Temperature (Calculated Celsius) 36.11695 degrees C (36.0 - 37.3) Pulse Rate [...] 2014 10:09am 3-5 /HPF - Urine Specific [place] May 15, 2014 5:22pm <=1.005 L - [...] Report May 19, 2014 4:21pm REFERENCE LAB [id number] - Chlamydia trachomatis Amplified DNA January 24, [...] June 17, 2014 8:47am < 2 0-7 DO-Qam-I-Type Natriuretic Peptide June 17, 2014 8:47am 75 [...] Negative Bryan Name: JESSICA OSBORNE Unit #: [id number] : 1975 Sex: F Loc / Svc: ED DOS: Signed Report #: [id number] DIAGNOSTIC IMAGING REPORT TYPE OF EXAM: CHEST [...] Encounters Encounter Location Date/Time Departed Emergency Room [facility] 06/17/14 8:06am Departed Emergency Room [facility] 06/10/14 10:43pm Discharged Inpatient [facility] 05/16/14 8:39am Departed Emergency Room [facility] 05/14/14 2:44pm Departed Emergency Room [facility] 04/14/14 7:37pm Recent Diagnosis
--- OUTSIDE RECORDS SUMMARY | 2016-12-22 10:39 | XMS REPORT | Continuity of Care Document ---
Author Author [facility] Organization [facility] Address Unknown Phone Unavailable Care Team Providers Care Beveller Operator Name Role Phone JUNIE ESTRADA MD Primary Care Physician Unavailable Insurance Providers Payer Name Policy Number Subscriber Name Relationship Medicare [id number] Jessica Osborne 20 Self Problems Medical Problems [...] call for appointment with Dr. Rothman of [facility] for Sunday of next week. Make [...] of your legs. 3.During office hours, call [phone] 4. After hours, please call [facility] at [phone], and have the metal machine operator page your Surgeon IN THE [...] F (96.8 - 99.1) Temperature (Calculated Celsius) 36.69835 degrees C (36.0 - 37.3) Pulse Rate [...] 13, 2014 11:17am LAB TEST FORM REQUEST [id number] - Large Platelets July 07, 2013 11:55am [...] Monoscreen April 14, 2014 8:35pm Negative - KO-Pih-S-Type Natriuretic Peptide July 07, 2013 11:55am 112 [...] 2014 10:09am 3-5 /HPF - Urine Specific [place] April 14, 2014 8:00pm <=1.005 L - [...] Negative Bryan Name: JESSICA OSBORNE Unit #: [id number] : 1975 Sex: F Loc / Svc: KENJI DOS: 03/13/14 Signed Report #: [id number] DIAGNOSTIC IMAGING REPORT TYPE OF EXAM: CT [...] Encounters Encounter Location Date/Time Registered Emergency Room [facility] 04/14/14 7:37pm Departed Emergency Room [facility] 03/16/14 10:03pm Discharged Inpatient [facility] 03/13/14 1:02pm Registered Clinic [facility] 03/13/14 9:49am Departed Emergency Room [facility] 01/29/14 5:57pm Departed Emergency Room [facility] 01/25/14 8:12pm Recent Diagnosis
[2016-12-22 10:40] VITALS: Ht 162.6 cm; Wt 91.2 kg
--- OUTSIDE RECORDS SUMMARY | 2016-12-22 10:40 | XMS REPORT | Continuity of Care Document ---
Author Author [facility] Organization [facility] Address Unknown Phone Unavailable Care Team Providers Care Laborer Gold Leaf Name Role Phone JUNIE ESTRADA MD Primary Care Physician Unavailable Insurance Providers Payer Name Policy Number Subscriber Name Relationship Medicare [id number] Jessica Osborne 20 Self Advance Directives Directive [...] call for appointment with Dr. Rothman of [facility] for Sunday of next week. Make [...] Durable Medical Equipment: FWW ORDER FAXED TO [employer], CPM FROM [employer] [phone] Notify Physician If: Call your Surgeon if you have: 1.Chest pain, difficulty breathing, fever>100.5 degrees, chills, heart rate >100, confusion, or persistent nausea/vomitting. 2.Severe pain, swelling, redness, or warmth in either of your legs. 3.During office hours, call [phone] 4. After hours, please call [facility] at [phone], and have the tool radial drill press set up operator page your Surgeon IN THE EVENT [...] F (96.8 - 99.1) Temperature (Calculated Celsius) 37.43290 degrees C (36.0 - 37.3) Temperature Source [...] 13, 2014 11:17am LAB TEST FORM REQUEST [id number] - Large Platelets July 07, 2013 11:55am [...] Monoscreen May 06, 2010 9:46am Negative - ML-Ghm-W-Type Natriuretic Peptide July 07, 2013 11:55am 112 [...] 2014 10:09am 3-5 /HPF - Urine Specific [place] March 13, 2014 1:32pm <=1.005 L - [...] MD Encounters Encounter Location Date/Time Discharged Inpatient [facility] 03/13/14 1:02pm Registered Clinic [facility] 03/13/14 9:49am Departed Emergency Room [facility] 01/29/14 5:57pm Departed Emergency Room [facility] 01/25/14 8:12pm
--- OUTSIDE RECORDS SUMMARY | 2016-12-22 10:40 | XMS REPORT | Continuity of Care Document ---
Author Author [facility] Organization [facility] Address Unknown Phone Unavailable Support Name Relationship Address Phone JEAN ROTHMAN MD Caregiver [facility] MEDICINE [address] [place] [address] RAJWINDER WALSH MD Caregiver [address] [place] [address] [place] [phone] LORETTA OSBORNE Next Of Kin [address] [place] [address] CP Insurance Providers Payer Name Policy Number Subscriber Name Relationship Medicare [id number] Jessica Osborne 20 Self Medicaid [id number] Jessica Osborne 20 Self Advance Directives Directive Response Recorded Date/Time Advanced Directives Type None 07/25/14 4:10pm Chief Complaint and Reason for Visit Chief Complaint Chest Pain Reason for Visit Hypokalemia Leukocytosis Sinusitis Sepsis HGV-OZGS-Flzle pain Problems Medical Problems Problem Onset Date [...] days Follow Up Appointments: DR ANDREWS 06/04 [phone] Patient Instructions: Do not drive, operate machinery, [...] F (96.8 - 99.1) Temperature (Calculated Celsius) 36.38710 degrees C (36.0 - 37.3) Pulse Rate [...] 2014 10:09am 3-5 /HPF - Urine Specific [place] May 15, 2014 5:22pm <=1.005 L - [...] Report May 19, 2014 4:21pm REFERENCE LAB [id number] - Chlamydia trachomatis Amplified DNA January 24, [...] June 17, 2014 8:47am < 2 0-7 TW-Guw-U-Type Natriuretic Peptide June 17, 2014 8:47am 75 [...] Negative Bryan Name: JESSICA OSBORNE Unit #: [id number] : 1975 Sex: F Loc / Svc: ED DOS: Signed Report #: [id number] DIAGNOSTIC IMAGING REPORT TYPE OF EXAM: CHEST [...] completed 06/17/14 EMERGENCY DEPT VISIT completed 06/17/14 [id number]"STERILE WATER, SALINE AND/OR DEXTROSE, DILUENT/FLUSH, completed [id number]"STERILE WATER, SALINE AND/OR DEXTROSE, DILUENT/FLUSH, completed [id number] ITEM OR SERVICE completed 06/17/14 360810"INJECTION, LORAZEPAM, 2 MG" completed 06/17/14 Encounters Encounter Location Date/Time Departed Emergency Room [facility] 07/25/14 4:06pm Departed Emergency Room [facility] 06/17/14 8:06am Departed Emergency Room [facility] 06/10/14 10:43pm Discharged Inpatient [facility] 05/16/14 8:39am Departed Emergency Room [facility] 05/14/14 2:44pm Recent Diagnosis
--- OUTSIDE RECORDS SUMMARY | 2016-12-22 10:41 | XMS REPORT | Continuity of Care Document ---
Author Author [facility] Organization [facility] Address Unknown Phone Unavailable Allergies Active Description Code Type Severity Reaction Onset Reported/Identified Relationship to Patient Clinical Status Yes No Known Drug Allergies Drug Allergy 05/15/2011 Medications Problems Procedures Results Encounters ACCT No. Visit Date/Time Discharge Status Pt. Type Provider Facility Loc./Unit Complaint [id number] 04/18/2012 14:24:00 2011 23:59:59 CLS Preadmit Winnie CEDEÑO, Lalit Merrill [facility] W.END
--- OUTSIDE RECORDS SUMMARY | 2016-12-22 10:41 | XMS REPORT | Continuity of Care Document ---
Author Author [facility] Organization [facility] Address Unknown Phone Unavailable Support Name Relationship Address Phone ESTHER MERCADO DO Caregiver [facility] [address] [place] [address] JEAN ROTHMAN MD Caregiver [facility] [address] [place] [address] , [address] [place], [place] [id number] LORETTA OSBORNE Next Of Kin [address] [place], [place] [address] CP Insurance Providers Payer Name Policy Number Subscriber Name Relationship Medicare [id number] Jessica Osborne 20 Self Medicaid [id number] Jessica Osborne 20 Self Advance Directives Directive [...] TWICE A DAY 30 Qty 07/25/14 Active [place] Carbonate 300 Mg PO TWICE A DAY 08/15/14 Active Oxycodone HCl/Acetaminophen 1 Tab PO NEEDED Take 1 tablet, by mouth, 3 times a day. 09/04/14 Active Potassium Chloride 1 Tab PO DAILY 09/29/14 Active Ranitidine HCl 150 Mg PO DAILY 09/29/14 Active [Benzatropine] 1 Mg PO TWICE A DAY 09/29/14 Active [place] Carbonate 300 Mg PO THREE TIMES A [...] F (96.8 - 99.1) Temperature (Calculated Celsius) 36.17581 degrees C (36.0 - 37.3) Pulse Rate [...] 14, 2014 8:35pm 25 U/L N 23-300 [place] Level September 23, 2014 8:19am 0.3 MMOL/L [...] Monoscreen April 14, 2014 8:35pm Negative - JG-Xxz-H-Type Natriuretic Peptide September 04, 2014 9:10pm 237 [...] 2014 10:09am 3-5 /HPF - Urine Specific [place] September 04, 2014 9:34pm <=1.005 L - [...] Negative Bryan Name: JESSICA OSBORNE Unit #: [id number] : 1975 Sex: F Loc / Svc: ED DOS: 09/04/14 Signed Report #: [id number] DIAGNOSTIC IMAGING REPORT TYPE OF EXAM: CHEST, [...] completed 07/25/14 EMERGENCY DEPT VISIT completed 07/25/14 265760"INJECTION, DIAZEPAM, UP TO 5 MG" completed 07/25/14 [...] completed 08/15/14 EMERGENCY DEPT VISIT completed 08/15/14 [id number] ITEM OR SERVICE completed 08/15/14 [id number] ITEM OR SERVICE completed 08/15/14 [id number] ITEM OR SERVICE completed 08/15/14 331234"INJECTION, LORAZEPAM, 2 MG" completed 08/15/14 CHEST X-RAY [...] completed 09/04/14 EMERGENCY DEPT VISIT completed 09/04/14 [id number] ITEM OR SERVICE completed 09/04/14 [id number] ITEM OR SERVICE completed 09/04/14 180379"INFUSION, NORMAL SALINE SOLUTION , 1000 CC" completed 09/04/14 Encounters Encounter Location Date/Time Departed Emergency Room [facility] 09/29/14 3:54pm Registered Clinic [facility] 09/23/14 8:12am Departed Emergency Room [facility] 09/04/14 9:28pm Departed Emergency Room [facility] 08/15/14 7:56pm Departed Emergency Room [facility] 07/25/14 4:06pm Recent Diagnosis
--- OUTSIDE RECORDS SUMMARY | 2016-12-22 10:41 | XMS REPORT | Continuity of Care Document ---
Author Author [facility] Organization [facility] Address Unknown Phone Unavailable Support Name Relationship Address Phone JAIME LOPEZ MD Caregiver [address] [place] [phone] JEAN ROTHMAN MD Caregiver [facility] MEDICINE [address] [place] [address] LORETTA OSBORNE Next Of Kin [address] [place] [address] CP Insurance Providers Payer Name Policy Number Subscriber Name Relationship Medicare [id number] Jessica Osborne 20 Self Medicaid [id number] Jessica Osborne 20 Self Advance Directives Directive [...] F (96.8 - 99.1) Temperature (Calculated Celsius) 36.09068 degrees C (36.0 - 37.3) Pulse Rate [...] 14, 2014 8:35pm 25 U/L N 23-300 [place] September 23, 2014 8:19am 0.3 MMOL/L [...] Monoscreen April 14, 2014 8:35pm Negative - XD-Ake-R-Type Natriuretic Peptide September 04, 2014 9:10pm 237 [...] 2014 10:09am 3-5 /HPF - Urine Specific [place] September 04, 2014 9:34pm <=1.005 L - [...] Negative Bryan Name: JESSICA OSBORNE Unit #: [id number] : 1975 Sex: F Loc / Svc: ED DOS: 09/04/14 Signed Report #: [id number] DIAGNOSTIC IMAGING REPORT TYPE OF EXAM: CHEST, [...] completed 07/25/14 EMERGENCY DEPT VISIT completed 07/25/14 [id number]"INJECTION, DIAZEPAM, UP TO 5 MG" completed 07/25/14 [...] completed 08/15/14 EMERGENCY DEPT VISIT completed 08/15/14 [id number] ITEM OR SERVICE completed 08/15/14 [id number] ITEM OR SERVICE completed 08/15/14 [id number]-POCMTOC ITEM OR SERVICE completed 08/15/14 323078"INJECTION, LORAZEPAM, 2 MG" completed 08/15/14 CHEST X-RAY [...] completed 09/04/14 EMERGENCY DEPT VISIT completed 09/04/14 [id number] ITEM OR SERVICE completed 09/04/14 [id number] ITEM OR SERVICE completed 09/04/14 782385"INFUSION, NORMAL SALINE SOLUTION , 1000 CC" completed 09/04/14 ROUTINE VENIPUNCTURE completed 09/23/14 ASSAY OF LITHIUM completed 09/23/14 EMERGENCY DEPT VISIT completed 09/29/14 Encounters Encounter Location Date/Time Departed Emergency Room [facility] 10/16/14 3:36pm Departed Emergency Room [facility] 09/29/14 3:54pm Registered Clinic [facility] 09/23/14 8:12am Departed Emergency Room [facility] 09/04/14 9:28pm Departed Emergency Room [facility] 08/15/14 7:56pm Departed Emergency Room [facility] 07/25/14 4:06pm Recent Diagnosis
[2016-12-22] MEDS ORDERED: BENZ2TAB7 PO (10:57)
[2016-12-22] MEDS ORDERED: CLON1TAB4 PO (11:00)
--- OUTSIDE RECORDS SUMMARY | 2016-12-22 11:29 | XMS REPORT | Continuity of Care Document ---
Author Author [facility] Organization [facility] Address Unknown Phone Unavailable Care Team Providers Care Generator Technician Name Role Phone JUNIE ESTRADA MD Primary Care Physician Unavailable Insurance Providers Payer Name Policy Number Subscriber Name Relationship Medicare [id number] Jessica Osborne 20 Self Medicaid [id number] Jessica Osborne 20 Self Advance Directives Directive [...] call for appointment with Dr. Rothman of [facility] for Sunday of next week. Make appointment [...] of your legs. 3.During office hours, call [phone] 4. After hours, please call [facility] at [phone], and have the pulverizer operator page your Surgeon IN THE EVENT [...] 2014 10:09am 3-5 /HPF - Urine Specific [place] April 14, 2014 8:00pm <=1.005 L - [...] 13, 2014 11:17am LAB TEST FORM REQUEST [id number] - Chlamydia trachomatis Amplified DNA January 24, [...] July 12, 2013 10:50am Negative NG/ML - KC-Unc-K-Type Natriuretic Peptide July 07, 2013 11:55am 112 [...] Negative Bryan Name: JESSICA OSBORNE Unit #: [id number] : 1975 Sex: F Loc / Svc: ED DOS: 04/14/14 Signed Report #: [id number] DIAGNOSTIC IMAGING REPORT TYPE OF EXAM: CHEST, [...] Encounters Encounter Location Date/Time Departed Emergency Room [facility] 05/14/14 2:44pm Departed Emergency Room [facility] 04/14/14 7:37pm Departed Emergency Room [facility] 03/16/14 10:03pm Discharged Inpatient [facility] 03/13/14 1:02pm Registered Clinic [facility] 03/13/14 9:49am Recent Diagnosis
--- OUTSIDE RECORDS SUMMARY | 2016-12-22 11:31 | XMS REPORT | Continuity of Care Document ---
Author Author [facility] Organization [facility] Address Unknown Phone Unavailable Support Name Relationship Address Phone JAIME LOPEZ MD Caregiver [address] [place] [address] [place] [phone] AIDEN NAVARRO MD Caregiver [address] [place] [address] [place] [address] JEAN ROTHMAN MD Caregiver [address] [place] [address] LORETTA OSBORNE Next Of Kin [address] [place] [address] CP Insurance Providers Payer Name Policy Number Subscriber Name Relationship Medicare [id number] Jessica Osborne 20 Self Medicaid [id number] Jessica Osborne 20 Self Advance Directives Directive [...] days Follow Up Appointments: DR ANDREWS 06/04 [phone] Patient Instructions: Do not drive, operate machinery, drink alcohol for 72 hours Wound/Incision Care: n/a Durable Medical Equipment: n/a Notify Physician If: Worsening chest pain General Information: n/a Condition at time of discharge: Good excessive/foul smelling drainage at your incision site. - You have difficulty breathing. During office hours, call [phone]. After hours, please call [facility] at [phone] and have the wood lathe operator page Dr. Cardona or the covering [...] F (96.8 - 99.1) Temperature (Calculated Celsius) 36.15543 degrees C (36.0 - 37.3) Temperature Source [...] 13, 2014 11:17am LAB TEST FORM REQUEST [id number] - Large Platelets July 07, 2013 11:55am [...] Monoscreen April 14, 2014 8:35pm Negative - TM-Abf-W-Type Natriuretic Peptide May 15, 2014 4:47pm 236 [...] 2014 10:09am 3-5 /HPF - Urine Specific [place] May 15, 2014 5:22pm <=1.005 L - [...] Bryan Name: JESSICA OSBORNE Odalis Unit #: [id number] : 1975 Sex: F Loc / Svc: SRG DOS: 05/15/14 Signed Report #: [id number] DIAGNOSTIC IMAGING REPORT TYPE OF EXAM: CT [...] 03/16/14 Encounters Encounter Location Date/Time Discharged Inpatient [facility] 05/16/14 8:39am Departed Emergency Room [facility] 05/14/14 2:44pm Departed Emergency Room [facility] 04/14/14 7:37pm Departed Emergency Room [facility] 03/16/14 10:03pm Discharged Inpatient [facility] 03/13/14 1:02pm Registered Clinic [facility] 03/13/14 9:49am Recent Diagnosis Chest pain Leukocytosis Hypokalemia Leukocytosis Sinusitis Sepsis Hypertension Hypercholesterolemia History of pulmonary embolism Asthma GERD (gastroesophageal reflux disease) IBS (irritable bowel syndrome) History of alcohol abuse Bipolar 1 disorder Anxiety Tobacco dependence NSTEMI (non-ST elevated myocardial infarction)
--- OUTSIDE RECORDS SUMMARY | 2016-12-22 11:31 | XMS REPORT | Continuity of Care Document ---
Author Author [facility] Organization [facility] Address Unknown Phone Unavailable Care Team Providers Care Tube Handler Name Role Phone JUNIE ESTRADA MD Primary Care Physician Unavailable Insurance Providers Payer Name Policy Number Subscriber Name Relationship Medicare [id number] Jessica Osborne 20 Self Problems Medical Problems [...] Up Appointments: call for appointment with Dr. Rohtman of [facility] [place] for Sunday of next week. Make appointment [...] F (96.8 - 99.1) Temperature (Calculated Celsius) 36.81716 degrees C (36.0 - 37.3) Pulse Rate [...] 2014 10:09am 3-5 /HPF - Urine Specific [place] March 16, 2014 11:25pm 1.010 L - [...] 13, 2014 11:17am LAB TEST FORM REQUEST [id number] - Chlamydia trachomatis Amplified DNA January 24, [...] July 12, 2013 10:50am Negative NG/ML - XK-Xng-Q-Type Natriuretic Peptide July 07, 2013 11:55am 112 [...] Provider(s) PLACE NEEDLE IN VEIN completed 01/29/14 ADNISH LOPEZ MD Encounters Encounter Location Date/Time Departed Emergency Room [facility] 03/16/14 10:03pm Discharged Inpatient [facility] 03/13/14 1:02pm Registered Clinic [facility] 03/13/14 9:49am Departed Emergency Room [facility] 01/29/14 5:57pm Departed Emergency Room [facility] 01/25/14 8:12pm Recent Diagnosis
--- OUTSIDE RECORDS SUMMARY | 2016-12-22 11:32 | XMS REPORT | Continuity of Care Document ---
Author Author [facility] LIVE Organization [facility] Address Unknown Phone Unavailable Support Name Relationship Address Phone JEAN ROTHMAN MD Caregiver [facility] [address] [place] [address] FINESSE CORADO MD Caregiver [address] [place] [address] [place] [phone] LORETTA OSBORNE Next Of Kin [address] [place] [address] CP Insurance Providers Payer Name Policy Number Subscriber Name Relationship Medicare [id number] Jessica Osborne 20 Self Medicaid [id number] Jessica Osborne 20 Self Chief Complaint and Reason for Visit Chief Complaint Chest Pain Reason for Visit Hypokalemia Leukocytosis Sinusitis Sepsis PWC-XTLA-Ngnsx pain Problems Medical Problems Problem Onset Date [...] TWICE A DAY 30 Qty 07/25/14 Active [place] Carbonate 300 Mg PO TWICE A DAY [...] days Follow Up Appointments: DR ANDREWS 06/04 [phone] Patient Instructions: Do not drive, operate machinery, [...] Date 05/19/14 10:05am Disposition 02 TO OBS [facility] Condition at Discharge Stable Instructions/Education Provided DI [...] F (96.8 - 99.1) Temperature (Calculated Celsius) 36.69614 degrees C (36.0 - 37.3) Pulse Rate [...] 2014 10:09am 3-5 /HPF - Urine Specific [place] August 15, 2014 8:38pm <=1.005 L - [...] Report May 19, 2014 4:21pm REFERENCE LAB [id number] - Chlamydia trachomatis Amplified DNA January 24, [...] August 15, 2014 8:31pm < 2 0-7 SB-Ojr-L-Type Natriuretic Peptide August 15, 2014 8:31pm 68 [...] Bryan Name: JESSICA OSBORNE Odalis Unit #: [id number] : 1975 Sex: F Loc / Svc: ED DOS: 07/25/14 Signed Report #: [id number] DIAGNOSTIC IMAGING REPORT TYPE OF EXAM: CHEST, [...] completed 06/17/14 EMERGENCY DEPT VISIT completed 06/17/14 886055"STERILE WATER, SALINE AND/OR DEXTROSE, DILUENT/FLUSH, completed 755677"STERILE WATER, SALINE AND/OR DEXTROSE, DILUENT/FLUSH, completed [id number] ITEM OR SERVICE completed 06/17/14 447677"INJECTION, LORAZEPAM, 2 MG" completed 06/17/14 CHEST X-RAY 2VW FRONTAL&LATL completed 07/25/14 ELECTROCARDIOGRAM TRACING completed 07/25/14 AIRWAY INHALATION TREATMENT completed 07/25/14 EVALUATE PT USE OF INHALER completed 07/25/14 THER/PROPH/DIAG INJ SC/IM completed 07/25/14 EMERGENCY DEPT VISIT completed 07/25/14 [id number]"INJECTION, DIAZEPAM, UP TO 5 MG" completed 07/25/14 Encounters Encounter Location Date/Time Departed Emergency Room [facility] 08/15/14 7:56pm Departed Emergency Room [facility] 07/25/14 4:06pm Departed Emergency Room [facility] 06/17/14 8:06am Departed Emergency Room [facility] 06/10/14 10:43pm Discharged Inpatient [facility] 05/16/14 8:39am Recent Diagnosis
--- OUTSIDE RECORDS SUMMARY | 2016-12-22 11:33 | XMS REPORT | Continuity of Care Document ---
Author Author [facility]IVE Organization [facility] Address Unknown Phone Unavailable Support Name Relationship Address Phone JEAN ROTHMAN MD Caregiver [facility] [address] [place] [address] RAJWINDER WALSH MD Caregiver [address] [facility] [place] [phone] LORETTA OSBORNE Next Of Kin [address] [place] [address] CP Insurance Providers Payer Name Policy Number Subscriber Name Relationship Medicare [id number] Jessica Osborne 20 Self Medicaid [id number] Jessica Osborne 20 Self Advance Directives Directive [...] TWICE A DAY 30 Qty 07/25/14 Active [place] Carbonate 300 Mg PO TWICE A DAY [...] F (96.8 - 99.1) Temperature (Calculated Celsius) 36.66886 degrees C (36.0 - 37.3) Pulse Rate [...] 2014 10:09am 3-5 /HPF - Urine Specific [place] September 04, 2014 9:34pm <=1.005 L - [...] Report May 19, 2014 4:21pm REFERENCE LAB [id number] - Chlamydia trachomatis Amplified DNA January 24, [...] September 04, 2014 9:10pm < 2 0-7 HE-Bou-O-Type Natriuretic Peptide September 04, 2014 9:10pm 237 [...] Negative Bryan Name: JESSICA OSBORNE Unit #: [id number] : 1975 Sex: F Loc / Svc: ED DOS: 08/15/14 Signed Report #: [id number] DIAGNOSTIC IMAGING REPORT TYPE OF EXAM: CHEST, PA & LATERAL Dictated By: IOANA BLAKE MD INDICATION: ITS.REASON: cough shortness of air, history of asthma, prior [place] CHEST 2-VIEWS UPRIGHT (PA & LAT): COMPARISON: [...] completed 06/17/14 EMERGENCY DEPT VISIT completed 06/17/14 336302"STERILE WATER, SALINE AND/OR DEXTROSE, DILUENT/FLUSH, completed 882695"STERILE WATER, SALINE AND/OR DEXTROSE, DILUENT/FLUSH, completed [id number] ITEM OR SERVICE completed 06/17/14 [id number]"INJECTION, LORAZEPAM, 2 MG" completed 06/17/14 CHEST X-RAY 2VW FRONTAL&LATL completed 07/25/14 ELECTROCARDIOGRAM TRACING completed 07/25/14 AIRWAY INHALATION TREATMENT completed 07/25/14 EVALUATE PT USE OF INHALER completed 07/25/14 THER/PROPH/DIAG INJ SC/IM completed 07/25/14 EMERGENCY DEPT VISIT completed 07/25/14 198519"INJECTION, DIAZEPAM, UP TO 5 MG" completed 07/25/14 [...] completed 08/15/14 EMERGENCY DEPT VISIT completed 08/15/14 [id number] ITEM OR SERVICE completed 08/15/14 [id number] ITEM OR SERVICE completed 08/15/14 [id number] ITEM OR SERVICE completed 08/15/14 829715"INJECTION, LORAZEPAM, 2 MG" completed 08/15/14 Encounters Encounter Location Date/Time Departed Emergency Room [facility] 09/04/14 9:28pm Departed Emergency Room [facility] 08/15/14 7:56pm Departed Emergency Room [facility] 07/25/14 4:06pm Departed Emergency Room [facility] 06/17/14 8:06am Departed Emergency Room [facility] 06/10/14 10:43pm Recent Diagnosis
--- OUTSIDE RECORDS SUMMARY | 2016-12-22 11:33 | XMS REPORT | Continuity of Care Document ---
Author Author [facility]IVE Organization [facility] Address Unknown Phone Unavailable Support Name Relationship Address Phone GRACIELA FAY MD Caregiver [facility] [address] [place] [address] Unavailable JEAN ROTHMAN MD Caregiver [address] [place], [place] [phone] LORETTA OSBORNE Next Of Kin [address] [place] [address] CP Insurance Providers Payer Name Policy Number Subscriber Name Relationship Medicare [id number] Jessica Osborne 20 Self Medicaid [id number] Jessica Osborne 20 Self Advance Directives Directive Response Recorded Date/Time Advanced Directives Type None 06/10/14 10:50pm Chief Complaint and Reason for Visit Chief Complaint Chest Pain Reason for Visit Hypokalemia Leukocytosis Sinusitis Sepsis CED-CNDW-Fqrru pain Problems Medical Problems Problem Onset Date [...] days Follow Up Appointments: DR ANDREWS 06/04 [phone] Patient Instructions: Do not drive, operate machinery, [...] of your legs. 3.During office hours, call [phone] 4. After hours, please call [facility] at [phone], and have the paper tube machine operator page your Surgeon IN THE EVENT OF AN EMERGENCY, seek medical care at the nearest Emergency Room Condition at time of discharge: Good Plan of Care Discharge Date 05/19/14 10:05am Disposition 02 TO OBS [facility] Condition at Discharge Stable Instructions/Education Provided DI [...] F (96.8 - 99.1) Temperature (Calculated Celsius) 36.98183 degrees C (36.0 - 37.3) Pulse Rate [...] 2014 10:09am 3-5 /HPF - Urine Specific [place] May 15, 2014 5:22pm <=1.005 L - [...] Report May 19, 2014 4:21pm REFERENCE LAB [id number] - Chlamydia trachomatis Amplified DNA January 24, [...] June 10, 2014 11:28pm < 2 0-7 JW-Axe-Y-Type Natriuretic Peptide May 15, 2014 4:47pm 236 [...] Negative Bryan Name: JESSICA OSBORNE Unit #: [id number] : 1975 Sex: F Loc / Svc: SRG DOS: 05/15/14 Signed Report #: [id number] DIAGNOSTIC IMAGING REPORT TYPE OF EXAM: CT [...] Date/Time Departed Emergency Room [facility] 06/10/14 10:43pm Discharged Inpatient [facility] 05/16/14 8:39am Departed Emergency Room [facility] 05/14/14 2:44pm Departed Emergency Room [facility] 04/14/14 7:37pm Departed Emergency Room [facility] 03/16/14 10:03pm Discharged Inpatient [facility] 03/13/14 1:02pm Registered Clinic [facility] 03/13/14 9:49am Recent Diagnosis
--- OUTSIDE RECORDS SUMMARY | 2016-12-22 11:34 | XMS REPORT | Continuity of Care Document ---
Author Author [facility] Organization [facility] Address Unknown Phone Unavailable Support Name Relationship Address Phone JEAN ROTHMAN MD Caregiver [facility] [address] [place] [address] FINESSE CORADO MD Caregiver [address] [place] [address] [place] [phone] LORETTA OSBORNE Next Of Kin [address] [place] [address] [place] [address] CP Insurance Providers Payer Name Policy Number Subscriber Name Relationship Medicare [id number] Jessica Osborne 20 Self Medicaid [id number] Jessica Osborne 20 Self Chief Complaint and Reason for Visit Chief Complaint Chest Pain Reason for Visit Hypokalemia Leukocytosis Sinusitis Sepsis JHL-UMLB-Luiie pain Problems Medical Problems Problem Onset Date [...] days Follow Up Appointments: DR ANDREWS 06/04 [phone] Patient Instructions: Do not drive, operate machinery, drink alcohol for 72 hours Wound/Incision Care: n/a Durable Medical Equipment: n/a Notify Physician If: Worsening chest pain General Information: n/a Condition at time of discharge: Good Plan of Care Discharge Date 05/19/14 10:05am Disposition 02 TO OBS [facility] Condition at Discharge Stable Instructions/Education Provided DI [...] F (96.8 - 99.1) Temperature (Calculated Celsius) 36.75369 degrees C (36.0 - 37.3) Pulse Rate [...] 2014 10:09am 3-5 /HPF - Urine Specific [place] May 15, 2014 5:22pm <=1.005 L - [...] Report May 19, 2014 4:21pm REFERENCE LAB [id number] - Chlamydia trachomatis Amplified DNA January 24, [...] June 17, 2014 8:47am < 2 0-7 KB-Vii-W-Type Natriuretic Peptide June 17, 2014 8:47am 75 [...] Negative Bryan Name: JESSICA OSBORNE Unit #: [id number] : 1975 Sex: F Loc / Svc: ED DOS: Signed Report #: [id number] DIAGNOSTIC IMAGING REPORT TYPE OF EXAM: CHEST [...] Encounters Encounter Location Date/Time Departed Emergency Room [facility] 06/17/14 8:06am Departed Emergency Room [facility] 06/10/14 10:43pm Discharged Inpatient [facility] 05/16/14 8:39am Departed Emergency Room [facility] 05/14/14 2:44pm Departed Emergency Room [facility] 04/14/14 7:37pm Recent Diagnosis
--- OUTSIDE RECORDS SUMMARY | 2016-12-22 11:34 | XMS REPORT | Continuity of Care Document ---
Author Author [facility] LIVE Organization [facility] Address Unknown Phone Unavailable Support Name Relationship Address Phone JEAN ROTHMAN MD Caregiver [facility] [address] [place] [address] RAJWINDER WALSH MD Caregiver [address] [facility] [place] [phone] LORETTA OSBORNE Next Of Kin [address] [place] [address] CP Insurance Providers Payer Name Policy Number Subscriber Name Relationship Medicare [id number] Jessica Osborne 20 Self Medicaid [id number] Jessica Osborne 20 Self Advance Directives Directive [...] TWICE A DAY 60 Qty 10/20/14 Active [place] Carbonate 300 Mg PO THREE TIMES A [...] F (96.8 - 99.1) Temperature (Calculated Celsius) 36.00981 degrees C (36.0 - 37.3) Pulse Rate [...] 28, 2014 5:50pm 21 U/L L 23-300 [place] Level September 23, 2014 8:19am 0.3 MMOL/L [...] Monoscreen April 14, 2014 8:35pm Negative - EV-Icx-W-Type Natriuretic Peptide September 04, 2014 9:10pm 237 [...] 2014 10:09am 3-5 /HPF - Urine Specific [place] October 28, 2014 5:39pm 1.010 L - [...] Negative Bryan Name: JESSICA OSBORNE Unit #: [id number] : 1975 Sex: F Loc / Svc: ED DOS: 09/04/14 Signed Report #: [id number] DIAGNOSTIC IMAGING REPORT TYPE OF EXAM: CHEST, [...] completed 08/15/14 EMERGENCY DEPT VISIT completed 08/15/14 [id number] ITEM OR SERVICE completed 08/15/14 [id number] ITEM OR SERVICE completed 08/15/14 [id number] ITEM OR SERVICE completed 08/15/14 [id number]"INJECTION, LORAZEPAM, 2 MG" completed 08/15/14 CHEST X-RAY [...] completed 09/04/14 EMERGENCY DEPT VISIT completed 09/04/14 [id number] ITEM OR SERVICE completed 09/04/14 [id number] ITEM OR SERVICE completed 09/04/14 456120"INFUSION, NORMAL SALINE SOLUTION , 1000 CC" completed 09/04/14 ROUTINE VENIPUNCTURE completed 09/23/14 ASSAY OF LITHIUM completed 09/23/14 EMERGENCY DEPT VISIT completed 09/29/14 ELECTROCARDIOGRAM TRACING completed 10/16/14 EMERGENCY DEPT VISIT completed 10/16/14 [id number] ITEM OR SERVICE completed 10/16/14 Encounters Encounter Location Date/Time Departed Emergency Room [facility] 10/28/14 4:44pm Departed Emergency Room [facility] 10/16/14 3:36pm Departed Emergency Room [facility] 09/29/14 3:54pm Registered Clinic [facility] 09/23/14 8:12am Departed Emergency Room [facility] 09/04/14 9:28pm Departed Emergency Room [facility] 08/15/14 7:56pm Recent Diagnosis
--- OUTSIDE RECORDS SUMMARY | 2016-12-22 11:35 | XMS REPORT | Continuity of Care Document ---
Author Author [facility] Organization [facility] Address Unknown Phone Unavailable Care Team Providers Care Prep Person Name Role Phone JUNIE ESTRADA MD Primary Care Physician Unavailable Insurance Providers Payer Name Policy Number Subscriber Name Relationship Medicare [id number] Jessica Osborne 20 Self Advance Directives Directive [...] call for appointment with Dr. Rothman of [facility] for Sunday of next week. [...] Durable Medical Equipment: FWW ORDER FAXED TO [employer], CPM FROM [employer] [phone] Notify Physician If: Call your Surgeon if you have: 1.Chest pain, difficulty breathing, fever>100.5 degrees, chills, heart rate >100, confusion, or persistent nausea/vomitting. 2.Severe pain, swelling, redness, or warmth in either of your legs. 3.During office hours, call [phone] 4. After hours, please call [facility] at [phone], and have the pellet press operator page your Surgeon IN THE [...] F (96.8 - 99.1) Temperature (Calculated Celsius) 37.65980 degrees C (36.0 - 37.3) Temperature Source [...] 2014 10:09am 3-5 /HPF - Urine Specific [place] March 13, 2014 1:32pm <=1.005 L - [...] 13, 2014 11:17am LAB TEST FORM REQUEST [id number] - Chlamydia trachomatis Amplified DNA January 24, [...] July 12, 2013 10:50am Negative NG/ML - GQ-Zdt-T-Type Natriuretic Peptide July 07, 2013 11:55am 112 [...] MD Encounters Encounter Location Date/Time Discharged Inpatient [facility] 03/13/14 1:02pm Registered Clinic [facility] 03/13/14 9:49am Departed Emergency Room [facility] 01/29/14 5:57pm Departed Emergency Room [facility] 01/25/14 8:12pm
--- OUTSIDE RECORDS SUMMARY | 2016-12-22 11:35 | XMS REPORT | Continuity of Care Document ---
Author Author [facility] Organization [facility] Address Unknown Phone Unavailable Care Team Providers Care Rehabilitation Construction Specialist Name Role Phone JUNIE ESTRADA MD Primary Care Physician Unavailable Insurance Providers Payer Name Policy Number Subscriber Name Relationship Medicare [id number] Jessica Osborne 20 Self Problems Medical Problems [...] for appointment with Dr. Rothman of [facility] for Sunday of next week. Make appointment [...] of your legs. 3.During office hours, call [phone] 4. After hours, please call [facility] at [phone], and have the table cut off saw operator page your Surgeon [...] F (96.8 - 99.1) Temperature (Calculated Celsius) 36.34296 degrees C (36.0 - 37.3) Pulse Rate [...] 13, 2014 11:17am LAB TEST FORM REQUEST [id number] - Large Platelets July 07, 2013 11:55am [...] Monoscreen April 14, 2014 8:35pm Negative - JS-Ssb-A-Type Natriuretic Peptide July 07, 2013 11:55am 112 [...] 2014 10:09am 3-5 /HPF - Urine Specific [place] April 14, 2014 8:00pm <=1.005 L - [...] Negative Bryan Name: JESSICA OSBORNE Unit #: [id number] : 1975 Sex: F Loc / Svc: KENJI DOS: 03/13/14 Signed Report #: [id number] DIAGNOSTIC IMAGING REPORT TYPE OF EXAM: CT [...] Encounters Encounter Location Date/Time Registered Emergency Room [facility] 04/14/14 7:37pm Departed Emergency Room [facility] 03/16/14 10:03pm Discharged Inpatient [facility] 03/13/14 1:02pm Registered Clinic [facility] 03/13/14 9:49am Departed Emergency Room [facility] 01/29/14 5:57pm Departed Emergency Room [facility] 01/25/14 8:12pm Recent Diagnosis
--- OUTSIDE RECORDS SUMMARY | 2016-12-22 11:35 | XMS REPORT | Continuity of Care Document ---
Author Author [facility] Organization [facility] Address Unknown Phone Unavailable Support Name Relationship Address Phone JEAN ROTHMAN MD Caregiver [facility] [address] [place] [address] RAJWINDER WALSH MD Caregiver [address] [place] [address] [place] [phone] LORETTA OSBORNE Next Of Kin [address] [place] [address] CP Insurance Providers Payer Name Policy Number Subscriber Name Relationship Medicare [id number] Jessica Osborne 20 Self Medicaid [id number] Jessica Osborne 20 Self Advance Directives Directive Response Recorded Date/Time Advanced Directives Type None 07/25/14 4:10pm Chief Complaint and Reason for Visit Chief Complaint Chest Pain Reason for Visit Hypokalemia Leukocytosis Sinusitis Sepsis RKU-SEQT-Jkkij pain Problems Medical Problems Problem Onset Date [...] days Follow Up Appointments: DR ANDREWS 06/04 [phone] Patient Instructions: Do not drive, operate machinery, [...] F (96.8 - 99.1) Temperature (Calculated Celsius) 36.00869 degrees C (36.0 - 37.3) Pulse Rate [...] 2014 10:09am 3-5 /HPF - Urine Specific [place] May 15, 2014 5:22pm <=1.005 L - [...] Report May 19, 2014 4:21pm REFERENCE LAB [id number] - Chlamydia trachomatis Amplified DNA January 24, [...] June 17, 2014 8:47am < 2 0-7 HV-Pqd-M-Type Natriuretic Peptide June 17, 2014 8:47am 75 [...] Negative Bryan Name: JESSICA OSBORNE Unit #: [id number] : 1975 Sex: F Loc / Svc: ED DOS: Signed Report #: [id number] DIAGNOSTIC IMAGING REPORT TYPE OF EXAM: CHEST [...] completed 06/17/14 EMERGENCY DEPT VISIT completed 06/17/14 [id number]"STERILE WATER, SALINE AND/OR DEXTROSE, DILUENT/FLUSH, completed [id number]"STERILE WATER, SALINE AND/OR DEXTROSE, DILUENT/FLUSH, completed [id number] ITEM OR SERVICE completed 06/17/14 [id number]"INJECTION, LORAZEPAM, 2 MG" completed 06/17/14 Encounters Encounter Location Date/Time Departed Emergency Room [facility] 07/25/14 4:06pm Departed Emergency Room [facility] 06/17/14 8:06am Departed Emergency Room [facility] 06/10/14 10:43pm Discharged Inpatient [facility] 05/16/14 8:39am Departed Emergency Room [facility] 05/14/14 2:44pm Recent Diagnosis
--- OUTSIDE RECORDS SUMMARY | 2016-12-22 11:36 | XMS REPORT | Continuity of Care Document ---
Author Author [facility] Organization [facility] Address Unknown Phone Unavailable Support Name Relationship Address Phone ESTHER MERCADO DO Caregiver [facility] [address] [address] JEAN ROTHMAN MD Caregiver [facility]INE [address] [place] [address] , [address] [place], [place] [phone] LORETTA OSBORNE Next Of Kin [address] [place], [place] [id number] CP Insurance Providers Payer Name Policy Number Subscriber Name Relationship Medicare [id number] Jessica Osborne 20 Self Medicaid [id number] Jessica Osborne 20 Self Advance Directives Directive [...] TWICE A DAY 30 Qty 07/25/14 Active [place] Carbonate 300 Mg PO TWICE A DAY 08/15/14 Active Oxycodone HCl/Acetaminophen 1 Tab PO NEEDED Take 1 tablet, by mouth, 3 times a day. 09/04/14 Active Potassium Chloride 1 Tab PO DAILY 09/29/14 Active Ranitidine HCl 150 Mg PO DAILY 09/29/14 Active [Benzatropine] 1 Mg PO TWICE A DAY 09/29/14 Active [place] Carbonate 300 Mg PO THREE TIMES A [...] F (96.8 - 99.1) Temperature (Calculated Celsius) 36.65951 degrees C (36.0 - 37.3) Pulse Rate [...] 14, 2014 8:35pm 25 U/L N 23-300 [place] Level September 23, 2014 8:19am 0.3 MMOL/L [...] Monoscreen April 14, 2014 8:35pm Negative - EH-Get-N-Type Natriuretic Peptide September 04, 2014 9:10pm 237 [...] 2014 10:09am 3-5 /HPF - Urine Specific [place] September 04, 2014 9:34pm <=1.005 L - [...] Negative Bryan Name: JESSICA OSBORNE Unit #: [id number] : 1975 Sex: F Loc / Svc: ED DOS: 09/04/14 Signed Report #: [id number] DIAGNOSTIC IMAGING REPORT TYPE OF EXAM: CHEST, [...] completed 07/25/14 EMERGENCY DEPT VISIT completed 07/25/14 [id number]"INJECTION, DIAZEPAM, UP TO 5 MG" completed 07/25/14 [...] completed 08/15/14 EMERGENCY DEPT VISIT completed 08/15/14 [id number] ITEM OR SERVICE completed 08/15/14 [id number] ITEM OR SERVICE completed 08/15/14 [id number] ITEM OR SERVICE completed 08/15/14 [id number]"INJECTION, LORAZEPAM, 2 MG" completed 08/15/14 CHEST X-RAY [...] completed 09/04/14 EMERGENCY DEPT VISIT completed 09/04/14 [id number] ITEM OR SERVICE completed 09/04/14 [id number] ITEM OR SERVICE completed 09/04/14 182126"INFUSION, NORMAL SALINE SOLUTION , 1000 CC" completed 09/04/14 Encounters Encounter Location Date/Time Departed Emergency Room [facility] 09/29/14 3:54pm Registered Clinic [facility] 09/23/14 8:12am Departed Emergency Room [facility] 09/04/14 9:28pm Departed Emergency Room [facility] 08/15/14 7:56pm Departed Emergency Room [facility] 07/25/14 4:06pm Recent Diagnosis
--- OUTSIDE RECORDS SUMMARY | 2016-12-22 11:36 | XMS REPORT | Continuity of Care Document ---
Author Author [facility] Organization [facility] Address Unknown Phone Unavailable Care Team Providers Care Pc Tech Name Role Phone JUNIE ESTRADA MD Primary Care Physician Unavailable Insurance Providers Payer Name Policy Number Subscriber Name Relationship Medicare [id number] Jessica Osborne 20 Self Advance Directives Directive [...] call for appointment with Dr. Rothman of [facility] for Sunday of next week. [...] Durable Medical Equipment: FWW ORDER FAXED TO sceniosPARMA, CPM FROM [employer] [phone] Notify Physician If: Call your Surgeon if you have: 1.Chest pain, difficulty breathing, fever>100.5 degrees, chills, heart rate >100, confusion, or persistent nausea/vomitting. 2.Severe pain, swelling, redness, or warmth in either of your legs. 3.During office hours, call [phone] 4. After hours, please call [facility] at [phone], and have the heavy rail train operator page your Surgeon IN THE EVENT [...] F (96.8 - 99.1) Temperature (Calculated Celsius) 37.85899 degrees C (36.0 - 37.3) Temperature Source [...] 13, 2014 11:17am LAB TEST FORM REQUEST [id number] - Large Platelets July 07, 2013 11:55am [...] Monoscreen May 06, 2010 9:46am Negative - QI-Syj-Y-Type Natriuretic Peptide July 07, 2013 11:55am 112 [...] 2014 10:09am 3-5 /HPF - Urine Specific [place] March 13, 2014 1:32pm <=1.005 L - [...] MD Encounters Encounter Location Date/Time Discharged Inpatient [facility] 03/13/14 1:02pm Registered Clinic [facility] 03/13/14 9:49am Departed Emergency Room [facility] 01/29/14 5:57pm Departed Emergency Room [facility] 01/25/14 8:12pm
--- OUTSIDE RECORDS SUMMARY | 2016-12-22 11:37 | XMS REPORT | Continuity of Care Document ---
Author Author [facility] Organization [facility] Address Unknown Phone Unavailable Allergies Active Description Code Type Severity Reaction Onset Reported/Identified Relationship to Patient Clinical Status Yes No Known Drug Allergies Drug Allergy 05/15/2011 Medications Problems Procedures Results Encounters ACCT No. Visit Date/Time Discharge Status Pt. Type Provider Facility Loc./Unit Complaint [id number] 04/18/2012 14:24:00 2011 23:59:59 CLS Preadmit Winnie CEDEÑO, Lalit Merrill [facility] W.END
--- OUTSIDE RECORDS SUMMARY | 2016-12-22 11:37 | XMS REPORT | Continuity of Care Document ---
Author Author [facility] Organization [facility] Address Unknown Phone Unavailable Support Name Relationship Address Phone JAIME LOPEZ MD Caregiver [address] [facility] [place] [phone] JEAN ROTHMAN MD Caregiver [facility] [address] [place] [address] LORETTA OSBORNE Next Of Kin [address] [place] [address] CP Insurance Providers Payer Name Policy Number Subscriber Name Relationship Medicare [id number] Jessica Osborne 20 Self Medicaid [id number] Jessica Osborne 20 Self Advance Directives Directive [...] F (96.8 - 99.1) Temperature (Calculated Celsius) 36.29426 degrees C (36.0 - 37.3) Pulse Rate [...] 14, 2014 8:35pm 25 U/L N 23-300 [place] Level September 23, 2014 8:19am 0.3 MMOL/L [...] Monoscreen April 14, 2014 8:35pm Negative - ET-Wpj-P-Type Natriuretic Peptide September 04, 2014 9:10pm 237 [...] 2014 10:09am 3-5 /HPF - Urine Specific [place] September 04, 2014 9:34pm <=1.005 L - [...] Negative Bryan Name: JESSICA OSBORNE Unit #: [id number] : 1975 Sex: F Loc / Svc: ED DOS: 09/04/14 Signed Report #: [id number] DIAGNOSTIC IMAGING REPORT TYPE OF EXAM: CHEST, [...] completed 07/25/14 EMERGENCY DEPT VISIT completed 07/25/14 [id number]"INJECTION, DIAZEPAM, UP TO 5 MG" completed 07/25/14 [...] completed 08/15/14 EMERGENCY DEPT VISIT completed 08/15/14 [id number] ITEM OR SERVICE completed 08/15/14 [id number] ITEM OR SERVICE completed 08/15/14 [id number] ITEM OR SERVICE completed 08/15/14 [id number]"INJECTION, LORAZEPAM, 2 MG" completed 08/15/14 CHEST X-RAY [...] completed 09/04/14 EMERGENCY DEPT VISIT completed 09/04/14 [id number] ITEM OR SERVICE completed 09/04/14 [id number] ITEM OR SERVICE completed 09/04/14 [id number]"INFUSION, NORMAL SALINE SOLUTION , 1000 CC" completed 09/04/14 ROUTINE VENIPUNCTURE completed 09/23/14 ASSAY OF LITHIUM completed 09/23/14 EMERGENCY DEPT VISIT completed 09/29/14 Encounters Encounter Location Date/Time Departed Emergency Room [facility] 10/16/14 3:36pm Departed Emergency Room [facility] 09/29/14 3:54pm Registered Clinic [facility] 09/23/14 8:12am Departed Emergency Room [facility] 09/04/14 9:28pm Departed Emergency Room [facility] 08/15/14 7:56pm Departed Emergency Room [facility] 07/25/14 4:06pm Recent Diagnosis
--- NOTE | 2016-12-22 12:01 | NUR ---
STATUS PATIENT IS RESTING IN BED WITH FAMILY AT BEDSIDE. THIS RN ASKED PATIENT IF SHE TOOK THE CLONAZEPAM WITH THE INTENT TO HARM HERSELF. PATIENT STATED, "I ONLY TOOK 1 CLONAZEPAM DUE TO HAVING A PANIC ATTACK".
--- NOTE | 2016-12-22 12:07 | ERPDOC ---
Departure Disposition Decision Date: Dec 22, 2016 Disposition Decision Time: 14:48 Disposition: 65 TO [place] Impression Impression Impression: Primary Impression: Hallucinations Additional Impression: Depression Severity: Moderate Condition: Stable Seen By: Mid-level only Referrals: LORI GO APRN (Family) Patient Instructions: Depression (ED) Problems/Meds/Labs Reviewed?: Yes Medications reviewed and manag: Yes Follow up care ordered?: Yes Mental Status: Alert HPI - Psychosocial General Chief Complaint: Suicide Ideation/Attempt Stated Complaint: PSYCH EVAL Time Seen by MD: 12:07 Source: patient, family HPI - Psychosocial Initial Comments 41-year-old female brought to the ER for generalized weakness, confusion, and having visual/auditory hallucinations. Patient's family brings patient to ER today for medical clearance for [facility]. Patient was in our ER last night for hallucinations and had labs, CT of head and chest x-ray done with no acute findings. Labs were normal at that time. Family states they went to [facility] today to see about getting patient admitted and was sent here. Family states patient has had increasing hallucinations and generalized weakness over last 2 weeks. Patient has not followed with her PCP. Patient's father states she does see a therapist at [facility]. Father also states patient only lies in bed daily drinking Pepsi and smoking cigarettes. Patient states that she has had some generalized body aches in her arms and legs and reports some left calf tenderness. Patient denies any suicidal ideation. Family states that patient has not been eating much " of anything" for past 2 weeks. Occurred At: home Allergies: Coded Allergies: bupropion (Verified Allergy, Unknown, 12/21/16) citalopram (Verified Allergy, Unknown, 12/21/16) ziprasidone HCl (Verified Allergy, Unknown, 12/21/16) ziprasidone mesylate (Verified Allergy, Unknown, 12/21/16) Past History Past Medical History Metabolic: hypercholesterolemia, hypertension ENMT: dental problems Cardiac: OH, DENIES: angina Respiratory: COPD, asthma, pulmonary embolus GI: GERD, IBS, ulcers Female: UTI, kidney stones Neurological: chronic disability Musculoskeletal: osteoarthritis Psychological: alcohol abuse, anxiety, bipolar, depression, drug abuse, personality disorder, suicide attempt Surgical History Cardiac: cardiac cath Reproductive/: D&C, , hysterectomy Family History Family PMH: FOUND: CAD, [place], aortic aneurysm, cancer, diabetes, hypercholesterolemia, hypertension, hypothyroidsim Vaccines Hx Influenza Vaccination: Yes (04/2015) Hx Pneumococcal Vaccination: No Hx Tetanus Diptheria: No Hx Tetanus, Diptheria, Pertuss: No Social History # of Packs/Tins per Day: 2.0 # of Years: 20 Second Hand Exposure: Yes Substance Use Type: does not use Alcohol Intake: occasionally Sexuality: male partner Household Members: children Service: No Current Occupational Status: disabled Occupational Hazard: No Advance Directives: Yes Full Code Review of Systems Constitutional Constitutional: fatigue, weakness (generalized weakness), DENIES: chills, dizziness, fever Eyes General: DENIES: erythema, exudate Lids/Accessories: DENIES: erythema, swelling ENMT Ears: DENIES: pain Sinuses: DENIES: congestion, rhinorrhea Mouth/Throat: DENIES: sore throat Cardiovascular Cardiac: DENIES: chest pain, murmur Rhythm/Rate: DENIES: palpitations Pulmonary Respiratory: DENIES: cough, dyspnea GI Upper Abdomen: DENIES: nausea, pain, vomiting Lower Abdomen: DENIES: diarrhea, pain General: DENIES: dysuria, pain Musculoskeletal General: pain, see HPI, DENIES: joint pain, tenderness Integumentary Skin: DENIES: color change, itching, rash Neurological General: DENIES: ataxia, change in strength, numbness, paralysis/paresis, weakness Psychiatric Psychiatric: depression, hallucinations, DENIES: anxiety, nervousness Physical Exam General General Nourishment: well nourished, well developed, no acute distress, adult, obese General Body Habitus: disheveled Vitals and Pain First Documented Vital Signs Date Time Temp Pulse Resp B/P Pulse Ox O2 Delivery O2 Flow Rate FiO2 12/22/16 10:40 97.5 82 20 111/64 92 Room Air 12/22/16 13:40 2.00 Weight: Kilograms: Height (feet): 5 Height (inches): 4.00 Triage Pain Scale: Eyes (brief) Eyes Brief: found: EOMI, PERRL ENMT (brief) ENMT Brief: FOUND: TM clear, TM good light reflex, mucosa moist, NOT FOUND: nasal exudate, nasal swelling, pharnyx erythema Neck (brief) Neck: FOUND: trachea midline, NOT FOUND: adenopathy, tenderness, thyromegaly Respiratory (brief) Respiratory: FOUND: clear all bates, equal bilaterally, symmetrical Cardiovascular (brief) Cardiac: FOUND: regular rate, regular rhythm Abdomen (brief) Abdominal Brief: FOUND: bowel normo active x4, soft, NOT FOUND: tender Musculoskeletal Joint : Side: Bilateral Joint: hip, knee, ankle Joint Findings: FOUND: no abnormalities Extremity : Side: Left Extremity: leg Extremity Findings: FOUND: pain (mild TTP left calf), NOT FOUND: deformity, discoloration, swelling Back: NOT FOUND: spasm, spine point tenderness, tenderness Integumentary (brief) Integumentary Brief: FOUND: dry, pink, warm Neurologic (brief) Neurological Brief: FOUND: motor-no gross deficits, sensory-no gross deficits Psychiatric (brief) Psychiatric Brief: FOUND: oriented, other (somnolent but easily awakes to voice ) Differential Diagnoses Considering: Anxiety, Bipolar, Borderline PD, Delirium, Dementia, Depression, Hallucinations, Alcohol Intoxication, Other Intoxication, Acute Psychosis Progress Results/Orders Orders Procedure Category Date Status Time Iv Lock (Ed Only) EDM 12/22/16 Transmitted 12:15 Nothing By Mouth (Ed EDM 12/22/16 Transmitted Only) 12:15 Cbc W/Auto LAB 12/22/16 Complete Diff-Reflex Manual 12:15 Cmp - Comprehensive LAB 12/22/16 Complete Metabolic 12:15 Ethanol LAB 12/22/16 Complete 12:15 Drug Screen LAB 12/22/16 Complete Urine-Test At [facility] 12:15 Acetaminophen LAB 12/22/16 Complete 12:15 Salicylate LAB 12/22/16 Complete 12:15 Ua, Dip Wreflex LAB 12/22/16 Complete [facility] [facility] [employer] Professor 12:15 Tsh - Thyroid Stim LAB 12/22/16 Complete Hormone 12:15 D-Dimer LAB 12/22/16 Complete Normal Saline (Normal PHA 12/22/16 Complete Saline Iv) 15:15 Lab Results Laboratory Tests Test 12/22/16 11:03 12/22/16 12:45 12/22/16 12:53 12/22/16 13:18 White Blood Count 9.7T/MM3 Red Blood Count 4.91M/MM3 Hemoglobin 14.0GM/DL Hematocrit 43.6% Mean Corpuscular Volume 88.8UM3 Mean Corpuscular Hemoglobin 28.5UUG Mean Corpuscular Hemoglobin Concent 32.1GM/DL RDW Standard Deviation 40.8FL Platelet Count 212T/MM3 Mean Platelet Volume 11.9UM3 Immature Granulocyte % (Auto) 0.1% Neutrophils (%) (Auto) 69.2% Lymphocytes (%) (Auto) 19.3% Monocytes (%) (Auto) 9.8% Eosinophils (%) (Auto) 1.3% Basophils (%) (Auto) 0.3% Absolute Immature Granulocyte (auto 0.01T/MM3 Absolute Neutrophils (auto) 6.7T/MM3 Absolute Lymphocytes (auto) 1.9T/MM3 Absolute Monocytes (auto) 1.0T/MM3 Absolute Eosinophils (auto) 0.1T/MM3 Absolute Basophils (auto) 0.0T/MM3 D-Dimer < 150NG/ML Turbidity < 20 Sodium Level 144MEQ/L Potassium Level 3.9MEQ/L Chloride Level 104MEQ/L Carbon Dioxide Level 26MEQ/L Anion Gap 14MEQ/L Blood Urea Nitrogen 4.0MG/DL Creatinine 1.0MG/DL Glomerular Filtration Rate Calc 62 BUN/Creatinine Ratio 4RATIO Glucose Level 95MG/DL Calculated Osmolality 274MOSM/KG Calcium Level 9.3MG/DL Total Bilirubin 0.60MG/DL Icterus Index < 2 Aspartate Amino Transf (AST/SGOT) 27U/L Alanine Aminotransferase (ALT/SGPT) 33U/L Alkaline Phosphatase 88U/L Total Protein 6.9G/DL Albumin 3.6G/DL Globulin 3.3G/DL Albumin/Globulin Ratio 1.1RATIO Thyroid Stimulating Hormone (TSH) 1.31MIU/L Chemistry Specimen Hemolysis < 15 Salicylates Level < 1.0MG/DL Acetaminophen Level < 10UG/ML Alcohol, Quantitative <10MG/DL Urine Collection Type Cleancatch-midstream Urine Color Yellow Urine Turbidity Clear Urine pH 5.5 Urine Specific [place] <=1.005 Urine Protein Negative Urine Glucose (UA) Negative Urine Ketones Negative Urine Blood Negative Urine Nitrite Negative Urine Bilirubin Negative Urine Urobilinogen 0.2EU/DL Urine Leukocyte Esterase Negative Urinalysis Comment Microscopic not ind. Urine Opiates Screen NegativeNG/ML Urine Oxycodone Screen NegativeNG/ML Urine Methadone Screen NegativeNG/ML Urine Propoxyphene Screen NegativeNG/ML Urine Barbiturates Screen NegativeNG/ML Urine Tricyclic Antidepressants NegativeNG/ML Urine Phencyclidine Screen NegativeNG/ML Urine Amphetamines Screen NegativeNG/ML Urine Methamphetamines Screen NegativeNG/ML Urine Benzodiazepines Screen NegativeNG/ML Urine Cocaine Screen NegativeNG/ML Urine Cannabinoids Screen NegativeNG/ML Lab Scanned Report REFERENCE [id number] Medications Current ED Medications Sodium Chloride (Normal Saline IV) 1,000 ml @ 0 mls/hr Q0M ONCE IV Last administered on 12/22/16t 15:10; Start 12/22/16 at 15:15; Stop 12/22/16 at 15:16 ; Status DC Progress Progress Labs are unremarkable Patient has normal albumin and total protein which is consistent with someone eating regularly. Patient's labs indicate that she is well-hydrated. Patient' s UDS does not indicate any substance abuse that can be detected however I cannot rule out that she has not been using some other substance that might be hallucinogenic based on patient's past medical history. Jessica's sister called and spoke with me stating that Jessica's medication are "laid out for 4 days at a time, she takes what she wants" in no particular order. Sister says that patient will urinate in a drawer and makes no attempt to care for herself. I discussed patient's labs with her and her family and answered question in detail. Patient is able to get up an ambulate to bathroom. Patient is initially a little unsteady on her feet because she had to be awaken to get up however after being up she was no longer unsteady. Consult/PCP Consult/PCP : Physician Contacted: Dr. Spaulding Time Called: 14:48 Type of discussion: Admit Discussion/PCP Discussion Details I discussed patient HPI, PMH, labs, VS and exam findings with Dr. Spaulding at [facility]. Dr. Spaulding will accept patient and [facility]. He said that he does not care patient comes by private vehicle or ambulance it's totally after patient's family and they're comfortable bringing her in private vehicle. FÉLIX SIN APRN Dec 22, 2016 12:07
--- NOTE | 2016-12-22 12:10 | NUR ---
PROVIDER Yoni SIN MINE WEDGE SAWYER IN TO SEE PATIENT.
[2016-12-22 12:23] LABS: BASOPHILS % (AUTO) 0.3 % (0-2); EOSINOPHILS # (AUTO) 0.1 T/MM3 (0-0.5); EOSINOPHILS % (AUTO) 1.3 % (0-4); HCT - HEMATOCRIT 43.6 % (36-46); IMMATURE GRANULOCYTE # (AUTO) 0.01 T/MM3 (0.00-0.03); IMMATURE GRANULOCYTE % (AUTO) 0.1 % (0.0-0.5); LYMPHOCYTES # (AUTO) 1.9 T/MM3 (1-4.8); LYMPHOCYTES % (AUTO) 19.3 % (23-45); MEAN CORPUSCULAR HGB 28.5 UUG (26-34); MEAN CORPUSCULAR HGB CONC(MCHC 32.1 GM/DL (31-37); MEAN CORPUSCULAR VOLUME 88.8 UM3 (80-100); MEAN PLATELET VOLUME 11.9 UM3 (9.4-12.4); MONOCYTES % (AUTO) 9.8 % (0-9.0); NEUTROPHILS #(AUTO)-ABSOLUTE 6.7 T/MM3 (1.8-7.7); NEUTROPHILS % (AUTO) 69.2 % (33-66); RED BLOOD COUNT 4.91 M/MM3 (4.00-5.20); WBC - WHITE BLOOD COUNT 9.7 T/MM3 (4.5-11.0)
[2016-12-22 12:27] LABS: ALBUMIN 3.6 G/DL (3.5-5.0); ALBUMIN/GLOBULIN RATIO 1.1 RATIO (1.1-2.2); ALKALINE PHOSPHATASE 88 U/L (38-126); ALT (SGPT) 33 U/L (9-52); ANION GAP 14 MEQ/L (5-15); AST (SGOT) 27 U/L (14-36); BUN/CREATININE RATIO 4 RATIO (6-26); CALCIUM 9.3 MG/DL (8.4-10.2); CHLORIDE 104 MEQ/L (98-107); CO2 - CARBON DIOXIDE 26 MEQ/L (22-30); GLOMERULAR FILTRATION RATE 62; GLUCOSE 95 MG/DL (65-110); POTASSIUM 3.9 MEQ/L (3.6-5); SODIUM 144 MEQ/L (134-144); TOTAL PROTEIN 6.9 G/DL (6.3-8.2)
[2016-12-22] MEDS ORDERED: NORMAL SALINE 1,000 ML IV ONE ×2 (12:30→15:15)
[2016-12-22 12:33] LABS: ACETAMINOPHEN < 10 UG/ML (10-30); ETHANOL <10 MG/DL (<10); SALICYLATE < 1.0 MG/DL (2-20)
[2016-12-22 12:58] LABS: THYROID STIM HORMONE-TSH 1.31 MIU/L (0.47-4.68)
--- NOTE | 2016-12-22 13:04 | NUR ---
STATUS PATIENT IS RESTING IN BED WITHOUT DISTRESS NOTED. FAMILY AT BEDSIDE.
[2016-12-22 13:11] LABS: AMPHETAMINE SCREEN,URINE NEGATIVE; BARBITURATE SCREEN,URINE NEGATIVE; BENZODIAZEPINES SCREEN,URINE NEGATIVE; CANNABINOID SCREEN,URINE NEGATIVE; COCAINE SCREEN,URINE NEGATIVE; METHADONE SCREEN, URINE NEGATIVE; METHAMPHETAMINE SCREEN, URINE NEGATIVE; OPIATE SCREEN,URINE NEGATIVE; PHENCYCLIDINE SCREEN,URINE NEGATIVE; TRICYCLIC ANTIDEPRESSANT,URINE NEGATIVE
[2016-12-22 13:13] LABS: BLOOD, URINE NEGATIVE (NEGATIVE); COLOR,URINE YELLOW (YELLOW); LEUKOCYTE ESTERASE ,URINE NEGATIVE (NEGATIVE); NITRITE,URINE NEGATIVE (NEGATIVE); UROBILINOGEN,URINE 0.2 EU/DL (NORMAL)
--- NOTE | 2016-12-22 14:13 | NUR ---
STATUS PATIENT STATED THAT SHE NEEDED TO GO TO BATHROOM. THIS RN ASSISTED PATIENT TO BSC. PATIENT WAS NOT ABLE TO URINATE, STATED THAT SHE WOULD TRY AGAIN AT "11:00". PATIENT WAS EDUCATED ON TIME.
[2016-12-22 16:00] VITALS: BP 134/74; PULSE 75; RESP 14; TEMP 97.5; O2SAT 95
== END 2016-12-22 16:00 ==
LOC: ED 10:26
DX: Z02.2 Encounter for examination for admission to residential institution (principal); R44.1 Visual hallucinations; R44.0 Auditory hallucinations; R41.0 Disorientation, unspecified; R53.1 Weakness
CPT/HCPCS: 51701; 80053; 80306; 80307; 81003; 84443; 85025; 85379; 96360; 96361; 99284; J7030